=== PATIENT | male | born 1960 | race Caucasian/White ===

== ENCOUNTER → 2017-08-22 | Outpatient (CLI) | payer MEDICAID | LOC: M CARPUL 13:53 | DX: R06.00 Dyspnea, unspecified (principal) | CPT/HCPCS: 94060 ==

== ENCOUNTER → 2017-09-02 | Outpatient (CLI) | payer MEDICAID | LOC: M RAD 10:48 | DX: Z12.2 Encounter for screening for malignant neoplasm of respiratory organs (principal); F17.218 Nicotine dependence, cigarettes, with other nicotine-induced disorders; J84.10 Pulmonary fibrosis, unspecified | CPT/HCPCS: G0297 ==

== ENCOUNTER → 2017-09-15 | Outpatient (CLI) | payer MEDICAID | LOC: M SLEEP 20:00 | DX: R40.0 Somnolence (principal) | CPT/HCPCS: 95810 ==

== ENCOUNTER → 2017-09-24 | Outpatient (CLI) | payer MEDICAID ==
[~2017-09-24] MED LIST: METHACHOLINE KIT (J7674) INH
== END ==
LOC: M CARPUL 13:29
DX: R06.00 Dyspnea, unspecified (principal)
CPT/HCPCS: J7674

== ENCOUNTER → 2017-10-09 | Outpatient (REF) | payer OTHER ==
[2017-10-09 13:58] LABS: VITAMIN B12 LEVEL 361 PG/ML
[2017-10-09 13:59] LABS: FOLATE 15.7 NG/ML
[2017-10-09 14:32] LABS: ESTIMATED AVERAGE GLUCOSE 126 MG/DL (60-110)
[2017-10-09 14:38] LABS: TOTAL PROTEIN 7.7 GM/DL (6.4-8.2)
[2017-10-10 14:19] LABS: ALBUMIN 4.91 GM/DL (3.29-5.55); ALBUMIN % 63.8 % (55.8-66.1); ALPHA-1-GLOBULIN % 3.9 % (2.9-4.9); ALPHA-2-GLOBULINS 0.72 GM/DL (0.42-0.99); ALPHA-2-GLOBULINS % 9.3 % (7.1-11.8); BETA-1-GLOBULINS 0.48 GM/DL (0.28-0.60); BETA-1-GLOBULINS % 6.2 % (4.7-7.2); BETA-2-GLOBULINS % 5.2 % (3.2-6.5); GAMMA GLOBULIN % 11.6 % (11.1-18.8); GAMMA GLOBULINS 0.89 GM/DL (0.65-1.58)
[2017-10-14 14:10] LABS: CERULOPLASMIN 19.5 mg/dL (16.0-31.0); COPPER PLASMA 80 ug/dL (72-166); LEAD BLOOD ADULT 2 ug/dL (0-19); MERCURY LEVEL None Detected ug/L (0.0-14.9); VITAMIN B1 LEVEL WHOLE BLOOD 157.2 nmol/L (66.5-200.0); VITAMIN B6,PYRIDOXAL PHOSPHATE 17.1 ug/L (5.3-46.7); VITAMIN E LEVEL 12.5 mg/L (5.3-17.5)
== END ==
LOC: M LABNEURO 10:26
DX: G62.9 Polyneuropathy, unspecified (principal); E11.9 Type 2 diabetes mellitus without complications; E51.9 Thiamine deficiency, unspecified; E53.8 Deficiency of other specified B group vitamins; E56.0 Deficiency of vitamin E
CPT/HCPCS: 82525

== ENCOUNTER → 2017-11-24 | Outpatient (CLI) | payer OTHER | LOC: M SLEEP 20:00 | DX: G47.33 Obstructive sleep apnea (adult) (pediatric) (principal) | CPT/HCPCS: 95811 ==

== ENCOUNTER → 2018-02-20 | Outpatient (CLI) | payer OTHER ==
[2018-02-20 12:16] LABS: BASO % 0.1 % (0.0-1.0); EOS # 0.5 10^3/uL (0.0-0.50); EOS % 6.2 % (0.0-3.0); HEMATOCRIT 42.3 % (42.0-52.0); HEMOGLOBIN 14.8 g/dl (13.5-17.5); IMMATURE GRANULOCYTE % 0.4 % (0-3.0); INR 0.97; LYMPH # 1.8 10^3/uL (1.5-4.5); LYMPH % 25.2 % (24.0-44.0); MEAN CORPUSCULAR HEMOGLOBIN 30.3 pg (27.0-33.0); MEAN CORPUSCULAR VOLUME 86.5 fl (80.0-96.0); MONO # 0.6 10^3/uL (0.0-0.8); MONO % 8.5 % (0.0-5.0); NEUTROPHILS # 4.4 10^3/uL (1.8-7.7); NEUTROPHILS % 59.6 % (36.0-66.0); PLATELET COUNT, AUTOMATED 215 10^3/uL (150-450); RED BLOOD COUNT 4.89 10^6/uL (4.30-6.10); RED CELL DISTRIBUTION WIDTH 12.2 % (11.5-14.5); WHITE BLOOD COUNT 7.3 10^3/uL (4.0-10.0)
[2018-02-20 12:17] LABS: PARTIAL THROMBOPLASTIN TIME 29.2 SECONDS (25.4-37.6)
[2018-02-20 12:43] LABS: ALBUMIN 4.1 GM/DL (3.2-5.2); ALBUMIN/GLOBULIN RATIO 1.32 (1.00-1.93); ALKALINE PHOSPHATASE 78 U/L (45-117); ALT/SGPT 34 U/L (12-78); ANION GAP 9 MEQ/L (8-16); AST/SGOT 20 U/L (7-37); BILIRUBIN,TOTAL 0.6 MG/DL (0.2-1.0); BLOOD UREA NITROGEN 20 MG/DL (7-18); CALCIUM LEVEL 9.3 MG/DL (8.5-10.1); CARBON DIOXIDE LEVEL 28 MEQ/L (21-32); CHLORIDE LEVEL 105 MEQ/L (98-107); GLOMERULAR FILTRATION RATE > 60.0 (>56); GLUCOSE, FASTING 90 MG/DL (70-100); POTASSIUM SERUM 3.9 MEQ/L (3.5-5.1); SODIUM LEVEL 142 MEQ/L (136-145); TOTAL PROTEIN 7.2 GM/DL (6.4-8.2)
[2018-02-20 12:48] LABS: COLLAGEN EPINEPHRINE 115 SECONDS (74-162)
== END ==
LOC: M LAB 10:33
DX: Z01.818 Encounter for other preprocedural examination (principal)
CPT/HCPCS: 71046

== ENCOUNTER 2018-03-10 06:03 | Inpatient (IN) | payer OTHER ==
[2018-03-10] MEDS ORDERED: LR 1,000 ML IV (06:15)
[2018-03-10] MEDS ORDERED: LIDOCAINE 1% MDV 20ML VIAL SQ (06:15)
[2018-03-10] MEDS ORDERED: ONDANSETRON 4MG/2ML VIAL (J2405) As Ordered (07:13)
[2018-03-10] MEDS ORDERED: PROPOFOL 200 MG/20 ML VIAL As Ordered (07:13)
[2018-03-10] MEDS ORDERED: ROCURONIUM BROMIDE 50 MG/5 ML VIAL As Ordered ×2 (07:13→08:51)
[2018-03-10] MEDS ORDERED: LIDOCAINE 2% INJ 100 MG/5 ML SDV (FOR ANES.) As Ordered (07:13)
[2018-03-10] MEDS ORDERED: dexameTHASONE 4 MG/ML 1ML VIAL (J1100) As Ordered ×2 (07:13)
[2018-03-10] MEDS ORDERED: fentaNYL 250 MCG/5 ML INJECTION (J3010) As Ordered (07:14)
[2018-03-10] MEDS ORDERED: MIDAZOLAM INJ 2 MG/2 ML VIAL (J2250) As Ordered (07:14)
[2018-03-10] MEDS ORDERED: ETOMIDATE INJ 20MG/10ML VIAL As Ordered (07:34)
[2018-03-10] MEDS ORDERED: ePHEDrine SULFATE 25 MG/5 ML(5MG/ML) SYRINGE As Ordered (09:03)
[2018-03-10] MEDS: THROMBIN SOLN 20,000 UNITS KIT As Ordered ×2 (09:35→10:53)
[2018-03-10] MEDS: BACITRACIN PWD 50,000 UNITS VIAL As Ordered (09:35)
[2018-03-10] MEDS ORDERED: fentaNYL 100 MCG/2 ML INJECTION (J3010) As Ordered ×2 (11:10→12:16)
[2018-03-10] MEDS: methylPREDNISolone SUSP 40 MG/ML (DEPO-medrol) VIAL (J1030) As Ordered (11:16)
[2018-03-10] MEDS ORDERED: ESMOLOL INJ 100MG/10ML VIAL As Ordered (11:40)
[2018-03-10] MEDS: fentaNYL 100 MCG/2 ML INJECTION (J3010) IV ×4 (12:18→12:40)
[2018-03-10] MEDS ORDERED: ONDANSETRON 4MG/2ML VIAL (J2405) IV ×2 (12:45→13:00)
[2018-03-10] MEDS: LR 1,000 ML IV (12:45)
[2018-03-10] MEDS: MORPHINE 10 MG/ML 1ML VIAL (J2270) IV ×5 (12:48→13:18)
[2018-03-10] MEDS ORDERED: MORPHINE 4 MG/ML 1ML VIAL/SYRINGE (J2270) IV (13:00)
[2018-03-10] MEDS ORDERED: ALBUTEROL 90 MCG/ACT 8GM HFA INHALER INH (13:00)
[2018-03-10] MEDS ORDERED: NEOSTIGMINE 10 MG/10 ML VIAL (J2710) As Ordered (13:29)
[2018-03-10] MEDS ORDERED: GLYCOPYRROLATE INJ 0.2 MG/ML 2 ML VIAL As Ordered ×2 (13:29)
[2018-03-10] MEDS: KCL 20MEQ IN D5/0.45NS 1000ML 1,000 ML IV (14:29)
[2018-03-10] MEDS: GABAPENTIN 300 MG CAP PO ×2 (17:05→22:16)
[2018-03-10] MEDS ORDERED: AMITRIPTYLINE 10 MG TAB PO (18:00)
[2018-03-10] MEDS: diphenhydrAMINE 25 MG CAP PO (18:08)
[2018-03-10] MEDS: FLUTICASONE HFA 220 MCG 12 GM INHALER (FLOVENT) INH (21:49)
[2018-03-10] MEDS: METOPROLOL TART 50 MG TAB PO (22:15)
[2018-03-10] MEDS: MELOXICAM (MOBIC) 7.5 MG TAB PO (23:04)
[2018-03-11] MEDS: KCL 20MEQ IN D5/0.45NS 1000ML 1,000 ML IV ×2 (00:26→01:02)
[2018-03-11] MEDS: diphenhydrAMINE 25 MG CAP PO ×2 (02:13→10:30)
[2018-03-11] MEDS: ACETAMINOPHEN TAB 650MG DOSE (2X325MG) PO (03:05)
[2018-03-11] MEDS: NORCO, ANEXSIA 5/325MG TABLET (HYDROcodone/ACETAMINOPHEN) PO ×3 (03:06→13:50)
[2018-03-11] MEDS: FLUTICASONE HFA 220 MCG 12 GM INHALER (FLOVENT) INH (08:40)
[2018-03-11] MEDS: GABAPENTIN 300 MG CAP PO ×3 (09:39→17:40)
[2018-03-11] MEDS: PANTOPRAZOLE 40MG TAB (PROTONIX) PO (09:39)
[2018-03-11] MEDS: LOSARTAN 50 MG TAB PO (09:39)
[2018-03-11] MEDS: MELOXICAM (MOBIC) 7.5 MG TAB PO (09:39)
[2018-03-11] MEDS: amLODIPine 5 MG TAB PO (09:40)
[2018-03-11] MEDS: TAMSULOSIN 0.4 MG CAP PO (09:40)
[2018-03-11] MEDS: METOPROLOL TART 50 MG TAB PO (09:40)
[2018-03-11] MEDS: hydroCHLOROthiazide 25 MG TAB PO (09:40)
== END 2018-03-11 18:25 | disposition home or self-care (01) | DRG 304 ==
LOC: M OR 06:03 → M MSPAV 13:37
PROC: 0SG30AJ Fusion of Lumbosacral Joint with Interbody Fusion Device, Posterior Approach, Anterior Column, Open Approach (ICD-10-PCS; principal; 2018-03-10 07:30)
DX: M47.16 Other spondylosis with myelopathy, lumbar region (principal); I10 Essential (primary) hypertension; J44.9 Chronic obstructive pulmonary disease, unspecified; R33.9 Retention of urine, unspecified; N40.0 Benign prostatic hyperplasia without lower urinary tract symptoms; I25.10 Atherosclerotic heart disease of native coronary artery without angina pectoris; I25.2 Old myocardial infarction; E78.5 Hyperlipidemia, unspecified; G47.33 Obstructive sleep apnea (adult) (pediatric); K21.9 Gastro-esophageal reflux disease without esophagitis; F41.9 Anxiety disorder, unspecified; Z87.891 Personal history of nicotine dependence; Z79.899 Other long term (current) drug therapy; R00.0 Tachycardia, unspecified; G89.18 Other acute postprocedural pain

== ENCOUNTER 2018-04-07 13:04 | Outpatient (RCR) | payer OTHER, MEDICAID | END 2018-04-18 | LOC: M PT 13:04 | DX: Z51.89 Encounter for other specified aftercare (principal); M47.16 Other spondylosis with myelopathy, lumbar region; M21.371 Foot drop, right foot; M21.372 Foot drop, left foot; M47.892 Other spondylosis, cervical region | CPT/HCPCS: 97110 ==

== ENCOUNTER → 2018-04-07 | Outpatient (CLI) | payer OTHER, MEDICAID | LOC: M RAD 14:38 | DX: M47.16 Other spondylosis with myelopathy, lumbar region (principal) | CPT/HCPCS: 72100 ==

== ENCOUNTER → 2018-12-10 | Outpatient (REF) | payer BC ==
[~2018-12-10] MED LIST changes: +AMIT10TA PO; +AMLO5TAB6 PO; +FLOM0.4C39; +FLUT22IN INH; +GABA600T4 PO; +LOSA100T5 PO; +MELO7.5T7 PO; -METHACHOLINE KIT (J7674) INH; +METO50TA7; +PANT40TA3; +PROAAER10 INH; +ROSU20TA4; +TIZA4CAP6 PO
[2018-12-10 18:15] LABS: ALBUMIN 4.1 GM/DL (3.2-5.2); ALT/SGPT 24 U/L (12-78); BILIRUBIN,TOTAL 0.4 MG/DL (0.2-1.0); BLOOD UREA NITROGEN 13 MG/DL (7-18); C REACTIVE PROTEIN QUANTITATIV < 0.30 MG/DL (0.00-0.30); CALCIUM LEVEL 9.1 MG/DL (8.5-10.1); CARBON DIOXIDE LEVEL 32 MEQ/L (21-32); CHLORIDE LEVEL 103 MEQ/L (98-107); CREATININE FOR GFR 0.86 MG/DL (0.70-1.30); GLOMERULAR FILTRATION RATE > 60.0 (>56); GLUCOSE, FASTING 104 MG/DL (70-100); POTASSIUM SERUM 4.2 MEQ/L (3.5-5.1); SODIUM LEVEL 141 MEQ/L (136-145); TOTAL PROTEIN 7.4 GM/DL (6.4-8.2)
[2018-12-10 18:17] LABS: BASO % 0.2 % (0.0-1.0); EOS # 0.5 10^3/uL (0.0-0.50); EOS % 5.4 % (0.0-3.0); HEMATOCRIT 48.2 % (42.0-52.0); HEMOGLOBIN 15.9 g/dl (13.5-17.5); LYMPH % 21.8 % (24.0-44.0); MEAN CORPUSCULAR HEMOGLOBIN 29.1 pg (27.0-33.0); MEAN CORPUSCULAR VOLUME 88.3 fl (80.0-96.0); MONO # 0.8 10^3/uL (0.0-0.8); MONO % 8.6 % (0.0-5.0); NEUTROPHILS # 5.8 10^3/uL (1.8-7.7); NEUTROPHILS % 63.6 % (36.0-66.0); PLATELET COUNT, AUTOMATED 261 10^3/uL (150-450); RED BLOOD COUNT 5.46 10^6/uL (4.30-6.10); WHITE BLOOD COUNT 9.1 10^3/uL (4.0-10.0)
[2018-12-10 19:11] LABS: ERYTHROCYTE SEDIMENTATION RATE 2 mm/hr (0-20)
== END ==
LOC: M LABNEURO 13:10
PROVIDERS: ATTEND Psychiatry & Neurology Neurology
DX: M35.3 Polymyalgia rheumatica (principal)

== ENCOUNTER 2019-07-03 19:48 | Inpatient (IN) | payer BC ==
[~2019-07-03] VITALS: Ht 186.1 cm; Wt 89.3 kg
[~2019-07-03 19:48] MED LIST changes: -FLOM0.4C39; +FLOM0.4C39 PO; -METO50TA7; +METO50TA7 PO; -PANT40TA3; +PANT40TA3 PO; -ROSU20TA4; +ROSU20TA5 PO
[2019-07-03] MEDS ORDERED: MOM 30ML SUSPENSION UDC PO PRN (20:15)
[2019-07-03] MEDS: DOCUSATE SODIUM 100 MG CAP PO SCH (21:00)
[2019-07-03 22:00] VITALS: BP 148/94
--- NOTE | 2019-07-03 22:06 | HPEPDOC ---
[facility] Medical History & Physical Date of Admission Jul 03, 2019 Date of Service: Jul 03, 2019 Attending Physician: MARY LUNA MD History and Physical TIME OF SERVICE: 10:20 PM CHIEF COMPLAINT: Transfer for physical therapy eval HISTORY OF PRESENT ILLNESS: This is a 59-year-old male who was transferred from [facility] for evaluation by physical therapy. Prior to arrival [facility] he was sitting in his wheelchair smoking. He attempted to throw the cigarette into a can, but missed and as a result, the cigarette landed on his deck. He was concerned that embers may cause a sally on his deck, so he purposely slid out of his wheelchair to put the cigarette out. Thereafter, he had difficulty standing up. He decided to crawl to his house; during the process he slipped, hit his lower lip and sustained abrasions to the lower arms. He denies any other trauma to his head, and denies having any prodromal symptoms such as chest pain, or shortness of breath. 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 At his baseline he can ambulate with rolling walker. He reports attending physical therapy at 3 different facilities in the last few months. He was told he'll be transferred here so he could be evaluated by physical therapy as [facility] does not have a physical therapist during the weekend . Initial vitals at [facility]: Blood pressure: 116/76/, heart rate 89/, respiratory rate 18/O2 91% on room air. Blood work: WBC 13.7, hemoglobin 14.6, platelets 222, sodium 138, potassium 135, chloride 101, bicarbonate 26, BUN 15, creatinine 0.8, glucose 123, GFR greater than 60, calcium 9.6, INR 1.04, CPK 140 X-ray of the left elbow: Unremarkable. CT of the head: Unremarkable REVIEW OF SYSTEMS: 12 point review of systems negative except as listed in HPI PAST MEDICAL/ SURGICAL HISTORY: ALS diagnosed in May 2019 Chronic CAD status post PCI in 2017/ Dyslipidemia Chronic Asthma. BPH Chronic hypertension. Chronic back pain EUNICE. Status post left hernia repair. Status post laminectomy SOCIAL HISTORY: He smokes He does not drink alcohol. He does not use recreational drugs FAMILY HISTORY: Other had lymphoma. Mother had diabetes. Brother after massive heart attack. Another brother after exposure to [employer] [place]. Another brother has diabetes and epilepsy. One of his sisters has diabetes ALLERGIES: Please see below. HOME MEDICATIONS: Please see below. PHYSICAL EXAMINATION: VITAL SIGNS: Please see below. GENERAL APPEARANCE: well nourished well developed /NAD HEENT: NCAT / MMM&P CARDIOVASCULAR: RRR/NMRG LUNGS: CTAB on RA ABDOMEN: soft & NT on palpation MUSCULOSKELETAL: MEGAN x 4 INTEGUMENT: has abrasions on lower lip and posterior aspect of lower arms NEUROLOGICAL: CN 2-12 grossly intact / speech not dysarthric PSYCHIATRIC: A&O / able to understand and follow all commands LABORATORY DATA: See below. MICROBIOLOGY: Please see below. ASSESSMENT: is a 59 yr old M w a PMH Of ALS, Chronic CAD, Dyslipidemia, Chronic Asthma, Chronic HTN & EUNICE who will was admitted for PT eval and possible transfer in pt rehab. PLAN: 1. Debility/deconditioning/ALS. Plan: Admit to medical floor/fall precautions/physical therapy eval/PAF as con sult for possible placement/ 2. Chronic CAD / Dyslipidemia Plan: Resume home meds 3. Chronic Asthma. Stable. Plan: Resume home meds 4. BPH Plan: Resume home meds 5.Chronic hypertension. Plan: Resume home meds 6. Chronic back pain Plan: Resume home meds 7. EUNICE. Plan May use, on CPAP 8. Tobacco abuse. Plan: Nicotine patch/smoking cessation education DVT prophylaxis with Lovenox. Disposition: Possible transfer to residential vs inpatient rehabilitation after more than 2 minutes stay PFS consult has been placed Home Medications Scheduled Amitriptyline HCl (Amitriptyline HCl) 50 Mg Tablet, 50 MG PO QHS Aspirin (Aspirin) 81 Mg Tab.chew, 81 MG PO QHS Cholecalciferol (Vitamin D3) (Vitamin D3) 1,000 Unit Capsule, 1,000 UNIT PO DAILY Clopidogrel Bisulfate (Clopidogrel) 75 Mg Tablet, 75 MG PO DAILY Duloxetine HCl (Duloxetine HCl) 60 Mg Capsule.dr, 60 MG PO DAILY Fluticasone Propionate (Flovent Hfa) 220 Mcg/Act Aer, 1 PUFF INH BID Gabapentin (Gabapentin) 600 Mg Tab, 600 MG PO TID Losartan/Hydrochlorothiazide (Losartan-Hctz 100-25 mg Tab) 1 Tab Tab, 0.5 TAB PO DAILY Metoprolol Tartrate (Metoprolol Tartrate) 50 Mg Tab, 50 MG PO BID Multivitamin (Multivitamins) 1 Each Capsule, 1 CAP PO DAILY Nitroglycerin (Nitroglycerin) 0.4 Mg Tab.subl, 0.4 MG SL NITRO Pantoprazole Sodium (Pantoprazole Sodium) 40 Mg Tab, 40 MG PO DAILY Rosuvastatin Calcium (Rosuvastatin Calcium) 20 Mg Tab, 20 MG PO QHS Tamsulosin HCl (Flomax) 0.4 Mg Cap, 0.4 MG PO QHS Scheduled PRN Albuterol Sulfate (Proair Hfa) 108 Mcg/Act Aer, 2 PUFF INH Q4HP PRN for SHORTNESS OF BREATH Melatonin (Melatonin) 10 Mg Capsule, 10 MG PO QPM PRN for INSOMNIA Tizanidine HCl (Tizanidine HCl) 4 Mg Cap, 4 MG PO BID PRN for MUSCLE SPASMS PATIENT TAKES A SCHEDULED MED, BID Allergies Coded Allergies: TAPE (Verified Allergy, Unknown, 09/23/17) A-FIB/CHADSVASC A-FIB History Current/History of A-Fib/PAF?: No Current PO Anticoag Therapy: No MARY LUNA MD Jul 03, 2019 22:06
[2019-07-03] MEDS ORDERED: AMIT50TA PO (23:04)
[2019-07-03] MEDS ORDERED: NICOTINE 14 MG/24 HR TRANSDERMAL TD PRN (23:15)
[2019-07-03] MEDS ORDERED: NITR0.4S14 SL (23:17)
[2019-07-03] MEDS ORDERED: MULTCAP PO (23:17)
[2019-07-03] MEDS ORDERED: D 101000 PO (23:17)
[2019-07-03] MEDS ORDERED: DULO60CA35 PO (23:17)
[2019-07-03] MEDS ORDERED: ASPI81CH33 PO (23:17)
[2019-07-03] MEDS ORDERED: CLOP75TA2 PO (23:17)
[2019-07-03] MEDS ORDERED: MELA10CA2 PO (23:18)
[2019-07-03 23:23] LABS: HEMATOCRIT 44.9 % (42.0-52.0); HEMOGLOBIN 14.9 g/dl (13.5-17.5); MEAN CORPUSCULAR HEMOGLOBIN 29.7 pg (27.0-33.0); MEAN CORPUSCULAR HGB CONC 33.2 g/dl (32.0-36.5); MEAN CORPUSCULAR VOLUME 89.4 fl (80.0-96.0); PLATELET COUNT, AUTOMATED 259 10^3/uL (150-450); RED BLOOD COUNT 5.02 10^6/uL (4.30-6.10); WHITE BLOOD COUNT 12.1 10^3/uL (4.0-10.0)
[2019-07-03 23:26] LABS: VENOUS BASE EXCESS -6.6 (-2.0-2.0); VENOUS HCO3 15.6 MEQ/L (23.0-27.0); VENOUS O2 SATURATION 99.4 % (60.0-80.0); VENOUS PARTIAL PRESSURE O2 210.6 mmHg (30.0-50.0); VENOUS PH 7.431 UNITS (7.330-7.430); VENOUS STANDARD HCO3 19.2 MEQ/L; VENOUS TOTAL CO2 16.3 MEQ/L (24.0-28.0)
[2019-07-03 23:48] LABS: ALBUMIN 3.7 GM/DL (3.2-5.2); ALT/SGPT 46 U/L (12-78); BILIRUBIN,TOTAL 0.7 MG/DL (0.2-1.0); BLOOD UREA NITROGEN 16 MG/DL (7-18); CALCIUM LEVEL 9.1 MG/DL (8.8-10.2); CARBON DIOXIDE LEVEL 28 MEQ/L (21-32); CHLORIDE LEVEL 108 MEQ/L (98-107); CREATININE FOR GFR 1.03 MG/DL (0.70-1.30); GLOMERULAR FILTRATION RATE > 60.0 (>49); GLUCOSE, FASTING 115 MG/DL (70-100); POTASSIUM SERUM 3.7 MEQ/L (3.5-5.1); SODIUM LEVEL 141 MEQ/L (136-145); TOTAL PROTEIN 7.1 GM/DL (6.4-8.2)
[2019-07-04 00:35] VITALS: BP 144/91
[2019-07-04] MEDS ORDERED: ALBUTEROL 90 MCG/ACT 8GM HFA INHALER INH PRN ×2 (00:45→01:30)
[2019-07-04] MEDS: FLUTICASONE HFA 220 MCG 12 GM INHALER (FLOVENT) INH SCH ×3 (01:45→19:53)
[2019-07-04] MEDS: RAMELTEON 8 MG TAB (ROZEREM) PO SCH ×2 (01:56→20:51)
[2019-07-04] MEDS: ROSUVASTATIN 10 MG TAB (CRESTOR) PO SCH ×2 (01:57→20:51)
[2019-07-04] MEDS: METOPROLOL TART 50 MG TAB PO SCH ×3 (01:57→20:52)
[2019-07-04] MEDS: ASPIRIN 81 MG CHEW TABLET PO SCH ×2 (01:57→20:51)
[2019-07-04] MEDS: TAMSULOSIN 0.4 MG CAP PO SCH ×2 (01:57→20:51)
[2019-07-04] MEDS: AMITRIPTYLINE 50 MG TAB PO SCH ×2 (01:57→20:51)
[2019-07-04] MEDS: GABAPENTIN 300 MG CAP PO SCH ×4 (02:42→20:52)
[2019-07-04 06:00] VITALS: BP 128/83
[2019-07-04] MEDS ORDERED: FLUTICASONE HFA 220 MCG 12 GM INHALER (FLOVENT) INH SCH (08:00)
[2019-07-04] MEDS ORDERED: HEPARIN SOD (PORCINE) 5000 UNITS/ML VIAL SC SCH (09:00)
[2019-07-04] MEDS ORDERED: GABAPENTIN 300 MG CAP PO SCH (09:00)
[2019-07-04] MEDS: PANTOPRAZOLE 40MG TAB (PROTONIX) PO SCH (09:37)
[2019-07-04] MEDS: CLOPIDOGREL 75 MG TAB PO SCH (09:37)
[2019-07-04] MEDS: hydroCHLOROthiazide 12.5 MG CAPSULE PO SCH (09:38)
[2019-07-04] MEDS: DULoxetine 30 MG CAP (CYMBALTA) PO SCH (09:38)
[2019-07-04] MEDS: MULTIVITAMINS/MINERALS THERAP 1 TAB PO SCH (09:38)
[2019-07-04] MEDS: DOCUSATE SODIUM 100 MG CAP PO SCH ×2 (09:38→20:51)
[2019-07-04] MEDS: LOSARTAN 50 MG TAB PO SCH (09:39)
[2019-07-04] MEDS: ENOXAPARIN 40 MG/0.4 ML SYRINGE (J1650) SC SCH (09:39)
[2019-07-04] MEDS: ACETAMINOPHEN TAB 650MG DOSE (2X325MG) PO PRN ×2 (09:42→21:01)
[2019-07-04 14:00] VITALS: BP 120/79
--- NOTE | 2019-07-04 18:16 | IPNPDOC ---
Subjective Date Seen The patient was seen on 07/04/19. Subjective Chief Complaint/HPI generalized weakness Events since last encounter Pt c/o ambulatory dysfunction and generalized weakness Objective Physical Examination General Exam: Positive: Alert, Cooperative, No Acute Distress ENT Exam: Positive: Mucous membr. moist/pink Neck Exam: Positive: Supple Chest Exam: Positive: Clear to auscultation, Normal air movement Heart Exam: Positive: Rate Normal Abdomen Exam: Positive: Normal bowel sounds, Soft Extremity Exam: Negative: Edema Neuro Exam: Positive: Normal Speech, Strength at 5/5 X4 ext Psych Exam: Positive: Mental status NL Assessment /Plan Assessment 59 y/o M with h/o ALS, Chronic CAD, Dyslipidemia, Chronic Asthma, Chronic HTN & EUNICE was admitted for PT eval and possible transfer in pt rehab. Labs reviewed PLAN: #1. Debility/deconditioning/ALS. Plan: fall precautions/physical therapy eval 2. Chronic CAD / Dyslipidemia Plan: home meds 3. Chronic Asthma. Stable. Plan: home meds 4. BPH Plan: home meds 5.Chronic hypertension. Plan: home meds 6. Chronic back pain Plan: home meds 7. EUNICE. CPAP 8. Tobacco abuse. Plan: Nicotine patch/smoking cessation education DVT prophylaxis with Lovenox. will f/u with discharge planning service for possible rehab Plan/VTE VTE Prophylaxis Ordered?: Yes VS, I&O, 24H, [facility] Vital Signs/I&O Vital Signs Date Time Temp Pulse Resp B/P (MAP) Pulse Ox O2 Delivery O2 Flow Rate FiO2 07/04/19 14:00 97.9 64 18 120/79 (93) 95 Room Air I&O- Last 24 Hours up to 6 AM 07/04/19 06:00 Intake Total 0 ml Output Total 300 ml Balance -300 ml Laboratory Data 24H LABS Laboratory Tests 2 07/03/19 23:13: Nucleated Red Blood Cells % (auto) 0.0, Blood Gas Bicarbonate Standard 19.2, Venous Blood pH 7.431H, Venous Blood Partial Pressure CO2 24.0L, Venous Blood Partial Pressure O2 210.6H, Venous Blood Total Carbon Dioxide 16.3L, Venous Blood HCO3 15.6L, Venous Blood Oxygen Saturation 99.4H, Venous Blood Base Excess -6.6L, Anion Gap 5L, Glomerular Filtration Rate > 60.0, Calcium Level 9.1, Total Bilirubin 0.7, Aspartate Amino Transf (AST/SGOT) 24, Alanine Aminotransferase (ALT/SGPT) 46, Alkaline Phosphatase 121H, Total Protein 7.1, Albumin 3.7, Albumin/Globulin Ratio 1.09 07/04/19 04:36: Urine Color YELLOW, Urine Appearance CLEAR, Urine pH 6.0, Urine Specific [place] 1.016, Urine Protein NEGATIVE, Urine Glucose (UA) NEGATIVE, Urine Ketones NEGATIVE, Urine Blood 1+H, Urine Nitrite NEGATIVE, Urine Bilirubin NEGATIVE, Urine Urobilinogen 0.2, Urine Leukocyte Esterase NEGATIVE, Urine WBC (Auto) 1, Urine RBC (Auto) 19H, Urine Hyaline Casts (Auto) 0, Urine Bacteria (Auto) NEGATIVE, Urine Squamous Epithelial Cells 0, Urine Sperm (Auto) CBC/BMP Laboratory Tests 07/03/19 23:13 RICHARD AHUJA MD Jul 04, 2019 18:16
[2019-07-04 22:00] VITALS: BP 125/78
[2019-07-05 06:00] VITALS: BP 129/80
[2019-07-05] MEDS: FLUTICASONE HFA 220 MCG 12 GM INHALER (FLOVENT) INH SCH ×2 (07:32→20:25)
[2019-07-05] MEDS: hydroCHLOROthiazide 12.5 MG CAPSULE PO SCH (08:58)
[2019-07-05] MEDS: LOSARTAN 50 MG TAB PO SCH (08:58)
[2019-07-05] MEDS: CLOPIDOGREL 75 MG TAB PO SCH (08:58)
[2019-07-05] MEDS: PANTOPRAZOLE 40MG TAB (PROTONIX) PO SCH (08:58)
[2019-07-05] MEDS: DULoxetine 30 MG CAP (CYMBALTA) PO SCH (08:58)
[2019-07-05] MEDS: GABAPENTIN 300 MG CAP PO SCH ×3 (08:58→20:46)
[2019-07-05] MEDS: MULTIVITAMINS/MINERALS THERAP 1 TAB PO SCH (08:58)
[2019-07-05] MEDS: DOCUSATE SODIUM 100 MG CAP PO SCH ×2 (08:58→20:45)
[2019-07-05] MEDS: ENOXAPARIN 40 MG/0.4 ML SYRINGE (J1650) SC SCH (08:59)
[2019-07-05] MEDS: METOPROLOL TART 50 MG TAB PO SCH ×2 (08:59→20:45)
[2019-07-05 14:00] VITALS: BP 125/86
--- NOTE | 2019-07-05 16:17 | IPNPDOC ---
Subjective Date Seen The patient was seen on 07/05/19. Subjective Chief Complaint/HPI generalize weakness Events since last encounter Pt is c/o ambulatory dysfunction due to generalized weakness Objective Physical Examination General Exam: Positive: Alert, Cooperative, No Acute Distress Eye Exam: Positive: PERRLA ENT Exam: Positive: Mucous membr. moist/pink Neck Exam: Positive: Supple Chest Exam: Positive: Clear to auscultation, Normal air movement Heart Exam: Positive: Rate Normal Abdomen Exam: Positive: Normal bowel sounds, Soft Extremity Exam: Negative: Edema Skin Exam: Positive: Nl turgor and temperature Neuro Exam: Positive: Normal Speech, Strength at 5/5 X4 ext Psych Exam: Positive: Mental status NL Assessment /Plan Assessment 59 y/o M with h/o ALS, Chronic CAD, Dyslipidemia, Chronic Asthma, Chronic HTN & EUNICE was admitted for PT eval and possible transfer in pt rehab. Labs reviewed PLAN: 1. Debility/deconditioning/ALS. Plan: fall precautions/physical therapy eval supportive care 2. Chronic CAD / Dyslipidemia home meds 3. Chronic Asthma. Stable. home meds 4. BPH home meds 5.hypertension. home meds 6. Chronic back pain home meds 7. EUNICE. CPAP 8. Tobacco abuse. Nicotine patch/smoking cessation education DVT prophylaxis with Lovenox. will f/u with discharge planning service for possible rehab Plan/VTE VTE Prophylaxis Ordered?: Yes VS, I&O, 24H, Fishbone Vital Signs/I&O Vital Signs Date Time Temp Pulse Resp B/P (MAP) Pulse Ox O2 Delivery O2 Flow Rate FiO2 07/05/19 08:59 68 129/80 07/05/19 06:00 97.5 16 95 Room Air I&O- Last 24 Hours up to 6 AM 07/05/19 05:59 Intake Total 1290 ml Output Total 1120 ml Balance 170 ml RICHARD AHUJA MD Jul 05, 2019 16:17
[2019-07-05] MEDS: ROSUVASTATIN 10 MG TAB (CRESTOR) PO SCH (20:45)
[2019-07-05] MEDS: AMITRIPTYLINE 50 MG TAB PO SCH (20:45)
[2019-07-05] MEDS: ASPIRIN 81 MG CHEW TABLET PO SCH (20:45)
[2019-07-05] MEDS: TAMSULOSIN 0.4 MG CAP PO SCH (20:45)
[2019-07-05] MEDS: RAMELTEON 8 MG TAB (ROZEREM) PO SCH (20:46)
[2019-07-05] MEDS: ACETAMINOPHEN TAB 650MG DOSE (2X325MG) PO PRN (20:47)
[2019-07-05 22:00] VITALS: BP 125/85
[2019-07-06 06:00] VITALS: BP 127/78
[2019-07-06] MEDS: FLUTICASONE HFA 220 MCG 12 GM INHALER (FLOVENT) INH SCH ×2 (07:19→22:32)
[2019-07-06] MEDS: ACETAMINOPHEN TAB 650MG DOSE (2X325MG) PO PRN (09:57)
[2019-07-06] MEDS: MULTIVITAMINS/MINERALS THERAP 1 TAB PO SCH (09:57)
[2019-07-06] MEDS: PANTOPRAZOLE 40MG TAB (PROTONIX) PO SCH (09:57)
[2019-07-06] MEDS: CLOPIDOGREL 75 MG TAB PO SCH (09:57)
[2019-07-06] MEDS: LOSARTAN 50 MG TAB PO SCH (09:57)
[2019-07-06] MEDS: GABAPENTIN 300 MG CAP PO SCH ×3 (09:57→21:52)
[2019-07-06] MEDS: ENOXAPARIN 40 MG/0.4 ML SYRINGE (J1650) SC SCH (09:58)
[2019-07-06] MEDS: DOCUSATE SODIUM 100 MG CAP PO SCH ×2 (09:58→21:52)
[2019-07-06] MEDS: METOPROLOL TART 50 MG TAB PO SCH ×2 (09:58→21:52)
[2019-07-06] MEDS: hydroCHLOROthiazide 12.5 MG CAPSULE PO SCH (09:58)
[2019-07-06] MEDS: DULoxetine 30 MG CAP (CYMBALTA) PO SCH (09:58)
[2019-07-06 14:00] VITALS: BP 130/75
--- NOTE | 2019-07-06 17:37 | IPNPDOC ---
Subjective Date Seen The patient was seen on 07/06/19. Subjective Chief Complaint/HPI weakness Events since last encounter Pt still c/o generalized weakness and ambulatory dysfunction due to generalized weakness Objective Physical Examination General Exam: Positive: Alert, Cooperative, No Acute Distress ENT Exam: Positive: Mucous membr. moist/pink Neck Exam: Positive: Supple Chest Exam: Positive: Clear to auscultation, Normal air movement Heart Exam: Positive: Rate Normal Abdomen Exam: Positive: Normal bowel sounds, Soft Extremity Exam: Negative: Edema Skin Exam: Positive: Nl turgor and temperature Neuro Exam: Positive: Normal Speech, Strength at 5/5 X4 ext Psych Exam: Positive: Mental status NL Assessment /Plan Assessment 59 y/o M with h/o ALS, Chronic CAD, Dyslipidemia, Chronic Asthma, Chronic HTN & EUNICE was admitted for PT eval and possible transfer in pt rehab. Labs reviewed PLAN: 1. Debility/deconditioning/ALS. improving fall precautions/physical therapy eval supportive care 2. Chronic CAD / Dyslipidemia home meds 3. Chronic Asthma. Stable. home meds 4. BPH home meds 5.hypertension. home meds 6. Chronic back pain home meds 7. EUNICE. CPAP 8. Tobacco abuse. Nicotine patch/smoking cessation education DVT prophylaxis with Lovenox. will f/u with discharge planning service for possible rehab based on PT eval Plan/VTE VTE Prophylaxis Ordered?: Yes VS, I&O, 24H, Fishbone Vital Signs/I&O Vital Signs Date Time Temp Pulse Resp B/P (MAP) Pulse Ox O2 Delivery O2 Flow Rate FiO2 07/06/19 14:00 97.6 79 16 130/75 (93) 100 07/06/19 06:00 Room Air I&O- Last 24 Hours up to 6 AM 07/06/19 06:00 Intake Total 1040 ml Output Total 300 ml Balance 740 ml RICHARD AHUJA MD Jul 06, 2019 17:37
[2019-07-06 18:00] VITALS: BP 121/81
[2019-07-06] MEDS: RAMELTEON 8 MG TAB (ROZEREM) PO SCH (21:52)
[2019-07-06] MEDS: AMITRIPTYLINE 50 MG TAB PO SCH (21:52)
[2019-07-06] MEDS: ASPIRIN 81 MG CHEW TABLET PO SCH (21:52)
[2019-07-06] MEDS: ROSUVASTATIN 10 MG TAB (CRESTOR) PO SCH (21:52)
[2019-07-06] MEDS: TAMSULOSIN 0.4 MG CAP PO SCH (21:52)
[2019-07-06] MEDS: tiZANidine 4 MG TAB PO PRN (21:53)
[2019-07-06 22:00] VITALS: BP 125/82
[2019-07-07 06:00] VITALS: BP 132/87
[2019-07-07] MEDS: DOCUSATE SODIUM 100 MG CAP PO SCH ×2 (09:17→20:42)
[2019-07-07] MEDS: LOSARTAN 50 MG TAB PO SCH (09:17)
[2019-07-07] MEDS: hydroCHLOROthiazide 12.5 MG CAPSULE PO SCH (09:17)
[2019-07-07] MEDS: METOPROLOL TART 50 MG TAB PO SCH ×2 (09:18→20:43)
[2019-07-07] MEDS: MULTIVITAMINS/MINERALS THERAP 1 TAB PO SCH (09:18)
[2019-07-07] MEDS: ENOXAPARIN 40 MG/0.4 ML SYRINGE (J1650) SC SCH (09:18)
[2019-07-07] MEDS: DULoxetine 30 MG CAP (CYMBALTA) PO SCH (09:18)
[2019-07-07] MEDS: GABAPENTIN 300 MG CAP PO SCH ×3 (09:18→20:43)
[2019-07-07] MEDS: PANTOPRAZOLE 40MG TAB (PROTONIX) PO SCH (09:18)
[2019-07-07] MEDS: CLOPIDOGREL 75 MG TAB PO SCH (09:18)
[2019-07-07] MEDS: tiZANidine 4 MG TAB PO PRN (09:26)
[2019-07-07] MEDS: FLUTICASONE HFA 220 MCG 12 GM INHALER (FLOVENT) INH SCH ×2 (09:35→20:16)
[2019-07-07 14:00] VITALS: BP 130/75
[2019-07-07] MEDS: ASPIRIN 81 MG CHEW TABLET PO SCH (20:42)
[2019-07-07] MEDS: ROSUVASTATIN 10 MG TAB (CRESTOR) PO SCH (20:42)
[2019-07-07] MEDS: AMITRIPTYLINE 50 MG TAB PO SCH (20:42)
[2019-07-07] MEDS: TAMSULOSIN 0.4 MG CAP PO SCH (20:42)
[2019-07-07] MEDS: ACETAMINOPHEN TAB 650MG DOSE (2X325MG) PO PRN (20:43)
[2019-07-07] MEDS: RAMELTEON 8 MG TAB (ROZEREM) PO SCH (20:43)
--- NOTE | 2019-07-07 20:54 | IPNPDOC ---
Subjective Date Seen The patient was seen on 07/07/19. Subjective Chief Complaint/HPI Patient had no overnight events. Reports baseline lightheadedness upon ambulation. Pending placement. Objective Physical Examination General Exam: Positive: Alert, Cooperative, No Acute Distress ENT Exam: Positive: Mucous membr. moist/pink Neck Exam: Positive: Supple Chest Exam: Positive: Clear to auscultation, Normal air movement Heart Exam: Positive: Rate Normal Abdomen Exam: Positive: Normal bowel sounds, Soft Extremity Exam: Negative: Edema Skin Exam: Positive: Nl turgor and temperature Neuro Exam: Positive: Normal Speech, Strength at 5/5 X4 ext Psych Exam: Positive: Mental status NL Other physical findings PHYSICAL EXAMINATION: VITAL SIGNS: Please see below. GENERAL: male in No distress HEENT: Normocephalic, atraumatic, moist mucous membranes NECK: Supple CARDIOVASCULAR EXAMINATION: S1, S2 RESPIRATORY EXAMINATION: CTAB ABDOMINAL EXAMINATION: Soft, nontender, nondistended, positive bowel sounds EXTREMITIES: no edema SKIN: No rash NEUROLOGICAL EXAMINATION: Alert and oriented 3, no focal deficits, slight weakness on the left lower extremity, finger to nose bilaterally intact, h eel-to-ivan bilaterally intact, no dysdiadochokinesia PSYCHIATRIC EXAMINATION: Calm and cooperative, appropriate affect Assessment /Plan Assessment Pt is a 59 yo M with PMH of ALS, Chronic CAD, Dyslipidemia, Chronic Asthma, Chronic HTN & EUNICE was admitted for PT eval and possible transfer in pt rehab. #Deconditioning/ALS: Pending placement #Chronic CAD / Dyslipidemia: continue home meds #Chronic Asthma: continue home meds #BPH: continue home meds #HLD: Continue home meds #HTN: continue home meds #Chronic back pain: continue home meds #EUNICE: continue CPAP #Tobacco abuse: Nicotine patch/smoking cessation education DVT ppx: Enoxaparin. Full code Plan/VTE VTE Prophylaxis Ordered?: Yes VS, I&O, 24H, Fishbone Vital Signs/I&O Vital Signs Date Time Temp Pulse Resp B/P (MAP) Pulse Ox O2 Delivery O2 Flow Rate FiO2 07/07/19 20:43 96 142/88 07/07/19 14:00 97.3 18 98 Room Air I&O- Last 24 Hours up to 6 AM 07/07/19 06:00 Intake Total 1554 ml Output Total 0 ml Balance 1554 ml GEOVANNY RODRIGUEZ MD 19, 2019 20:54
[2019-07-07 22:00] VITALS: BP 142/88
[2019-07-08 06:00] VITALS: BP 130/88
[2019-07-08 08:45] VITALS: BP 133/90
[2019-07-08] MEDS: FLUTICASONE HFA 220 MCG 12 GM INHALER (FLOVENT) INH SCH ×2 (08:50→19:44)
[2019-07-08] MEDS: ENOXAPARIN 40 MG/0.4 ML SYRINGE (J1650) SC SCH (09:21)
[2019-07-08] MEDS: CLOPIDOGREL 75 MG TAB PO SCH (09:24)
[2019-07-08] MEDS: GABAPENTIN 300 MG CAP PO SCH ×3 (09:25→21:56)
[2019-07-08] MEDS: DULoxetine 30 MG CAP (CYMBALTA) PO SCH (09:25)
[2019-07-08] MEDS: MULTIVITAMINS/MINERALS THERAP 1 TAB PO SCH (09:27)
[2019-07-08] MEDS: METOPROLOL TART 50 MG TAB PO SCH ×2 (09:27→21:58)
[2019-07-08] MEDS: PANTOPRAZOLE 40MG TAB (PROTONIX) PO SCH (09:27)
[2019-07-08] MEDS: LOSARTAN 50 MG TAB PO SCH (09:27)
[2019-07-08] MEDS: DOCUSATE SODIUM 100 MG CAP PO SCH ×2 (09:27→21:56)
[2019-07-08] MEDS: hydroCHLOROthiazide 12.5 MG CAPSULE PO SCH (10:33)
--- NOTE | 2019-07-08 13:44 | REP ---
RIGHT SHOULDER SERIES: Three views. HISTORY: Right shoulder pain. Evaluate for fracture. Swelling. No comparison study. FINDINGS: Three views right shoulder demonstrate normal alignment of the glenohumeral and acromioclavicular joints. Periarticular soft tissues are unremarkable. There is mild narrowing of the acromioclavicular joint. No fracture or subluxation is seen. IMPRESSION: Mild AC joint narrowing consistent with osteoarthritis. No erosive change seen. No fracture noted. Electronically Signed by Regis Johnson MD 07/08/2019 03:25 P
[2019-07-08 13:49] VITALS: BP 125/80
[2019-07-08 14:00] VITALS: BP 126/82
--- NOTE | 2019-07-08 21:22 | IPNPDOC ---
Date Seen The patient was seen on 07/08/19. Progress Note SUBJECTIVE: Patient had no overnight events, he still complains of right shoulder pain which appears to be controlled with current pain management, pat ient appears to be anxious. OBJECTIVE PHYSICAL EXAMINATION: VITAL SIGNS: Please see below. GENERAL: male in No distress HEENT: Normocephalic, atraumatic, moist mucous membranes NECK: Supple CARDIOVASCULAR EXAMINATION: S1, S2 RESPIRATORY EXAMINATION: CTAB ABDOMINAL EXAMINATION: Soft, nontender, nondistended, positive bowel sounds EXTREMITIES: no edema, b/l UE FROM, no bruising SKIN: No rash NEUROLOGICAL EXAMINATION: Alert and oriented 3, no focal deficits, slight weakness on the left lower extremity, finger to nose bilaterally intact, [id number] bilaterally intact, no dysdiadochokinesia PSYCHIATRIC EXAMINATION: Calm and cooperative, appropriate affect LABORATORY DATA, IMAGING STUDIES, MICROBIOLOGY: Please see below. DVT prophylaxis ordered?: enox ASSESSMENT AND PLAN: Pt is a 59 yo M with PMH of ALS, Chronic CAD, Dyslipidemia, Chronic Asthma, Chronic HTN & EUNICE was admitted for PT eval and possible transfer in pt rehab. #Deconditioning/ALS: Pending placement #R shoulder pain: X-ray reveals osteoarthritis, placed an orthotic consult, discuss with ortho, fractures, conservative management, trial of naproxen twice a day for 1 week. #Chronic CAD / Dyslipidemia: continue home meds #Chronic Asthma: continue home meds #BPH: continue home meds #HLD: Continue home meds #HTN: continue home meds #Chronic back pain: continue home meds #EUNICE: continue CPAP #Tobacco abuse: Nicotine patch/smoking cessation education DVT ppx: Enoxaparin. Full code dispo: pending placement VS, I&O, 24H, Fishbone Vital Signs/I&O Vital Signs Date Time Temp Pulse Resp B/P (MAP) Pulse Ox O2 Delivery O2 Flow Rate FiO2 07/08/19 14:00 98.0 98 17 126/82 (97) 96 Room Air I&O- Last 24 Hours up to 6 AM 07/08/19 06:00 Intake Total 1744 ml Output Total 1 ml Balance 1743 ml GEOVANNY RODRIGUEZ MD Jul 08, 2019 21:22
[2019-07-08] MEDS: AMITRIPTYLINE 50 MG TAB PO SCH (21:56)
[2019-07-08] MEDS: ASPIRIN 81 MG CHEW TABLET PO SCH (21:56)
[2019-07-08] MEDS: ROSUVASTATIN 10 MG TAB (CRESTOR) PO SCH (21:56)
[2019-07-08] MEDS: TAMSULOSIN 0.4 MG CAP PO SCH (21:56)
[2019-07-08] MEDS: RAMELTEON 8 MG TAB (ROZEREM) PO SCH (21:57)
[2019-07-08] MEDS: tiZANidine 4 MG TAB PO PRN (21:57)
[2019-07-08 22:00] VITALS: BP 126/74
[2019-07-09 06:00] VITALS: BP 124/73
--- NOTE | 2019-07-09 07:40 | IPNPDOC ---
Date Seen The patient was seen on 07/09/19. Progress Note SUBJECTIVE: Patient had no overnight events, no change in right shoulder pain, started on naproxen yesterday 07/08/19. OBJECTIVE PHYSICAL EXAMINATION: VITAL SIGNS: Please see below. GENERAL: male in No distress HEENT: Normocephalic, atraumatic, moist mucous membranes NECK: Supple CARDIOVASCULAR EXAMINATION: S1, S2 RESPIRATORY EXAMINATION: CTAB ABDOMINAL EXAMINATION: Soft, nontender, nondistended, positive bowel sounds EXTREMITIES: no edema, b/l UE FROM, no bruising, tenderness elicited with R internal and external rotation SKIN: No rash NEUROLOGICAL EXAMINATION: Alert and oriented 3, no focal deficits, slight weakness on the left lower extremity, finger to nose bilaterally intact, [id number] bilaterally intact, no dysdiadochokinesia PSYCHIATRIC EXAMINATION: Calm and cooperative, appropriate affect LABORATORY DATA, IMAGING STUDIES, MICROBIOLOGY: Please see below. DVT prophylaxis ordered?: enox ASSESSMENT AND PLAN: Pt is a 59 yo M with PMH of ALS, Chronic CAD, Dyslipidemia, Chronic Asthma, Chronic HTN & EUNICE was admitted for PT eval and possible transfer in pt rehab. #Deconditioning/ALS: Pending placement #R shoulder pain: X-ray reveals osteoarthritis, placed an orthotic consult, discuss with ortho, fractures, conservative management, trial of naproxen twice a day for 1 week. #Chronic CAD / Dyslipidemia: continue home meds #Chronic Asthma: continue home meds #BPH: continue home meds #HLD: Continue home meds #HTN: continue home meds #Chronic back pain: continue home meds #EUNICE: continue CPAP #Tobacco abuse: Nicotine patch/smoking cessation education DVT ppx: Enoxaparin. Full code dispo: pending placement VS, I&O, 24H, Fishbone Vital Signs/I&O Vital Signs Date Time Temp Pulse Resp B/P (MAP) Pulse Ox O2 Delivery O2 Flow Rate FiO2 07/09/19 06:00 97.1 66 20 124/73 (90) 97 07/08/19 14:00 Room Air I&O- Last 24 Hours up to 6 AM 07/09/19 05:59 Intake Total 1080 ml Output Total 0 ml Balance 1080 ml GEOVANNY RODRIGUEZ MD Jul 09, 2019 07:40
[2019-07-09] MEDS: MULTIVITAMINS/MINERALS THERAP 1 TAB PO SCH (08:18)
[2019-07-09] MEDS: GABAPENTIN 300 MG CAP PO SCH ×3 (08:18→21:58)
[2019-07-09] MEDS: ENOXAPARIN 40 MG/0.4 ML SYRINGE (J1650) SC SCH (08:18)
[2019-07-09] MEDS: hydroCHLOROthiazide 12.5 MG CAPSULE PO SCH (08:19)
[2019-07-09] MEDS: CLOPIDOGREL 75 MG TAB PO SCH (08:19)
[2019-07-09] MEDS: METOPROLOL TART 50 MG TAB PO SCH ×2 (08:19→21:59)
[2019-07-09] MEDS: DOCUSATE SODIUM 100 MG CAP PO SCH ×2 (08:19→21:59)
[2019-07-09] MEDS: LOSARTAN 50 MG TAB PO SCH (08:19)
[2019-07-09] MEDS: DULoxetine 30 MG CAP (CYMBALTA) PO SCH (08:20)
[2019-07-09] MEDS: NAPROXEN 250 MG TAB PO SCH ×2 (08:20→21:58)
[2019-07-09] MEDS: PANTOPRAZOLE 40MG TAB (PROTONIX) PO SCH (08:20)
[2019-07-09] MEDS: FLUTICASONE HFA 220 MCG 12 GM INHALER (FLOVENT) INH SCH ×2 (08:22→19:52)
[2019-07-09 14:00] VITALS: BP 128/84
[2019-07-09 20:00] VITALS: BP 132/79
[2019-07-09] MEDS: TAMSULOSIN 0.4 MG CAP PO SCH (21:58)
[2019-07-09] MEDS: ASPIRIN 81 MG CHEW TABLET PO SCH (21:58)
[2019-07-09] MEDS: tiZANidine 4 MG TAB PO PRN (21:59)
[2019-07-09] MEDS: ROSUVASTATIN 10 MG TAB (CRESTOR) PO SCH (21:59)
[2019-07-09] MEDS: AMITRIPTYLINE 50 MG TAB PO SCH (21:59)
[2019-07-09] MEDS: RAMELTEON 8 MG TAB (ROZEREM) PO SCH (21:59)
[2019-07-09 22:00] VITALS: BP 132/79
[2019-07-10 06:00] VITALS: BP 121/80
[2019-07-10] MEDS: FLUTICASONE HFA 220 MCG 12 GM INHALER (FLOVENT) INH SCH ×2 (07:51→18:25)
[2019-07-10] MEDS: hydroCHLOROthiazide 12.5 MG CAPSULE PO SCH (08:25)
[2019-07-10] MEDS: PANTOPRAZOLE 40MG TAB (PROTONIX) PO SCH (08:25)
[2019-07-10] MEDS: MULTIVITAMINS/MINERALS THERAP 1 TAB PO SCH (08:25)
[2019-07-10] MEDS: CLOPIDOGREL 75 MG TAB PO SCH (08:25)
[2019-07-10] MEDS: NAPROXEN 250 MG TAB PO SCH ×2 (08:25→20:05)
[2019-07-10] MEDS: ENOXAPARIN 40 MG/0.4 ML SYRINGE (J1650) SC SCH (08:25)
[2019-07-10] MEDS: METOPROLOL TART 50 MG TAB PO SCH ×2 (08:26→20:07)
[2019-07-10] MEDS: LOSARTAN 50 MG TAB PO SCH (08:26)
[2019-07-10] MEDS: GABAPENTIN 300 MG CAP PO SCH ×3 (08:26→20:04)
[2019-07-10] MEDS: DULoxetine 30 MG CAP (CYMBALTA) PO SCH (08:27)
[2019-07-10] MEDS: DOCUSATE SODIUM 100 MG CAP PO SCH ×2 (08:27→20:04)
--- NOTE | 2019-07-10 08:34 | IPNPDOC ---
Date Seen The patient was seen on 07/10/19. Progress Note SUBJECTIVE: Patient had no overnight events, no change in right shoulder pain, started on naproxen 07/08/19, shoulder improved. Pending placement. OBJECTIVE PHYSICAL EXAMINATION: VITAL SIGNS: Please see below. GENERAL: male in No distress HEENT: Normocephalic, atraumatic, moist mucous membranes NECK: Supple CARDIOVASCULAR EXAMINATION: S1, S2 RESPIRATORY EXAMINATION: CTAB ABDOMINAL EXAMINATION: Soft, nontender, nondistended, positive bowel sounds EXTREMITIES: no edema, b/l UE FROM, no bruising, tenderness elicited with R internal and external rotation SKIN: No rash NEUROLOGICAL EXAMINATION: Alert and oriented 3, no focal deficits, slight weakness on the left lower extremity, finger to nose bilaterally intact, [id number] bilaterally intact, no dysdiadochokinesia PSYCHIATRIC EXAMINATION: Calm and cooperative, appropriate affect LABORATORY DATA, IMAGING STUDIES, MICROBIOLOGY: Please see below. DVT prophylaxis ordered?: enox ASSESSMENT AND PLAN: Pt is a 59 yo M with PMH of ALS, Chronic CAD, Dyslipidemia, Chronic Asthma, Chronic HTN & EUNICE was admitted for PT eval and possible transfer in pt rehab. #Deconditioning/ALS: Pending placement #R shoulder pain: X-ray reveals osteoarthritis, placed an orthotic consult, discuss with ortho, fractures, conservative management, trial of naproxen twice a day for 1 week. #Chronic CAD / Dyslipidemia: continue home meds #Chronic Asthma: continue home meds #BPH: continue home meds #HLD: Continue home meds #HTN: continue home meds #Chronic back pain: continue home meds #EUNICE: continue CPAP #Tobacco abuse: Nicotine patch/smoking cessation education DVT ppx: Enoxaparin. Full code dispo: pending placement VS, I&O, 24H, Fishbone Vital Signs/I&O Vital Signs Date Time Temp Pulse Resp B/P (MAP) Pulse Ox O2 Delivery O2 Flow Rate FiO2 07/10/19 06:00 97.3 60 18 121/80 (94) 94 07/09/19 14:00 Room Air I&O- Last 24 Hours up to 6 AM 07/10/19 05:59 Intake Total 1970 ml Output Total 0 ml Balance 1970 ml GEOVANNY RODRIGUEZ MD Jul 10, 2019 08:34
[2019-07-10 14:00] VITALS: BP 129/93
[2019-07-10] MEDS: RAMELTEON 8 MG TAB (ROZEREM) PO SCH (20:04)
[2019-07-10] MEDS: ASPIRIN 81 MG CHEW TABLET PO SCH (20:04)
[2019-07-10] MEDS: ROSUVASTATIN 10 MG TAB (CRESTOR) PO SCH (20:04)
[2019-07-10] MEDS: TAMSULOSIN 0.4 MG CAP PO SCH (20:04)
[2019-07-10] MEDS: AMITRIPTYLINE 50 MG TAB PO SCH (20:04)
[2019-07-10 22:00] VITALS: BP 122/80
[2019-07-11 06:00] VITALS: BP 124/79
--- NOTE | 2019-07-11 08:00 | IPNPDOC ---
Date Seen The patient was seen on 07/11/19. Progress Note SUBJECTIVE: Patient had no overnight events, no change in right shoulder pain, started on naproxen 07/08/19, shoulder improved. Pending placement. Request brake repair for walker, will consult case management for dc planning. OBJECTIVE PHYSICAL EXAMINATION: VITAL SIGNS: Please see below. GENERAL: male in No distress HEENT: Normocephalic, atraumatic, moist mucous membranes NECK: Supple CARDIOVASCULAR EXAMINATION: S1, S2 RESPIRATORY EXAMINATION: CTAB ABDOMINAL EXAMINATION: Soft, nontender, nondistended, positive bowel sounds EXTREMITIES: no edema, b/l UE FROM, no bruising, tenderness elicited with R internal and external rotation SKIN: No rash NEUROLOGICAL EXAMINATION: Alert and oriented 3, no focal deficits, slight weakness on the left lower extremity, finger to nose bilaterally intact, [id number] bilaterally intact, no dysdiadochokinesia PSYCHIATRIC EXAMINATION: Calm and cooperative, appropriate affect LABORATORY DATA, IMAGING STUDIES, MICROBIOLOGY: Please see below. DVT prophylaxis ordered?: enox ASSESSMENT AND PLAN: Pt is a 59 yo M with PMH of ALS, Chronic CAD, Dyslipidemia, Chronic Asthma, Chronic HTN & EUNICE was admitted for PT eval and possible transfer in pt rehab. #Deconditioning/ALS: Pending placement, f/u with case management for brakes on walker. #R shoulder pain: X-ray reveals osteoarthritis, placed an orthotic consult, discuss with ortho, fractures, conservative management, trial of naproxen twice a day for 1 week. #Chronic CAD / Dyslipidemia: continue home meds #Chronic Asthma: continue home meds #BPH: continue home meds #HLD: Continue home meds #HTN: continue home meds #Chronic back pain: continue home meds #EUNICE: continue CPAP #Tobacco abuse: Nicotine patch/smoking cessation education DVT ppx: Enoxaparin. Full code dispo: pending placement VS, I&O, 24H, Fishbone Vital Signs/I&O Vital Signs Date Time Temp Pulse Resp B/P (MAP) Pulse Ox O2 Delivery O2 Flow Rate FiO2 07/11/19 06:00 97.8 76 18 124/79 (94) 95 Room Air I&O- Last 24 Hours up to 6 AM 07/11/19 06:00 Intake Total 1560 ml Output Total 0 ml Balance 1560 ml GEOVANNY RODRIGUEZ MD Jul 11, 2019 08:00
[2019-07-11] MEDS: NAPROXEN 250 MG TAB PO SCH ×2 (08:17→20:13)
[2019-07-11] MEDS: MULTIVITAMINS/MINERALS THERAP 1 TAB PO SCH (08:17)
[2019-07-11] MEDS: PANTOPRAZOLE 40MG TAB (PROTONIX) PO SCH (08:17)
[2019-07-11] MEDS: METOPROLOL TART 50 MG TAB PO SCH ×2 (08:19→20:12)
[2019-07-11] MEDS: DULoxetine 30 MG CAP (CYMBALTA) PO SCH (08:20)
[2019-07-11] MEDS: ENOXAPARIN 40 MG/0.4 ML SYRINGE (J1650) SC SCH (08:20)
[2019-07-11] MEDS: LOSARTAN 50 MG TAB PO SCH (08:20)
[2019-07-11] MEDS: CLOPIDOGREL 75 MG TAB PO SCH (08:20)
[2019-07-11] MEDS: hydroCHLOROthiazide 12.5 MG CAPSULE PO SCH (08:20)
[2019-07-11] MEDS: DOCUSATE SODIUM 100 MG CAP PO SCH ×2 (08:20→20:12)
[2019-07-11] MEDS: GABAPENTIN 300 MG CAP PO SCH ×3 (08:20→20:13)
[2019-07-11] MEDS: FLUTICASONE HFA 220 MCG 12 GM INHALER (FLOVENT) INH SCH ×2 (08:54→19:41)
[2019-07-11 14:00] VITALS: BP 131/87
[2019-07-11] MEDS: RILUZOLE 50 MG PO SCH (17:35)
[2019-07-11] MEDS: ASPIRIN 81 MG CHEW TABLET PO SCH (20:12)
[2019-07-11] MEDS: RAMELTEON 8 MG TAB (ROZEREM) PO SCH (20:13)
[2019-07-11] MEDS: TAMSULOSIN 0.4 MG CAP PO SCH (20:14)
[2019-07-11] MEDS: AMITRIPTYLINE 50 MG TAB PO SCH (20:14)
[2019-07-11] MEDS: ROSUVASTATIN 10 MG TAB (CRESTOR) PO SCH (20:14)
[2019-07-11 22:00] VITALS: BP 122/78
[2019-07-12] MEDS: tiZANidine 4 MG TAB PO PRN (01:41)
[2019-07-12 06:00] VITALS: BP 118/78
[2019-07-12] MEDS: METOPROLOL TART 50 MG TAB PO SCH ×2 (08:00→20:19)
[2019-07-12] MEDS: PANTOPRAZOLE 40MG TAB (PROTONIX) PO SCH (08:00)
[2019-07-12] MEDS: GABAPENTIN 300 MG CAP PO SCH ×3 (08:00→20:17)
[2019-07-12] MEDS: LOSARTAN 50 MG TAB PO SCH (08:01)
[2019-07-12] MEDS: MULTIVITAMINS/MINERALS THERAP 1 TAB PO SCH (08:01)
[2019-07-12] MEDS: DOCUSATE SODIUM 100 MG CAP PO SCH ×2 (08:01→20:17)
[2019-07-12] MEDS: CLOPIDOGREL 75 MG TAB PO SCH (08:01)
[2019-07-12] MEDS: hydroCHLOROthiazide 12.5 MG CAPSULE PO SCH (08:01)
[2019-07-12] MEDS: DULoxetine 30 MG CAP (CYMBALTA) PO SCH (08:01)
[2019-07-12] MEDS: RILUZOLE 50 MG PO SCH ×2 (08:02→17:17)
[2019-07-12] MEDS: NAPROXEN 250 MG TAB PO SCH ×2 (08:02→20:16)
[2019-07-12] MEDS: ENOXAPARIN 40 MG/0.4 ML SYRINGE (J1650) SC SCH (08:03)
--- NOTE | 2019-07-12 08:14 | IPNPDOC ---
Date Seen The patient was seen on 07/12/19. Progress Note SUBJECTIVE: Patient had no overnight events, no change in right shoulder pain, started on naproxen 07/08/19, shoulder improved. Pt's partner brought in ALS meds 07/11/19, resume. Pending placement. Request brake repair for walker, will consult case management for dc planning. Had unwitness fall this afternoon d/t weakness after using the bathroom, no LOC, no head trauma. OBJECTIVE PHYSICAL EXAMINATION: VITAL SIGNS: Please see below. GENERAL: male in No distress HEENT: Normocephalic, atraumatic, moist mucous membranes NECK: Supple CARDIOVASCULAR EXAMINATION: S1, S2 RESPIRATORY EXAMINATION: CTAB ABDOMINAL EXAMINATION: Soft, nontender, nondistended, positive bowel sounds EXTREMITIES: no edema, b/l UE FROM, no bruising, tenderness elicited with R internal and external rotation SKIN: L elbow scab/abrasion. NEUROLOGICAL EXAMINATION: Alert and oriented 3, no focal deficits, slight weak ness on the left lower extremity, finger to nose bilaterally intact, [id number] bilaterally intact, no dysdiadochokinesia PSYCHIATRIC EXAMINATION: Calm and cooperative, appropriate affect LABORATORY DATA, IMAGING STUDIES, MICROBIOLOGY: Please see below. DVT prophylaxis ordered?: enox ASSESSMENT AND PLAN: Pt is a 59 yo M with PMH of ALS, Chronic CAD, Dyslipidemia, Chronic Asthma, Chronic HTN & EUNICE was admitted for PT eval and possible transfer in pt rehab. #Deconditioning/ALS: Pending placement, f/u with case management for brakes on walker. Fall: if increase falls, will place strict fall precautions including bed alert. #R shoulder pain: X-ray reveals osteoarthritis, placed an orthotic consult, discuss with ortho, fractures, conservative management, trial of naproxen twice a day for 1 week. #Chronic CAD / Dyslipidemia: continue home meds #Chronic Asthma: continue home meds #BPH: continue home meds #HLD: Continue home meds #HTN: continue home meds #Chronic back pain: continue home meds #EUNICE: continue CPAP #Tobacco abuse: Nicotine patch/smoking cessation education DVT ppx: Enoxaparin. Full code VS, I&O, 24H, Fishbone Vital Signs/I&O Vital Signs Date Time Temp Pulse Resp B/P (MAP) Pulse Ox O2 Delivery O2 Flow Rate FiO2 07/12/19 08:00 85 120/68 07/12/19 06:00 97.9 20 98 Room Air I&O- Last 24 Hours up to 6 AM 07/12/19 06:00 Intake Total 2080 ml Output Total 900 ml Balance 1180 ml GEOVANNY RODRIGUEZ MD Jul 12, 2019 08:14
[2019-07-12] MEDS: FLUTICASONE HFA 220 MCG 12 GM INHALER (FLOVENT) INH SCH ×2 (09:28→20:05)
[2019-07-12 12:00] VITALS: BP 148/97
[2019-07-12 14:00] VITALS: BP 119/77
[2019-07-12] MEDS: RAMELTEON 8 MG TAB (ROZEREM) PO SCH (20:16)
[2019-07-12] MEDS: ROSUVASTATIN 10 MG TAB (CRESTOR) PO SCH (20:17)
[2019-07-12] MEDS: ASPIRIN 81 MG CHEW TABLET PO SCH (20:17)
[2019-07-12] MEDS: AMITRIPTYLINE 50 MG TAB PO SCH (20:17)
[2019-07-12] MEDS: TAMSULOSIN 0.4 MG CAP PO SCH (20:17)
[2019-07-12 22:00] VITALS: BP 135/86
[2019-07-13 06:00] VITALS: BP 127/81
[2019-07-13] MEDS: FLUTICASONE HFA 220 MCG 12 GM INHALER (FLOVENT) INH SCH ×2 (08:02→20:09)
[2019-07-13] MEDS: ENOXAPARIN 40 MG/0.4 ML SYRINGE (J1650) SC SCH (10:08)
[2019-07-13] MEDS: NAPROXEN 250 MG TAB PO SCH ×2 (10:09→20:34)
[2019-07-13] MEDS: DOCUSATE SODIUM 100 MG CAP PO SCH ×2 (10:09→20:34)
[2019-07-13] MEDS: DULoxetine 30 MG CAP (CYMBALTA) PO SCH (10:09)
[2019-07-13] MEDS: CLOPIDOGREL 75 MG TAB PO SCH (10:10)
[2019-07-13] MEDS: LOSARTAN 50 MG TAB PO SCH (10:12)
[2019-07-13] MEDS: hydroCHLOROthiazide 12.5 MG CAPSULE PO SCH (10:13)
[2019-07-13] MEDS: PANTOPRAZOLE 40MG TAB (PROTONIX) PO SCH (10:13)
[2019-07-13] MEDS: GABAPENTIN 300 MG CAP PO SCH ×3 (10:13→20:34)
[2019-07-13] MEDS: METOPROLOL TART 50 MG TAB PO SCH ×2 (10:13→20:33)
[2019-07-13] MEDS: MULTIVITAMINS/MINERALS THERAP 1 TAB PO SCH (10:14)
[2019-07-13] MEDS: RILUZOLE 50 MG PO SCH ×2 (11:19→17:30)
--- NOTE | 2019-07-13 11:51 | IPNPDOC ---
Date Seen The patient was seen on 07/13/19. Progress Note SUBJECTIVE: Patient had no overnight events, no change in right shoulder pain, started on naproxen 07/08/19, shoulder improved. Pt's partner brought in ALS meds 07/11/19, resume. Pending placement. Request brake repair for walker, will consult case management for dc planning. Had mechanical fall on 07/12/2019, no LOC, no head trauma. Spoke with case management, due to insurance, still pending placement, will consult neurology for outpatient workup since patient will be hospitalized, change hospitalization status to a on 07/13/2019. OBJECTIVE PHYSICAL EXAMINATION: VITAL SIGNS: Please see below. GENERAL: male in No distress HEENT: Normocephalic, atraumatic, moist mucous membranes NECK: Supple CARDIOVASCULAR EXAMINATION: S1, S2 RESPIRATORY EXAMINATION: CTAB ABDOMINAL EXAMINATION: Soft, nontender, nondistended, positive bowel sounds EXTREMITIES: no edema, b/l UE FROM, no bruising, tenderness elicited with R internal and external rotation SKIN: L elbow scab/abrasion. NEUROLOGICAL EXAMINATION: Alert and oriented 3, no focal deficits, slight weakness on the left lower extremity, finger to nose bilaterally intact, [id number] bilaterally intact, no dysdiadochokinesia PSYCHIATRIC EXAMINATION: Calm and cooperative, appropriate affect LABORATORY DATA, IMAGING STUDIES, MICROBIOLOGY: Please see below. DVT prophylaxis ordered?: enox ASSESSMENT AND PLAN: Pt is a 59 yo M with PMH of ALS, Chronic CAD, Dyslipidemia, Chronic Asthma, Chronic HTN & EUNICE was admitted for PT eval and possible transfer in pt rehab. Pending placement, Change to ALC status on 07/14/2019. #Deconditioning/ALS: Pending placement, f/u with case management for brakes on walker. Fall: if increase falls, will place strict fall precautions including bed alert. Spoke with neurology, plan for swallow study 07/14/2019, nothing by mouth at midnight. #R shoulder pain: X-ray reveals osteoarthritis, placed an orthotic consult, discuss with ortho, fractures, conservative management, trial of naproxen twice a day for 1 week. If symptoms still don't improve, will consider steroid injection, spoke with Dr. Morgan. #Chronic CAD / Dyslipidemia: continue home meds #Chronic Asthma: continue home meds #BPH: continue home meds #HLD: Continue home meds #HTN: continue home meds #Chronic back pain: continue home meds #EUNICE: continue CPAP #Tobacco abuse: Nicotine patch/smoking cessation education DVT ppx: Enoxaparin. Full code VS, I&O, 24H, Fishbone Vital Signs/I&O Vital Signs Date Time Temp Pulse Resp B/P (MAP) Pulse Ox O2 Delivery O2 Flow Rate FiO2 07/13/19 10:13 83 132/85 07/13/19 06:00 97.4 16 95 Room Air I&O- Last 24 Hours up to 6 AM 07/13/19 06:00 Intake Total 1320 ml Balance 1320 ml GEOVANNY RODRIGUEZ MD Jul 13, 2019 11:51
[2019-07-13 14:00] VITALS: BP 140/83
[2019-07-13 19:44] LABS: HEMATOCRIT 42.1 % (42.0-52.0); HEMOGLOBIN 13.8 g/dl (13.5-17.5); MEAN CORPUSCULAR HEMOGLOBIN 30.4 pg (27.0-33.0); MEAN CORPUSCULAR HGB CONC 32.8 g/dl (32.0-36.5); MEAN CORPUSCULAR VOLUME 92.7 fl (80.0-96.0); PLATELET COUNT, AUTOMATED 217 10^3/uL (150-450); RED BLOOD COUNT 4.54 10^6/uL (4.30-6.10); WHITE BLOOD COUNT 9.6 10^3/uL (4.0-10.0)
[2019-07-13 20:07] LABS: BLOOD UREA NITROGEN 21 MG/DL (7-18); CALCIUM LEVEL 8.6 MG/DL (8.8-10.2); CARBON DIOXIDE LEVEL 27 MEQ/L (21-32); CHLORIDE LEVEL 107 MEQ/L (98-107); CREATININE FOR GFR 0.91 MG/DL (0.70-1.30); GLOMERULAR FILTRATION RATE > 60.0 (>49); GLUCOSE, FASTING 134 MG/DL (70-100); POTASSIUM SERUM 3.9 MEQ/L (3.5-5.1); SODIUM LEVEL 140 MEQ/L (136-145)
[2019-07-13] MEDS: ASPIRIN 81 MG CHEW TABLET PO SCH (20:34)
[2019-07-13] MEDS: ROSUVASTATIN 10 MG TAB (CRESTOR) PO SCH (20:34)
[2019-07-13] MEDS: RAMELTEON 8 MG TAB (ROZEREM) PO SCH (20:34)
[2019-07-13] MEDS: TAMSULOSIN 0.4 MG CAP PO SCH (20:34)
[2019-07-13] MEDS: AMITRIPTYLINE 50 MG TAB PO SCH (20:34)
[2019-07-14 06:00] VITALS: BP 121/18
--- NOTE | 2019-07-14 06:51 | CR ---
DATE OF CONSULTATION: 07/13/2019 REFERRING PHYSICIAN: Dr. Cassi Oconnor REASON FOR CONSULTATION: Falls, difficulty walking and swallowing HISTORY OF PRESENT ILLNESS: Yobani Caldwell is a 59-year-old man who is known to our practice with progressive difficulty walking which started in 2014. He also had chronic back pain due to lumbosacral stenosis and had lumbosacral laminectomy which did not improve his walking. His walking has slowly worsened and he has developed upper motor neuron signs in his legs more than arms. 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 He was given a trial of Sinemet for several months which did not improve his walking. I referred him to the neuromuscular division at [facility] for an opinion and they had recommended doing MRI scan of cervical spine and thoracic spine which he had in 2017 and 2018. They were again unremarkable. His most recent visit diagnosis of ALS was established. We have tapered off his Sinemet. I had ordered outpatient swallowing evaluation. He feels difficulty swallowing and sometimes chokes while eating. He has chronic neck and back pain. He has fallen a few times in the last 3 months. He has been using a walker. He fell this time and could not get up. He was sent to [facility] from where he was transferred to [facility] for further rehabilitation and is awaiting for placement to acute versus subacute rehabilitation. He denies any headache. He feels left thigh numbness and tingling. He feels weakness of his legs, worse on left side. He feels weakness of his arms as if they are not as strong as be used to be. 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 SOCIAL HISTORY: He smokes tobacco. He denies alcohol or illicit drugs. FAMILY HISTORY: Mother with diabetes. There is also family history of heart disease and lymphoma. REVIEW OF SYSTEMS: All systems were reviewed and found to be noncontributory except as mentioned in history of present illness. ALLERGIES: - ADHESIVE TAPE HOME MEDICATIONS: Riluzole 50 mg b.i.d., amitriptyline 30 mg p.o. q.h.s., aspirin 81 mg p.o. daily, Plavix 75 mg p.o. daily, Cymbalta 60 mg p.o. daily, gabapentin 600 mg p.o. t.i.d., losartan/hydrochlorothiazide 100/25 mg a half a tablet p.o. daily, metoprolol 50 mg p.o. b.i.d., nitroglycerin 0.4 mg p.r.n. for chest pain, Protonix 40 mg p.o. daily, Crestor 20 mg p.o. daily, Flomax 0.4 mg p.o. daily, albuterol inhaler as needed, melatonin 10 mg p.o. q.h.s., tizanidine 4 mg p.o. b.i.d. p.r.n. PHYSICAL EXAMINATION: Temperature 99.2, pulse 74, respiratory rate 16, blood pressure 140/83, 98% saturation on room air. Heart: Regular rate and rhythm. Lungs: Clear to auscultation. Abdomen: Soft, nontender, nondistended. No pedal edema. No musculoskeletal abnormalities. No rash. No signs of meningeal irritation. The patient is awake, alert, oriented to place, person and time. Normal speech, comprehension and repetition. Extraocular muscles are intact. No facial weakness. Tongue and uvula are midline. 5/5 strength in his arms, except finger and hand extensors are 5-/5. Strength in his left leg proximally is 4+/5 and distally is 5/5. Strength in his right leg is 5/5. Deep tendon flexes 3+ throughout. His gait is unsteady. No dysmetria. ASSESSMENT: 1. 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 2. Chronic neck and back pain due to cervical and lumbosacral degenerative disk disease and lumbosacral spinal stenosis for which the patient had lumbosacral laminectomy. 3. Swallowing and gait difficulty related to above. PLAN: 1. The patient will likely benefit from a motorized wheelchair and rehabilitation. 2. Swallowing evaluation which was planned on outpatient basis, but we will do it when he is in the hospital. 3. Riluzole 50 mg p.o. b.i.d. 4. Follow with our office as planned.
[2019-07-14] MEDS: FLUTICASONE HFA 220 MCG 12 GM INHALER (FLOVENT) INH SCH ×2 (07:48→19:49)
[2019-07-14] MEDS: ENOXAPARIN 40 MG/0.4 ML SYRINGE (J1650) SC SCH (09:07)
[2019-07-14] MEDS: DOCUSATE SODIUM 100 MG CAP PO SCH ×2 (09:07→20:09)
[2019-07-14] MEDS: GABAPENTIN 300 MG CAP PO SCH ×3 (09:08→20:09)
[2019-07-14] MEDS: CLOPIDOGREL 75 MG TAB PO SCH (09:08)
[2019-07-14] MEDS: hydroCHLOROthiazide 12.5 MG CAPSULE PO SCH (09:08)
[2019-07-14] MEDS: MULTIVITAMINS/MINERALS THERAP 1 TAB PO SCH (09:08)
[2019-07-14] MEDS: LOSARTAN 50 MG TAB PO SCH (09:10)
[2019-07-14] MEDS: NAPROXEN 250 MG TAB PO SCH ×2 (09:10→20:09)
[2019-07-14] MEDS: RILUZOLE 50 MG PO SCH ×3 (09:11→17:31)
[2019-07-14] MEDS: PANTOPRAZOLE 40MG TAB (PROTONIX) PO SCH (09:11)
[2019-07-14] MEDS: METOPROLOL TART 50 MG TAB PO SCH ×2 (09:11→20:10)
[2019-07-14] MEDS: DULoxetine 30 MG CAP (CYMBALTA) PO SCH (09:11)
[2019-07-14] MEDS ORDERED: E-Z-PAQUE 96% w/w SUSP 176GM BTL As Ordered ONE (10:16)
[2019-07-14] MEDS ORDERED: E-Z-HD 98% w/w 340GM SUSP BTL As Ordered ONE (10:16)
[2019-07-14] MEDS ORDERED: E-Z-GAS II EFFERVESCENT PACKET (SODIUM BICARB./CITRIC ACID/SIMETHICONE) As Ordered ONE (10:16)
--- NOTE | 2019-07-14 15:11 | REP ---
Examination Requested: Esophagram Barium Swallow Reason For Exam/Comment: ALS Esophagram: The procedure was performed LEW Vidal, under the direct supervision of Dr. Mak. The images were reviewed with Dr. Mak. A single PA chest x-ray is submitted as a electrical controls engineer film. The superior mediastinal structures are midline. The heart size is within normal limits. The lungs are clear. Liquid barium and gas producing granules were given in the erect position as well as liquid barium in the prone oblique position, in order to perform a double contrast esophagram examination. Oral and pharyngeal stages of the examination were unremarkable. Esophageal transport is efficient and there is no esophagitis, stricture, or mucosal ring noted. There is a small hiatal hernia noted. Gastroesophageal reflux was not visualized throughout the course of the exam. Impression: 1. Small hiatal hernia. 0.2 minutes of fluoroscopy time was utilized for this procedure. Some fluoroscopic images are performed with last image hold technology. These images require no additional radiation. Reviewed by LEW Jonas 07/14/2019 01:39 P Electronically Signed by Tyree Mak MD 07/14/2019 03:02 P
[2019-07-14] MEDS: ASPIRIN 81 MG CHEW TABLET PO SCH (20:09)
[2019-07-14] MEDS: ROSUVASTATIN 10 MG TAB (CRESTOR) PO SCH (20:09)
[2019-07-14] MEDS: TAMSULOSIN 0.4 MG CAP PO SCH (20:09)
[2019-07-14] MEDS: RAMELTEON 8 MG TAB (ROZEREM) PO SCH (20:09)
[2019-07-14] MEDS: AMITRIPTYLINE 50 MG TAB PO SCH (20:10)
[2019-07-15 06:00] VITALS: BP 127/81
[2019-07-15] MEDS: RILUZOLE 50 MG PO SCH ×2 (07:30→17:21)
[2019-07-15] MEDS: FLUTICASONE HFA 220 MCG 12 GM INHALER (FLOVENT) INH SCH ×2 (07:35→20:38)
[2019-07-15] MEDS: DOCUSATE SODIUM 100 MG CAP PO SCH ×2 (08:58→20:25)
[2019-07-15] MEDS: LOSARTAN 50 MG TAB PO SCH (08:59)
[2019-07-15] MEDS: MULTIVITAMINS/MINERALS THERAP 1 TAB PO SCH (08:59)
[2019-07-15] MEDS: GABAPENTIN 300 MG CAP PO SCH ×3 (08:59→20:25)
[2019-07-15] MEDS: PANTOPRAZOLE 40MG TAB (PROTONIX) PO SCH (08:59)
[2019-07-15] MEDS: METOPROLOL TART 50 MG TAB PO SCH ×2 (08:59→20:25)
[2019-07-15] MEDS: DULoxetine 30 MG CAP (CYMBALTA) PO SCH (08:59)
[2019-07-15] MEDS: hydroCHLOROthiazide 12.5 MG CAPSULE PO SCH (08:59)
[2019-07-15] MEDS: ENOXAPARIN 40 MG/0.4 ML SYRINGE (J1650) SC SCH (09:00)
[2019-07-15] MEDS: CLOPIDOGREL 75 MG TAB PO SCH (09:00)
[2019-07-15] MEDS: NAPROXEN 250 MG TAB PO SCH ×2 (09:01→20:25)
[2019-07-15] MEDS: ASPIRIN 81 MG CHEW TABLET PO SCH (20:25)
[2019-07-15] MEDS: TAMSULOSIN 0.4 MG CAP PO SCH (20:25)
[2019-07-15] MEDS: AMITRIPTYLINE 50 MG TAB PO SCH (20:25)
[2019-07-15] MEDS: ROSUVASTATIN 10 MG TAB (CRESTOR) PO SCH (20:25)
[2019-07-15] MEDS: RAMELTEON 8 MG TAB (ROZEREM) PO SCH (20:26)
[2019-07-16] MEDS: ACETAMINOPHEN TAB 650MG DOSE (2X325MG) PO PRN ×2 (00:26→16:09)
[2019-07-16 06:00] VITALS: BP 131/87
[2019-07-16] MEDS: MULTIVITAMINS/MINERALS THERAP 1 TAB PO SCH (07:38)
[2019-07-16] MEDS: METOPROLOL TART 50 MG TAB PO SCH ×2 (07:38→20:58)
[2019-07-16] MEDS: DULoxetine 30 MG CAP (CYMBALTA) PO SCH (07:38)
[2019-07-16] MEDS: GABAPENTIN 300 MG CAP PO SCH ×3 (07:39→20:59)
[2019-07-16] MEDS: hydroCHLOROthiazide 12.5 MG CAPSULE PO SCH (07:39)
[2019-07-16] MEDS: DOCUSATE SODIUM 100 MG CAP PO SCH ×2 (07:39→20:59)
[2019-07-16] MEDS: PANTOPRAZOLE 40MG TAB (PROTONIX) PO SCH (07:39)
[2019-07-16] MEDS: LOSARTAN 50 MG TAB PO SCH (07:39)
[2019-07-16] MEDS: CLOPIDOGREL 75 MG TAB PO SCH (07:39)
[2019-07-16] MEDS: ENOXAPARIN 40 MG/0.4 ML SYRINGE (J1650) SC SCH (07:39)
[2019-07-16] MEDS: RILUZOLE 50 MG PO SCH ×2 (07:40→17:37)
[2019-07-16] MEDS: FLUTICASONE HFA 220 MCG 12 GM INHALER (FLOVENT) INH SCH ×2 (07:51→19:51)
[2019-07-16 09:05] LABS: HEMATOCRIT 44.9 % (42.0-52.0); HEMOGLOBIN 15.1 g/dl (13.5-17.5); MEAN CORPUSCULAR HEMOGLOBIN 30.8 pg (27.0-33.0); MEAN CORPUSCULAR HGB CONC 33.6 g/dl (32.0-36.5); MEAN CORPUSCULAR VOLUME 91.4 fl (80.0-96.0); PLATELET COUNT, AUTOMATED 231 10^3/uL (150-450); RED BLOOD COUNT 4.91 10^6/uL (4.30-6.10); WHITE BLOOD COUNT 11.5 10^3/uL (4.0-10.0)
[2019-07-16 09:30] LABS: BLOOD UREA NITROGEN 21 MG/DL (7-18); CALCIUM LEVEL 8.6 MG/DL (8.8-10.2); CARBON DIOXIDE LEVEL 26 MEQ/L (21-32); CHLORIDE LEVEL 107 MEQ/L (98-107); GLOMERULAR FILTRATION RATE > 60.0 (>49); GLUCOSE, FASTING 142 MG/DL (70-100); POTASSIUM SERUM 3.7 MEQ/L (3.5-5.1); SODIUM LEVEL 139 MEQ/L (136-145)
[2019-07-16] MEDS ORDERED: guaiFENesin DM LIQ 10ML UD PO ONE (11:15)
[2019-07-16] MEDS ORDERED: guaiFENesin DM LIQ 10ML UD PO PRN (11:15)
[2019-07-16 11:29] LABS: NT-PRO BNP 29 PG/ML (<125)
--- NOTE | 2019-07-16 12:14 | REP ---
Clinical: Cough . Comparison: 02/20/2018 . Findings: The mediastinum and cardiac silhouette are stable and within normal limits for portable technique. The lung lake are clear without acute consolidation, effusion, or pneumothorax. Skeletal structures are intact. Impression: No acute cardiopulmonary process appreciated. Electronically Signed by Tyree Mak MD 07/16/2019 12:05 P
[2019-07-16 18:47] LABS: HEMATOCRIT 45.7 % (42.0-52.0); HEMOGLOBIN 14.8 g/dl (13.5-17.5); MEAN CORPUSCULAR HEMOGLOBIN 30.2 pg (27.0-33.0); MEAN CORPUSCULAR HGB CONC 32.4 g/dl (32.0-36.5); MEAN CORPUSCULAR VOLUME 93.3 fl (80.0-96.0); PLATELET COUNT, AUTOMATED 227 10^3/uL (150-450); WHITE BLOOD COUNT 10.3 10^3/uL (4.0-10.0)
[2019-07-16 19:16] LABS: BLOOD UREA NITROGEN 19 MG/DL (7-18); CALCIUM LEVEL 8.3 MG/DL (8.8-10.2); CARBON DIOXIDE LEVEL 27 MEQ/L (21-32); CHLORIDE LEVEL 108 MEQ/L (98-107); CREATININE FOR GFR 0.96 MG/DL (0.70-1.30); GLOMERULAR FILTRATION RATE > 60.0 (>49); GLUCOSE, FASTING 118 MG/DL (70-100); POTASSIUM SERUM 3.8 MEQ/L (3.5-5.1); SODIUM LEVEL 140 MEQ/L (136-145)
[2019-07-16] MEDS: ASPIRIN 81 MG CHEW TABLET PO SCH (20:58)
[2019-07-16] MEDS: RAMELTEON 8 MG TAB (ROZEREM) PO SCH (20:58)
[2019-07-16] MEDS: ROSUVASTATIN 10 MG TAB (CRESTOR) PO SCH (20:58)
[2019-07-16] MEDS: AMITRIPTYLINE 50 MG TAB PO SCH (20:59)
[2019-07-16] MEDS: TAMSULOSIN 0.4 MG CAP PO SCH (20:59)
[2019-07-17 06:00] VITALS: BP 129/82
[2019-07-17] MEDS: FLUTICASONE HFA 220 MCG 12 GM INHALER (FLOVENT) INH SCH ×2 (07:35→19:34)
[2019-07-17] MEDS: METOPROLOL TART 50 MG TAB PO SCH ×2 (07:51→20:22)
[2019-07-17] MEDS: PANTOPRAZOLE 40MG TAB (PROTONIX) PO SCH (07:51)
[2019-07-17] MEDS: DULoxetine 30 MG CAP (CYMBALTA) PO SCH (07:51)
[2019-07-17] MEDS: CLOPIDOGREL 75 MG TAB PO SCH (07:52)
[2019-07-17] MEDS: MULTIVITAMINS/MINERALS THERAP 1 TAB PO SCH (07:52)
[2019-07-17] MEDS: hydroCHLOROthiazide 12.5 MG CAPSULE PO SCH (07:52)
[2019-07-17] MEDS: LOSARTAN 50 MG TAB PO SCH (07:52)
[2019-07-17] MEDS: DOCUSATE SODIUM 100 MG CAP PO SCH ×2 (07:52→20:22)
[2019-07-17] MEDS: ENOXAPARIN 40 MG/0.4 ML SYRINGE (J1650) SC SCH (07:52)
[2019-07-17] MEDS: GABAPENTIN 300 MG CAP PO SCH ×3 (07:52→20:22)
[2019-07-17] MEDS: RILUZOLE 50 MG PO SCH ×2 (07:53→17:17)
[2019-07-17 18:10] VITALS: BP 135/92
[2019-07-17] MEDS: ACETAMINOPHEN TAB 650MG DOSE (2X325MG) PO PRN (18:10)
[2019-07-17] MEDS: TAMSULOSIN 0.4 MG CAP PO SCH (20:22)
[2019-07-17] MEDS: RAMELTEON 8 MG TAB (ROZEREM) PO SCH (20:22)
[2019-07-17] MEDS: ROSUVASTATIN 10 MG TAB (CRESTOR) PO SCH (20:22)
[2019-07-17] MEDS: ASPIRIN 81 MG CHEW TABLET PO SCH (20:22)
[2019-07-17] MEDS: AMITRIPTYLINE 50 MG TAB PO SCH (20:22)
[2019-07-18 06:00] VITALS: BP 138/68
[2019-07-18] MEDS: FLUTICASONE HFA 220 MCG 12 GM INHALER (FLOVENT) INH SCH ×2 (07:23→20:35)
[2019-07-18] MEDS: DOCUSATE SODIUM 100 MG CAP PO SCH ×2 (07:50→21:33)
[2019-07-18] MEDS: MULTIVITAMINS/MINERALS THERAP 1 TAB PO SCH (07:51)
[2019-07-18] MEDS: PANTOPRAZOLE 40MG TAB (PROTONIX) PO SCH (07:51)
[2019-07-18] MEDS: CLOPIDOGREL 75 MG TAB PO SCH (07:51)
[2019-07-18] MEDS: GABAPENTIN 300 MG CAP PO SCH ×3 (07:51→21:32)
[2019-07-18] MEDS: DULoxetine 30 MG CAP (CYMBALTA) PO SCH (07:51)
[2019-07-18] MEDS: METOPROLOL TART 50 MG TAB PO SCH ×2 (07:51→21:34)
[2019-07-18] MEDS: LOSARTAN 50 MG TAB PO SCH (07:51)
[2019-07-18] MEDS: hydroCHLOROthiazide 12.5 MG CAPSULE PO SCH (07:52)
[2019-07-18] MEDS: ENOXAPARIN 40 MG/0.4 ML SYRINGE (J1650) SC SCH (07:52)
[2019-07-18] MEDS: RILUZOLE 50 MG PO SCH ×2 (07:52→17:33)
[2019-07-18] MEDS: RAMELTEON 8 MG TAB (ROZEREM) PO SCH (21:32)
[2019-07-18] MEDS: ASPIRIN 81 MG CHEW TABLET PO SCH (21:32)
[2019-07-18] MEDS: TAMSULOSIN 0.4 MG CAP PO SCH (21:33)
[2019-07-18] MEDS: AMITRIPTYLINE 50 MG TAB PO SCH (21:33)
[2019-07-18] MEDS: ROSUVASTATIN 10 MG TAB (CRESTOR) PO SCH (21:33)
[2019-07-19 06:00] VITALS: BP 128/82
[2019-07-19] MEDS: FLUTICASONE HFA 220 MCG 12 GM INHALER (FLOVENT) INH SCH ×2 (07:23→19:46)
[2019-07-19] MEDS: DULoxetine 30 MG CAP (CYMBALTA) PO SCH (08:13)
[2019-07-19] MEDS: PANTOPRAZOLE 40MG TAB (PROTONIX) PO SCH (08:13)
[2019-07-19] MEDS: CLOPIDOGREL 75 MG TAB PO SCH (08:13)
[2019-07-19] MEDS: LOSARTAN 50 MG TAB PO SCH (08:13)
[2019-07-19] MEDS: DOCUSATE SODIUM 100 MG CAP PO SCH ×2 (08:13→20:21)
[2019-07-19] MEDS: GABAPENTIN 300 MG CAP PO SCH ×3 (08:13→20:21)
[2019-07-19] MEDS: MULTIVITAMINS/MINERALS THERAP 1 TAB PO SCH (08:13)
[2019-07-19] MEDS: ENOXAPARIN 40 MG/0.4 ML SYRINGE (J1650) SC SCH (08:14)
[2019-07-19] MEDS: RILUZOLE 50 MG PO SCH ×2 (08:14→17:23)
[2019-07-19] MEDS: hydroCHLOROthiazide 12.5 MG CAPSULE PO SCH (08:14)
[2019-07-19] MEDS: METOPROLOL TART 50 MG TAB PO SCH ×2 (08:14→20:22)
[2019-07-19] MEDS: ASPIRIN 81 MG CHEW TABLET PO SCH (20:21)
[2019-07-19] MEDS: RAMELTEON 8 MG TAB (ROZEREM) PO SCH (20:21)
[2019-07-19] MEDS: TAMSULOSIN 0.4 MG CAP PO SCH (20:21)
[2019-07-19] MEDS: AMITRIPTYLINE 50 MG TAB PO SCH (20:22)
[2019-07-19] MEDS: ROSUVASTATIN 10 MG TAB (CRESTOR) PO SCH (20:22)
--- NOTE | 2019-07-19 20:56 | IPN ---
DATE: 07/19/2019 The patient still complains of 3 out of 10 pain on the right shoulder. Able to ambulate but not quite as much as he would like. He had a fall 2 days ago when he felt very weak in his legs. He was caught by his girlfriend at the bedside. He hit the back of his head and complains of left sided neck pain today without any confusion, altered mental status or any headache. VITAL SIGNS: Temperature 96.5, pulse 62, respiratory rate 18, blood pressure 128/82, 97% on room air. GENERAL: Awake, alert, oriented times three. Answering questions appropriately. LUNGS: Clear to auscultation. No wheezing, rales or rhonchi. HEART: S1, S2. Sinus rhythm. ABDOMEN: Soft, nontender, nondistended. Normoactive bowel sounds. No rebound or guarding. EXTREMITIES: No cyanosis, clubbing. No edema. NEUROLOGIC: The patient has normal speech. Face is symmetric. Tongue is midline. 5/5 motor strength bilateral upper extremities, 4/5 strength left lower extremity. Deep tendon reflexes are intact. Gait ataxia. No pronator drift. ASSESSMENT AND PLAN: 59-year-old male who has a history of amyotrophic lateral sclerosis diagnosed in May 2019, coronary artery disease, PCI in 2017, dyslipidemia, asthma, hypertension, benign prostatic hypertrophy (BPH), back pain, obstructive sleep apnea, left hernia repair and laminectomy with gait abnormality, found to have worsening ALS. Per Dr. Murillo, the patient may benefit from a wheelchair and rehabilitation. Currently on Riluzole 50 mg twice a day and followup in the office as previously scheduled. Per the patient, swallow evaluation was performed to rule out aspiration and none was noted. MTDD
[2019-07-19] MEDS: ANALGESIC BALM CRM 120 GM TOP SCH (21:58)
[2019-07-20 06:00] VITALS: BP 117/70
[2019-07-20] MEDS: FLUTICASONE HFA 220 MCG 12 GM INHALER (FLOVENT) INH SCH ×2 (07:12→19:44)
[2019-07-20] MEDS: DOCUSATE SODIUM 100 MG CAP PO SCH ×2 (07:53→21:48)
[2019-07-20] MEDS: METOPROLOL TART 50 MG TAB PO SCH ×2 (07:53→21:49)
[2019-07-20] MEDS: RILUZOLE 50 MG PO SCH ×2 (07:53→16:50)
[2019-07-20] MEDS: MULTIVITAMINS/MINERALS THERAP 1 TAB PO SCH (07:53)
[2019-07-20] MEDS: LOSARTAN 50 MG TAB PO SCH (07:54)
[2019-07-20] MEDS: PANTOPRAZOLE 40MG TAB (PROTONIX) PO SCH (07:54)
[2019-07-20] MEDS: GABAPENTIN 300 MG CAP PO SCH ×3 (07:54→21:47)
[2019-07-20] MEDS: DULoxetine 30 MG CAP (CYMBALTA) PO SCH (07:54)
[2019-07-20] MEDS: CLOPIDOGREL 75 MG TAB PO SCH (07:54)
[2019-07-20] MEDS: hydroCHLOROthiazide 12.5 MG CAPSULE PO SCH (07:55)
[2019-07-20] MEDS: ENOXAPARIN 40 MG/0.4 ML SYRINGE (J1650) SC SCH (07:55)
[2019-07-20] MEDS: ANALGESIC BALM CRM 120 GM TOP SCH ×2 (07:55→21:50)
[2019-07-20] MEDS: **NOTE PATIENT COMMENT** MISC XX SCH (07:56)
[2019-07-20 18:30] LABS: HEMATOCRIT 43.7 % (42.0-52.0); HEMOGLOBIN 14.4 g/dl (13.5-17.5); MEAN CORPUSCULAR HEMOGLOBIN 30.4 pg (27.0-33.0); MEAN CORPUSCULAR VOLUME 92.4 fl (80.0-96.0); PLATELET COUNT, AUTOMATED 232 10^3/uL (150-450); RED BLOOD COUNT 4.73 10^6/uL (4.30-6.10); WHITE BLOOD COUNT 9.4 10^3/uL (4.0-10.0)
[2019-07-20 18:55] LABS: BLOOD UREA NITROGEN 17 MG/DL (7-18); CALCIUM LEVEL 8.9 MG/DL (8.8-10.2); CARBON DIOXIDE LEVEL 27 MEQ/L (21-32); CHLORIDE LEVEL 105 MEQ/L (98-107); CREATININE FOR GFR 0.93 MG/DL (0.70-1.30); GLOMERULAR FILTRATION RATE > 60.0 (>49); GLUCOSE, FASTING 144 MG/DL (70-100); POTASSIUM SERUM 3.4 MEQ/L (3.5-5.1); SODIUM LEVEL 140 MEQ/L (136-145)
[2019-07-20] MEDS: AMITRIPTYLINE 50 MG TAB PO SCH (21:47)
[2019-07-20] MEDS: TAMSULOSIN 0.4 MG CAP PO SCH (21:47)
[2019-07-20] MEDS: ROSUVASTATIN 10 MG TAB (CRESTOR) PO SCH (21:48)
[2019-07-20] MEDS: RAMELTEON 8 MG TAB (ROZEREM) PO SCH (21:48)
[2019-07-20] MEDS: ASPIRIN 81 MG CHEW TABLET PO SCH (21:48)
[2019-07-21 06:00] VITALS: BP 131/82
[2019-07-21] MEDS: FLUTICASONE HFA 220 MCG 12 GM INHALER (FLOVENT) INH SCH ×2 (07:54→19:33)
[2019-07-21] MEDS: **NOTE PATIENT COMMENT** MISC XX SCH (09:00)
[2019-07-21] MEDS: DOCUSATE SODIUM 100 MG CAP PO SCH ×2 (09:37→20:34)
[2019-07-21] MEDS: DULoxetine 30 MG CAP (CYMBALTA) PO SCH (09:37)
[2019-07-21] MEDS: CLOPIDOGREL 75 MG TAB PO SCH (09:38)
[2019-07-21] MEDS: hydroCHLOROthiazide 12.5 MG CAPSULE PO SCH (09:38)
[2019-07-21] MEDS: LOSARTAN 50 MG TAB PO SCH (09:38)
[2019-07-21] MEDS: GABAPENTIN 300 MG CAP PO SCH ×3 (09:38→20:32)
[2019-07-21] MEDS: ENOXAPARIN 40 MG/0.4 ML SYRINGE (J1650) SC SCH (09:38)
[2019-07-21] MEDS: MULTIVITAMINS/MINERALS THERAP 1 TAB PO SCH (09:38)
[2019-07-21] MEDS: PANTOPRAZOLE 40MG TAB (PROTONIX) PO SCH (09:38)
[2019-07-21] MEDS: METOPROLOL TART 50 MG TAB PO SCH ×2 (09:38→20:34)
[2019-07-21] MEDS: ANALGESIC BALM CRM 120 GM TOP SCH ×2 (09:39→20:34)
[2019-07-21] MEDS: RILUZOLE 50 MG PO SCH ×2 (09:46→17:04)
[2019-07-21 14:00] VITALS: BP 130/30
[2019-07-21] MEDS: TAMSULOSIN 0.4 MG CAP PO SCH (20:31)
[2019-07-21] MEDS: RAMELTEON 8 MG TAB (ROZEREM) PO SCH (20:32)
[2019-07-21] MEDS: ROSUVASTATIN 10 MG TAB (CRESTOR) PO SCH (20:32)
[2019-07-21] MEDS: AMITRIPTYLINE 50 MG TAB PO SCH (20:32)
[2019-07-21] MEDS: ASPIRIN 81 MG CHEW TABLET PO SCH (20:32)
[2019-07-21] MEDS: LIDOCAINE 5% (LIDODERM) PATCH TD PRN (20:36)
[2019-07-22 06:00] VITALS: BP 123/80
[2019-07-22] MEDS: FLUTICASONE HFA 220 MCG 12 GM INHALER (FLOVENT) INH SCH ×2 (07:21→19:46)
[2019-07-22] MEDS: **NOTE PATIENT COMMENT** MISC XX SCH (09:00)
[2019-07-22] MEDS: RILUZOLE 50 MG PO SCH ×2 (09:18→16:31)
[2019-07-22] MEDS: GABAPENTIN 300 MG CAP PO SCH ×3 (09:18→20:17)
[2019-07-22] MEDS: CLOPIDOGREL 75 MG TAB PO SCH (09:18)
[2019-07-22] MEDS: LOSARTAN 50 MG TAB PO SCH (09:19)
[2019-07-22] MEDS: hydroCHLOROthiazide 12.5 MG CAPSULE PO SCH (09:20)
[2019-07-22] MEDS: ENOXAPARIN 40 MG/0.4 ML SYRINGE (J1650) SC SCH (09:20)
[2019-07-22] MEDS: PANTOPRAZOLE 40MG TAB (PROTONIX) PO SCH (09:20)
[2019-07-22] MEDS: DULoxetine 30 MG CAP (CYMBALTA) PO SCH (09:20)
[2019-07-22] MEDS: METOPROLOL TART 50 MG TAB PO SCH ×2 (09:20→20:17)
[2019-07-22] MEDS: MULTIVITAMINS/MINERALS THERAP 1 TAB PO SCH (09:20)
[2019-07-22] MEDS: DOCUSATE SODIUM 100 MG CAP PO SCH ×2 (09:20→20:17)
[2019-07-22] MEDS: ANALGESIC BALM CRM 120 GM TOP SCH ×2 (09:21→20:18)
[2019-07-22] MEDS: AMITRIPTYLINE 50 MG TAB PO SCH (20:16)
[2019-07-22] MEDS: ROSUVASTATIN 10 MG TAB (CRESTOR) PO SCH (20:17)
[2019-07-22] MEDS: RAMELTEON 8 MG TAB (ROZEREM) PO SCH (20:17)
[2019-07-22] MEDS: TAMSULOSIN 0.4 MG CAP PO SCH (20:17)
[2019-07-22] MEDS: ASPIRIN 81 MG CHEW TABLET PO SCH (20:18)
[2019-07-22] MEDS: LIDOCAINE 5% (LIDODERM) PATCH TD PRN (20:21)
[2019-07-23 06:00] VITALS: BP 121/76
[2019-07-23] MEDS: FLUTICASONE HFA 220 MCG 12 GM INHALER (FLOVENT) INH SCH ×2 (07:20→20:32)
[2019-07-23] MEDS: MULTIVITAMINS/MINERALS THERAP 1 TAB PO SCH (08:23)
[2019-07-23] MEDS: PANTOPRAZOLE 40MG TAB (PROTONIX) PO SCH (08:23)
[2019-07-23] MEDS: DOCUSATE SODIUM 100 MG CAP PO SCH ×2 (08:23→20:08)
[2019-07-23] MEDS: hydroCHLOROthiazide 12.5 MG CAPSULE PO SCH (08:23)
[2019-07-23] MEDS: CLOPIDOGREL 75 MG TAB PO SCH (08:23)
[2019-07-23] MEDS: DULoxetine 30 MG CAP (CYMBALTA) PO SCH (08:23)
[2019-07-23] MEDS: ANALGESIC BALM CRM 120 GM TOP SCH ×2 (08:24→20:09)
[2019-07-23] MEDS: LOSARTAN 50 MG TAB PO SCH (08:24)
[2019-07-23] MEDS: RILUZOLE 50 MG PO SCH ×2 (08:24→16:53)
[2019-07-23] MEDS: GABAPENTIN 300 MG CAP PO SCH ×3 (08:24→20:07)
[2019-07-23] MEDS: METOPROLOL TART 50 MG TAB PO SCH ×2 (08:24→20:07)
[2019-07-23] MEDS: **NOTE PATIENT COMMENT** MISC XX SCH (08:25)
[2019-07-23] MEDS: ENOXAPARIN 40 MG/0.4 ML SYRINGE (J1650) SC SCH (08:25)
--- NOTE | 2019-07-23 16:11 | REP ---
Clinical: Trauma. Fall. Findings: Age-related atrophy and microvascular ischemic changes are appreciated. The ventricles and sulci are symmetric. Mcknight-white differentiation is maintained. There is no evidence for acute intracranial hemorrhage, mass/mass effect, pathology or infarction. Subtle calcifications of the basal ganglia noted. No extra-axial fluid collection. Calvarium is intact. Paranasal sinuses and mastoid air cells are clear. Impression: Age related atrophy and microvascular ischemic changes. No acute intracranial hemorrhage, infarction, or mass/mass effect. Electronically Signed by Tyree Mak MD 07/23/2019 04:02 P
[2019-07-23 18:20] LABS: HEMATOCRIT 42.5 % (42.0-52.0); HEMOGLOBIN 14.2 g/dl (13.5-17.5); MEAN CORPUSCULAR HEMOGLOBIN 30.1 pg (27.0-33.0); MEAN CORPUSCULAR HGB CONC 33.4 g/dl (32.0-36.5); MEAN CORPUSCULAR VOLUME 90.2 fl (80.0-96.0); PLATELET COUNT, AUTOMATED 243 10^3/uL (150-450); RED BLOOD COUNT 4.71 10^6/uL (4.30-6.10); WHITE BLOOD COUNT 10.8 10^3/uL (4.0-10.0)
[2019-07-23 18:49] LABS: BLOOD UREA NITROGEN 15 MG/DL (7-18); CALCIUM LEVEL 8.6 MG/DL (8.8-10.2); CARBON DIOXIDE LEVEL 26 MEQ/L (21-32); CHLORIDE LEVEL 106 MEQ/L (98-107); CREATININE FOR GFR 1.03 MG/DL (0.70-1.30); GLOMERULAR FILTRATION RATE > 60.0 (>49); GLUCOSE, FASTING 192 MG/DL (70-100); POTASSIUM SERUM 3.1 MEQ/L (3.5-5.1); SODIUM LEVEL 138 MEQ/L (136-145)
[2019-07-23] MEDS: ASPIRIN 81 MG CHEW TABLET PO SCH (20:07)
[2019-07-23] MEDS: ROSUVASTATIN 10 MG TAB (CRESTOR) PO SCH (20:08)
[2019-07-23] MEDS: RAMELTEON 8 MG TAB (ROZEREM) PO SCH (20:08)
[2019-07-23] MEDS: ACETAMINOPHEN TAB 650MG DOSE (2X325MG) PO PRN (20:08)
[2019-07-23] MEDS: TAMSULOSIN 0.4 MG CAP PO SCH (20:08)
[2019-07-23] MEDS: AMITRIPTYLINE 50 MG TAB PO SCH (20:08)
[2019-07-23] MEDS ORDERED: POTASSIUM CHLORIDE 10 MEQ SR TABLET PO ONE (21:00)
[2019-07-24 06:00] VITALS: BP 131/83
[2019-07-24] MEDS: FLUTICASONE HFA 220 MCG 12 GM INHALER (FLOVENT) INH SCH ×2 (07:21→20:00)
[2019-07-24 08:15] VITALS: BP 131/84
[2019-07-24] MEDS: MULTIVITAMINS/MINERALS THERAP 1 TAB PO SCH (08:18)
[2019-07-24] MEDS: RILUZOLE 50 MG PO SCH ×2 (08:18→16:57)
[2019-07-24] MEDS: ENOXAPARIN 40 MG/0.4 ML SYRINGE (J1650) SC SCH (08:18)
[2019-07-24] MEDS: LOSARTAN 50 MG TAB PO SCH (08:19)
[2019-07-24] MEDS: GABAPENTIN 300 MG CAP PO SCH ×3 (08:19→21:14)
[2019-07-24] MEDS: DOCUSATE SODIUM 100 MG CAP PO SCH ×2 (08:19→21:15)
[2019-07-24] MEDS: METOPROLOL TART 50 MG TAB PO SCH ×2 (08:19→21:14)
[2019-07-24] MEDS: hydroCHLOROthiazide 12.5 MG CAPSULE PO SCH (08:19)
[2019-07-24] MEDS: CLOPIDOGREL 75 MG TAB PO SCH (08:20)
[2019-07-24] MEDS: PANTOPRAZOLE 40MG TAB (PROTONIX) PO SCH (08:20)
[2019-07-24] MEDS: DULoxetine 30 MG CAP (CYMBALTA) PO SCH (08:20)
[2019-07-24] MEDS: ANALGESIC BALM CRM 120 GM TOP SCH ×2 (08:21→21:15)
[2019-07-24] MEDS: **NOTE PATIENT COMMENT** MISC XX SCH (08:21)
[2019-07-24] MEDS: ACETAMINOPHEN TAB 650MG DOSE (2X325MG) PO PRN (08:28)
[2019-07-24] MEDS: ASPIRIN 81 MG CHEW TABLET PO SCH (21:14)
[2019-07-24] MEDS: AMITRIPTYLINE 50 MG TAB PO SCH (21:14)
[2019-07-24] MEDS: RAMELTEON 8 MG TAB (ROZEREM) PO SCH (21:15)
[2019-07-24] MEDS: TAMSULOSIN 0.4 MG CAP PO SCH (21:15)
[2019-07-24] MEDS: ROSUVASTATIN 10 MG TAB (CRESTOR) PO SCH (21:15)
[2019-07-25 06:00] VITALS: BP 131/77
[2019-07-25] MEDS: FLUTICASONE HFA 220 MCG 12 GM INHALER (FLOVENT) INH SCH ×2 (06:20→18:42)
--- NOTE | 2019-07-25 07:02 | IPNPDOC ---
Subjective Date Seen The patient was seen on 07/21/19. Subjective Chief Complaint/HPI Does not offer any complaints . As per nurses his was in the bathroom yesterday and he finished and stood up to clean himself when he lost his muscle strength and he slid down sideways to the floor . DId not sustain any injury. No breathing difficulty no bowel or bladder issues. He does complain of some chronic cough . Objective Physical Examination General Exam: Positive: Alert, Cooperative, No Acute Distress ENT Exam: Positive: Mucous membr. moist/pink Neck Exam: Positive: Supple Chest Exam: Positive: Clear to auscultation, Normal air movement Heart Exam: Positive: Rate Normal, Regular Rhythm, Normal S1, Normal S2; Negative: Murmurs, Rubs Abdomen Exam: Positive: Normal bowel sounds, Soft; Negative: Tenderness, Hepatospenomegaly Extremity Exam: Negative: Edema Skin Exam: Positive: Nl turgor and temperature Neuro Exam: Positive: Normal Speech, Normal Tone, Other (reflexes 3+ in both th e right upper and lower limb, On the left DTRs 3+ however on the left upper extremity) Psych Exam: Positive: Mental status NL, Memory Intact, Oriented x 3 Assessment /Plan Assessment 59-year-old male who has a history of difficulty in walking since 2015, had lumbosacral stenosis underwent lumbosacral laminectomy without any improvemnet of walking. his gait continued to worsen and subequently was diagnosed with PLS type of amyotrophic lateral sclerosis early 2018, recurrent falls, coronary artery disease, PCI in 2017, dyslipidemia, asthma, hypertension, benign prostatic hypertrophy (BPH), back pain, obstructive sleep apnea, left hernia repair had another fall after which he could not get up for which he was taken to [facility] and subsequently transferred here. Progressive ALS with reccurent falls Per Dr. Murillo, the patient may benefit from a wheelchair and rehabilitation. Currently on Riluzole 50 mg twice a day also continue tizanadine, gabapentin, amytriptiline, cymbalta continue PT and OT Dysphagia speech and swallow evaluation done CAD continue home meds metoprolol, statin, asa and plavix hypertension bp controlled . continue current meds metoprolol, losartan, hCTZ. BPH flomax Hyperlipidemia statin GI prophylaxis in place EUNICE may use own machine Plan/VTE VTE Prophylaxis Ordered?: Yes VS, I&O, 24H, Fishbone Vital Signs/I&O Vital Signs Date Time Temp Pulse Resp B/P (MAP) Pulse Ox O2 Delivery O2 Flow Rate FiO2 07/21/19 20:34 81 137/91 07/21/19 14:00 97.9 16 95 Room Air I&O- Last 24 Hours up to 6 AM 07/21/19 06:00 Intake Total 1808 ml Balance 1808 ml Laboratory Data Microbiology Microbiology 07/16/19 Respiratory Virus Panel (PCR) (JAYSON) - Final, Complete LEROY DOMINGUEZ MD Jul 21, 2019 23:17
[2019-07-25] MEDS: ANALGESIC BALM CRM 120 GM TOP SCH ×2 (09:00→20:30)
[2019-07-25] MEDS: **NOTE PATIENT COMMENT** MISC XX SCH (09:00)
[2019-07-25] MEDS: RILUZOLE 50 MG PO SCH ×2 (09:51→16:32)
[2019-07-25] MEDS: hydroCHLOROthiazide 12.5 MG CAPSULE PO SCH (09:51)
[2019-07-25] MEDS: DOCUSATE SODIUM 100 MG CAP PO SCH ×2 (09:52→20:29)
[2019-07-25] MEDS: MULTIVITAMINS/MINERALS THERAP 1 TAB PO SCH (09:52)
[2019-07-25] MEDS: GABAPENTIN 300 MG CAP PO SCH ×3 (09:52→20:29)
[2019-07-25] MEDS: CLOPIDOGREL 75 MG TAB PO SCH (09:52)
[2019-07-25] MEDS: METOPROLOL TART 50 MG TAB PO SCH ×2 (09:52→20:29)
[2019-07-25] MEDS: DULoxetine 30 MG CAP (CYMBALTA) PO SCH (09:52)
[2019-07-25] MEDS: ENOXAPARIN 40 MG/0.4 ML SYRINGE (J1650) SC SCH (09:53)
[2019-07-25] MEDS: LOSARTAN 50 MG TAB PO SCH (09:53)
[2019-07-25] MEDS: PANTOPRAZOLE 40MG TAB (PROTONIX) PO SCH (09:53)
[2019-07-25] MEDS: ASPIRIN 81 MG CHEW TABLET PO SCH (20:28)
[2019-07-25] MEDS: ROSUVASTATIN 10 MG TAB (CRESTOR) PO SCH (20:29)
[2019-07-25] MEDS: AMITRIPTYLINE 50 MG TAB PO SCH (20:29)
[2019-07-25] MEDS: TAMSULOSIN 0.4 MG CAP PO SCH (20:30)
[2019-07-25] MEDS: RAMELTEON 8 MG TAB (ROZEREM) PO SCH (20:30)
[2019-07-26 06:00] VITALS: BP 129/85
[2019-07-26] MEDS: MULTIVITAMINS/MINERALS THERAP 1 TAB PO SCH (08:17)
[2019-07-26] MEDS: hydroCHLOROthiazide 12.5 MG CAPSULE PO SCH (08:17)
[2019-07-26] MEDS: PANTOPRAZOLE 40MG TAB (PROTONIX) PO SCH (08:17)
[2019-07-26] MEDS: GABAPENTIN 300 MG CAP PO SCH ×3 (08:17→20:20)
[2019-07-26] MEDS: DOCUSATE SODIUM 100 MG CAP PO SCH ×2 (08:17→20:20)
[2019-07-26] MEDS: DULoxetine 30 MG CAP (CYMBALTA) PO SCH (08:17)
[2019-07-26] MEDS: LOSARTAN 50 MG TAB PO SCH (08:18)
[2019-07-26] MEDS: RILUZOLE 50 MG PO SCH ×2 (08:18→17:07)
[2019-07-26] MEDS: CLOPIDOGREL 75 MG TAB PO SCH (08:18)
[2019-07-26] MEDS: METOPROLOL TART 50 MG TAB PO SCH ×2 (08:18→20:21)
[2019-07-26] MEDS: ANALGESIC BALM CRM 120 GM TOP SCH ×2 (08:18→20:23)
[2019-07-26] MEDS: **NOTE PATIENT COMMENT** MISC XX SCH (08:19)
[2019-07-26] MEDS: ENOXAPARIN 40 MG/0.4 ML SYRINGE (J1650) SC SCH (08:19)
[2019-07-26] MEDS: FLUTICASONE HFA 220 MCG 12 GM INHALER (FLOVENT) INH SCH ×2 (09:00→19:32)
[2019-07-26] MEDS: TAMSULOSIN 0.4 MG CAP PO SCH (20:20)
[2019-07-26] MEDS: ROSUVASTATIN 10 MG TAB (CRESTOR) PO SCH (20:20)
[2019-07-26] MEDS: ASPIRIN 81 MG CHEW TABLET PO SCH (20:20)
[2019-07-26] MEDS: RAMELTEON 8 MG TAB (ROZEREM) PO SCH (20:20)
[2019-07-26] MEDS: AMITRIPTYLINE 50 MG TAB PO SCH (20:21)
[2019-07-27 06:00] VITALS: BP 129/91
[2019-07-27] MEDS: FLUTICASONE HFA 220 MCG 12 GM INHALER (FLOVENT) INH SCH ×2 (07:47→20:05)
[2019-07-27] MEDS: ANALGESIC BALM CRM 120 GM TOP SCH ×2 (09:00→20:55)
[2019-07-27] MEDS: **NOTE PATIENT COMMENT** MISC XX SCH (09:00)
[2019-07-27 09:03] VITALS: BP 134/92
[2019-07-27] MEDS: LOSARTAN 50 MG TAB PO SCH (09:04)
[2019-07-27] MEDS: DOCUSATE SODIUM 100 MG CAP PO SCH ×2 (09:04→20:55)
[2019-07-27] MEDS: PANTOPRAZOLE 40MG TAB (PROTONIX) PO SCH (09:04)
[2019-07-27] MEDS: RILUZOLE 50 MG PO SCH ×2 (09:04→17:23)
[2019-07-27] MEDS: MULTIVITAMINS/MINERALS THERAP 1 TAB PO SCH (09:04)
[2019-07-27] MEDS: CLOPIDOGREL 75 MG TAB PO SCH (09:05)
[2019-07-27] MEDS: METOPROLOL TART 50 MG TAB PO SCH ×2 (09:05→20:54)
[2019-07-27] MEDS: hydroCHLOROthiazide 12.5 MG CAPSULE PO SCH (09:05)
[2019-07-27] MEDS: DULoxetine 30 MG CAP (CYMBALTA) PO SCH (09:05)
[2019-07-27] MEDS: GABAPENTIN 300 MG CAP PO SCH ×3 (09:05→20:55)
[2019-07-27] MEDS: ENOXAPARIN 40 MG/0.4 ML SYRINGE (J1650) SC SCH (09:06)
[2019-07-27] MEDS: ROSUVASTATIN 10 MG TAB (CRESTOR) PO SCH (20:54)
[2019-07-27] MEDS: ASPIRIN 81 MG CHEW TABLET PO SCH (20:54)
[2019-07-27] MEDS: RAMELTEON 8 MG TAB (ROZEREM) PO SCH (20:55)
[2019-07-27] MEDS: AMITRIPTYLINE 50 MG TAB PO SCH (20:55)
[2019-07-27] MEDS: TAMSULOSIN 0.4 MG CAP PO SCH (20:55)
[2019-07-28 06:00] VITALS: BP 117/77
[2019-07-28] MEDS: FLUTICASONE HFA 220 MCG 12 GM INHALER (FLOVENT) INH SCH ×2 (07:20→20:34)
[2019-07-28] MEDS: **NOTE PATIENT COMMENT** MISC XX SCH (09:00)
[2019-07-28] MEDS: ANALGESIC BALM CRM 120 GM TOP SCH ×2 (09:00→20:38)
[2019-07-28 09:47] VITALS: BP 129/86
[2019-07-28] MEDS: DOCUSATE SODIUM 100 MG CAP PO SCH ×2 (09:48→20:37)
[2019-07-28] MEDS: RILUZOLE 50 MG PO SCH ×2 (09:48→16:48)
[2019-07-28] MEDS: LOSARTAN 50 MG TAB PO SCH (09:49)
[2019-07-28] MEDS: PANTOPRAZOLE 40MG TAB (PROTONIX) PO SCH (09:49)
[2019-07-28] MEDS: METOPROLOL TART 50 MG TAB PO SCH ×2 (09:49→20:37)
[2019-07-28] MEDS: DULoxetine 30 MG CAP (CYMBALTA) PO SCH (09:49)
[2019-07-28] MEDS: CLOPIDOGREL 75 MG TAB PO SCH (09:49)
[2019-07-28] MEDS: hydroCHLOROthiazide 12.5 MG CAPSULE PO SCH (09:50)
[2019-07-28] MEDS: GABAPENTIN 300 MG CAP PO SCH ×3 (09:50→20:38)
[2019-07-28] MEDS: MULTIVITAMINS/MINERALS THERAP 1 TAB PO SCH (09:50)
[2019-07-28] MEDS: ENOXAPARIN 40 MG/0.4 ML SYRINGE (J1650) SC SCH (09:50)
[2019-07-28] MEDS: ROSUVASTATIN 10 MG TAB (CRESTOR) PO SCH (20:37)
[2019-07-28] MEDS: TAMSULOSIN 0.4 MG CAP PO SCH (20:37)
[2019-07-28] MEDS: AMITRIPTYLINE 50 MG TAB PO SCH (20:37)
[2019-07-28] MEDS: RAMELTEON 8 MG TAB (ROZEREM) PO SCH (20:37)
[2019-07-28] MEDS: ASPIRIN 81 MG CHEW TABLET PO SCH (20:37)
[2019-07-29 06:00] VITALS: BP 116/74
[2019-07-29] MEDS: FLUTICASONE HFA 220 MCG 12 GM INHALER (FLOVENT) INH SCH ×2 (07:25→20:24)
[2019-07-29] MEDS: RILUZOLE 50 MG PO SCH ×2 (08:04→17:06)
[2019-07-29 09:00] VITALS: BP 122/78
[2019-07-29] MEDS: **NOTE PATIENT COMMENT** MISC XX SCH (09:00)
[2019-07-29] MEDS: ANALGESIC BALM CRM 120 GM TOP SCH ×2 (09:00→19:55)
[2019-07-29] MEDS: ENOXAPARIN 40 MG/0.4 ML SYRINGE (J1650) SC SCH (10:01)
[2019-07-29] MEDS: DULoxetine 30 MG CAP (CYMBALTA) PO SCH (10:02)
[2019-07-29] MEDS: GABAPENTIN 300 MG CAP PO SCH ×3 (10:02→19:54)
[2019-07-29] MEDS: hydroCHLOROthiazide 12.5 MG CAPSULE PO SCH (10:03)
[2019-07-29] MEDS: CLOPIDOGREL 75 MG TAB PO SCH (10:18)
[2019-07-29] MEDS: LOSARTAN 50 MG TAB PO SCH (10:21)
[2019-07-29] MEDS: METOPROLOL TART 50 MG TAB PO SCH ×2 (10:22→19:54)
[2019-07-29] MEDS: MULTIVITAMINS/MINERALS THERAP 1 TAB PO SCH (10:22)
[2019-07-29] MEDS: PANTOPRAZOLE 40MG TAB (PROTONIX) PO SCH (10:23)
[2019-07-29] MEDS: DOCUSATE SODIUM 100 MG CAP PO SCH ×2 (10:36→19:51)
--- NOTE | 2019-07-29 12:59 | IPN ---
DATE: 07/29/2019 The patient is seen and examined. He complains of recurrent falls, as per nurse, He refused blood draws and would like the neurologist to speak with his insurance company to reconsider rehabilitation approval. The patient also wants his [facility], Stanton Reid, contacted in order to convince his insurance company to reconsider acute rehabilitation for him. He has been increasingly weak, unable to ambulate and with significant difficulty using his walker. The patient, per physical therapy (PT), has been progressively worsening. PHYSICAL EXAMINATION: Temperature 97.3, pulse 84, respiratory rate 18, blood pressure 122/70, 98% on room air. GENERAL: Awake, alert, oriented times three. Answering questions appropriately. LUNGS: Clear to auscultation. No wheezing, rales or rhonchi. HEART: S1, S2. Sinus rhythm. ABDOMEN: Soft, nontender, nondistended. EXTREMITIES: No cyanosis, clubbing or pitting edema. NEUROLOGIC: 4/5 bilateral lower extremities. Upper extremities 5/5. Deep tendon reflexes 3+ throughout. LABORATORY DATA: White count 12.5. CBC and metabolic panel have been reviewed. 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 IMPRESSION: 1. Progressive ALS with recurrent falls, currently on Riluzole 50 mg twice a day, tizanidine, gabapentin, amitriptyline and Cymbalta. Continue physical therapy (PT) and occupational therapy (OT) at alternate level of care (ALC) status. 2. Dysphagia. No signs of aspiration. Speech evaluation has been done. 3. Coronary artery disease, controlled on metoprolol, statin, aspirin and Plavix. 4. Hypertension. On losartan, hydrochlorothiazide, metoprolol. 5. Benign prostatic hypertrophy (BPH). On Flomax. 6. Dyslipidemia. On statin. DISPOSITION: For prognostic purposes, the patient has requested Dr. Murillo and come and speak with his insurance company to reconsider acute rehabilitation. [facility]
[2019-07-29] MEDS: ASPIRIN 81 MG CHEW TABLET PO SCH (19:51)
[2019-07-29] MEDS: AMITRIPTYLINE 50 MG TAB PO SCH (19:54)
[2019-07-29] MEDS: ROSUVASTATIN 10 MG TAB (CRESTOR) PO SCH (19:54)
[2019-07-29] MEDS: TAMSULOSIN 0.4 MG CAP PO SCH (19:54)
[2019-07-29] MEDS: RAMELTEON 8 MG TAB (ROZEREM) PO SCH (19:54)
[2019-07-29 22:00] VITALS: BP 128/85
[2019-07-30 06:00] VITALS: BP 122/76
[2019-07-30] MEDS: FLUTICASONE HFA 220 MCG 12 GM INHALER (FLOVENT) INH SCH ×2 (07:21→18:37)
[2019-07-30] MEDS: RILUZOLE 50 MG PO SCH ×2 (07:56→17:37)
[2019-07-30] MEDS: MULTIVITAMINS/MINERALS THERAP 1 TAB PO SCH (07:56)
[2019-07-30] MEDS: DULoxetine 30 MG CAP (CYMBALTA) PO SCH (07:56)
[2019-07-30] MEDS: hydroCHLOROthiazide 12.5 MG CAPSULE PO SCH (07:56)
[2019-07-30] MEDS: METOPROLOL TART 50 MG TAB PO SCH ×2 (07:56→20:40)
[2019-07-30] MEDS: LOSARTAN 50 MG TAB PO SCH (07:57)
[2019-07-30] MEDS: GABAPENTIN 300 MG CAP PO SCH ×3 (07:57→20:37)
[2019-07-30] MEDS: PANTOPRAZOLE 40MG TAB (PROTONIX) PO SCH (07:57)
[2019-07-30] MEDS: CLOPIDOGREL 75 MG TAB PO SCH (07:57)
[2019-07-30] MEDS: DOCUSATE SODIUM 100 MG CAP PO SCH ×2 (07:57→20:39)
[2019-07-30] MEDS: ANALGESIC BALM CRM 120 GM TOP SCH ×2 (07:57→20:41)
[2019-07-30] MEDS: **NOTE PATIENT COMMENT** MISC XX SCH (07:58)
[2019-07-30] MEDS: ENOXAPARIN 40 MG/0.4 ML SYRINGE (J1650) SC SCH (07:58)
[2019-07-30] MEDS: ASPIRIN 81 MG CHEW TABLET PO SCH (20:37)
[2019-07-30] MEDS: RAMELTEON 8 MG TAB (ROZEREM) PO SCH (20:37)
[2019-07-30] MEDS: TAMSULOSIN 0.4 MG CAP PO SCH (20:38)
[2019-07-30] MEDS: ROSUVASTATIN 10 MG TAB (CRESTOR) PO SCH (20:38)
[2019-07-30] MEDS: AMITRIPTYLINE 50 MG TAB PO SCH (20:39)
[2019-07-31 06:00] VITALS: BP 116/76
[2019-07-31] MEDS: FLUTICASONE HFA 220 MCG 12 GM INHALER (FLOVENT) INH SCH ×2 (07:29→18:04)
[2019-07-31] MEDS: DULoxetine 30 MG CAP (CYMBALTA) PO SCH (08:22)
[2019-07-31] MEDS: RILUZOLE 50 MG PO SCH ×2 (08:22→16:14)
[2019-07-31] MEDS: METOPROLOL TART 50 MG TAB PO SCH ×2 (08:22→21:09)
[2019-07-31] MEDS: GABAPENTIN 300 MG CAP PO SCH ×3 (08:22→21:07)
[2019-07-31] MEDS: CLOPIDOGREL 75 MG TAB PO SCH (08:22)
[2019-07-31] MEDS: PANTOPRAZOLE 40MG TAB (PROTONIX) PO SCH (08:22)
[2019-07-31] MEDS: DOCUSATE SODIUM 100 MG CAP PO SCH ×2 (08:22→21:08)
[2019-07-31] MEDS: ENOXAPARIN 40 MG/0.4 ML SYRINGE (J1650) SC SCH (08:23)
[2019-07-31] MEDS: hydroCHLOROthiazide 12.5 MG CAPSULE PO SCH (08:23)
[2019-07-31] MEDS: LOSARTAN 50 MG TAB PO SCH (08:23)
[2019-07-31] MEDS: MULTIVITAMINS/MINERALS THERAP 1 TAB PO SCH (08:23)
[2019-07-31] MEDS: **NOTE PATIENT COMMENT** MISC XX SCH (08:24)
[2019-07-31] MEDS: ANALGESIC BALM CRM 120 GM TOP SCH ×2 (08:24→21:09)
[2019-07-31] MEDS: RAMELTEON 8 MG TAB (ROZEREM) PO SCH (21:08)
[2019-07-31] MEDS: AMITRIPTYLINE 50 MG TAB PO SCH (21:08)
[2019-07-31] MEDS: ASPIRIN 81 MG CHEW TABLET PO SCH (21:08)
[2019-07-31] MEDS: ROSUVASTATIN 10 MG TAB (CRESTOR) PO SCH (21:08)
[2019-07-31] MEDS: TAMSULOSIN 0.4 MG CAP PO SCH (21:08)
[2019-08-01 06:00] VITALS: BP 125/82
[2019-08-01] MEDS: FLUTICASONE HFA 220 MCG 12 GM INHALER (FLOVENT) INH SCH ×2 (07:57→19:44)
[2019-08-01] MEDS: DOCUSATE SODIUM 100 MG CAP PO SCH ×2 (08:19→20:37)
[2019-08-01] MEDS: RILUZOLE 50 MG PO SCH ×2 (08:19→16:27)
[2019-08-01] MEDS: GABAPENTIN 300 MG CAP PO SCH ×3 (08:20→20:37)
[2019-08-01] MEDS: PANTOPRAZOLE 40MG TAB (PROTONIX) PO SCH (08:20)
[2019-08-01] MEDS: DULoxetine 30 MG CAP (CYMBALTA) PO SCH (08:20)
[2019-08-01] MEDS: MULTIVITAMINS/MINERALS THERAP 1 TAB PO SCH (08:20)
[2019-08-01] MEDS: CLOPIDOGREL 75 MG TAB PO SCH (08:20)
[2019-08-01] MEDS: METOPROLOL TART 50 MG TAB PO SCH ×2 (08:20→20:37)
[2019-08-01] MEDS: ENOXAPARIN 40 MG/0.4 ML SYRINGE (J1650) SC SCH (08:20)
[2019-08-01] MEDS: LOSARTAN 50 MG TAB PO SCH (08:21)
[2019-08-01] MEDS: ANALGESIC BALM CRM 120 GM TOP SCH ×2 (08:21→20:38)
[2019-08-01] MEDS: **NOTE PATIENT COMMENT** MISC XX SCH (08:21)
[2019-08-01] MEDS: hydroCHLOROthiazide 12.5 MG CAPSULE PO SCH (08:21)
[2019-08-01] MEDS: ROSUVASTATIN 10 MG TAB (CRESTOR) PO SCH (20:37)
[2019-08-01] MEDS: RAMELTEON 8 MG TAB (ROZEREM) PO SCH (20:37)
[2019-08-01] MEDS: ASPIRIN 81 MG CHEW TABLET PO SCH (20:37)
[2019-08-01] MEDS: AMITRIPTYLINE 50 MG TAB PO SCH (20:37)
[2019-08-01] MEDS: TAMSULOSIN 0.4 MG CAP PO SCH (20:37)
[2019-08-02 06:00] VITALS: BP 128/75
[2019-08-02] MEDS: FLUTICASONE HFA 220 MCG 12 GM INHALER (FLOVENT) INH SCH ×2 (07:48→19:33)
[2019-08-02] MEDS: RILUZOLE 50 MG PO SCH ×2 (07:57→16:48)
[2019-08-02] MEDS: ANALGESIC BALM CRM 120 GM TOP SCH ×2 (07:57→19:45)
[2019-08-02] MEDS: CLOPIDOGREL 75 MG TAB PO SCH (07:58)
[2019-08-02] MEDS: PANTOPRAZOLE 40MG TAB (PROTONIX) PO SCH (07:58)
[2019-08-02] MEDS: GABAPENTIN 300 MG CAP PO SCH ×3 (07:58→19:41)
[2019-08-02] MEDS: ENOXAPARIN 40 MG/0.4 ML SYRINGE (J1650) SC SCH (07:58)
[2019-08-02] MEDS: DOCUSATE SODIUM 100 MG CAP PO SCH ×2 (07:58→19:41)
[2019-08-02] MEDS: METOPROLOL TART 50 MG TAB PO SCH ×2 (07:59→19:45)
[2019-08-02] MEDS: MULTIVITAMINS/MINERALS THERAP 1 TAB PO SCH (07:59)
[2019-08-02] MEDS: hydroCHLOROthiazide 12.5 MG CAPSULE PO SCH (07:59)
[2019-08-02] MEDS: DULoxetine 30 MG CAP (CYMBALTA) PO SCH (07:59)
[2019-08-02] MEDS: LOSARTAN 50 MG TAB PO SCH (07:59)
[2019-08-02] MEDS: **NOTE PATIENT COMMENT** MISC XX SCH (08:00)
[2019-08-02] MEDS: ASPIRIN 81 MG CHEW TABLET PO SCH (19:41)
[2019-08-02] MEDS: RAMELTEON 8 MG TAB (ROZEREM) PO SCH (19:42)
[2019-08-02] MEDS: ROSUVASTATIN 10 MG TAB (CRESTOR) PO SCH (19:42)
[2019-08-02] MEDS: AMITRIPTYLINE 50 MG TAB PO SCH (19:42)
[2019-08-02] MEDS: TAMSULOSIN 0.4 MG CAP PO SCH (19:45)
[2019-08-03] MEDS: FLUTICASONE HFA 220 MCG 12 GM INHALER (FLOVENT) INH SCH ×2 (08:02→19:49)
[2019-08-03 08:52] VITALS: BP 150/99
[2019-08-03] MEDS: DULoxetine 30 MG CAP (CYMBALTA) PO SCH (08:53)
[2019-08-03] MEDS: CLOPIDOGREL 75 MG TAB PO SCH (08:53)
[2019-08-03] MEDS: GABAPENTIN 300 MG CAP PO SCH ×3 (08:53→20:40)
[2019-08-03] MEDS: hydroCHLOROthiazide 12.5 MG CAPSULE PO SCH (08:53)
[2019-08-03] MEDS: MULTIVITAMINS/MINERALS THERAP 1 TAB PO SCH (08:54)
[2019-08-03] MEDS: DOCUSATE SODIUM 100 MG CAP PO SCH ×2 (08:54→20:40)
[2019-08-03] MEDS: METOPROLOL TART 50 MG TAB PO SCH ×2 (08:54→20:39)
[2019-08-03] MEDS: LOSARTAN 50 MG TAB PO SCH (08:54)
[2019-08-03] MEDS: PANTOPRAZOLE 40MG TAB (PROTONIX) PO SCH (08:54)
[2019-08-03] MEDS: **NOTE PATIENT COMMENT** MISC XX SCH (08:55)
[2019-08-03] MEDS: ANALGESIC BALM CRM 120 GM TOP SCH ×2 (08:55→20:40)
[2019-08-03] MEDS: ENOXAPARIN 40 MG/0.4 ML SYRINGE (J1650) SC SCH (08:55)
[2019-08-03] MEDS: RILUZOLE 50 MG PO SCH ×2 (08:56→16:57)
[2019-08-03] MEDS: ROSUVASTATIN 10 MG TAB (CRESTOR) PO SCH (20:39)
[2019-08-03] MEDS: TAMSULOSIN 0.4 MG CAP PO SCH (20:39)
[2019-08-03] MEDS: RAMELTEON 8 MG TAB (ROZEREM) PO SCH (20:39)
[2019-08-03] MEDS: AMITRIPTYLINE 50 MG TAB PO SCH (20:40)
[2019-08-03] MEDS: ASPIRIN 81 MG CHEW TABLET PO SCH (20:40)
[2019-08-04 06:00] VITALS: BP 111/81
[2019-08-04] MEDS: FLUTICASONE HFA 220 MCG 12 GM INHALER (FLOVENT) INH SCH ×2 (07:49→20:11)
[2019-08-04 08:29] VITALS: BP 134/90
[2019-08-04] MEDS: RILUZOLE 50 MG PO SCH ×2 (08:35→17:00)
[2019-08-04] MEDS: DULoxetine 30 MG CAP (CYMBALTA) PO SCH (08:36)
[2019-08-04] MEDS: MULTIVITAMINS/MINERALS THERAP 1 TAB PO SCH (08:36)
[2019-08-04] MEDS: hydroCHLOROthiazide 12.5 MG CAPSULE PO SCH (08:36)
[2019-08-04] MEDS: CLOPIDOGREL 75 MG TAB PO SCH (08:36)
[2019-08-04] MEDS: METOPROLOL TART 50 MG TAB PO SCH ×2 (08:36→20:17)
[2019-08-04] MEDS: PANTOPRAZOLE 40MG TAB (PROTONIX) PO SCH (08:36)
[2019-08-04] MEDS: LOSARTAN 50 MG TAB PO SCH (08:36)
[2019-08-04] MEDS: GABAPENTIN 300 MG CAP PO SCH ×3 (08:36→20:16)
[2019-08-04] MEDS: **NOTE PATIENT COMMENT** MISC XX SCH (08:37)
[2019-08-04] MEDS: DOCUSATE SODIUM 100 MG CAP PO SCH ×2 (08:37→20:17)
[2019-08-04] MEDS: ENOXAPARIN 40 MG/0.4 ML SYRINGE (J1650) SC SCH (08:37)
[2019-08-04] MEDS: ANALGESIC BALM CRM 120 GM TOP SCH ×2 (08:37→20:18)
[2019-08-04] MEDS: ROSUVASTATIN 10 MG TAB (CRESTOR) PO SCH (20:16)
[2019-08-04] MEDS: TAMSULOSIN 0.4 MG CAP PO SCH (20:16)
[2019-08-04] MEDS: AMITRIPTYLINE 50 MG TAB PO SCH (20:16)
[2019-08-04] MEDS: RAMELTEON 8 MG TAB (ROZEREM) PO SCH (20:16)
[2019-08-04] MEDS: ASPIRIN 81 MG CHEW TABLET PO SCH (20:17)
[2019-08-05 06:00] VITALS: BP 132/88
[2019-08-05] MEDS: FLUTICASONE HFA 220 MCG 12 GM INHALER (FLOVENT) INH SCH ×2 (07:45→20:33)
[2019-08-05] MEDS: ENOXAPARIN 40 MG/0.4 ML SYRINGE (J1650) SC SCH (08:34)
[2019-08-05] MEDS: RILUZOLE 50 MG PO SCH ×2 (08:34→16:46)
[2019-08-05] MEDS: ANALGESIC BALM CRM 120 GM TOP SCH ×2 (08:35→20:14)
[2019-08-05] MEDS: DULoxetine 30 MG CAP (CYMBALTA) PO SCH (08:35)
[2019-08-05] MEDS: GABAPENTIN 300 MG CAP PO SCH ×3 (08:35→20:13)
[2019-08-05] MEDS: **NOTE PATIENT COMMENT** MISC XX SCH (08:35)
[2019-08-05] MEDS: PANTOPRAZOLE 40MG TAB (PROTONIX) PO SCH (08:35)
[2019-08-05] MEDS: DOCUSATE SODIUM 100 MG CAP PO SCH ×2 (08:35→20:13)
[2019-08-05] MEDS: MULTIVITAMINS/MINERALS THERAP 1 TAB PO SCH (08:35)
[2019-08-05] MEDS: CLOPIDOGREL 75 MG TAB PO SCH (08:35)
[2019-08-05] MEDS: METOPROLOL TART 50 MG TAB PO SCH ×2 (08:36→20:14)
[2019-08-05] MEDS: LOSARTAN 50 MG TAB PO SCH (08:36)
[2019-08-05] MEDS: hydroCHLOROthiazide 12.5 MG CAPSULE PO SCH (08:36)
[2019-08-05] MEDS: AMITRIPTYLINE 50 MG TAB PO SCH (20:11)
[2019-08-05] MEDS: ACETAMINOPHEN TAB 650MG DOSE (2X325MG) PO PRN (20:12)
[2019-08-05] MEDS: ASPIRIN 81 MG CHEW TABLET PO SCH (20:13)
[2019-08-05] MEDS: ROSUVASTATIN 10 MG TAB (CRESTOR) PO SCH (20:13)
[2019-08-05] MEDS: RAMELTEON 8 MG TAB (ROZEREM) PO SCH (20:13)
[2019-08-05] MEDS: TAMSULOSIN 0.4 MG CAP PO SCH (20:13)
[2019-08-06 06:00] VITALS: BP 129/89
[2019-08-06] MEDS: FLUTICASONE HFA 220 MCG 12 GM INHALER (FLOVENT) INH SCH ×2 (08:20→19:45)
[2019-08-06] MEDS: RILUZOLE 50 MG PO SCH ×2 (08:42→16:56)
[2019-08-06] MEDS: METOPROLOL TART 50 MG TAB PO SCH ×2 (08:42→20:08)
[2019-08-06] MEDS: DOCUSATE SODIUM 100 MG CAP PO SCH ×2 (08:42→20:07)
[2019-08-06] MEDS: DULoxetine 30 MG CAP (CYMBALTA) PO SCH (08:42)
[2019-08-06] MEDS: hydroCHLOROthiazide 12.5 MG CAPSULE PO SCH (08:42)
[2019-08-06] MEDS: GABAPENTIN 300 MG CAP PO SCH ×3 (08:42→20:09)
[2019-08-06] MEDS: CLOPIDOGREL 75 MG TAB PO SCH (08:42)
[2019-08-06] MEDS: ENOXAPARIN 40 MG/0.4 ML SYRINGE (J1650) SC SCH (08:43)
[2019-08-06] MEDS: LOSARTAN 50 MG TAB PO SCH (08:43)
[2019-08-06] MEDS: MULTIVITAMINS/MINERALS THERAP 1 TAB PO SCH (08:43)
[2019-08-06] MEDS: PANTOPRAZOLE 40MG TAB (PROTONIX) PO SCH (08:43)
[2019-08-06] MEDS: ANALGESIC BALM CRM 120 GM TOP SCH ×2 (08:43→20:09)
[2019-08-06] MEDS: **NOTE PATIENT COMMENT** MISC XX SCH (09:00)
[2019-08-06] MEDS: AMITRIPTYLINE 50 MG TAB PO SCH (20:07)
[2019-08-06] MEDS: ROSUVASTATIN 10 MG TAB (CRESTOR) PO SCH (20:08)
[2019-08-06] MEDS: RAMELTEON 8 MG TAB (ROZEREM) PO SCH (20:08)
[2019-08-06] MEDS: ASPIRIN 81 MG CHEW TABLET PO SCH (20:09)
[2019-08-06] MEDS: TAMSULOSIN 0.4 MG CAP PO SCH (20:09)
[2019-08-07 06:00] VITALS: BP 139/89
[2019-08-07 07:21] VITALS: BP 139/89
[2019-08-07] MEDS: PANTOPRAZOLE 40MG TAB (PROTONIX) PO SCH (07:21)
[2019-08-07] MEDS: hydroCHLOROthiazide 12.5 MG CAPSULE PO SCH (07:21)
[2019-08-07] MEDS: CLOPIDOGREL 75 MG TAB PO SCH (07:21)
[2019-08-07] MEDS: MULTIVITAMINS/MINERALS THERAP 1 TAB PO SCH (07:21)
[2019-08-07] MEDS: LOSARTAN 50 MG TAB PO SCH (07:21)
[2019-08-07] MEDS: DULoxetine 30 MG CAP (CYMBALTA) PO SCH (07:21)
[2019-08-07] MEDS: GABAPENTIN 300 MG CAP PO SCH (07:21)
[2019-08-07] MEDS: METOPROLOL TART 50 MG TAB PO SCH (07:21)
[2019-08-07] MEDS: DOCUSATE SODIUM 100 MG CAP PO SCH (07:21)
[2019-08-07] MEDS: **NOTE PATIENT COMMENT** MISC XX SCH (07:22)
[2019-08-07] MEDS: ENOXAPARIN 40 MG/0.4 ML SYRINGE (J1650) SC SCH (07:22)
[2019-08-07] MEDS: ANALGESIC BALM CRM 120 GM TOP SCH (07:23)
[2019-08-07] MEDS: RILUZOLE 50 MG PO SCH (07:23)
[2019-08-07] MEDS: FLUTICASONE HFA 220 MCG 12 GM INHALER (FLOVENT) INH SCH (07:24)
[2019-08-07] MEDS ORDERED: K-TA10TA PO (10:52)
--- NOTE | 2019-08-07 11:47 | DSES ---
DATE OF ADMISSION: 07/03/2019 DATE OF DISCHARGE: 08/07/2019 PRINCIPAL DIAGNOSIS: Progressive amyotrophic lateral sclerosis (ALS) with recurrent falls. SECONDARY DIAGNOSES: Dysphagia without aspiration. Coronary artery disease. Hypertension. BPH. Hyperlipidemia. PRIMARY CARE PROVIDER: Dr. Yevgeniy Carrillo NEUROLOGIST: [facility] [place]. HISTORY: Yobani Caldwell is being discharged home today against medical advice. I did not participate in his care during his hospitalization, but I was rounding for the hospitalist the day he left against medical advice (AMA). He was admitted with falls, inability to care for himself at home, was transferred from [facility] for evaluation of physical therapy. Details in history and physical from admission. HOSPITAL COURSE: He was admitted to medical bed, was seen by physical therapy, occupational therapy, speech therapy. He had a swallowing study. He did not aspirate. He was recommended for placement. He cannot care for himself. He had a mechanical fall while in the hospital without injury. Seen by neurology. Recommended motorized scooter as an outpatient. MOST RECENT LABS: White count 10.8, hemoglobin 14, platelets 241, on 07/23/2019. His electrolytes on 07/23/2019; sodium 138, potassium 3.1, BUN 15, creatinine 1.0, glucose 192. DISPOSITION: He is being discharged against medical advice. He is insisting on discharge. He knows that the recommendations were for placement. He has a caregiver that is there part of the day. He understands the risk of this and accepts it after discussion today. He will be discharged home. Followup with Dr. Carrillo in a week. Activity as tolerated. His diet is as tolerated. He has problems handling secretions, needs a medial bed that requires elevation of the head/upper body more than 30 degrees, and also needs a bed that will allow positioning in ways not possible with an ordinary bed. He requires frequent positions of body position due to his ALS, otherwise, he will develop pressure sores. I did give him a prescription for a hospital bed. Medications on discharge will be: - albuterol two puffs every 4 hours as needed - amitriptyline 50 mg at bedtime - aspirin 81 mg daily - vitamin D 1000 units daily - Plavix 75 mg - duloxetine 60 mg daily - Flovent one inhalation twice a day - gabapentin 600 mg three times a day - losartan/hydrochlorothiazide 100-25 one daily - metoprolol tartrate 50 mg twice a day - Protonix 40 mg daily - multivitamin - rosuvastatin 20 mg daily - tamsulosin 0.4 mg daily - tizanidine 4 mg twice a day as needed I am starting him on potassium chloride 10 mEq twice a day because of the hypokalemia discovered as part of the discharge process. He will need an outpatient metabolic profile when he sees his primary care provider. Prognosis ultimately is poor. Per neurology, he has a slowly progressing ALS. edited: 08/07/2019 1522 [id number] [email or web address]
== END 2019-08-07 14:38 | disposition left against medical advice (07) | DRG 42 ==
LOC: M MSPAV 21:51 → EDSTATUS 22:03
PROVIDERS: ADMIT Internal Medicine; ATTEND Family Medicine
DX: G12.21 Amyotrophic lateral sclerosis (principal); Z73.6 Limitation of activities due to disability; R13.10 Dysphagia, unspecified; I25.10 Atherosclerotic heart disease of native coronary artery without angina pectoris; I10 Essential (primary) hypertension; N40.0 Benign prostatic hyperplasia without lower urinary tract symptoms; E78.5 Hyperlipidemia, unspecified; R29.6 Repeated falls; Z79.899 Other long term (current) drug therapy; Z79.82 Long term (current) use of aspirin; J45.909 Unspecified asthma, uncomplicated; G47.33 Obstructive sleep apnea (adult) (pediatric); F17.200 Nicotine dependence, unspecified, uncomplicated; M50.30 Other cervical disc degeneration, unspecified cervical region; M51.87 Other intervertebral disc disorders, lumbosacral region

== ENCOUNTER 2020-08-31 12:55 | Emergency (ER) | payer BC, MEDICAID, OTHER ==
[~2020-08-31] VITALS: Ht 188 cm; Wt 109.1 kg
[~2020-08-31 12:55] MED LIST changes: +AMIT50TA PO; +AMLO1TAB24 PO; -AMLO5TAB6 PO; +ASPI81CH33 PO; +CLOP75TA2 PO; +D 101000 PO; +DULO60CA35 PO; +K-TA10TA PO; +MELA10CA2 PO; +MULTCAP PO; +NITR0.4S14 SL; +PANT40TA29 PO; -PANT40TA3 PO
[2020-08-31] MEDS ORDERED: LIDOCAINE 2% JELLY 6 ML SYRINGE TOP ONE (13:45)
[2020-08-31] MEDS ORDERED: LIDOCAINE 2% 5ML JELLY UROJET TOP PRN (14:45)
[2020-08-31] MEDS ORDERED: [UNRECOGNIZED DRUG - REMARK] PERC (15:36)
--- OUTSIDE RECORDS SUMMARY | 2020-08-31 15:40 | CCD | Continuity of Care Document ---
Author Author Yobani Brown Automated Organization Unknown Address Unknown Phone Unavailable Care Team Providers Care Hebrew Teacher Name Role Phone Stanton Wing Unavailable Nestor Carrillo Unavailable [facility] Unavailable Unavailable Unavailable Unavailable Cami Larose Unavailable Fannie Ocasio Unavailable Delphine Laurent Unavailable Problems Name Dates Details Amyotrophic lateral sclerosis (G12.21) 21-Jul-2020 Status: Active Medications Name Dates Details DULoxetine HCl 60 MG Stanton Wing Active Fluticasone Propionate HFA 220 MCG/ACT Johana Wing Start : 29-Jul-2020 Active Gabapentin 600 MG 1 tablet every 6 hours as needed for pain higher than 4/10Maximum of 2400mg cinthya y Johana Wing Start : 29-Jul-2020 Active Losartan Potassium-Hydrochlorothiazide 100-25 MG Johana Wing Start : 29-Jul-2020 Active Metoprolol Tartrate 100 MG Johana Wing Start : 28-Jul-2020 Active Multivitamin Johana Wing Start : 28-Jul-2020 Active Nitroglycerin 0.3 MG 1 tablet every 5 minutes as needed for chest pain. Maximum of 3 tablets per epis ode-if no relief call 911 Johana Wing Start : 28-Jul-2020 Active Pantoprazole Sodium 40 MG Johana Wing Start : 28-Jul-2020 Active Polyethylene Glycol 1000 1 dose daily as needed for constipationmaximum of 1 dose daily Johana Wing Start : 28-Jul-2020 Active Riluzole 50 MG Before meals Johana Wing Start : 28-Jul-2020 Active Rosuvastatin Calcium 40 MG Johana Wing Start : 28-Jul-2020 Active Tamsulosin HCl 0.4 MG Johana Wing Start : 28-Jul-2020 Active TiZANidine HCl 4 MG 4mg in am8mg in pm Johana Wing Start : 28-Jul-2020 Active Eliquis 5 MG Johana Wing Start : 28-Jul-2020 Active Albuterol Sulfate 108 (90 Base) MCG/ACT 2 puffs every hour as needed for shortness of breathMaximum of 24 doses daily Johana Wing Start : 28-Jul-2020 Active Ipratropium [place] HFA 17 MCG/ACT 1 vial via nebulizer every 4 hours as needed for shortness of breathMaximum of 6 doses daily Johana Wing Start : 28-Jul-2020 Active Amitriptyline HCl 50 MG Johana Wing Start : 28-Jul-2020 Active Clopidogrel Bisulfate 75 MG Johana Wing Start : 28-Jul-2020 Active tiZANidine HCl 4 MG one tablet in the morning and two tablets in the evening Johana Wing Start : 08-Feb-2020 End : 05-Apr-2020 Inactive Tamsulosin HCl 0.4 MG Johana Wing Start : 08-Feb-2020 End : 05-Apr-2020 Inactive Rosuvastatin Calcium 40 MG Johana Wing Start : 08-Feb-2020 End : 05-Apr-2020 Inactive Riluzole 50 MG Johana Wing Start : 08-Feb-2020 End : 05-Apr-2020 Inactive Polyethylene Glycol 3350 17 GM/SCOOP Take one scoop daily Johana Wing Start : 08-Feb-2020 End : 05-Apr-2020 Inactive Pantoprazole Sodium 40 MG Johana Wing Start : 08-Feb-2020 End : 05-Apr-2020 Inactive Nitroglycerin 0.[address] one tablet under tongue every 5 minutes as needed for chest pain, may repe at twice then call 911 Johana Wing Start : 08-Feb-2020 End : 05-Apr-2020 Inactive Multivitamins Johana Wing Start : 08-Feb-2020 End : 05-Apr-2020 Inactive Lopressor 50 MG take 100mg twice a day (2 tablets) Johana Wing Start : 08-Feb-2020 End : 05-Apr-2020 Inactive Losartan Potassium-Hydrochlorothiazide 100-25 MG Johana Wing Start : 08-Feb-2020 End : 05-Apr-2020 Inactive Gabapentin 600 MG Take 600mg every 6 hours as needed for pain Johana Wing Start : 08-Feb-2020 End : 05-Apr-2020 Inactive Flovent HFA 220 MCG/ACT 1 puff twice a day Johana Wing Start : 08-Feb-2020 End : 05-Apr-2020 Inactive DULoxetine HCl 60 MG on hold until pain management appt Johana Wing Start : 08-Feb-2020 End : 05-Apr-2020 Inactive Compleat 8 cartridges by PEG tube daily Johana Wing Start : 08-Feb-2020 End : 05-Apr-2020 Inactive Clopidogrel Bisulfate 75 MG Johana Wing Start : 08-Feb-2020 End : 05-Apr-2020 Inactive Apixaban 5 MG Johana Wing Start : 08-Feb-2020 End : 05-Apr-2020 Inactive Amitriptyline HCl 50 MG Johana Wing Start : 08-Feb-2020 End : 05-Apr-2020 Inactive Albuterol Sulfate HFA 108 (90 Base) MCG/ACT 2 puffs every 4 hours as needed for shortness of breath Johana Wing Start : 08-Feb-2020 End : 05-Apr-2020 Inactive Benzonatate 200 MG Jarret Case MD* Start : 03-Nov-2019 End : 18-Dec-2019 Inactive Albuterol Sulfate HFA 108 (90 Base) MCG/ACT 2 puffs every 4 hours as needed for shortness of breathNot to exceed 6x/day Johana Wing Start : 20-Oct-2019 End : 18-Dec-2019 Inactive Nitroglycerin 0.4 MG 1 tablet every 5 minutes as needed for chest painNot to exceed 3 tablets daily- if no relief call 911 Johana Wing Start : 20-Oct-2019 End : 18-Dec-2019 Inactive Juice Plus Fibre Johana Wing Start : 20-Oct-2019 End : 18-Dec-2019 Inactive TiZANidine HCl 4 MG 1 tablet in am2 talbets in pm Johana Wing Start : 20-Oct-2019 End : 18-Dec-2019 Inactive Tamsulosin HCl 0.4 MG Johana Wing Start : 20-Oct-2019 End : 18-Dec-2019 Inactive Gabapentin 600 MG 1 tablet every 6 hours as needed for pain higher than 4/10Not to exceed 4 tablet s daily Johana Wing Start : 20-Oct-2019 End : 18-Dec-2019 Inactive Rosuvastatin Calcium 20 MG Johana Wing Start : 20-Oct-2019 End : 18-Dec-2019 Inactive Riluzole 50 MG Johana Wing Start : 20-Oct-2019 End : 18-Dec-2019 Inactive Clopidogrel Bisulfate 75 MG Johana Wing Start : 20-Oct-2019 End : 18-Dec-2019 Inactive Amitriptyline HCl 50 MG Johana Wing Start : 20-Oct-2019 End : 18-Dec-2019 Inactive Aspirin 81 MG Johana Wing Start : 20-Oct-2019 End : 18-Dec-2019 Inactive DULoxetine HCl 60 MG Johana Wing Start : 20-Oct-2019 End : 18-Dec-2019 Inactive Fluticasone Propionate HFA 220 MCG/ACT Johana Wing Start : 20-Oct-2019 End : 18-Dec-2019 Inactive Losartan Potassium-HCTZ 50-12.5 MG Johana Wing Start : 20-Oct-2019 End : 18-Dec-2019 Inactive Metoprolol Tartrate 50 MG Johana Wing Start : 20-Oct-2019 End : 18-Dec-2019 Inactive Pantoprazole Sodium 40 MG Johana Wing Start : 20-Oct-2019 End : 18-Dec-2019 Inactive Allergies and Adverse Reactions Name Dates Details Adhesive tape (Allergy) Onset: 2019 Status: Active Ciprofloxacin (Hives) (Allergy) Onset: 28-Jul-2020 Status: Active Results Date Description Value Details No Known Results Plan of Care Name Dates Details Instructions Diet:Tube feeds Food in small bites/soft diet Ins truction Type: Nutrition education Payers * Medicare - [facility] * [facility]
--- OUTSIDE RECORDS SUMMARY | 2020-08-31 15:40 | CCD | Continuity of Care Document ---
Author Author [facility] Address [address] [place] [address] Phone Support Name Relationship Address Phone Yevgeniy Carrillo [facility] [place] [address] Allergies, Adverse Reactions, Alerts Allergen Type Severity Reaction Last Updated Verified Status ciprofloxacin Allergy Se alex rash January 06, 2019 2:14pm No Active adhesive Allergy Mild rash January 06, 2019 2:15pm No Active Medications Medication Status Dose Units Route Directions Qty Days Start Date End Date Instructions Metoprolol Tartrate Discontinued 50 MG PO 2 Times Per Day January 06, 2019 2:26p m December 04, 2019 9:48am Losartan-Hydrochlorothiazide Discontinued 0.5 TAB PO daily January 06, 2019 2:26p m November 20, 2019 9:56am Rosuvastatin Discontinued 20 MG PO daily January 06, 2019 2:27pm December 07, 2019 7:38am Amitriptyline Active 50 MG PO At Bedtime January 06, 2019 2:29pm Tizanidine Discontinued 4 MG PO Three times a day January 06, 2019 2:30pm June 20, 2020 10:06am Albuterol Sulfate (Proair Hfa) 90 mcg/ac tuation HFA aerosol inhaler Active 1 PUFFS IH Q6H Wi 2018 2:32pm Tadalafil Discontinued 5 MG PO daily January 06, 2019 2:32pm February 12, 2020 8:09am Aspirin (Aspir-Low) 81 mg tablet,delayed release (DR/E C) Discontinued 81 MG PO daily January 06, 2019 2:33pm February 12, 2020 8:08am Multivitamin Active 1 CAP PO Every Morning January 06, 2019 2:34pm Yhjwcbpxq-Qpqdgxcs-Fxlsdcxkac Discontinued 1 TAB PO Four Times a Day January 06, 2019 2:35p m August 13, 2019 10:29am Losartan-Hydrochlorothiazide Active 1 TAB PO daily November 20, 2019 9:56am Tamsulosin Active 0.4 MG PO daily March 20, 2019 11:57am Duloxetine Discontinued 60 MG PO daily March 20, 2019 11:58am February 12, 2020 8:01am Polyethylene Glycol 3350 Active 17 GM PO 2 Times Per Day 510 November 20, 2019 10 :26am Metoprolol Tartrate Active 100 MG PO 2 Times Per Day 60 November 20, 2019 10:28am Sildenafil (Pulm.Hypertension) Discontinue d 20 MG PO Three times a day 30 November 20, 2019 10:28am February 12, 2020 8:06am administer doses at least 4-6 hours apart Duloxetine Active 60 MG PO daily February 12, 2020 8:00am Riluzole Active 50 MG PO Q12H February 12, 2020 8:01am must be taken on empty stomach; no food 1 hr after or 2-3 hrs before dose Clopidogrel Discontinued 75 MG PO daily February 12, 2020 8:02am July 25, 2020 12:09pm Fluticasone Propionate Discontinued 1 PUFFS IH 2 Times Per Day February 12, 2020 8:0 2am July 08, 2020 11:50am Gabapentin Discontinued 600 MG PO Three times a day February 12, 2020 8:03am May 09, 2020 7:08am Pantoprazole Active 40 MG PO daily February 12, 2020 8:05am Apixaban (Eliquis) 5 mg tablet Discontinue d 5 MG PO 2 Times Per Day February 12, 2020 8:06 am March 01, 2020 8:01am pneumococcal 23-raffy ps vaccine 25 mcg/0. 5 mL injection syringe Discontinued 0.5 ML IM ONE TIME 0.5 June 10, 2020 9:32am June 102019 9:48am Afluria Qd (3yr up)(PF) (flu vac [id number] 36mos up(PF)) Discontinued 60 MCG IM 1 Time/Once 0.5 June 10, 2020 9:32am June 102019 9:48am Gabapentin Active 600 MG PO Three times a day May 09, 2020 7:07am Rosuvastatin Active 40 MG PO daily December 07, 2019 7:38am Apixaban (Eliquis) 5 mg tablet Active 5 MG PO 2 Times Per Day March 01, 2020 8: 01am Ipratropium-Albuterol Discontinued 3 ML IH Four Times a Day May 09, 2020 8:50am June 07, 2020 9:20am Ipratropium-Albuterol Discontinued 3 ML IH Four Times a Day June 07, 2020 9:19am June 20, 2020 10:06am Tizanidine Discontinued 4 MG PO Three times a day June 20, 2020 10:05am August 22, 2020 8:52am Ipratropium-Albuterol Active 3 ML IH Four Times a Day June 20, 2020 10:05am Fluticasone Propionate Active 1 INH IH 2 Times Per Day July 08, 2020 11:50am Clopidogrel Active 75 MG PO daily July 25, 2020 12:08pm Tizanidine Active 4 MG PO Three times a day August 22, 2020 8:52am Problems Active Problems Medical Problem Onset Date Status BPH (benign prostatic hyperplasia) Active Nicotine dependence Ac tive Amyotrophic lateral sclerosis Active Sleep apnea Active Chronic constipation A ctive Essential hypertension Active Erectile dysfunction A ctive Coronary artery disease Active Dysphagia Active Mixed hyperlipidemia A ctive Mild persistent asthma Active Degenerative lumbar spinal stenosis Active Inactive/Resolved Problems Medical Problem Onset Date Status DVT (deep venous thrombosis) Resolved History of tobacco use disorder Resolved Procedures No procedure information available. Relevant Diagnostic Tests and/or Laboratory Data Laboratory Results Test Date/Time Result Interpretation Reference Range Result Comment Performing Site Blood Urea Nitrogen December 04, 2019 10:20am 15 mg/dL 9 [facility], [address] [place] [address]22 Sodium Level December 04, 2019 10:20am 139 mmol/L 132-146 [facility], [address] [place] [address]840 Potassium Level December 04, 2019 10:20am 4.5 mmol/L 3.5-5.5 [facility], [address] [place] [address] 48811 Chloride Level December 04, 2019 10:20am 103 mmol/l 99-109 [facility], [address] [place] [address] 51811 Carbon Dioxide Level December 03 0 10:20am 31 mmol/l 20-31 [facility], [address] [place] [address] 55164 Anion Gap December 04, 2019 10:20am 10 mmol/l 8-16 [facility], [address] [place] [address] 00851 Glucose Level December 04, 2019 10:20am 116 mg/dL 74-106 [facility], [address] [place] [address] 39951 Creatinine December 04, 2019 10:20am 0.9 mg/dL 0.5-1.1 [facility], [address] [place] [address] 08657 Glomerular Filtration Rate Calc Apri l 2019 10:20am Greater than 60 ml/min ABOVE 60 [facility], [address] [place] [address] 69343 Calcium Level December 04, 2019 10:20am 9.2 mg/dL 8.5-10.1 [facility], [address] [place] [address] 88167 Triglycerides Level December 04, 2019 10:20am 381 mg/dL 0-150 [facility], [address] [place] [address] 06917 Cholesterol Level December 04, 2019 10:20am 212 mg/dL 120-200 [facility], [address] [place] [address] 58255 HDL Cholesterol December 04, 2019 10:20am 47 mg/dL HDL Less than 40 mg/dL: Major risk for CHDHDL Greater than 59 mg/dL: Low risk for CHD [facility], [address] [place] [address] LDL Cholesterol, Calculated December 032019 10:20am 89 mg/dL 0-100 [facility], [address] [place] [address] Health Concerns Health Concerns may be documented in an alternate section. Advance Directives Advance Directive Response Recorded Date/Time Advanced Directive Yes S eptember 2019 8:27am Does Patient have a DNR? No December 04, 2019 5:30pm Healthcare Proxy No Apri l 2019 5:30pm Living Will No November 5:30pm Chief Complaint and Reason for Visit Chief Complaint Annual Physical hypertension I10,I25.10 Hospital Discharge Follow-up Back pain Home Visit Urinary retention Reason for Visit Chronic constipatio n Erectile dysfunction Essential hypertension Essential hypertension Dysphagia Amyotrophic lateral sclerosis Encounters Encounter Location(s) Ar rival/Admit Date Discharge/Depart Date Provider(s) Departed Physician/Provider Office Visit [facility] November 20, 2019 9:48am November 20, 2019 10:29am Nestor montana Departed Physician/Provider Office Visit [facility] December 04, 2019 9:25am December 04, 2019 10:07am Nestor bowser Registered Referred [facility] Drop [facility] December 04, 2019 10:20am Nestor Carrillo Departed Physician/Provider Office Visit [facility] February 12, 2020 7:01am February 12, 2020 8:00am Nestor Ferrob o Departed Physician/Provider Office Visit [facility] May 06, 2020 3:36pm May 06, 2020 4:02pm Nestor Carrillo Departed Physician/Provider Office Visit [facility] June 10, 2020 9:32am June 10, 2020 9:39am Nestor major Departed Physician/Provider Office Visit [facility] August 23, 2020 11:53am August 23, 2020 12:05pm Nestor duboseo Recent Diagnosis Onset Date Chronic constipation Erectile dysfunction Essential hypertension Essential hypertension Dysphagia Amyotrophic lateral sclerosis Assessments Diagnosis Onset Date Res olution Status Chronic constipation acute Erectile dysfunction acute Essential hypertension acute Essential hypertension acute Dysphagia acute Amyotrophic lateral sclerosis acute Family History Relationship Condition A ge at Onset Recorded Date/Time Not Specified Diabetes mellitus Unknown Alcohol abuse Unknown Hypertension Unknown Cerebrovascular accident (CVA) Unknown Asthma Unknown Functional Status No Functional Status information available Goals Goals may be documented in an alternate section. Immunizations Immunization Event Date Not Given Reason Dose Number Agency Trainer Lot Number Vaccine Information Statement (VIS) Deta [place] influenza vaccine, inactivated Octob er 2019 [id number] pneumococcal polysaccharide PPV23 vaccine June 10, 2020 [id number] Mental Status No Mental Status Information Available Medical Equipment No Medical Equipment Information available Insurance Providers Guarantor BRAULIO LANGLEY Address [address] [place] [address] Contact Info. Home Phone: Delores Payer Policy Id Coverage Id Subscriber's Name Subscriber Id Effective Date Expiration Date AAR [id number] BRAULIO LANGLEY [id number] AAR [id number] BRAULIO LANGLEY [id number] BC/BS OF [place] [id number] BRAULIO LANGLEY [id number] MEDICARE UPSTATE [id number] BRAULIO LANGLEY [id number] MEDICARE [id number] BRAULIO LANGLEY [id number] Self Pay Self N/A Plan of Treatment there is very little doubt that he has a neurogenic bladder from the als. they do not want to pursue a urology consult, so will have [facility] come in and do education on the villan[place]va and set him up with a bed bag. recheck prn. his doctors in [place] recently discussed hospice and with his present we discussed this at length. he has her as the agent of his healthcare proxy, but does not have a dn r or molst form. he seems to be frightened and i don't think ready to make any of these decisions ye t. his seems more certain of what she wants. recheck will be prn. we discussed getting him the covid vaccine through [facility]. i think this is the primary problem. to get him through the weekend he was give n a nebulizer with duoneb, will take only soft foods and if necessary, only use the peg tube. when his calls saturday, will have to decide on a swallowing consult or some other approach. his ALS is progressing so that now the left upper extremity is involved. will t ry home PT which may help relieve some of the contracture that seems to be developing. he was given ppv 23 and flu vaccines. he will contact his previous counselor, because it seems that the ove rall situation with his health is causing some depression and it has helped in the past and they hav e been able to do it via face time. no medications were changed. recheck in 3 months. will contact [facility] about starting grief counseling due to the of darline is brother in 05/2019. i will refill the duloxetine and told them i would do the other meds e xcept for the ALS or those prescribed by dr bradford, pulmonary. it is very difficult to bring him to e office, so will consider home visits in the future. he talked about hospice inpatient care, but was reassured by his that it will never happen if he does not want it to. bp is much improved. no changes in meds. bmp and lipid panel today. recheck i n 6 months. continue home monitoring. diastolic bp is the problem. will increase the metoprolol to 100 mg bid and rec heck in 2 weeks. he will try sildenafil up to 100 mg and recheck in 2 weeks. he has no sensory l oss in the perineum, so this may work. discussed the role of water intake. recommended he stop the colace and start mi ralax bid. recheck in 2 weeks. Future Tests Future scheduled test information is unavailable Pending Tests Pending diagnostic test information is unavailable Future Visits Future appointment information is unavailable Referrals to Other Providers Referral information is unavailable Future Procedures Future procedure information is unavailable Future Medications Future medication information is unavailable Patient Instructions Patient instructions are unavailable Social History Assigned Sex Male Vital Signs Vital Reading Result Ref erence Range Collection Date/Time Body Temperature 98.8 [degF] 97.6-99.5 November 20, 2019 10:56am Heart Rate 77 /min 60-100 November 20, 2019 10:56am Respiratory rate 18 /min 12-24 November 20, 2019 10:56am Oxygen saturation by Pulse oximetry 97 % 95- 100 November 20, 2019 10:56am BP Systolic 138 mm[Hg] November 20, 2019 10:56am BP Diastolic 92 mm[Hg] November 20, 2019 10:56am Body Temperature 97.9 [degF] 97.6-99.5 December 04, 2019 10:41am Heart Rate 66 /min 60-100 December 04, 2019 10:41am Respiratory rate 16 /min 12-24 December 04, 2019 10:41am Oxygen saturation by Pulse oximetry 97 % 95- 100 December 04, 2019 10:41am BP Systolic 130 mm[Hg] December 04, 2019 10:41am BP Diastolic 90 mm[Hg] December 04, 2019 10:41am
--- OUTSIDE RECORDS SUMMARY | 2020-08-31 15:40 | CCD | Continuity of Care Document ---
Author Author Yobani Brown Automated Organization Unknown Address Unknown Phone Unavailable Care Team Providers Care Senior Environmental Practice Leader Name Role Phone Stanton Wing Unavailable Nestor Carrillo Unavailable 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) 28-Jul-2020 Status: Active Encounter for atten tion to gastrostomy (Z43.1) 28-Jul-2020 Status: Active Unspecified urinary incontinence (R32) 28-Jul-2020 Status: Active Benign prostatic hy perplasia without lower urinary tract symptoms (N40.0) 28-Jul-2020 Status: Active Full incontinence o f feces (R15.9) 28-Jul-2020 Status: Active Other chronic pain (G89.29) 28-Jul-2020 Status: Active Obstructive sleep a pnea (adult) (pediatric) (G47.33) 28-Jul-2020 Status: Active Unspecified asthma, uncomplicated (J45.909) 28-Jul-2020 Status: Active Essential (primary) hypertension (I10) 28-Jul-2020 Status: Active Atherosclerotic hea rt disease of [place] coronary artery without angina pectoris (I25.10) 28-Jul-2020 Status: Active Dysphagia, unspecif ied (R13.10) 28-Jul-2020 Status: Active Pain in left should er (M25.512) 28-Jul-2020 Status: Active Amyotrophic lateral sclerosis (G12.21) 28-Jul-2020 Status: Active Medications Name Dates Details DULoxetine [...] Johana Wing Start : 28-Jul-2020 Active Ipratropium [place] HFA 17 MCG/ACT 1 vial via nebulizer [...] Type: Nutrition education Payers * Medicare - [facility] * [facility]
--- OUTSIDE RECORDS SUMMARY | 2020-08-31 15:40 | CCD | Continuity of Care Document ---
Author Author Yobani Brown Automated Organization Unknown Address Unknown Phone Unavailable Care Team Providers Care Shingle Bolt Cutter Name Role Phone Stanton Wing Unavailable Nestor Carrillo Unavailable [facility] Unavailable Unavailable Unavailable Unavailable Cami Larose [...] Johana Wing Start : 28-Jul-2020 Active Ipratropium [place] HFA 17 MCG/ACT 1 vial via nebulizer [...] Type: Nutrition education Payers * Medicare - [facility] * [facility]
--- OUTSIDE RECORDS SUMMARY | 2020-08-31 15:40 | CCD | Continuity of Care Document ---
Author Author Yobani Brown Automated Organization Unknown Address Unknown Phone Unavailable Care Team Providers Care Paid Search Marketing Analyst Name Role Phone Stanton Wing Unavailable Nestor Carrillo Unavailable [facility] Unavailable Unavailable Unavailable Unavailable Cami Larose Unavailable [...] Johana Wing Start : 28-Jul-2020 Active Ipratropium [place] HFA 17 MCG/ACT 1 vial via nebulizer [...] Nutrition education Payers * Medicare - [facility] * [facility]
--- OUTSIDE RECORDS SUMMARY | 2020-08-31 15:41 | CCD | Continuity of Care Document ---
Author Author Yobani Brown Automated Organization Unknown Address Unknown Phone Unavailable Care Team Providers Care Cellar Packer Name Role Phone Stanton Wing Unavailable Nestor Carrillo Unavailable [facility] Unavailable Unavailable Unavailable Unavailable Cami Larose [...] pain. Maximum of 3 tablets per epis ode Johana Wing Start : 28-Jul-2020 Active Pantoprazole [...] Johana Wing Start : 28-Jul-2020 Active Ipratropium [place] HFA 17 MCG/ACT 1 vial via nebulizer [...] 18-Dec-2019 Inactive Fluticasone Propionate HFA 220 MCG/ACT CreJohana lindo Start : 20-Oct-2019 End : 18-Dec-2019 Inactive [...] Type: Nutrition education Payers * Medicare - [facility] * [facility]
--- OUTSIDE RECORDS SUMMARY | 2020-08-31 15:41 | CCD | Continuity of Care Document ---
Author Author [facility] Address [address] [place] [address] Phone Support Name Relationship Address Phone Yevgeniy Carrillo [facility] [place] [address] Allergies, Adverse Reactions, Alerts Allergen Type Severity Reaction Last Updated Verified Status ciprofloxacin Allergy Se alex rash January 06, 2019 3:14pm No Active adhesive Allergy Mild rash January 06, 2019 3:15pm No Active Medications Medication Status Dose Units Route Directions Qty Days Start Date End Date Instructions Metoprolol Tartrate Discontinued 50 MG PO 2 Times Per Day January 06, 2019 3:26p m December 04, 2019 10:48am Losartan-Hydrochlorothiazide Discontinued 0.5 TAB PO daily January 06, 2019 3:26p m November 20, 2019 10:56am Rosuvastatin Discontinued 20 MG PO daily January 06, 2019 3:27pm December 07, 2019 8:38am Amitriptyline Active 50 MG PO At Bedtime January 06, 2019 3:29pm Tizanidine Active 4 MG PO Three times a day January 06, 2019 3:30pm Albuterol Sulfate (Proair Hfa) 90 mcg/ac tuation HFA aerosol inhaler Active 1 PUFFS IH Q6H 2018 3:32pm Tadalafil Discontinued 5 MG PO daily January 06, 2019 3:32pm February 12, 2020 9:09am Aspirin (Aspir-Low) 81 mg tablet,delayed release (DR/E C) Discontinued 81 MG PO daily January 06, 2019 3:33pm February 12, 2020 9:08am Multivitamin Active 1 CAP PO Every Morning January 06, 2019 3:34pm Ljhwjgonl-Exjyzrgk-Cilobcsavy Discontinued 1 TAB PO Four Times a Day January 06, 2019 3:35p m August 13, 2019 11:29am Losartan-Hydrochlorothiazide Active 1 TAB PO daily November 20, 2019 10:56am Tamsulosin Active 0.4 MG PO daily March 20, 2019 12:57pm Duloxetine Discontinued 60 MG PO daily March 20, 2019 12:58pm February 12, 2020 9:01am Polyethylene Glycol 3350 Active 17 GM PO 2 Times Per Day 510 November 20, 2019 11 :26am Metoprolol Tartrate Active 100 MG PO 2 Times Per Day 60 November 20, 2019 11:28am Sildenafil (Pulm.Hypertension) Discontinue d 20 MG PO Three times a day 30 November 20, 2019 11:28am February 12, 2020 9:06am administer doses at least 4-6 hours apart Duloxetine Active 60 MG PO daily 90 February 12, 2020 9:00am Riluzole Active 50 MG PO Q12H 1 February 12, 2020 9:01am must be taken on empty stomach; no food 1 hr after or 2-3 hrs before dose Clopidogrel Active 75 MG PO daily 1 February 12, 2020 9:02am Fluticasone Propionate Active 1 PUFFS IH 2 Times Per Day 12 February 12, 2020 9:0 2am Gabapentin Discontinued 600 MG PO Three times a day 1 February 12, 2020 9:03am May 09, 2020 8:08am Pantoprazole Active 40 MG PO daily 1 February 12, 2020 9:05am Apixaban (Eliquis) 5 mg tablet Discontinue d 5 MG PO 2 Times Per Day 1 February 12, 2020 9:06 am March 01, 2020 9:01am Gabapentin Active 600 MG PO Three times a day 1 May 09, 2020 8:07am Rosuvastatin Active 40 MG PO daily 90 December 07, 2019 8:38am Apixaban (Eliquis) 5 mg tablet Active 5 MG PO 2 Times Per Day 180 March 01, 2020 9: 01am Ipratropium-Albuterol Discontinued 3 ML IH Four Times a Day 3 May 09, 2020 9:50am June 07, 2020 10:20am Ipratropium-Albuterol Active 3 ML IH Four Times a Day 15 June 07, 2020 10:19am Problems Active Problems Medical Problem Onset Date Status BPH (benign prostatic hyperplasia) Active Nicotine dependence Ac tive Amyotrophic lateral sclerosis Active Sleep apnea Active Chronic constipation A ctive Essential hypertension Active DVT (deep venous thrombosis) Active Erectile dysfunction A ctive Coronary artery disease Active Dysphagia Active Mixed hyperlipidemia A ctive Mild persistent asthma Active Degenerative lumbar spinal stenosis Active Inactive/Resolved Problems Medical Problem Onset Date Status History of tobacco use disorder Resolved Procedures No procedure information available. Relevant Diagnostic Tests and/or Laboratory Data Laboratory Results Test Date/Time Result Interpretation Reference Range Result Comment Performing Site Blood Urea Nitrogen December 04, 2019 11:20am 15 mg/dL 9-23 [facility], [address] [place] [address] Sodium Level December 04, 2019 11:20am 139 mmol/L 132-146 [facility], [address] [place] [address] Potassium Level December 04, 2019 11:20am 4.5 mmol/L 3.5-5.5 [facility], [address] [place] [address] Chloride Level December 04, 2019 11:20am 103 mmol/l 99-109 [facility], [address] [place] [address] 28939 Carbon Dioxide Level December 03 0 11:20am 31 mmol/l 20-31 [facility], [address] [place] [address] 66328 Anion Gap December 04, 2019 11:20am 10 mmol/l 8-16 [facility], [address] [place] [address]23 Glucose Level December 04, 2019 11:20am 116 mg/dL 74-106 [facility], [address] [place] [address] 00206 Creatinine December 04, 2019 11:20am 0.9 mg/dL 0.5-1.1 [facility], [address] [place] [address]3299 Glomerular Filtration Rate Calc Apri l 2019 11:20am Greater than 60 ml/min ABOVE 60 [facility], [address] [place] [address] Calcium Level December 04, 2019 11:20am 9.2 mg/dL 8.5-10.1 [facility], [address] [place] [address] 95898 Triglycerides Level December 04, 2019 11:20am 381 mg/dL 0-150 [facility], [address] [place] [address] 21870 Cholesterol Level December 04, 2019 11:20am 212 mg/dL 120-200 [facility], [address] [place] [address] 07671 HDL Cholesterol December 04, 2019 11:20am 47 mg/dL HDL Less than 40 mg/dL: Major risk for CHDHDL Greater than 59 mg/dL: Low risk for CHD [facility], [address] [facility] [address] LDL Cholesterol, Calculated December [id number] 11:20am 89 mg/dL 0-100 [facility], [address] [facility] [address] Health Concerns Health Concerns may be documented in an alternate section. Advance Directives Advance Directive Response Recorded Date/Time Advanced Directive Yes S eptember 2019 9:27am Does Patient have a DNR? No December 04, 2019 6:30pm Healthcare Proxy No Apri l 2019 6:30pm Living Will No November 6:30pm Chief Complaint and Reason for Visit Chief Complaint Hospital Discharge F ollow-up Annual Physical hypertension I10,I25.10 Hospital Discharge Follow-up Back pain Home Visit Reason for Visit Chronic constipatio n Erectile dysfunction Essential hypertension Essential hypertension Dysphagia Encounters Encounter Location(s) Ar rival/Admit Date Discharge/Depart Date Provider(s) Departed Physician/Provider Office Visit [facility] August 13, 2019 11:01am August 13, 2019 11:49am Nestor Carrillo Departed Physician/Provider Office Visit [facility] November 20, 2019 10:48am November 20, 2019 11:29am Nestor montana Departed Physician/Provider Office Visit [facility] December 04, 2019 10:25am December 04, 2019 11:07am Nestor bowser Registered Referred [facility] Drop Off December 04, 2019 11:20am Nestor Carrillo Departed Physician/Provider Office Visit [facility] February 12, 2020 8:01am February 12, 2020 9:00am Nestor Jiménez o Departed Physician/Provider Office Visit [facility] May 06, 2020 4:36pm May 06, 2020 5:02pm Nestor Carrillo Departed Physician/Provider Office Visit [facility] June 10, 2020 10:32am June 10, 2020 10:39am Nestor miller Recent Diagnosis Onset Date Chronic constipation Erectile dysfunction Essential hypertension Essential hypertension Dysphagia Assessments Diagnosis Onset Date Res olution Status Chronic constipation acute Erectile dysfunction acute Essential hypertension acute Essential hypertension acute Dysphagia acute Family History Relationship Condition A ge at Onset Recorded Date/Time Not Specified Diabetes mellitus Unknown Alcohol abuse Unknown Hypertension Unknown Cerebrovascular accident (CVA) Unknown Asthma Unknown Functional Status No Functional Status information available Goals Goals may be documented in an alternate section. Immunizations No Immunization Information Available Mental Status No Mental Status Information Available Medical Equipment No Medical Equipment Information available Insurance Providers Guarantor BRAULIO LANGLEY Address [address] [place] [id number] Contact Info. Home Phone: Delores Payer Policy Id Coverage Id Subscriber's Name Subscriber Id Effective Date Expiration Date AAR [id number] BRAULIO LANGLEY [id number] AAR [id number] BRAULIO LANGLEY [id number] BC/BS OF [place] [id number] BRAULIO LANGLEY [id number] MEDICARE UPSTATE [id number] BRAULIO KORIN [id number] MEDICARE [id number] BRAULIO KORIN [id number] Self Pay Self N/A Plan of Treatment i think this is the primary problem. to get him through the weekend he was given a nebulizer with duoneb, will take only soft foods and if necessary, only use the peg tube. when his calls saturday, will have to decide on a swallowing consult or some other approach. will contact public health about starting grief counseling due to the of h is brother in 05/2019. i will refill [...] i n 6 months. continue home monitoring. we had a long discussion during which his and i tried to convince him to as k for help when ambulation or transfer is needed. they will call here if they continue to have problems getting the help and equipment they need. followup in september. diastolic bp is the problem. will increase [...] Ref erence Range Collection Date/Time Body Temperature 97.8 [degF] 97.6-99.5 August 13, 2019 10:30am Heart Rate 74 /min 60-100 August 13, 2019 10:30am Respiratory rate 18 /min 12-24 August 13, 2019 10:30am Oxygen saturation by Pulse oximetry 98 % 95- 100 August 13, 2019 10:30am BP Systolic 114 mm[Hg] August 13, 2019 10:30am BP Diastolic 70 mm[Hg] August 13, 2019 10:30am Body Temperature 98.8 [degF] 97.6-99.5 November 20, 2019 10:56am Heart Rate 77 /min 60-100 November 20, 2019 10:56am Respiratory rate 18 /min 12-November 20, 2019 10:56am Oxygen saturation by Pulse [...]
--- OUTSIDE RECORDS SUMMARY | 2020-08-31 15:41 | CCD | Continuity of Care Document ---
Author Author [facility] [employer] Organization Unknown Address Unknown Phone Unavailable Care Team Providers Care Restaurant District Manager Name Role Phone Stanton Wing Unavailable Nestor Carrillo Unavailable [facility] Unavailable Unavailable Unavailable Unavailable Cami Larose [...] Johana Wing Start : 28-Jul-2020 Active Ipratropium [place] HFA 17 MCG/ACT 1 vial via nebulizer [...] Type: Nutrition education Payers * Medicare - [facility] * [facility]
--- OUTSIDE RECORDS SUMMARY | 2020-08-31 15:42 | CCD ---
Author Author [facility] Organization [facility] Address Unknown Phone Unavailable Care Team Providers Care [employer] Developer Name Role Phone TOM PELAEZ MD Unavailable [phone] TOM PELAEZ MD Unavailable [phone] TOM PELAEZ MD Unavailable [phone] TOM PELAEZ MD Unavailable [phone] TOM PELAEZ MD Unavailable [phone] TOM PELAEZ MD Unavailable [phone] TOM PELAEZ MD Unavailable [phone] TOM PELAEZ MD Unavailable [phone] TOM PELAEZ MD Unavailable [phone] TOM PELAEZ MD Unavailable [phone] TOM PELAEZ MD Unavailable [phone] TOM PELAEZ MD Unavailable [phone] TOM PELAEZ MD Unavailable [phone] TOM PELAEZ MD Unavailable [phone] TOM PELAEZ MD Unavailable [phone] TOM PELAEZ MD Unavailable [phone] BLACK, TOM BILLY MD Unavailable [phone] BLACK, TOM BILLY MD Unavailable [phone] BLACK, TOM BILLY MD Unavailable [phone] BLACK, TOM BILLY MD Unavailable [phone] BLACK, TOM BILLY MD Unavailable [phone] BLACK, TOM BILLY MD Unavailable [phone] BLACK, TOM BILLY MD Unavailable [phone] BLACK, TOM BILLY MD Unavailable [phone] BLACK, TOM BILLY MD Unavailable [phone] BLACK, TOM BILLY MD Unavailable [phone] BLACK, TOM BILLY MD Unavailable [phone] BLACK, TOM BILLY MD Unavailable [phone] BLACK, TOM BILLY MD Unavailable [phone] BLACK, TOM BILLY MD Unavailable [phone] BLACK, TOM BILLY MD Unavailable [phone] BLACK, TOM BILLY MD Unavailable [phone] BLACK, TOM BILLY MD Unavailable [phone] BLACK, TOM BILLY MD Unavailable [phone] BLACK, TOM BILLY MD Unavailable [phone] BLACK, TOM BILLY MD Unavailable [phone] BLACK, TOM BILLY MD Unavailable [phone] BLACK, TOM BILLY MD Unavailable [phone] BLACK, TOM BILLY MD Unavailable [phone] BLACK, TOM BILLY MD Unavailable [phone] BLACK, TOM BILLY MD Unavailable [phone] BLACK, TOM BILLY MD Unavailable [phone] BLACK, TOM BILLY MD Unavailable [phone] BLACK, TOM BILLY MD Unavailable [phone] BLACK, TOM BILLY MD Unavailable [phone] BLACK, TOM BILLY MD Unavailable TOM PELAEZ MD Unavailable TOM PELAEZ MD Unavailable TOM PELAEZ MD Unavailable Jumalon, M Yamileth REVENUE SETTLEMENTS ADMINISTRATOR Unavailable Unavailable Jumalon, M Yamileth REVENUE SETTLEMENTS ADMINISTRATOR Unavailable Unavailable Jumalon, M Yamileth REVENUE SETTLEMENTS ADMINISTRATOR Unavailable Unavailable Jumalon, M Yamileth REVENUE SETTLEMENTS ADMINISTRATOR Unavailable Unavailable Jumalon, M Yamileth REVENUE SETTLEMENTS ADMINISTRATOR Unavailable Unavailable Jumalon, M Yamileth REVENUE SETTLEMENTS ADMINISTRATOR Unavailable Unavailable Jumalon, M Yamileth REVENUE SETTLEMENTS ADMINISTRATOR Unavailable Unavailable Jumalon, M Yamileth REVENUE SETTLEMENTS ADMINISTRATOR Unavailable Unavailable Jumalon, M Yamileth REVENUE SETTLEMENTS ADMINISTRATOR Unavailable Unavailable Jumalon, M Yamileth REVENUE SETTLEMENTS ADMINISTRATOR Unavailable Unavailable Jumalon, M Yamileth REVENUE SETTLEMENTS ADMINISTRATOR Unavailable Unavailable Jumalon, M Yamileth REVENUE SETTLEMENTS ADMINISTRATOR Unavailable Unavailable Jumalon, M Yamileth REVENUE SETTLEMENTS ADMINISTRATOR Unavailable Unavailable Jumalon, M Yamileth REVENUE SETTLEMENTS ADMINISTRATOR Unavailable Unavailable Jumalon, M Yamileth REVENUE SETTLEMENTS ADMINISTRATOR Unavailable Unavailable Jumalon, M Yamileth REVENUE SETTLEMENTS ADMINISTRATOR Unavailable Unavailable Jumalon, M Yamileth REVENUE SETTLEMENTS ADMINISTRATOR Unavailable Unavailable Jumalon, M Yamileth REVENUE SETTLEMENTS ADMINISTRATOR Unavailable Unavailable Jumalon, M Yamileth REVENUE SETTLEMENTS ADMINISTRATOR Unavailable Unavailable Jumalon, M Yamileth REVENUE SETTLEMENTS ADMINISTRATOR Unavailable Unavailable Jumalon, M Yamileth REVENUE SETTLEMENTS ADMINISTRATOR Unavailable Unavailable Jumalon, M Yamileth REVENUE SETTLEMENTS ADMINISTRATOR Unavailable Unavailable Jumalon, M Yamileth REVENUE SETTLEMENTS ADMINISTRATOR Unavailable Unavailable Jumalon, M Yamileth REVENUE SETTLEMENTS ADMINISTRATOR Unavailable Unavailable Jumalon, M Yamileth REVENUE SETTLEMENTS ADMINISTRATOR Unavailable Unavailable Jumalon, M Yamileth REVENUE SETTLEMENTS ADMINISTRATOR Unavailable Unavailable Jumalon, M Yamileth REVENUE SETTLEMENTS ADMINISTRATOR Unavailable Unavailable Jumalon, M Yamileth REVENUE SETTLEMENTS ADMINISTRATOR Unavailable Unavailable LUZ FABIAN MD Unavailable Unavailable LUZ FABIAN MD Unavailable Unavailable LUZ FABIAN MD Unavailable Unavailable LUZ FABIAN MD Unavailable Unavailable LUZ FABIAN MD Unavailable Unavailable ULZ FABIAN MD Unavailable Unavailable LUZ FABIAN MD Unavailable Unavailable LUZ FABIAN MD Unavailable Unavailable TERESAWALUZ EmersonOOK Unavailable Unavailable KIDWAIBLAIRLUZ FAROOK Unavailable Unavailable KIDWAILUZOOK Unavailable Unavailable KIDWAILUZOOK Unavailable Unavailable KIDWAILUZOOK Unavailable Unavailable KIDWAILUZOOK Unavailable Unavailable KIDWAILUZ FAROOK Unavailable Unavailable KIDWAILUZOOK Unavailable Unavailable KIDWAILUZOOK Unavailable Unavailable KIDWAILUZOOK Unavailable Unavailable KIDWAILUZOOK Unavailable Unavailable KIDWAILUZOOK Unavailable Unavailable KIDWAILUZOOK Unavailable Unavailable KIDWAILUZOOK Unavailable Unavailable KIDWAILUZOOK Unavailable Unavailable KIDWAILUZ FAROOK Unavailable Unavailable KIDWAILUZOOK Unavailable Unavailable TERESAWAILUZOOK Unavailable Unavailable KIDWAILUZOOK Unavailable Unavailable TERESAWAILUZOOK Unavailable Unavailable KIDWAILUZOOK Unavailable Unavailable TERESAWAILUZOOK Unavailable Unavailable TERESAWAILUZOOK Unavailable Unavailable KIDWAILUZOOK Unavailable Unavailable TERESAWALUZ EmersonOOK Unavailable Unavailable TERESAWAILUZOOK Unavailable Unavailable TERESAWAILUZOOK Unavailable Unavailable TERESAWALUZ EmersonOOK Unavailable Unavailable KIDWAILUZOOK Unavailable Unavailable TERESAWALUZ EmersonOOK Unavailable Unavailable TERESAWAILUZOOK Unavailable Unavailable TERESAWALUZ EmersonOOK Unavailable Unavailable LUZ FABIANOOK Unavailable Unavailable TERESAWAILUZOOK Unavailable Unavailable LUZ FABIANOOK Unavailable Unavailable ShamboYevgeniy MD Unavailable Unavailable ShamboYevgeniy MD Unavailable Unavailable ShamboYevgeniy MD Unavailable Unavailable ShamboYevgeniy MD Unavailable Unavailable Shambo, Yevgeniy Baez MD Unavailable Unavailable Shambo, Yevgeniy Baez MD Unavailable Unavailable Shambo, Yevgeniy Baez MD Unavailable Unavailable Shambo, Yevgeniy Baez MD Unavailable Unavailable Shambo, Yevgeniy Baez MD Unavailable Unavailable Shambo, Yevgeniy Baez MD Unavailable Unavailable Shambo, Yevgeniy Baez MD Unavailable Unavailable Shambo, Yevgeniy Baez MD Unavailable Unavailable Shambo, Yevgeniy Baez MD Unavailable Unavailable Shambo, Yevgeniy Baez MD Unavailable Unavailable Shambo, Yevgeniy Baez MD Unavailable Unavailable Shambo, Yevgeniy Baez MD Unavailable Unavailable Shambo, Yevgeniy Baez MD Unavailable Unavailable Shambo, Yevgeniy Baez MD Unavailable Unavailable Shambo, Yevgeniy Baez MD Unavailable Unavailable Shambo, Yevgeniy Baez MD Unavailable Unavailable Shambo, Yevgeniy Baez MD Unavailable Unavailable Shambo, Yevgeniy Baez MD Unavailable Unavailable Shambo, Yevgeniy Baez MD Unavailable Unavailable Shambo, Yevgeniy Baez MD Unavailable Unavailable Shambo, Yevgeniy Baez MD Unavailable Unavailable Shambo, Yevgeniy Baez MD Unavailable Unavailable Shambo, Yevgeniy Baez MD Unavailable Unavailable Shambo, Yevgeniy Baez MD Unavailable Unavailable Shambo, Yevgeniy Baez MD Unavailable Unavailable Shambo, Yevgeniy Baez MD Unavailable Unavailable Shambo, Yevgeniy Baez MD Unavailable Unavailable Shambo, Yevgeniy Baez MD Unavailable Unavailable Shambo, Yevgeniy Baez MD Unavailable Unavailable Shambo, Yevgeniy Baez MD Unavailable Unavailable Shambo, Yevgeniy Baez MD Unavailable Unavailable Shambo, Yevgeniy Baez MD Unavailable Unavailable Shambo, Yevgeniy Baez MD Unavailable Unavailable Shambo, Yevgeniy Baez MD Unavailable Unavailable Shambo, Yevgeniy Baez MD Unavailable Unavailable Shambo, Yevgeniy Baez MD Unavailable Unavailable Shambo, Yevgeniy Baez MD Unavailable Unavailable Shambo, Yevgeniy Baez MD Unavailable Unavailable Shambo, Yevgeniy Baez MD Unavailable Unavailable Shambo, Yevgeniy Baez MD Unavailable Unavailable Shambo, Yevgeniy Baez MD Unavailable Unavailable Shambo, Yevgeniy Baez MD Unavailable Unavailable Shambo, Yevgeniy Baez MD Unavailable Unavailable Shambo, Yevgeniy Baez MD Unavailable Unavailable Shambo, Yevgeniy Baez MD Unavailable Unavailable Shambo, Yevgeniy Baez MD Unavailable Unavailable Shambo, Yevgeniy Baez MD Unavailable Unavailable Shambo, Yevgeniy Baez MD Unavailable Unavailable Shambo, Yevgeniy Baez MD Unavailable Unavailable Shambo, Yevgeniy Baez MD Unavailable Unavailable Shambo, Yevgeniy Baez MD Unavailable Unavailable Shambo, Yevgeniy Baez MD Unavailable Unavailable Shambo, Yevgeniy Baez MD Unavailable Unavailable Shambo, Yevgeniy Baez MD Unavailable Unavailable Shambo, Yevgeniy Baez MD Unavailable Unavailable Shambo, Yevgeniy Baez MD Unavailable Unavailable Shambo, Yevgeniy Baez MD Unavailable Unavailable Shambo, Yevgeniy Baez MD Unavailable Unavailable Shambo, Yevgeniy Baez MD Unavailable Unavailable Shambo, Yevgeniy Baez MD Unavailable Unavailable Shambo, Yevgeniy Baez MD Unavailable Unavailable Shambo, Yevgeniy Baez MD Unavailable Unavailable Shambo, Yevgeniy Baez MD Unavailable Unavailable Shambo, Yevgeniy Baez MD Unavailable Unavailable Shambo, Yevgeniy Baez MD Unavailable Unavailable Shambo, Yevgeniy Baez MD Unavailable Unavailable Shambo, Yevgeniy Baez MD Unavailable Unavailable Shambo, Yevgeniy Baez MD Unavailable Unavailable Shambo, Yevgeniy Baez MD Unavailable Unavailable Shambo, Yevgeniy Baez MD Unavailable Unavailable Shambo, Yevgeniy Baez MD Unavailable Unavailable Shambo, Yevgeniy Baez MD Unavailable Unavailable Shambo, Yevgeniy Baez MD Unavailable Unavailable Shambo, Yevgeniy Baez MD Unavailable Unavailable Shambo, Yevgeniy Baez MD Unavailable Unavailable Shambo, Yevgeniy Baez MD Unavailable Unavailable Shambo, Yevgeniy Baez MD Unavailable Unavailable Shambo, Yevgeniy Baez MD Unavailable Unavailable Shambo, Yevgeniy Baez MD Unavailable Unavailable Shambo, Yevgeniy Baez MD Unavailable Unavailable Shambo, Yevgeniy Baez MD Unavailable Unavailable Shambo, Yevgeniy Baez MD Unavailable Unavailable Shambo, Yevgeniy Baez MD Unavailable Unavailable Shambo, Yevgeniy Baez MD Unavailable Unavailable Shambo, Yevgeniy Baez MD Unavailable Unavailable Shambo, Yevgeniy Baez MD Unavailable Unavailable Shambo, Yevgeniy Baez MD Unavailable Unavailable Shambo, Yevgeniy Baez MD Unavailable Unavailable Shambo, Yevgeniy Baez MD Unavailable Unavailable Shambo, Yevgeniy Baez MD Unavailable Unavailable Shambo, Yevgeniy Baez MD Unavailable Unavailable Shambo, Yevgeniy Baez MD Unavailable Unavailable Shambo, Yevgeniy Baez MD Unavailable Unavailable Shambo, Yevgeniy Baez MD Unavailable Unavailable Shambo, Yevgeniy Baez MD Unavailable Unavailable Shambo, Yevgeniy Baez MD Unavailable Unavailable Shambo, Yevgeniy Baez MD Unavailable Unavailable Shambo, Yevgeniy Baez MD Unavailable Unavailable Shambo, Yevgeniy Baez MD Unavailable Unavailable Shambo, Yevgeniy Baez MD Unavailable Unavailable Shambo, Yevgeniy Baez MD Unavailable Unavailable Shambo, Yevgeniy Baez MD Unavailable Unavailable Shambo, Yevgeniy Baez MD Unavailable Unavailable Shambo, Yevgeniy Baez MD Unavailable Unavailable Shambo, Yevgeniy Baez MD Unavailable Unavailable Shambo, Yevgeniy Baez MD Unavailable Unavailable Shambo, Yevgeniy Baez MD Unavailable Unavailable Shambo, Yevgeniy Baez MD Unavailable Unavailable Shambo, Yevgeniy Baez MD Unavailable Unavailable Shambo, Yevgeniy Baez MD Unavailable Unavailable Shambo, Yevgeniy Baez MD Unavailable Unavailable Shambo, Yevgeniy Baez MD Unavailable Unavailable Shambo, Yevgeniy Baez MD Unavailable Unavailable Shambo, Yevgeniy Baez MD Unavailable Unavailable Shambo, Yevgeniy Baez MD Unavailable Unavailable Shambo, Yevgeniy Baez MD Unavailable Unavailable Shambo, Yevgeniy Baez MD Unavailable Unavailable Shambo, Yevgeniy Baez MD Unavailable Unavailable Shambo, Yevgeniy Baez MD Unavailable Unavailable Shambo, Yevgeniy Baez MD Unavailable Unavailable Shambo, Yevgeniy Baez MD Unavailable Unavailable Shambo, Yevgeniy Baez MD Unavailable Unavailable Emmanuel BYRD Unavailable Unavailable Jenniffer Jessica Unavailable BOJORQUEZ, M ANDERS PA Unavailable Unavailable BOJORQUEZ, M ANDERS PA Unavailable Unavailable BOJORQUEZ, M ANDERS PA Unavailable Unavailable BOJORQUEZ, M ANDERS PA Unavailable Unavailable BOJORQUEZ, M ANDERS PA Unavailable Unavailable BOJORQUEZ, M ANDERS PA Unavailable Unavailable BOJORQUEZ, M ANDERS PA Unavailable Unavailable BOJORQUEZ, M ANDERS PA Unavailable Unavailable BOJORQUEZ, M ANDERS PA Unavailable Unavailable BOJORQUEZ, M ANDERS PA Unavailable Unavailable BOJORQUEZ, M ANDERS PA Unavailable Unavailable BOJORQUEZ, M ANDERS PA Unavailable Unavailable BOJORQUEZ, M ANDERS PA Unavailable Unavailable BOJORQUEZ, M ANDERS PA Unavailable Unavailable BOJORQUEZ, M ANDERS PA Unavailable Unavailable BOJORQUEZ, M ANDERS PA Unavailable Unavailable BOJORQUEZ, M ANDERS PA Unavailable Unavailable BOJORQUEZ, M ANDERS PA Unavailable Unavailable BOJORQUEZ, M ANDERS PA Unavailable Unavailable BOJORQUEZ, M ANDERS PA Unavailable Unavailable BOJORQUEZ, M ANDERS PA Unavailable Unavailable BOJORQUEZ, M ANDERS PA Unavailable Unavailable BOJORQUEZ, M ANDERS PA Unavailable Unavailable BOJORQUEZ, M ANDERS PA Unavailable Unavailable BOJORQUEZ, M ANDERS PA Unavailable Unavailable BOJORQUEZ, M ANDERS PA Unavailable Unavailable BOJORQUEZ, M ANDERS PA Unavailable Unavailable BOJORQUEZ, M ANDERS PA Unavailable Unavailable BOJORQUEZ, M ANDERS PA Unavailable Unavailable BOJORQUEZ, M ANDERS PA Unavailable Unavailable BOJORQUEZ, M ANDERS PA Unavailable Unavailable BOJORQUEZ, M ANDERS PA Unavailable Unavailable BOJORQUEZ, M ANDERS PA Unavailable Unavailable VENERUS, Jeff JESSICA MD Unavailable Unavailable VENERUS, Jeff JESSICA MD Unavailable Unavailable VENERUS, Jeff JESSICA MD Unavailable Unavailable VENERUS, J JASKARAN HERNANDEZ Unavailable Unavailable VENERUS, J JASKARAN HERNANDEZ Unavailable Unavailable VENERUS, Jeff JESSICA MD Unavailable Unavailable VENERUS, J JASKARAN HERNANDEZ Unavailable Unavailable VENERUS, J JASKARAN HERNANDEZ Unavailable Unavailable VENERUS, Jeff JESSICA MD Unavailable Unavailable Re-disclosure Warning The records that you are about to access may contain information from federally-assisted alcohol or drug abuse programs. If such information is present, then the following federally mandated warning applies: This information has been disclosed to you from records protected by federal confidentiality rules (42 CFR part 2). The federal rules prohibit you from making any further disclosure of this information unless further disclosure is expressly permitted by the written consent of the person to whom it pertains or as otherwise permitted by 42 CFR part 2. A general authorization for the release of medical or other information is NOT sufficient for this purpose. The Federal rules restrict any use of the information to criminally investigate or prosecute any alcohol or drug abuse patient.The records that you are about to access may contain highly sensitive health information, the redisclosure of which is protected by Article 27-F of the [facility] Public Health law. If you continue you may have access to information: Regarding HIV / AIDS; Provided by facilities licensed or operated by the [facility] Office of Mental Health; or Provided by the [facility] Office for People With Developmental Disabilities. If such information is present, then the following [facility] mandated warning applies: This information has been disclosed to you from confidential records which are protected by state law. State law prohibits you from making any further disclosure of this information without the specific written consent of the person to whom it pertains, or as otherwise permitted by law. Any unauthorized further disclosure in violation of state law may result in a fine or fdc sentence or both. A general authorization for the release of medical or other information is NOT sufficient authorization for further disc losure. Allergies and Adverse Reactions Type Description Substance Reaction Status Data Source(s ) BRANDNAME CIPRO CIPEMILY HIVES [facility] ENVIRONMENTAL ADHESIVE ADHESIVE RASH HIVES / WELTS [facility] Ciprofloxacin (Hives) Ciprofloxacin (Hives) Ciprofloxacin (Hives) active [facility] ([facility]) Adhesive tape Adhesive tape Adhesive tape active [facility] ([facility]) Family History Family Member Name Family Member Gender Family Member Status Date o f Status Description Data Source(s) Unknown Condition [facility] Unknown Condition [facility] Unknown Condition [facility] Unknown Condition [facility] Unknown Condition [facility] Unknown Condition [facility] Unknown Condition [facility] Unknown Condition [facility] Unknown Condition [facility] Unknown Condition [facility] Condition [facility] Unknown Condition [facility] Condition [facility] Condition [facility] Unknown Condition [facility] Unknown Condition [facility] Unknown Condition [facility] Unknown Condition [facility] Unknown Condition [facility] Unknown Condition [facility] Unknown Condition [facility] Unknown Condition [facility] Unknown Condition [facility] Unknown Condition [facility] Unknown Condition [facility] Unknown Condition [facility] Unknown Condition [facility] Unknown Condition [facility] Unknown Condition [facility] Unknown Condition [facility] Unknown Condition [facility] Unknown Condition [facility] Unknown Condition [facility] Condition [facility] Unknown Condition [facility] Unknown Male Problem [facility] ([facility] Unknown Unknown Problem [facility] ([facility] Unknown Unknown Problem [facility] ([facility]) Encounters Encounter Providers Location Date Indications Data Source(s ) Outpatient Attender: Nestor Carrillo MDReferrer: Nestor Carrillo MD 08/23/2020 11:53:00 AM EST - 08/23/2020 12:05:00 PM [facility] Emergency Attender: DEVAN BYRDConsultant: Nestor Carrillo MD 08/20/2020 06:43:00 PM EST - 08/20/2020 09:03:00 PM EST [facility] Patient discharged. 07/28/2020 12:00:00 AM EST - 020 08:22:44 AM EST [facility] ([facility]) Outpatient Attender: Nestor Carrillo MDReferrer: Nestor Carrillo MD 06/10/2020 10:32:00 AM EDT - 06/10/2020 10:39:00 AM EDT [facility] Outpatient Attender: Nestor Carrillo MDReferrer: Nestor Carrillo MD 05/06/2020 04:36:00 PM EDT - 05/06/2020 05:02:00 PM EDT [facility] Emergency Attender: JASKARAN BARNES MDConsultant: Nestor montana MD 05/01/2020 12:00:00 PM EDT - 05/01/2020 05:30:00 PM EDT [facility] Patient discharged. Outpatient Attender: Nestor Carrillo MDReferrer: Nestor Carrillo MD 02/12/2020 08:01:00 AM EDT - 02/12/2020 09:00:00 AM EDT [facility] 02/08/2020 01:00:00 AM EDT - 020 10:09:59 AM EDT [facility] ([facility]) Outpatient Attender: Nestor Carrillo MD 12/04/2019 11:20:00 A M EDT I10,I25.10 [facility] I10,I25.10 Outpatient Attender: Nestor Carrillo MDReferrer: Nestor Carrillo MD 12/04/2019 10:25:00 AM EDT - 12/04/2019 11:07:00 AM EDT [facility] Outpatient Attender: Nestor Carrillo MDReferrer: Nestor Carrillo MD 11/20/2019 10:48:00 AM EDT - 11/20/2019 11:29:00 AM EDT [facility] TEMPMHCTelemed 30" Psychotherapy Attender: Jenniffer Jessica [facility] 11/18/2019 03:00:00 AM EDT - 11/18/2019 03:00:00 AM EDT [facility] ([facility]) Attender: Jenniffer Jessica 11/18/2019 12:00:00 AM EDT [facility] ([facility]) TEMPMHCTelemed 30" [facility] 11:45:00 AM EDT - 11/04/2019 11:45:00 AM EDT [facility] ([facility]) Attender: Jenniffer Madsenan 11/04/2019 12:00:00 AM EDT [facility] ([facility]) 10/20/2019 12:00:00 AM EST - 020 10:17:32 AM EDT [facility] ([facility]) Yamileth Chan, GROUND SUPPORT AGENT: [address] [place] [address], Ph. Attender: Yamileth Chan [facility] - [facility] - Main Office 09/30/2019 12:00:00 AM EST ATHE NA ([facility]) Outpatient Attender: Nestor Carrillo MDConsultant: Nestor mac MD 09/09/2019 04:20:00 PM EST - 09/09/2019 05:20:00 PM EST [facility] Outpatient Attender: ANDERS Maier/Usama/Ebenezer/Rein dl 09/09/2019 01:00:00 PM EST [facility] ([facility]) Outpatient Attender: Nestor Carrillo MDReferrer: Nestor Carrillo MD 08/13/2019 10:01:00 AM EST - 08/13/2019 10:49:00 AM EST [facility] Outpatient Referrer: CHICA FABIAN MD 07/27/2019 05:58:00 AM EST [facility] Imaging Extended Individual Psychotherapy - 45 min Attender: Cesardahlia duque Jaskaran [facility] 07/22/2019 09:00:00 AM EST - 07/22/2019 09:00:00 AM EST [facility] ([facility]) Outpatient Referrer: CHICA FABIAN MD 07/22/2019 06:03:00 AM EST [facility] Attender: Jenniffer Bryan 07/22/2019 12:00:00 AM EST [facility] ([facility]) Emergency Attender: WENCESLAO PELAEZ MDConsultant: Nestor Carrillo MD 07/03/2019 02:37:00 PM EST - 07/03/2019 09:07:00 PM EST [facility] Patient discharged. Immunizations Vaccine Date Status Description Data Source(s) pneumococcal polysaccharide PPV23 06/10/2020 12:00:00 AM EDT com pleted pneumococcal polysaccharide PPV23 vaccine [facility] IIV3. This is one of two codes replacing CVX 15, which is being retired. 06/10/2020 12:00:00 AM EDT completed influenza vaccine, inactivated [facility] Medications Medication Brand Name Start Date Product Form Dose Route Admi nistrative Instructions Pharmacy Instructions Status Indications Reaction Description Data Source(s) tizanidine 4 MG Oral Capsule Tizanidine Tizanidine 08/22/2020 08: 52:29 AM EST 4 MG active [facility] DULoxetine HCl 60 MG DULoxetine HCl 07/29/2020 12:00:00 AM EST 6 0.0 {mg} completed [facility] ([place] [facility] Gabapentin 600 MG Gabapentin 07/29/2020 12:00:00 AM EST 600.0 {m g} completed [facility] ([facility]) Fluticasone Propionate HFA 220 MCG/ACT Fluticasone Propionat e HFA 07/29/2020 12:00:00 AM EST 1.0 {asd} completed [facility] ([facility]) Losartan Potassium-Hydrochlorothiazide 100-25 MG Losar serrato Potassium-Hydrochlorothiazide 07/29/2020 12:00:00 AM EST 0 {mg} completed [facility] ([facility]) Amitriptyline HCl 50 MG Amitriptyline HCl 07/28/2020 12:00:00 AM ES T 50.0 {mg} completed [facility] ([facility]) Ipratropium [place] HFA 17 MCG/ACT Ipratropium [place] HFA 1 09/28/2019 12:00:00 AM EST 1.0 {asd} completed [facility] ([facility]) Albuterol Sulfate 108 (90 Base) MCG/ACT Albuterol Sulfate 07/28/2020 12:00:00 AM EST 2.0 {asd} completed [facility] ([facility]) Eliquis 5 MG Eliquis 07/28/2020 12:00:00 AM EST 5.0 {mg} completed [facility] ([facility] ) TiZANidine HCl 4 MG TiZANidine HCl 07/28/2020 12:00:00 AM EST 4. 0 {mg} completed [facility] ([facility]) Tamsulosin HCl 0.4 MG Tamsulosin HCl 07/28/2020 12:00:00 AM EST 0.4 {mg} completed [facility] ([facility]) Rosuvastatin Calcium 40 MG Rosuvastatin Calcium 07/28/2020 12:00:00 AM EST 40.0 {mg} completed [facility] ([facility]) Riluzole 50 MG Riluzole 07/28/2020 12:00:00 AM EST 50.0 {mg} completed [facility] ([facility]) Polyethylene Glycol 1000 Polyethylene Glycol 1000 07/28/2020 12:00: 00 AM EST 17.0 {gm} completed [facility] ([facility]) Pantoprazole Sodium 40 MG Pantoprazole Sodium 07/28/2020 12:00:00 A M EST 40.0 {mg} completed [facility] ([facility]) Nitroglycerin 0.3 MG Nitroglycerin 07/28/2020 12:00:00 AM EST 0. 3 {mg} completed [facility] ([facility]) Multivitamin Multivitamin 07/28/2020 12:00:00 AM EST 1.0 {tablet } completed [facility] ([facility]) Clopidogrel Bisulfate 75 MG Clopidogrel Bisulfate 07/28/2020 12:00: 00 AM EST 75.0 {mg} completed [facility] ([facility]) Metoprolol Tartrate 100 MG Metoprolol Tartrate 07/28/2020 12:00:00 AM EST 100.0 {mg} completed [facility] ([facility]) clopidogrel 75 MG Oral Tablet Clopidogrel Clopidogrel 07/25/2020 12:08:43 PM EST 75 MG active [facility] 120 ACTUAT Fluticasone propionate 0.22 M G/ACTUAT Metered Dose Inhaler Fluticasone Propionate Fluticasone Propionate 07/08/2020 11:50:14 AM EST 1 INH active [facility] Albuterol 0.833 MG/ML / Ipratropium Brom joy 0.167 MG/ML Inhalant Solution Ipratropium-Albuterol Ipratropium-Albuterol 06/20/2020 10:05:42 AM EST 3 ML active [facility] tizanidine 4 MG Oral Capsule Tizanidine Tizanidine 06/20/2020 10: 05:02 AM EST 4 MG completed [facility] 0.5 ML pneumococcal capsular polysacchar joy type 1 vaccine 0.05 MG/ML / pneumococcal capsular polysaccharide type 10A vaccine 0.05 MG/ML / pneumococcal capsular polysaccharide type 11A vaccine 0.05 MG/ML / pneumococcal capsular polysaccharide type 12F vac pneumococcal 23-raffy ps vaccine 25 mcg/0.5 mL injection syringe pneumococcal 23-raffy ps vaccine 25 mcg/0. 5 mL injection syringe 06/10/2020 10:32:59 AM EDT 0.5 ML completed [facility] Afluria Qd 2019-(3yr up)(PF) (flu vac [id number] 36mos up(P F)) 06/10/2020 10:32:59 AM EDT 60 MCG completed [facility] Albuterol 0.833 MG/ML / Ipratropium Brom joy 0.167 MG/ML Inhalant Solution Ipratropium-Albuterol Ipratropium-Albuterol 06/07/2020 10:19:42 AM EDT 3 ML completed [facility] Albuterol 0.833 MG/ML / Ipratropium Brom joy 0.167 MG/ML Inhalant Solution Ipratropium-Albuterol Ipratropium-Albuterol 06/07/2020 10:19:42 AM EDT 3 ML completed [facility] Albuterol 0.833 MG/ML / Ipratropium Brom joy 0.167 MG/ML Inhalant Solution Ipratropium-Albuterol Ipratropium-Albuterol 05/09/2020 09:50:54 AM EDT 3 ML completed [facility] Albuterol 0.833 MG/ML / Ipratropium Brom joy 0.167 MG/ML Inhalant Solution Ipratropium-Albuterol Ipratropium-Albuterol 05/09/2020 09:50:54 AM EDT 3 ML completed [facility] gabapentin 600 MG Oral Tablet Gabapentin Gabapentin 020 08:07:33 AM EDT 600 MG active [facility] gabapentin 600 MG Oral Tablet Gabapentin Gabapentin 08:07:33 AM EDT 600 MG active [facility] apixaban 5 MG Oral Tablet Apixaban (Eliquis) 5 mg tabl et Apixaban (Eliquis) 5 mg tablet 03/01/2020 09:01:00 AM EDT 5 MG active [facility] apixaban 5 MG Oral Tablet Apixaban (Eliquis) 5 mg tabl et Apixaban (Eliquis) 5 mg tablet 03/01/2020 09:01:00 AM EDT 5 MG active [facility] apixaban 5 MG Oral Tablet Apixaban (Eliquis) 5 mg tabl et Apixaban (Eliquis) 5 mg tablet 03/01/2020 09:01:00 AM EDT 5 MG active [facility] apixaban 5 MG Oral Tablet Apixaban (Eliquis) 5 mg tabl et Apixaban (Eliquis) 5 mg tablet 02/12/2020 09:06:45 AM EDT 5 MG completed [facility] apixaban 5 MG Oral Tablet Apixaban (Eliquis) 5 mg tabl et Apixaban (Eliquis) 5 mg tablet 02/12/2020 09:06:45 AM EDT 5 MG completed [facility] apixaban 5 MG Oral Tablet Apixaban (Eliquis) 5 mg tabl et Apixaban (Eliquis) 5 mg tablet 02/12/2020 09:06:45 AM EDT 5 MG completed [facility] pantoprazole 40 MG Delayed Release Oral Tablet Pantoprazole Pantoprazole 02/12/2020 09:05:23 AM EDT 40 MG active [facility] pantoprazole 40 MG Delayed Release Oral Tablet Pantoprazole Pantoprazole 02/12/2020 09:05:23 AM EDT 40 MG active [facility] pantoprazole 40 MG Delayed Release Oral Tablet Pantoprazole Pantoprazole 02/12/2020 09:05:23 AM EDT 40 MG active [facility] gabapentin 600 MG Oral Tablet Gabapentin Gabapentin 020 09:03:52 AM EDT 600 MG completed [facility] gabapentin 600 MG Oral Tablet Gabapentin Gabapentin 09:03:52 AM EDT 600 MG completed [facility] gabapentin 600 MG Oral Tablet Gabapentin Gabapentin 09:03:52 AM EDT 600 MG active [facility] 120 ACTUAT Fluticasone propionate 0.22 M G/ACTUAT Metered Dose Inhaler Fluticasone Propionate Fluticasone Propionate 02/12/2020 09:02:57 AM EDT 1 PUFFS completed [facility] 120 ACTUAT Fluticasone propionate 0.22 M G/ACTUAT Metered Dose Inhaler Fluticasone Propionate Fluticasone Propionate 02/12/2020 09:02:57 AM EDT 1 PUFFS active [facility] 120 ACTUAT Fluticasone propionate 0.22 M G/ACTUAT Metered Dose Inhaler Fluticasone Propionate Fluticasone Propionate 02/12/2020 09:02:57 AM EDT 1 PUFFS active [facility] clopidogrel 75 MG Oral Tablet Clopidogrel Clopidogrel 02/12/2020 09:02:17 AM EDT 75 MG active [facility] clopidogrel 75 MG Oral Tablet Clopidogrel Clopidogrel 02/12/2020 09:02:17 AM EDT 75 MG active [facility] clopidogrel 75 MG Oral Tablet Clopidogrel Clopidogrel 02/12/2020 09:02:17 AM EDT [address] [facility] Riluzole 50 MG Oral Tablet Riluzole 02/12/2020 09:01:31 AM EDT 5 0 MG active [facility] Riluzole 50 MG Oral Tablet Riluzole 02/12/2020 09:01:31 AM EDT 5 0 MG active [facility] Riluzole 50 MG Oral Tablet Riluzole 02/12/2020 09:01:31 AM EDT 5 0 MG active [facility] duloxetine 60 MG Delayed Release Oral Capsule Duloxetine Dul oxetine 02/12/2020 09:00:47 AM EDT 60 MG active [facility] duloxetine 60 MG Delayed Release Oral Capsule Duloxetine Dul oxetine 02/12/2020 09:00:47 AM EDT 60 MG active [facility] duloxetine 60 MG Delayed Release Oral Capsule Duloxetine Dul oxetine 02/12/2020 09:00:47 AM EDT 60 MG active [facility] Amitriptyline HCl 50 MG Amitriptyline HCl 02/08/2020 01:00:00 AM EDT completed [facility] ([facility]) Albuterol Sulfate HFA 108 (90 Base) MCG/ACT Albuterol Sulfat e HFA 02/08/2020 01:00:00 AM EDT completed [facility] ([facility]) Apixaban 5 MG Apixaban 02/08/2020 01:00:00 AM EDT completed [facility] ([facility]) Clopidogrel Bisulfate 75 MG Clopidogrel Bisulfate 02/08/2020 01:00: 00 AM EDT completed [facility] ([facility]) Compleat Compleat 02/08/2020 01:00:00 AM EDT compl eted [facility] ([facility]) DULoxetine HCl 60 MG DULoxetine HCl 02/08/2020 01:00:00 AM EDT completed [facility] ([facility]) Flovent HFA 220 MCG/ACT Flovent HFA 02/08/2020 01:00:00 AM EDT completed [facility] ([facility]) Multivitamins Multivitamins 02/08/2020 01:00:00 AM EDT completed [facility] ([facility] ) Lopressor 50 MG Lopressor 02/08/2020 01:00:00 AM EDT completed [facility] ([facility]) Losartan Potassium-Hydrochlorothiazide 100-25 MG Losar serrato Potassium-Hydrochlorothiazide 02/08/2020 01:00:00 AM EDT completed [facility] ([facility]) Gabapentin 600 MG Gabapentin 02/08/2020 01:00:00 AM EDT completed [facility] ([facility] ) Pantoprazole Sodium 40 MG Pantoprazole Sodium 02/08/2020 01:00:00 AM E DT completed [facility] ([facility]) Nitroglycerin 0.3 MG Nitroglycerin 02/08/2020 01:00:00 AM EDT completed [facility] ([facility]) Polyethylene Glycol 3350 17 GM/SCOOP Polyethylene Glycol 335 0 02/08/2020 01:00:00 AM EDT completed [facility] ([facility]) Tamsulosin HCl 0.4 MG Tamsulosin HCl 02/08/2020 01:00:00 AM EDT completed [facility] ([facility]) tiZANidine HCl 4 MG tiZANidine HCl 02/08/2020 01:00:00 AM EDT completed [facility] ([facility]) Riluzole 50 MG Riluzole 02/08/2020 01:00:00 AM EDT completed [facility] ([facility]) Rosuvastatin Calcium 40 MG Rosuvastatin Calcium 02/08/2020 01:00:00 A M EDT completed [facility] ( [facility]) Rosuvastatin calcium 40 MG Oral Tablet Rosuvastatin 0 08:38:41 AM EDT 40 MG [facility] Rosuvastatin calcium 40 MG Oral Tablet Rosuvastatin 0 08:38:41 AM EDT 40 MG [facility] Rosuvastatin calcium 40 MG Oral Tablet Rosuvastatin 0 08:38:41 AM EDT 40 MG [facility] Rosuvastatin calcium 40 MG Oral Tablet Rosuvastatin 0 08:38:41 AM EDT 40 MG [facility] sildenafil 20 MG Oral Tablet Sildenafil (Pulm.Hyperten danuta) Sildenafil (Pulm.Hypertension) 11/20/2019 11:28:37 AM EDT 20 MG act [facility] sildenafil 20 MG Oral Tablet Sildenafil (Pulm.Hyperten danuta) Sildenafil (Pulm.Hypertension) 11/20/2019 11:28:37 AM EDT 20 MG act [facility] sildenafil 20 MG Oral Tablet Sildenafil (Pulm.Hyperten danuta) Sildenafil (Pulm.Hypertension) 11/20/2019 11:28:37 AM EDT 20 MG com pleted [facility] sildenafil 20 MG Oral Tablet Sildenafil (Pulm.Hyperten danuta) Sildenafil (Pulm.Hypertension) 11/20/2019 11:28:37 AM EDT 20 MG com [facility] sildenafil 20 MG Oral Tablet Sildenafil (Pulm.Hyperten danuta) Sildenafil (Pulm.Hypertension) 11/20/2019 11:28:37 AM EDT 20 MG com [facility] Metoprolol Tartrate 100 MG Oral Tablet Metoprolol Tartrate 0 11/20/2019 11:28:01 AM EDT 100 MG active [facility] Metoprolol Tartrate 100 MG Oral Tablet Metoprolol Tartrate 0 11/20/2019 11:28:01 AM EDT 100 MG active [facility] Metoprolol Tartrate 100 MG Oral Tablet Metoprolol Tartrate 0 11/20/2019 11:28:01 AM EDT 100 MG active [facility] Metoprolol Tartrate 100 MG Oral Tablet Metoprolol Tartrate 0 11/20/2019 11:28:01 AM EDT 100 MG active [facility] Metoprolol Tartrate 100 MG Oral Tablet Metoprolol Tartrate 0 11/20/2019 11:28:01 AM EDT 100 MG active [facility] POLYETHYLENE GLYCOL 3350 142 MG/ML Oral Solution Polye thylene Glycol 3350 Polyethylene Glycol 3350 11/20/2019 11:26:30 AM EDT 17 GM [facility] POLYETHYLENE GLYCOL 3350 142 MG/ML Oral Solution Polye thylene Glycol 3350 Polyethylene Glycol 3350 11/20/2019 11:26:30 AM EDT 17 GM [facility] POLYETHYLENE GLYCOL 3350 142 MG/ML Oral Solution Polye thylene Glycol 3350 Polyethylene Glycol 3350 11/20/2019 11:26:30 AM EDT 17 [facility] POLYETHYLENE GLYCOL 3350 142 MG/ML Oral Solution Polye thylene Glycol 3350 Polyethylene Glycol 3350 11/20/2019 11:26:30 AM EDT 17 [facility] POLYETHYLENE GLYCOL 3350 142 MG/ML Oral Solution Polye thylene Glycol 3350 Polyethylene Glycol 3350 11/20/2019 11:26:[address] [facility] Hydrochlorothiazide 25 MG / Losartan Pot assium 100 MG Oral Tablet Losartan-Hydrochlorothiazide Losartan-Hydrochlorothiazide 11/20/2019 10:56:02 AM EDT [address] [facility] Hydrochlorothiazide 25 MG / Losartan Pot assium 100 MG Oral Tablet Losartan-Hydrochlorothiazide Losartan-Hydrochlorothiazide 11/20/2019 10:56:02 AM EDT [address] [facility] Hydrochlorothiazide 25 MG / Losartan Pot assium 100 MG Oral Tablet Losartan-Hydrochlorothiazide Losartan-Hydrochlorothiazide 11/20/2019 10:56:02 AM EDT [address] [facility] Hydrochlorothiazide 25 MG / Losartan Pot assium 100 MG Oral Tablet Losartan-Hydrochlorothiazide Losartan-Hydrochlorothiazide 11/20/2019 10:56:02 AM EDT 1 TAB active [facility] Hydrochlorothiazide 25 MG / Losartan Pot assium 100 MG Oral Tablet Losartan-Hydrochlorothiazide Losartan-Hydrochlorothiazide 11/20/2019 10:56:02 AM EDT [address] [facility] Hydrochlorothiazide 25 MG / Losartan Pot assium 100 MG Oral Tablet Losartan-Hydrochlorothiazide Losartan-Hydrochlorothiazide 11/20/2019 10:56:02 AM EDT [address] [facility] Benzonatate 200 MG Benzonatate 11/03/2019 01:00:00 AM EDT 200.0 {mg} completed [facility] ([facility]) Albuterol Sulfate HFA 108 (90 Base) MCG/ACT Albuterol Sulfat e HFA 10/20/2019 12:00:00 AM EST 1.0 {asd} completed [facility] ([facility]) Nitroglycerin 0.4 MG Nitroglycerin 10/20/2019 12:00:00 AM EST 1.0 {tablet} completed [facility] ([facility]) Juice Plus Fibre Juice Plus Fibre 10/20/2019 12:00:00 AM EST 2.0 {tablet} completed [facility] ([facility]) Tamsulosin HCl 0.4 MG Tamsulosin HCl 10/20/2019 12:00:00 AM EST 0.4 {mg} completed [facility] ([facility]) Gabapentin 600 MG Gabapentin 10/20/2019 12:00:00 AM EST 600.0 {m g} [facility] TiZANidine HCl 4 MG TiZANidine HCl 10/20/2019 12:00:00 AM EST 4. 0 {mg} completed [facility] ([facility]) Clopidogrel Bisulfate 75 MG Clopidogrel Bisulfate 10/20/2019 12:00: 00 AM EST 75.0 {mg} completed [facility] ([facility]) Amitriptyline HCl 50 MG Amitriptyline HCl 10/20/2019 12:00:00 AM ES T 50.0 {mg} completed [facility] ([facility]) Rosuvastatin Calcium 20 MG Rosuvastatin Calcium 10/20/2019 12:00:00 AM EST 20.0 {mg} completed [facility] ([facility]) Riluzole 50 MG Riluzole 10/20/2019 12:00:00 AM EST 50.0 {mg} completed [facility] ([facility]) Fluticasone Propionate HFA 220 MCG/ACT Fluticasone Propionat e HFA 10/20/2019 12:00:00 AM EST 1.0 {asd} completed [facility] ([facility]) Aspirin 81 MG Aspirin 10/20/2019 12:00:00 AM EST 81.0 {mg} completed [facility] ([facility]) DULoxetine HCl 60 MG DULoxetine HCl 10/20/2019 12:00:00 AM EST 6 0.0 {mg} completed [facility] ([facility]) Pantoprazole Sodium 40 MG Pantoprazole Sodium 10/20/2019 12:00:00 A M EST 40.0 {mg} completed [facility] ([facility]) Metoprolol Tartrate 50 MG Metoprolol Tartrate 10/20/2019 12:00:00 A M EST 50.0 {mg} completed [facility] ([facility]) Losartan Potassium-HCTZ 50-12.5 MG Losartan Potassium-HCTZ 0 10/20/2019 12:00:00 AM EST 0 {mg} completed [facility] T ([facility]) duloxetine 60 MG Delayed Release Oral Capsule Duloxetine Dul oxetine 03/20/2019 12:58:18 PM EDT 60 MG completed [facility] duloxetine 60 MG Delayed Release Oral Capsule Duloxetine Dul oxetine 03/20/2019 12:58:18 PM EDT 60 MG completed [facility] duloxetine 60 MG Delayed Release Oral Capsule Duloxetine Dul oxetine 03/20/2019 12:58:18 PM EDT 60 MG completed [facility] Carbidopa 25 MG / entacapone 200 MG / Le vodopa 100 MG Oral Tablet Vthorzvcb-Xdbtidrj-Otjdrxmgtf Lkgylfvvz-Jyxxusdy-Xfjfiaudjv 01/06/2019 03:35:18 PM EDT [address] [facility] Carbidopa 25 MG / entacapone 200 MG / Le vodopa 100 MG Oral Tablet Dkdwpsqwy-Fxojbjyx-Zbuxrypamz Ygkrfkszo-Oxaguvzi-Xanozfdymq 01/06/2019 03:35:18 PM EDT [address] [facility] Carbidopa 25 MG / entacapone 200 MG / Le vodopa 100 MG Oral Tablet Syxvbdpuo-Rtkbusns-Vmzykvsjfx Zgccktfri-Tpzcwstd-Duuvranwla 01/06/2019 03:35:18 PM EDT [address] [facility] Carbidopa 25 MG / entacapone 200 MG / Le vodopa 100 MG Oral Tablet Lgwitnxvp-Nvtrwjef-Tcouvwnysb Xhrlezbho-Ehhhzrok-Xvbrxoupca 01/06/2019 03:35:18 PM EDT [address] [facility] Carbidopa 25 MG / entacapone 200 MG / Le vodopa 100 MG Oral Tablet Wyktxyspx-Rdfcypyr-Sxkioojsvp Euscpnfmg-Dldmyldv-Rzyufxdwjj 01/06/2019 03:35:18 PM EDT [address] [facility] Carbidopa 25 MG / entacapone 200 MG / Le vodopa 100 MG Oral Tablet Zfsdamsfm-Tcijgyxc-Gcigckivho Ewvbulwqo-Xojzxvuv-Kjhkxycjgf 01/06/2019 03:35:18 PM EDT [address] [facility] Aspirin 81 MG Delayed Release Oral Table t Aspirin (Aspir-Low) 81 mg tablet,delayed release (DR/EC) Aspirin (Aspir-Low) 81 mg tablet,delayed release (DR/EC) 01/06/2019 03:33:10 PM EDT 81 MG completed [facility] Aspirin 81 MG Delayed Release Oral Table t Aspirin (Aspir-Low) 81 mg tablet,delayed release (DR/EC) Aspirin (Aspir-Low) 81 mg tablet,delayed release (/EC) 01/06/2019 03:33:10 PM EDT 81 MG completed [facility] Aspirin 81 MG Delayed Release Oral Table t Aspirin (Aspir-Low) 81 mg tablet,delayed release (/EC) Aspirin (Aspir-Low) 81 mg tablet,delayed release (/EC) 01/06/2019 03:33:10 PM EDT 81 MG completed [facility] tadalafil 5 MG Oral Tablet Tadalafil Tadalafil 01/06/2019 03:32: 38 PM EDT 5 MG completed [facility] tadalafil 5 MG Oral Tablet Tadalafil Tadalafil 01/06/2019 03:32: 38 PM EDT 5 MG completed [facility] tadalafil 5 MG Oral Tablet Tadalafil Tadalafil 01/06/2019 03:32: 38 PM EDT 5 MG completed [facility] tizanidine 4 MG Oral Capsule Tizanidine Tizanidine 01/06/2019 03: 30:19 PM EDT 4 MG completed [facility] Rosuvastatin calcium 20 MG Oral Tablet Rosuvastatin 9 03:27:55 PM EDT 20 MG completed [facility] Rosuvastatin calcium 20 MG Oral Tablet Rosuvastatin 9 03:27:55 PM EDT 20 MG completed [facility] Rosuvastatin calcium 20 MG Oral Tablet Rosuvastatin 9 03:27:55 PM EDT 20 MG completed [facility] Rosuvastatin calcium 20 MG Oral Tablet Rosuvastatin 9 03:27:55 PM EDT 20 MG completed [facility] Hydrochlorothiazide 25 MG / Losartan Pot assium 100 MG Oral Tablet Losartan-Hydrochlorothiazide Losartan-Hydrochlorothiazide 01/06/2019 03:26:38 PM EDT 0.5 TAB completed [facility] Hydrochlorothiazide 25 MG / Losartan Pot assium 100 MG Oral Tablet Losartan-Hydrochlorothiazide Losartan-Hydrochlorothiazide 01/06/2019 03:26:38 PM EDT 0.5 TAB completed [facility] Hydrochlorothiazide 25 MG / Losartan Pot assium 100 MG Oral Tablet Losartan-Hydrochlorothiazide Losartan-Hydrochlorothiazide 01/06/2019 03:26:38 PM EDT 0.5 TAB completed [facility] Hydrochlorothiazide 25 MG / Losartan Pot assium 100 MG Oral Tablet Losartan-Hydrochlorothiazide Losartan-Hydrochlorothiazide 01/06/2019 03:26:38 PM EDT 0.5 TAB completed [facility] Hydrochlorothiazide 25 MG / Losartan Pot assium 100 MG Oral Tablet Losartan-Hydrochlorothiazide Losartan-Hydrochlorothiazide 01/06/2019 03:26:38 PM EDT 0.5 TAB completed [facility] Hydrochlorothiazide 25 MG / Losartan Pot assium 100 MG Oral Tablet Losartan-Hydrochlorothiazide Losartan-Hydrochlorothiazide 01/06/2019 03:26:38 PM EDT 0.5 TAB completed [facility] Metoprolol Tartrate 50 MG Oral Tablet Metoprolol Tartrate 03:26:09 PM EDT [address] [facility] Metoprolol Tartrate 50 MG Oral Tablet Metoprolol Tartrate 03:26:09 PM EDT [address] [facility] Metoprolol Tartrate 50 MG Oral Tablet Metoprolol Tartrate 03:26:09 PM EDT [address] [facility] Metoprolol Tartrate 50 MG Oral Tablet Metoprolol Tartrate 03:26:09 PM EDT [address] [facility] Metoprolol Tartrate 50 MG Oral Tablet Metoprolol Tartrate 03:26:09 PM EDT [address] [facility] Insurance Providers Payer name Policy type / Coverage type Policy ID Covered democrat ID Covered democrat's relationship to kumari Policy Kumari [id number] [facility] OPTIONS -O/P [id number] 18 [id number] MEDICARE PART A -O/P [id number] 18 [id number] BLUE CROSS BLUE SHIELD -PHYSICIAN [id number] 18 [id number] BLUE CROSS BLUE SHIELD -O/P [id number] 18 [id number] [facility] BCBS B [id number] S [id number] [facility] O [id number] S [id number] MEDICAID M [id number] BCBS SHAN HMO [id number] SP [id number] [employer] MEDICAID [id number] Jeannie [id number] [employer] BCBS MEDICAID [id number] BLUE CROSS BLUE SHIELD -RECURRING [id number] 18 [id number] BCBS [place] PPO 302/307 [id number] SP [id number] BLUE CROSS BLUE SHIELD -O/P [id number] 18 [id number] MVP MEDICAID HMO -O/P [id number] 18 [id number] MVP MCDHMO [id number] SP [id number] [employer] BCBS Medigap Part B [id number] Self [id number] Medicaid [place] Medig[place] Part B [id number] Self [id number] MVP Medicaid Health Maintenance Organization (HMO) [id number] Self [id number] MEDICAID [id number] SP [id number] ANSI-Medicaid [id number] ANSI-Not a Secondary Insurance [id number] ANSI-Not a Secondary Insurance [id number] ANSI-Medicaid [id number] MVP MCDHMO [id number] SP [id number] MVP MCDHMO [id number] SP [id number] ANSI-Medicaid [id number] ANSI-Not a Secondary Insurance [id number] MVP MEDICAID HMO - RECURRING [id number] 18 [id number] MEDICAID -RECURRING [id number] [facility] O [id number] S [id number] [facility] O [id number] S [id number] [id number] SP [id number] [facility] [id number] SP [id number] MEDICAID [id number] SP [id number] MEDICAID [id number] SP [id number] MEDICAID -O/P [id number] [employer] BCBS B [id number] S [id number] [employer] BCBS Medigap Part B [id number] Self [id number] [place] [id number] Self [id number] MEDICAID [id number] SP [id number] [employer] [id number] SP [id number] BLUE CROSS BLUE SHIELD-O/P [id number] [employer] BCBS [id number] Jeannie YND [id number] [employer] BCBS [id number] Jeannie YND [id number] [employer] O [id number] S [id number] BCBS/Blue Card Medigap Part B Self [employer] [place] [employer] Compensation Self O UNAVAILABLE UNAVAILA BLE [place] [employer] Medig[employer] Part B Self [employer] [place] [employer] Medig[employer] Part B Self [place] [employer] Medig[employer] Part B Self [employer] Commercial Self BLUE CROSS BLUE SHIELD-O/P [id number] 18 [id number] EXCELL[place] BCBS P [id number] S YNS [id number] BLUE CROSS BLUE SHIELD-O/P [id number] 18 [id number] SELF PAY P 0 S 0 BC/BS OF [place] P [id number] S VY [id number] EXCELLUS H [id number] Self [id number] Problems, Conditions, and Diagnoses Code Display Name Description Problem Type Effective Dates Data Source(s) G12.21 Amyotrophic lateral sclerosis Amyotrophic lateral scle rosis Problem 07/28/2020 12:00:00 AM EST [facility] ([facility] ) M25.512 Pain in left shoulder Pain in left shoulder Problem 07/28/2020 12:00:00 AM EST [facility] ([facility] ) R13.10 Dysphagia, unspecified Dysphagia, unspecified Problem 07/28/2020 12:00:00 AM EST [facility] ([facility] ) I25.10 Atherosclerotic heart diseas e of [place] coronary artery without angina pectoris Atherosclerotic heart disease of [place] coronary artery without angina pectoris Problem 07/28/2020 12:00:00 AM EST [facility] ([facility]) I10 Essential (primary) hypertension Essential (primary) h ypertension Problem 07/28/2020 12:00:00 AM EST [facility] ([facility] ) J45.909 Unspecified asthma, uncomplicated Unspecified as thma, uncomplicated Problem 07/28/2020 12:00:00 AM EST [facility] ([facility]) G47.33 Obstructive sleep apnea (adult) (pediatr ic) Obstructive sleep apnea (adult) (pediatric) Problem 07/28/2020 12:00:00 AM EST [facility] ([facility]) G89.29 Other chronic pain Other chronic pain Problem 0 12:00:00 AM EST [facility] ([facility]) R15.9 Full incontinence of feces Full incontinence of feces Problem 07/28/2020 12:00:00 AM EST [facility] ([facility] ) N40.0 Benign prostatic hyperplasia without low er urinary tract symptoms Benign prostatic hyperplasia without lower urinary tract symptoms Problem 07/28/2020 12:00:00 AM EST [facility] ([facility] ) R32 Unspecified urinary incontinence Unspecified urinary i ncontinence Problem 07/28/2020 12:00:00 AM EST [facility] ([facility] ) Z43.1 Encounter for attention to gastrostomy E ncounter for attention to gastrostomy Problem 07/28/2020 12:00:00 AM EST [facility] ([facility]) 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 wheelchair Prob brent 07/28/2020 12:00:00 AM EST [facility] ([facility] ) Z79.01 longterm (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 of anticoagulant s longterm (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 of anticoagulants Problem 07/28/2020 12:00:00 AM EST [facility] ([facility]) Z79.02 longterm (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 of antithromboti cs/antiplatelets 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 (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 of antithrombotics/antiplatelets Problem 020 12:00:00 AM EST [facility] ([facility] ) Z79.51 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 (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 of inhaled stero ids 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 (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 of inhaled steroids Problem 07/28/2020 12:00:00 AM EST [facility] ([facility]) 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 Problem 07/28/2020 12:00:00 AM EST [facility] ([facility]) Z91.81 History of falling History of falling Problem 0 12:00:00 AM EST [facility] ([facility]) G12.21 Amyotrophic lateral sclerosis Amyotrophic lateral scle rosis Problem 07/21/2020 12:00:00 AM EST [facility] ([facility] ) [id number] Amyotrophic lateral sclerosis Amyotrophic lateral scle rosis Problem 02/11/2020 12:00:00 AM EDT [facility] ([facility] ) [id number] Alveolar hypoventilation Alveolar hypoventilation Prob brent 02/11/2020 12:00:00 AM EDT [facility] ([facility] ) I97.89 Other postprocedural complic ations and disorders of the circulatory system, not elsewhere classified Other postprocedural complications and disorders of the circulatory system, not elsewhere classified Problem 02/07/2020 01:00:00 AM EDT [facility] ([facility] ) I82.402 Acute embolism and thrombosi s of unspecified deep veins of left lower extremity Acute embolism and thrombosis of unspeci fied deep veins of left lower extremity Problem 02/07/2020 01:00:00 AM EDT [facility] ([facility]) R13.10 Dysphagia, unspecified Dysphagia, unspecified Problem 02/07/2020 01:00:00 AM EDT [facility] ([facility] ) I25.10 Atherosclerotic heart diseas e of [place] coronary artery without angina pectoris Atherosclerotic heart disease of [place] coronary artery without angina pectoris Problem 02/07/2020 01:00:00 AM EDT [facility] ([facility]) I10 Essential (primary) hypertension Essential (primary) h ypertension Problem 02/07/2020 01:00:00 AM EDT [facility] ([facility] ) J45.909 Unspecified asthma, uncomplicated Unspecified as thma, uncomplicated Problem 02/07/2020 01:00:00 AM EDT [facility] ([facility]) G47.33 Obstructive sleep apnea (adult) (pediatr ic) Obstructive sleep apnea (adult) (pediatric) Problem 02/07/2020 01:00:00 AM EDT [facility] ([facility]) G89.29 Other chronic pain Other chronic pain Problem 0 01:00:00 AM EDT [facility] ([facility]) N40.0 Benign prostatic hyperplasia without low er urinary tract symptoms Benign prostatic hyperplasia without lower urinary tract symptoms Problem 02/07/2020 01:00:00 AM EDT [facility] ([facility] ) Z43.1 Encounter for attention to gastrostomy E ncounter for attention to gastrostomy Problem 02/07/2020 01:00:00 AM EDT [facility] ([facility]) Z91.81 History of falling History of falling Problem 0 01:00:00 AM EDT [facility] ([facility]) 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 wheelchair Prob brent 02/07/2020 01:00:00 AM EDT [facility] ([facility] ) Z79.01 longterm (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 of anticoagulant s longterm (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 of anticoagulants Problem 02/07/2020 01:00:00 AM EDT [facility] ([facility]) Z79.02 longterm (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 of antithromboti cs/antiplatelets longterm (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 of antithrombotics/antiplatelets Problem 020 01:00:00 AM EDT [facility] ([facility] ) 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.82 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 (cu rrent) use of aspirin Problem 02/07/2020 01:00:00 AM EDT [facility] ([facility]) Z79.51 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 (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 of inhaled stero ids longterm (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 of inhaled steroids Problem 02/07/2020 01:00:00 AM EDT [facility] ([facility]) 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 Problem 02/07/2020 01:00:00 AM EDT [facility] SM[facility] ([facility]) G12.21 Amyotrophic lateral sclerosis Amyotrophic lateral scle rosis Problem 01/26/2020 01:00:00 AM EDT [facility] ([facility] ) Z60.0 Problems of adjustment to life-cycle transitions Phase of Life Problem Condition 11/18/2019 12:00:00 AM EDT [facility] ([facility]) F41.9 Anxiety disorder, unspecified Unspecified Anxiety Diso rder Condition 11/18/2019 12:00:00 AM EDT [facility] ([facility]) F32.9 Major depressive disorder, single episod e, unspecified Unspecified depressive Disorder Condition 11/18/2019 12:00:00 AM EDT [facility] ([facility]) R13.10 Dysphagia, unspecified Dysphagia, unspecified Problem 10/19/2019 12:00:00 AM EST [facility] ([facility] ) Z91.81 History of falling History of falling Problem 0 12:00:00 AM EST [facility] ([facility]) 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 wheelchair Prob brent 10/19/2019 12:00:00 AM EST [facility] ([facility] ) Z79.02 longterm (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 of antithromboti cs/antiplatelets 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 (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 of antithrombotics/antiplatelets Problem 020 12:00:00 AM EST [facility] ([facility] ) Z79.82 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 longterm (cu rrent) use of aspirin Problem 10/19/2019 12:00:00 AM EST [facility] ([facility]) Z79.51 longterm (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 of inhaled stero ids 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 (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 of inhaled steroids Problem 10/19/2019 12:00:00 AM EST [facility] ([facility]) G12.21 Amyotrophic lateral sclerosis Amyotrophic lateral scle rosis Problem 09/30/2019 12:00:00 AM EST [facility] ([facility] ) [id number] Presence of other cardiac implants and g rafts Presence of other cardiac implants and grafts Diagnosis 08/20/2020 06:43:00 PM [facility] D87735 Personal history of nicotine dependence Personal history of nicotine dependence Diagnosis 08/20/2020 06:43:00 PM [facility] Z7901 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 (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 of anticoagulant s 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 (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 of anticoagulants Diagnosis 08/20/2020 06:43:00 PM [facility] R339 Retention of urine, unspecified Retention of urine, un specified Diagnosis 08/20/2020 06:43:00 PM [facility] J449 Chronic obstructive pulmonary disease, u nspecified Chronic obstructive pulmonary disease, unspecified Diagnosis 05/01/2020 12:00:00 PM EDT [facility] I252 Old myocardial infarction Old myocardial infarction Di agnosis 05/01/2020 12:00:00 PM EDT [facility] E785 Hyperlipidemia, unspecified Hyperlipidemia, unspecifie d Diagnosis 05/01/2020 12:00:00 PM T [facility] E119 Type 2 diabetes mellitus without complic ations Type 2 diabetes mellitus without complications Diagnosis 05/01/2020 12:00:00 PM EDT [facility] R05 Cough Cough Diagnosis 05/01/2020 12:00:00 PM ED T [facility] R0600 Dyspnea, unspecified Dyspnea, unspecified Diagnosis 05/01/2020 12:00:00 PM EDT [facility] I10 Essential (primary) hypertension Essential (primary) h ypertension Diagnosis 09/09/2019 04:20:00 PM [facility] J65648 Unspecified place in unspeci fied non-institutional (private) residence as the place of occurrence of the external cause Unspecified place in unspecified non-institutional (private) residence as the place of occurrence of the external cause Diagnosis 07/03/2019 02:37:00 PM [facility] [id number] Fall on same level from slip ping, tripping and stumbling with subsequent striking against other object, initial encounter Fall on same level from slipping, tripping and stumbling with subsequent striking against other object, initial encounter Diagnosis 07/03/2019 02:37:00 PM [facility] Z7982 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 longterm (cu rrent) use of aspirin Diagnosis 07/03/2019 02:37:00 PM [facility] F73971 Nicotine dependence, cigarettes, uncompl icated Nicotine dependence, cigarettes, uncomplicated Diagnosis 07/03/2019 02:37:00 PM [facility] N12571 Unspecified asthma, uncomplicated Unspecified as thma, uncomplicated Diagnosis 07/03/2019 02:37:00 PM [facility] [id number] Abrasion of left elbow, initial encounte r Abrasion of left elbow, initial encounter Diagnosis 07/03/2019 02:37:00 PM [facility] [id number] Contusion of left elbow, initial encount er Contusion of left elbow, initial encounter Diagnosis 07/03/2019 02:37:00 PM [facility] [id number] Unspecified injury of left elbow, initia l encounter Unspecified injury of left elbow, initial encounter Diagnosis 07/03/2019 02:37:00 PM [facility] Surgeries/Procedures Procedure Description Date Indications Data Source(s) TEMPMHCTelemed 30" Psychotherapy 12:00:00 AM EDT - 11/18/2019 12:00:00 AM EDT [facility] ([facility]) TEMPMHCTelemed 30" Psychotherapy 11/18/2019 12:00:00 A M EDT [facility] ([facility]) TEMPMHCTelemed 30" Psychotherapy 12:00:00 AM EDT - 11/04/2019 12:00:00 AM EDT [facility] ([facility]) TEMPMHCTelemed 30" Psychotherapy 11/04/2019 12:00:00 A M EDT [facility] ([facility]) Extended Individual Psychotherapy - 45 min 07/22/2019 12:00:00 AM EST - 07/22/2019 12:00:00 AM EST [facility] ([facility]) Extended Individual Psychotherapy - 45 min 12:00:00 AM EST [facility] ([facility]) Results ID Date Data Source [id number] 08/23/2020 11:51:00 AM EST [facility] Patient Name: BRAULIO LANGLEY : 0 1960 Sex: M Pt Unit #: [id number] Location:[facility] Provider: Visit Date/Time: 08/23/20 Primary Insurance: MEDICARE [employer] [facility] Intake Visit Reasons: Urinary retention Allergies ciprofloxacin [From Cipro] Allergy (Severe, Unverified 01/06/19 15:14) rash adhesive Allergy (Mild, Unverified 01/06/19 15:15) rash HIV Testing Offer - ages 13-64 Requirement for HIV testing offer been met?: Patient reports past refusal [facility] Medical History Amyotrophic lateral sclerosis BPH (benign prostatic hyperplasia) Chronic constipation Coronary artery disease Degenerative lumbar spinal stenosis DVT (deep venous thrombosis) Erectile dysfunction Essential hypertension Mild persistent asthma Mixed hyperlipidemia Nicotine dependence Sleep apnea Surgical History H/O Spinal surgery Family History (Updated 01/22/19 @ 11:29 by Louise Ortiz LPN) Other Alcohol abuse Asthma Diabetes Hypertension Stroke Social History (Updated 01/22/19 @ 11:37 by Louise Ortiz LPN) Does the Patient have a Healthcare Proxy: No Does Patient have a DNR?: No Does Patient have a Living Will?: No marital status: Single highest education level completed: high school graduate current occupational status: retired and disabled pets and animals: Yes pets and animals: cat(s) leisure activities: other other: " not much " well-balanced diet: daily high- fat food intake: 0-1 times daily daily servings fruits/ve-4 daily servings of milk/calcium: 0-1 eating out: 1-3 times/week reads food labels: sometimes during the past year weight has: increased > 10 lbs HPI Additional HPI HPI Details: a home visit was made today due to a recent ED visit for urinary retention and insertion ofa villanueva catheter. he feels much better with the catheter. his states that for a few months hehas had to force urine out in small amounts. Exam Const General: cooperative and no acute distress Nutritional Appearance: obese Orientation: alert, awake and oriented x3 HENMT Head: normal to inspection, normocephalic and atraumatic Ears: hearing grossly normal bilaterally and external ears normal General nose exam: external nose normal and no nasal discharge Face and sinus: normal facial exam Mouth: oral mucosae normal, lip normal, tongue normal, oropharynx normal and moist mucous membranes Eyes General: appearance normal, both eyes and all related structures Alignment and Position: alignment normal Periorbital: periorbital findings normal Eyelids: eyelids normal Conjunctivae: conjunctivae normal Sclera: sclerae normal Cornea: corneas normal Pupils: PERRL EOM: EOM intact bilaterally and No nystagmus Neck Neck: normal visual inspection, no lymphadenopathy, supple and no JVD present Neck mass: No Thyroid: thyroid normal Chest Chest: normal inspection of the chest Resp Effort Inspection: normal respiratory effort Auscultation: clear to auscultation bilaterally Cardio Jugular venous pressure: no JVD Rate: regular rate Rhythm: regular rhythm Heart Sounds: S1 normal, S2 normal, no click, no gallops and no murmurs GI Palpation: soft, no hepatosplenomegaly and nontender Skin Lesions: no lesions Rashes: no rashes Neuro General: patient alert, patient awake and patient oriented x3 Cranial Nerves: CN's II-XII intact bilaterally, facial strength normal, able to rotate head bilaterally, able to elevate shoulders bilaterally and no nystagmus Cognition: normal cognition Speech: abnormal speech Details: slurred Gait: other (bed bound) Motor: strength abnormal Psych Appearance: grossly normal and well kempt Mental Status: mental status grossly normal Speech and Movement: slowed movement and slurred speech Mood: dysthymic mood Affect: sad Attitude: cooperative Thought Process: normal Thought Content: normal Insight: fair Judgment: fair Assessment Plan Assessment Plan (1) Retention of urine: Code(s): R33.9 - Retention of urine, unspecified Plan: there is very little doubt that he has a neurogenic bladder from the als. they do not want to pursue a urology consult, so will have [facility] [employer] come in and do education on the villanueva and set him up with a bed bag. recheck prn. (2) Amyotrophic lateral sclerosis: Status: Acute Code(s): G12.21 - Amyotrophic lateral sclerosis SNOMED Code(s): 64647619 Category: Medical Plan: his doctors in [place] recently discussed hospice and with his present we discussed this at length. he has her as the agent of his healthcare proxy, but does not have a dnr or molst form. heseems to be frightened and i don't think ready to make any of these decisions yet. his seems more certain of what she wants. recheck will be prn. we discussed getting him the covid vaccine through [facility]. Coding Level of Care Code 97164 Est Pt Extended Comp Exam Detailed Diagnoses Retention of urine R33.9 Amyotrophic lateral sclerosis G12.21 Time Spent (min) 35 <Electronically signed by Nestor Carrillo MD> 08/23/20 1204 Name Value Range Interpretation Code Description Data Sheron rce(s) Supporting Document(s) ID Date Data Source [id number] 08/20/2020 06:43:00 PM EST [facility] 1 OrderSheet [facility] Emergency Department [address] [place] [address] Phone #: ext- [phone] 08/20/2020 18:39 Patient: BRAULIO LANGLEY Sex: M : 1960 Age: 60yWEIGHT:125.1 kg (M) HEIGHT:73 inches (S) BMI:36.4ALLERGIES: Adhesives, CiproCHIEF COMPLAINT: urinary retentionDIAGNOSIS: Retention of urineLAB ORDERSOrder Description Priority Entered Acknowledged InitialedUrinalysis (Cath STAT 19:00 08/20/2020 19:21 Urbina,Spec) Devan Byrd ; WandaDIAGNOSTIC STUDY ORDERSOrder Description Priority Entered Acknowledged InitialedMEDICATION/IV/DRIP/FLUID ORDERSOrder Description Priority Entered Acknowledged InitialedGENERAL ORDERSOrder Description Priority Entered Acknowledged InitialedFoley Catheter 19:21 08/20/2020 19:21 Urbina, Urbina, Cortney ; Cortney Verbal order per; Devan Byrd[Electronically signed by Loida Wilson R.N. (21:03 08/20/2020)][Electronically signed by Devan Byrd (23:55 08/20/2020)][Electronically locked by Loida Wilson R.N. (21:03 08/20/2020)] Name Value Range Interpretation Code Description Data Sheron rce(s) Supporting Document(s) ID Date Data Source [id number] 08/20/2020 06:43:00 PM [facility] 1 Medication Reconciliation Report [facility] Emergency Department [address] [place] [address] Phone #: ext- [phone] 08/20/2020 18:39 Patient: BRAULIO LANGLEY Sex: M : 1960 Age: 60yWeight: 125.1 kgHeight/Length: 73 in.BMI: 36.4ALLERGIES: Adhesives, CiproThe patient's Home Medications are listed below:THE FOLLOWING MEDICATIONS NEED TO BE RECONCILED: Albuterol Sulfate HFA Inhalation 2 puffs, q4h, prn Amitriptyline HCl Oral 50 mg, daily Clopidogrel Bisulfate Oral 75 mg, daily DULoxetine HCl Oral (60 mg) 1 capsule, daily Eliquis Oral (5 mg) 1 tablet, q12h Fluticasone Propionate HFA Inhalation (220 mcg/act) 1 puff, 2x a day Gabapentin Oral (600 mg) 1 tablet, 4x a day, prn Ipratropium-Albuterol Inhalation, q4h Losartan Potassium-HCTZ Oral (100-25 mg) 1 tablet, daily Metoprolol Tartrate Oral (100 mg) 1 tablet, 2x a day Nitroglycerin Sublingual, prn Pantoprazole Sodium Oral 40 mg, daily Riluzole Oral (50 mg) 1 tablet, 2x a day Rosuvastatin Calcium Oral 40 mg, daily Tamsulosin HCl Oral 0.4 mg, daily 2 Medication Reconciliation Report [facility] Emergency Department [address] [place] [address] Phone #: ext- [phone] 08/20/2020 18:39 Patient: BRAULIO LANGLEY Sex: M : 1960 Age: 60y tiZANidine HCl Oral 4 mg, 1 in AM, 2 in PMThe source(s) of the original Home Medication information:patientThe following Medications were given to the patie nt in the Emergency Department:None.The following Medications were prescribed to the patient:None. Name Value Range Interpretation Code Description Data [facility](s) Supporting Document(s) ID Date Data Source [id number] 08/20/2020 06:43:00 PM EST [facility] 1 Medication Administration Record [facility] Emergency Department [address] [place] [address] Phone #: ext- [phone] 08/20/2020 18:39 Patient: BRAULIO LANGLEY Sex: M : 1960 Age: 60yWeight: 125.1 kgHeight/Length: 73 inBMI: 36.4ALLERGIES: Adhesives, CiproDate/Time Medication Administered Medication Ordered Name Value Range Interpretation Code Description Data Sheron e(s) Supporting Document(s) ID Date Data Source [id number] 08/20/2020 06:43:00 PM EST [facility] 1 General Instructions [facility] Emergency Department [address] [place] [address] Phone #: ext- [phone] 08/20/2020 18:39 Patient: BRAULIO LANGLEY Sex: M : 1960 Age: 60yUrinary retention. No enlarged prostate.INSTRUCTIONSKeep catheter in place; care as directed.Warnings: GENERAL WARNINGS: Return or contact your physician immediately if your conditionworsens or changes unexpectedly, if not improving as expected, or if other problems arise.Follow-up:Return to the emergency department if not better.Understanding of the discharge instructions verbalized by patient.Follow-up with: Giana Carrillo, , , , , , , Follow up Saturday in four even if well. Call for an appointment. ADDITIONAL INFORMATIONUrinary Retention (Male)Urinary retention is when you have trouble urinating. In some cases you may not be able to pass anyurine at all. This condition occurs even though your bladder is full.CausesThe most common cause of urinary retention in men is the bladder outlet being blocked. This can bedue to an enlarged prostate gland or a bladder infection. Some medicines can also cause thisproblem. This condition is more likely to occur as men get older.SymptomsCommon symptoms include: Pain (not everyone has this) Frequent urination 2 General Instructions [facility] Emergency Department [address] [place] [address] Phone #: ext- [phone] 08/20/2020 18:39 Patient: BRAULIO LANGLEY Sex: M : 1960 Age: 60y Feeling that the bladder is still full after urinating Not being able to control the release of urine (incontinence) Swollen belly (abdomen)TreatmentThis condition is treated by putting a tube (catheter) into the bladder to drain the urine. This givesrelief right away. The catheter may need to stay in place for a few days. The catheter has a balloonon the tip. This is inflated after the catheter is put in the bladder. This prevents the catheter fromfalling out.Home care If you were given antibiotics, take them until they are used up, or your healthcare provider tells you to stop. It's important to finish the antibiotics even if you feel better. This is to make sure your infection has cleared. If a catheter was left in place, it's important to keep bacteria from getting into the collection bag. Don't disconnect the catheter from the collection bag. Use a leg band to secure the drainage tube, so it does not pull on the catheter. Drain the collection bag when it becomes full using the drain spout at the bottom of the bag. Don't pull on or try to take out your catheter. This will harm your urethra. The catheter must be 3 General Instructions [facility] Emergency Department [address] [place] [address] Phone #: ext- [phone] 08/20/2020 18:39 Patient: BRAULIO LANGLEY Sex: M : 1960 Age: 60y removed by a healthcare provider.Follow-up careFollow up with your healthcare provider, or as advised.If a catheter was left in place, it can often be removed in 3 to 7 days. Some conditions require thecatheter to stay in longer. Your provider will tell you when to come back to have the catheterremoved.When to get medical adviceCall your healthcare provider right away if any of these occur: Fever of 100.4F (38C) or higher, or as directed by your provider Bladder or lower-belly pain or fullness Belly swelling, nausea, vomiting, or back pain Blood or urine leakage around the catheter Bloody urine coming from the catheter (if a new s ymptom) Weakness, dizziness, or fainting Confusion or change in normal level of alertness If a catheter was left in place, see your provider if the catheter: o Falls out o Stops draining for 6 hours [employer]. [address] [place] [address]. All rights reserved. This information is not intended as asubstitute for professional medical care. Always follow your healthcare professional's instructions. You have been given the following additional information: Urinary Retention, Male(Electronically signed by Devan Byrd 2020 23:55) 4 General Instructions [facility] Emergency Department [address] [place] [address] Phone #: [phone] ext- [phone] 08/20/2020 18:39 Patient: BRAULIO LANGLEY Sex: M : 1960 Age: 60y Name Value Range Interpretation Code Description Data Sheron rce(s) Supporting Document(s) ID Date Data Source [id number] 08/20/2020 06:43:00 PM [facility] 1 Clinical Report - Nurses [facility] Emergency Department [address] [place] [address] Phone #: [phone]- [phone] 08/20/2020 18:39 Patient: BRAULIO LANGLEY Sex: M : 1960 Age: 60yTRIAGE Arrived by EMS. Historian: patient. Triage time: 18:40 08/20/2020. Acuity: LEVEL 3. Chief Complaint: URINARY RETENTION. Alert. No acute distress. This started today. ( Pt states he voided a very small amount (10-15 cc of dark foul smelling urine) and has not been able to void since then. Pt did have 4 BM today, has history of ALS, and does currently c/o suprapubic pain. Pt does not have a villanueva and is normally able to void on his own.). Treatment KAIAWHINA KURA [place]A MAORI: None. SEPSIS SCREEN: SIRS SCREEN NEGATIVE. SEPSIS SCREEN NEGATIVE. No suspected or confirmed signs of infection present. (18:49 08/20/2020). --18:49 08/20/20 Kassandra Alcaraz R.N. 18:46 08/20/20. BP: 162/107. MAP: 125. HR: 86. RR: 22. O2 saturation: 93% on room air. Temp: 97.5 F (oral). Pain level now: 02/25. --18:49 08/20/20 Kassandra Alcaraz R.N. Weight: 125.1 kg measured. Height/Length: 73 inches Per Patient. BMI: 36.4. --18:40 08/20/20 Kassandra Alcaraz R.N. Medications Riluzole Oral (Tablet 50 mg) 1 tablet, 2x a day. --18:42 08/20/20 Kassandra Alcaraz R.N. Clopidogrel Bisulfate Oral 75 mg, daily. --18:42 08/20/20 Kassandra Alcaraz R.N. Amitriptyline HCl Oral 50 mg, daily. --18:42 08/20/20 Kassandra Alcaraz R.N. DULoxetine HCl Oral (Capsule Delayed Release Particles 60 mg) 1 capsule, daily. --18:43 08/20/20 Kassandra Alcaraz R.N. Fluticasone Propionate HFA Inhalation (Aerosol 220 mcg/act) 1 puff, 2x a day. --18:44 08/20/20 Kassandra Alcaraz R.N. Gabapentin Oral (Tablet 600 mg) 1 tablet, 4x a day as needed. --18:44 08/20/20 Kassandra Alcaraz R.N. Losartan Potassium-HCTZ Oral (Tablet 100- 25 mg) 1 tablet, daily. --18:44 08/20/20 Kassandra Alcaraz R.N. Metoprolol Tartrate Oral (Tablet 100 mg) 1 tablet, 2x a day. --18:44 08/20/20 Kassandra Alcaraz R.N. Pantoprazole Sodium Oral 40 mg, daily. --18:45 08/20/20 Kassandra Alcaraz R.N. Rosuvastatin Calcium Oral 40 mg, daily. --18:45 08/20/20 Kassandra Alcaraz R.N. Tamsulosin HCl Oral 0.4 mg, daily. --18:45 08/20/20 Kassandra Alcaraz R.N. tiZANidine HCl Oral 4 mg, 1 in AM, 2 in PM. --18:45 08/20/20 Kassandra Alcaraz R.N. Eliquis Oral (Tablet 5 mg) 1 tablet, q12h. --18:45 Kassandra Alcaraz R.N. 2 Clinical Report - Nurses [facility] Emergency Department [address] [place] [address] Phone #: ext- [phone] 08/20/2020 18:39 Patient: BRAULIO LANGLEY Sex: M : 1960 Age: 60yIpratropium-Albuterol Inhalation, q4h. --18:45 08/20/20 Kassandra Alcaraz R.N.Nitroglycerin Sublingual, as needed. --18:46 08/20/20 Kassandra Alcaraz R.N.Albuterol Sulfate HFA Inhalation 2 puffs, q4h as needed. --18:46 08/20/20 Kassandra Alcaraz R.N.AllergiesAdhesives.Cipro.(hives) --18:46 08/20/20 Kassandra Alcaraz R.N.Medication/allergy information source: the patient. --18:49 08/20/20 Kassandra Alcaraz R.N.ADDITIONAL SURGERIES:Angioplasty of blood vessel.Cardiac stents (11/2016).Hernia Repair.Inguinal Hernia Repair.L inguinal hernia repair.Laminectomy (03/10/18).Peg tube. --18:47 08/20/20 Kassandra Alcaraz R.N.HistoryPAST MEDICAL HX: Immunizations: up-to-date.SOCIAL HX: Former smoker. No alcohol use or drug use. He was offered HIV testing but declined.Patient education was provided. He was offered hepatitis C testing but declined. Patient education wasprovided. ( COVID screen negative). He has not traveled outside the [place]Infectious disease exposure: No infectious disease exposure. The patient was not exposed to Coronavirus.Patient is not a known carrier of tuberculosis, hepatitis, HIV, MRSA or VRE. Patient is not a known carrierof CRE.SELF HARM ASSESSMENT: Self harm assessment was performed. The patient answered "no" to thequestion(s) "Do you have thoughts of harming or killing yourself?" and "Do you have a plan for harming orkilling yourself?".ABUSE ASSESSMENT: Abuse assessment. The patient had positive responses to the question(s) "Do youfeel safe in your home?". Abuse denied. No suspicion of abuse. No report of abuse.LEARNING NEEDS ASSESSMENT: The learning needs assessment revealed no barriers.FALL RISK ASSESSMENT: Fall risk assessment completed. Risk factors identified include patientimpairment of mobility. Fall interventions initiated. Patient placed on stretcher. Side rails up x2. Bed in lowposition. Patient visible from nurses' station and identified as a fall risk. Electronic bed monitor in use. Calllight in reach of patient. Instructed not to get up without assistance. Instructions given to patient includingfall prevention information. Verbalizes understanding.NUTRITIONAL RISK ASSESSMENT: Nutritional risk assessment notes: Pt has peg tube. 3 Clinical Report - Nurses [facility] Emergency Department [address] [place] [address] Phone #: ext- [phone] 08/20/2020 18:39 [id number] : 1960 Age: 60y FUNCTIONAL ASSESSMENT: Functional assessment performed: is bed-ridden- this mobility impairment is an ongoing problem. SKIN INTEGRITY ASSESSMENT: Skin integrity risk assessment was performed. Risk factors identified include restricted mobility and bedridden. --18:49 08/20/20 Kassandra Alcaraz R.N. FAMILY HX: No significant family medical history. --19:05 08/20/20 Devan Byrd. Interventions Identification band on patient. --18:49 08/20/20 Kassandra Alcaraz R.N.PHYSICAL ASSESSMENT GENERAL / NEURO / PSYCH: Alert. Oriented X 4. Appears in no acute distress. He is awake and alert, is flushed, is oriented and is bedridden. RESPIRATORY: Respirations not labored. Breath sounds within normal limits. GI / : Abdominal distention and distention. Last oral intake by patient was (pt has a G tube placed last may). Penile abnormality noted associated with inability to urinate (urinary retention, pt unable to void since 5 pm today). SKIN: Skin is warm and dry. --18:57 08/20/20 Cortney Urbina.NURSING PROGRESS NOTES bus driver/monitor, NIBP monitor and pulse oximeter placed on patient; monitor and storage bin tender- Lead II; monitor alarms on; monitor strip added to paper chart. Patient gowned. Reassurance given. Three patient identifiers checked. Call light placed in reach. Side rails up x 2. Bed placed in lowest po sition. Brakes of bed on. Patient ready for evaluation- ED physician and PA notified. --18:49 08/20/20 Kassandra Alcaraz R.N. 19:13 08/20/20. 16 fr villanueva catheter placed in ED. Reason for indwelling catheter: retention. During procedure hand hygiene observed and sterile equipment and aseptic technique used. Return of 950 mL yellow-colored clear urine; attached to bedside drainage bag positioned below the bladder and urimeter and secured with stabilization device. He tolerated procedure well. --19:23 08/20/20 Cortney Urbina.DISPOSITION / DISCHARGE No learning barriers present. Discharge instructions provided and reviewed with the patient. Reviewed warnings (Villanueva care instructions given to patient with verbal understanding). Reviewed medication(s). Treatments reviewed. Reviewed referrals. Patient verbalized understanding. Written instructions provided in Serbian. The patient was discharged home and accompanied by ambulance. He left via ambulance and on a stretcher. Driving (ambulance). --20:24 08/20/20 Loida Wilson R.N. 20:22 08/20/20. BP: 130/55. MAP: 80. HR: 86. RR: 22. O2 saturation: 93% on room air. Temp: 97.9 F. Pain level now: 0/10. --20:24 08/20/20 Loida Wilson R.N. 4 Clinical Report - Nurses [facility] Emergency Department [address] [place] [address] Phone #: ext- [phone] 08/20/2020 18:39 [id number] Sex: M : 1960 Age: 60yLocked/Released at 08/20/2020 21:03 by Loida Wilson R.N. Name Value Range Interpretation Code Description Data Sheron rce(s) Supporting Document(s) ID Date Data Source [id number] 08/20/2020 06:43:00 PM EST [facility] 1 Clinical Report - Physicians/Mid Levels [facility] Emergency Department [address] [place] [address] Phone #: ext- [phone] 08/20/2020 18:39 Patient: BRAULIO LANGLEY Sex: M : 1960 Age: 60y Time Seen: 18:53 08/20/2020. Arrived- By ambulance. Historian- patient.HISTORY OF PRESENT ILLNESS Chief Complaint: URINARY RETENTION. This started today and is still present (worse). The problem is described as moderate. No penile discharge, discomfort with urination, urinary frequency, genital lesion or testicular pain. No flank pain, inguinal swelling or problem with the foreskin. He has been unable to void. Not voiding only small amounts. Sexual history is noncontributory. (Patient has inability to urinate tonight and complains of lower abdominal pain. Last time he urinated, the urine shot out and went down to his leg. History of ALS diagnosed 2 years ago. No flank pain. No dribbling or burning over last several days. No new medications. Patient saw urology one time for retention after surgery). Similar symptoms previously. None. Recent medical care: Not recently seen/assessed.REVIEW OF SYSTEMSNo vomiting, weight loss, calf pain, constipation or back pain. No joint pain, alteration in mental status,headache or diabetic symptoms. He has had abdominal pain and urinary problems. All other systemsreviewed and are negative.PAST HISTORYHas not had benign prostatic hypertrophy. No history of prostate cancer.SOCIAL HISTORYNo alcohol use.FAMILY HISTORYNo significant family medical history.ADDITIONAL NOTESThe nursing notes have been reviewed.PHYSICAL EXAMVital Signs: 08/20/2020 18:46 BP: 162/107. MAP: 125. HR: 86. RR: 22. O2 saturation: 93% on room air.Temp: 97.5 F. Pain level now: 7/10.Appearance: Alert. Oriented X3. Patient in mild distress.ENT: Normal external inspection. Pharynx normal.Neck: Neck supple. 2 Clinical Report - Physicians/Mid Levels [facility] Emergency Department [address] [place] [address] Phone #: ext- [phone] 08/20/2020 18:39 Patient: BRAULIO LANGLEY [facility]#: [id number] Sex: M : 1960 Age: 60y CVS: Heart sounds normal. Respiratory: No respiratory distress. Painless inspiration. Breath sounds normal. Abdomen: Soft. Tenderness in the periumbilical area and suprapubic area. Distention. Femoral pulses equal. Obese. : Normal genitalia. No urethral discharge, scrotal mass or swelling, inguinal lymphadenopathy or Villanueva catheter. Skin: Skin warm. Normal skin color. Normal skin turgor. Extremities: Bilateral mild non-pitting edema of the lower extremities involving both ankles and both lower legs. No calf tenderness. Neuro: Oriented X 3. He has weakness of the right leg (1/5 muscle flicker but no movement) and left leg (1/5 muscle flicker but no movement). No sensory deficit. Reflex exam: right patellar 0 and left patellar 0. (clonus in lower extremities).LABS, X-RAYS, AND EKGLaboratory Tests: Urinalysis: (MICKEY: 08/20/2020 19:29) ( MsgRcvd 08/20/2020 19:45) Final results Test Result Flag Units (Reference) URINALYSIS URINALYSIS SOURCE R COLOR yellow (NORMAL: Yello CLARITY clear (NORMAL: Clear SPEC GRAVITY 1.010 (1.001 - 1.030 pH 7 (5 - 9) GLUCOSE NORM (NORMAL: Negat BILIRUBIN NEG (NORMAL: Negat KETONE NEG (NORMAL: Negat PROTEIN NEG (NORMAL: Negat NITRITE NEG (NORMAL: Negat BLOOD 50 A (NORMAL: Negat LEUK EST NEG (NORMAL: Negat UROBILINOGEN NOR (less than 1.0 MICROSCOPIC See Below WBC None Seen (NORMAL: NONE RBC 7 - 10 A (NORMAL: NONE EPITHELIAL None Seen (NORMAL: NONE BACTERIA None Seen (NORMAL: NONE.PROGRESS AND PROCEDURESCourse of Care: 19:11 08/20/20. CT abdomen and pelvis reviewed from 3 months ago. essentially normal.normal renal function. 19:51 08/20/20. Patient had complete relief of his discomfort with villanueva insertion. Over 1 liter of clear urine drained. No hematuria. Urinary retention most likely due to ALS complication. 19:54 08/20/20. Patient instructed to follow up with urology, which he has seen in past. 3 Clinical Report - Physicians/Mid Levels [facility] Emergency Department [address] [place] [address] Phone #: ext- [phone] 08/20/2020 18:39 Patient: BRAULIO LANGLEY Sex: M : 1960 Age: 60y Disposition: Discharged. Condition: stable.CLINICAL IMPRESSION Urinary retention. No enlarged prostate.INSTRUCTIONS Keep catheter in place; care as directed. Warnings: GENERAL WARNINGS: Return or contact your physician immediately if your condition worsens or changes unexpectedly, if not improving as expected, or if other problems arise. Follow-up: Return to the emergency department if not better. Understanding of the discharge instructions verbalized by patient. Follow-up with: Giana Carrillo, , , , , , , Follow up Saturday in four even if well. Call for an appointment.(Electronically signed by Devan Byrd 08/20/2020 23:55) Name Value Range Interpretation Code Description Data [facility] Supporting Document(s) ID Date Data Source [id number] 08/20/2020 07:44:00 PM EST [facility] Name Value Range Interpretation Code Description Data [facility](s) Supporting Document(s) [facility] COL[facility] yellow NORMAL: Yellow [facility] CLARITY clear NORMAL: Clear [facility] Specific gravity of Urine by Test strip 1.010 1.001 - 1.030 [facility] pH 7 5 - 9 [facility] al Glucose [Mass/volume] in Urine by Test strip NORM NORMAL: Negat sha [facility] Bilirubin.total [Presence] in Urine by Test strip NEG NORMAL: Negative [facility] Ketones [Presence] in Urine by Test strip NEG NORMAL: Negative [facility] Protein [Mass/volume] in Urine by Test strip NEG NORMAL: Negat sha [facility] Nitrite [Presence] in Urine by Test strip NEG NORMAL: Negative [facility] BLOOD 50 NORMAL: Negative A [facility] Leukocyte esterase [Presence] in Urine by Test strip NEG JESSICA L: Negative [facility] Urobilinogen [Mass/volume] in Urine by Test strip NOR less neto n 1.0 mg/dL [facility] MICROSCOPIC See Below [facility] ital WBC None Seen NORMAL: NONE SEEN [facility] Erythrocytes [#/volume] in Urine by Test strip 7 - 10 NORMAL: NON E SEEN A [facility] EPITHELIAL None Seen NORMAL: NONE SEEN [facility] Bacteria [Presence] in Urine sediment by Light microscopy No ne Seen NORMAL: NONE SEEN [facility] ID Date Data Source [id number] 06/10/2020 09:06:00 AM EDT [facility] Patient Name: BRAULIO LANGLEY : 0 1960 Sex: M Pt Unit #: [id number] Location:[facility] Provider: Visit Date/Time: 06/10/20 Primary Insurance: MEDICARE [employer] Secondary Insurance: AARP Documented by User: Nestor Carrillo M.D. 06/10/20 10:52 Intake Intake Visit Reasons: Home Visit Allergies ciprofloxacin [From Cipro] Allergy (Severe, Unverified 01/06/19 15:14) rash adhesive Allergy (Mild, Unverified 01/06/19 15:15) rash Medications Afluria Qd 2019- (3yr up)(PF) (flu vac et4087-64 36mos up(PF)) 60 mcg IM ONCE NS albuterol sulfate 90 mcg/actuation (ProAir HFA) 1 puff inhalation Q6H PRN amitriptyline 50 mg PO HS apixaban (Eliquis) 5 mg PO BID clopidogrel 75 mg PO QDAY duloxetine 60 mg PO QDAY fluticasone propionate 220 mcg/actuation 1 puff inhalation BID gabapentin 600 mg PO TID ipratropium-albuterol 0.5 mg-3 mg(2.5 mg base)/3 mL 3 mL inhalation QID PRN losartan-hydrochlorothiazide 100-25 mg 1 tab PO QDAY metoprolol tartrate 100 mg PO BID multivitamin 1 cap PO QAM pantoprazole 40 mg PO QDAY pneumococcal 23-raffy ps vaccine 0.5 mL IM 1T polyethylene glycol 3350 17 grams PO BID riluzole 50 mg PO Q12H rosuvastatin 40 mg PO QDAY tamsulosin 0.4 mg PO QDAY tizanidine 4 mg PO TID PRN HIV Testing Offer - ages 13-64 Requirement for HIV testing offer been met?: Patient reports past refusal [facility] Medical History Amyotrophic lateral sclerosis BPH (benign prostatic hyperplasia) Chronic constipation Coronary artery disease Degenerative lumbar spinal stenosis DVT (deep venous thrombosis) Erectile dysfunction Essential hypertension Mild persistent asthma Mixed hyperlipidemia Nicotine dependence Sleep apnea Surgical History H/O Spinal surgery Family History (Updated 01/22/19 @ 11:29 by Louise Ortiz LPN) Other Alcohol abuse Asthma Diabetes Hypertension Stroke Social History (Updated 01/22/19 @ 11:37 by Louise Ortiz LPN) Does the Patient have a Healthcare Proxy: No Does Patient have a DNR?: No Does Patient have a Living Will?: No marital status: Single highest education level completed: high school graduate current occupational status: retired and disabled pets and animals: Yes pets and animals: cat(s) leisure activities: other other: " not much " well-balanced diet: daily high- fat food intake: 0-1 times daily daily servings fruits/ve-4 daily ser vings of milk/calcium: 0-1 eating out: 1-3 times/week reads food labels: sometimes during the past year weight has: increased > 10 lbs HPI HPI HPI (1) Medical home patient encounter: HPI Comments Details: braulio arboleda s seen today in a planned home visit. his only complaint is pain and immobility ofhis left shoulder for 2 months. he was told by his neurologist that the ALS had moved up to his left upper extremity a few months ago. he has also had some depressive symptoms and thinks that talking to a counselor again might be helpful. Review of Systems Card Denies chest pain, Denies pedal edema, Denies lightheadedness, Denies palpitations and Denies dyspnea Resp Denies dyspnea Neuro Denies confusion Psych Denies abnormal sleep pattern, Reports anxiety, Denies change in appetite, Denies confusion, Reportsdepression, Denies hopelessness, Denies irritability and Reports anhedonia Endo Denies palpitations Exam Const General: cooperative, no acute distress and well groomed Nutritional Appearance: obese Orientation: alert, awake and oriented x3 HENMT Head: normal to inspection, normocephalic and atraumatic General nose exam: external nose normal and no nasal discharge Face and sinus: normal facial exam Mouth: oral mucosae normal, lip normal, tongue normal, oropharynx normal and moist mucous membranes Throat: posterior oropharynx normal Eyes General: appearance normal, both eyes and all related structures Alignment and Position: alignment normal Periorbital: periorbital findings normal Eyelids: eyelids normal Conjunctivae: conjunctivae normal Sclera: sclerae normal Cornea: corneas normal Pupils: PERRL EOM: EOM intact bilaterally Neck Neck: normal visual inspection, no lymphadenopathy, supple and no JVD present Neck mass: No Thyroid: thyroid normal Chest Chest: normal inspection of the chest Resp Effort Inspection: normal respiratory effort Auscultation: clear to auscultation bilaterally Cardio Jugular venous pressure: no JVD Rate: regular rate Rhythm: regular rhythm Heart Sounds: S1 normal, S2 normal, no click, no gallops and no murmurs GI Palpation: soft, no hepatosplenomegaly and nontender Musc Other: there is tightness of both the left elbow and shoulder which causes pain. there is no deformity or swelling. strength is fair. Extrem General: no pedal edema Psych Appearance: grossly normal and well kempt Mental Status: mental status grossly normal Speech and Movement: speech and movement normal Mood: congruent mood Affect: normal affect Attitude: cooperative Thought Process: normal Thought Content: normal Insight: insight good Judgment: judgment good Immunizations Afluria Qd 2019-(3yr up)(PF) Performing Provider: Nestor Carrillo M.D. Administered by: Louise Ortiz LPN on 06/10/20 10:46 Dose Route Admin Location Lot Number Expiration Date NDC Manufactu rer 60 mcg IM Left arm [id number] 02/15/21 [id number] [employer] VIS Given Date VIS Provided VIS Publication Date 06/10/20 Single Vaccine 19 Eligibility Eligibility Date Funding Source Not VFC Eligible 06/10/20 Private pneumococcal 23-raffy ps vaccine Performing Provider: Nestor Carrillo M.D. Administered by: Louise Ortiz LPN on 06/10/20 10:46 Dose Route Admin Location Lot Number Expiration Date NDC Manufactu rer 0.5 mL IM Right arm [id number] 01/18/21 [id number] [employer] D VIS Given Date VIS Provided VIS Publication Date 06/10/20 Single Vaccine 19 Eligibility Eligibility Date Funding Source Not VF Eligible 06/10/20 Private Assessment Plan Assessment Plan (1) Medical home patient encounter: Code(s): Z00.8 - Encounter for other general examination Plan: his ALS is progressing so that now the left upper extremity is involved. will try home PT which mayhelp relieve some of the contracture that seems to be developing. he was given ppv 23 and flu vaccines. he will contact his previous counselor, because it seems that the overall situation with his health is causing some depression and it has helped in the past and they have been able to do itvia face time. no medications were changed. recheck in 3 months. Orders Other Orders: Orders: INJ - Influenza Vaccine Today Z23 INJ - Pneumovax Vaccine Today Z23 Documented by User: Louise Ortiz LPN 06/10/20 10:48 Intake Intake Visit Reasons: Home Visit Allergies ciprofloxacin [From Cipro] Allergy (Severe, Unverified 01/06/19 15:14) rash adhesive Allergy (Mild, Unverified 01/06/19 15:15) rash Medications Afluria Qd 2020-21(3yr up)(PF) (flu vac po2444-88 36mos up(PF)) 60 mcg IM ONCE NS albuterol sulfate 90 mcg/actuation (ProAir HFA) 1 puff inhalation Q6H PRN amitriptyline 50 mg PO HS apixaban (Eliquis) 5 mg PO BID clopidogrel 75 mg PO QDAY duloxetine 60 mg PO QDAY fluticasone propionate 220 mcg/actuation 1 puff inhalation BID gabapentin 600 mg PO TID ipratropium-albuterol 0.5 mg-3 mg(2.5 mg base)/3 mL 3 mL inhalation QID PRN losartan-hydrochlorothiazide 100-25 mg 1 tab PO QDAY metoprolol tartrate 100 mg PO BID multivitamin 1 cap PO QAM pantoprazole 40 mg PO QDAY pneumococcal 23-raffy ps vaccine 0.5 mL IM 1T polyethylene glycol 3350 17 grams PO BID riluzole 50 mg PO Q12H rosuvastatin 40 mg PO QDAY tamsulosin 0.4 mg PO QDAY tizanidine 4 mg PO TID PRN PFSH Medical History Amyotrophic lateral sclerosis BPH (benign prostatic hyperplasia) Chronic constipation Coronary artery disease Degenerative lumbar spinal stenosis DVT (deep venous thrombosis) Erectile dysfunction Essential hypertension Mild persistent asthma Mixed hyperlipidemia Nicotine dependence Sleep apnea Surgical History H/O Spinal surgery Family History (Updated 01/22/19 @ 11:29 by Louise Ortiz LPN) Other Alcohol abuse Asthma Diabetes Hypertension Stroke Social History (Updated 01/22/19 @ 11:37 by Louise Ortiz LPN) Does the Patient have a Healthcare Proxy: No Does Patient have a DNR?: No Does Patient have a Living Will?: No marital status: Single highest education level completed: high school graduate current occupational status: retired and disabled pets and animals: Yes pets and animals: cat(s) leisure activities: other other: " not much " well-balanced diet: daily high-fat food intake: 0-1 times daily daily servings fruits/ve-4 daily servings of milk/calcium: 0-1 eating out: 1-3 times/week reads food labels: sometimes during the past year weight has: increased > 10 lbs Immunizations Afluria Qd 2019-(3yr up)(PF) Performing Provider: Nestor Carrillo M.D. Administered by: Louise Ortiz LPN on 06/10/20 10:46 Dose Route Admin Location Lot Number Expiration Date [facility] Manufactu rer 60 mcg IM Left arm [id number] 02/15/21 03222-399-34 [employer] VIS Given Date VIS Provided VIS Publication Date 06/10/20 Single Vaccine 19 Eligibility Eligibility Date Funding Source Not VFC Eligible 06/10/20 Private pneumococcal 23-raffy ps vaccine Performing Provider: Nestor Carrillo M.D. Administered by: Louise Ortiz LPN on 06/10/20 10:46 Dose Route Admin Location Lot Number Expiration Date [facility] Manufactu rer 0.5 mL IM Right arm [id number] 01/18/21 5679-1725-37 [employer] D VIS Given Date VIS Provided VIS Publication Date 06/10/20 Single Vaccine 19 Eligibility Eligibility Date Funding Source Not VFC Eligible 06/10/20 Private Assessment Plan Orders Other Orders: Orders: INJ - Influenza Vaccine Today Z23 INJ - Pneumovax Vaccine Today Z23 <Electronically signed by Nestor Carrillo MD> 06/10/20 1053 Name Value Range Interpretation Code Description Data Sheron rce(s) Supporting Document(s) ID Date Data Source [id number] 05/09/2020 07:57:00 AM EDT [facility] Patient Name: BRAULIO LANGLEY : 0 1960 Sex: M Pt Unit #: [id number] Location:[facility] Provider: Visit Date/Time: 05/06/20 Primary Insurance: MEDICARE [employer] Secondary Insurance: AARP Intake Intake Visit Reasons: Back pain Allergies ciprofloxacin [From Cipro] Allergy (Severe, Unverified 01/06/19 15:14) rash adhesive Allergy (Mild, Unverified 01/06/19 15:15) rash Medications albuterol sulfate 90 mcg/actuation (ProAir HFA) 1 puff inhalation Q6H PRN amitriptyline 50 mg PO HS apixaban (Eliquis) 5 mg PO BID clopidogrel 75 mg PO QDAY duloxetine 60 mg PO QDAY fluticasone propionate 220 mcg/actuation 1 puff inhalation BID gabapentin 600 mg PO TID losartan-hydrochlorothiazide 100-25 mg 1 tab PO QDAY metoprolol tartrate 100 mg PO BID multivitamin 1 cap PO QAM pantoprazole 40 mg PO QDAY polyethylene glycol 3350 17 grams PO BID riluzole 50 mg PO Q12H rosuvastatin 40 mg PO QDAY tamsulosin 0.4 mg PO QDAY tizanidine 4 mg PO TID PRN HIV Testing Offer - ages 13-64 Requirement for HIV testing offer been met?: Patient reports past refusal [facility] Medical History (Updated 05/09/20 @ 08:03 by Nestor Carrillo M.D.) Amyotrophic lateral sclerosis BPH (benign prostatic hyperplasia) Chronic constipation Coronary artery disease Degenerative lumbar spinal stenosis DVT (deep venous thrombosis) Ere ctile dysfunction Essential hypertension Mild persistent asthma Mixed hyperlipidemia Nicotine dependence Sleep apnea Surgical History H/O Spinal surgery Family History (Updated 01/22/19 @ 11:29 by Louise Ortiz LPN) Other Alcohol abuse Asthma Diabetes Hypertension Stroke Social History (Updated 01/22/19 @ 11:37 by Louise Ortiz LPN) Does the Patient have a Healthcare Proxy: No Does Patient have a DNR?: No Does Patient have a Living Will?: No marital status: Single highest education level completed: high school graduate current occupational status: retired and disabled pets and animals: Yes pets and animals: cat(s) leisure activities: other other: " not much " well-balanced diet: daily high- fat food intake: 0-1 times daily daily servings fruits/ve-4 daily servings of milk/calcium: 0-1 eating out: 1-3 times/week reads food l abels: sometimes during the past year weight has: increased > 10 lbs HPI Additional HPI HPI Details: a home visit was requested by his . he has been having coughing and gagging with po intake. this is associated with shortness of breath and mucous production that seems to be relievedpartially by using an albuterol inhaler. the coughing has been severe enough at times that it is giving him painful back spasms. Back Pain Associated symptoms: Denies chills or fever(s) Review of Systems Const Denies chills, Denies fever(s) and Denies malaise Exam Const General: cooperative, no acute distress and other (bed bound due to advance als) Nutritional Appearance: overweight Orientation: alert, awake and oriented x3 Neck Neck: normal visual inspection, no lymphadenopathy, supple and no JVD present Neck mass: No Thyroid: thyroid normal Chest Chest: normal inspection of the chest Resp Effort Inspection: normal respiratory effort Auscultation: lung sounds not diminished, no rales, rhonchi and no wheezes Cardio Jugular venous pressure: no JVD Rate: regular rate Rhythm: regular rhythm Heart Sounds: S1 normal, S2 normal, no click, no gallops and no murmurs GI Palpation: soft, no hepatosplenomegaly and nontender Extrem General: edema Laterality: bilateral Severity: pitting and 1+ Assessment Plan Assessment Plan (1) Dysphagia: Status: Acute Code(s): R13.10 - Dysphagia, unspecified SNOMED Code(s): 88103087 Category: Medical Plan: i think this is the primary problem. to get him through the weekend he was given a nebulizer with duoneb, will take only soft foods and if necessary, only use the peg tube. when his calls saturday, will have to decide on a swallowing consult or some other approach. Orders Other Medications: Changed: From: gabapentin 600 mg PO TID PRN 1 tab 0RF pain To: gabapentin 600 mg PO TID 1 tab 0RF pain Electronically Signed By: <Electronically signed by Nestor Carrillo MD> Date/Time Signed: 05/09/20 0809 Name Value Range Interpretation Code Description Data Sheron rce(s) Supporting Document(s) ID Date Data Source [id number] 2020 10:11:00 AM EDT [facility] [address] [place] [address] PHONE: [phone] FAX: [phone] Name .................. : KORIN RAMSEY Venkatesh Acct Number.................. : [id number] ROOM. ................. : TR-05 Number ................... : [id number] Stay type ............. : E/R Discharge Date......... ... : 05/01/20 Admit Date ... ...... : 05/01/20 Admit Phys .................... : VENERUS BR Date of ....... : 1960 Family Phys ................... : BRANDON ADRIENNE Phone .................. : [phone] Age ................................ : 59 Film# .................. .:[id number] Sex ................................. : M Unsigned transcriptions are preliminary reports and do not represent a medical or legal document CHEST PORTABLE [id number] COMPLETE:05/01/20 13:09 [facility] [address] Reason(s): Shortness of Breath PORTABLE CHEST X-RAY: INDICATION: Shortness of breath. FINDINGS: The lungs are moderately expanded. There is vascular crowding without evidence of pulmonary vascular congestion. The cardiac silhouette is normal in size and contour. No acute osseous abnormality. IMPRESSION: Moderately expanded examination without acute pulmonary process. Electronically Reviewed and Signed By Edi Figueroa M.D. , 05/02/20 10:11, AKYessi Transcribe Initials: YOLANDA , Transcribe Date: 05/01/20 19:03, Dictation Date: Copy for: EMERGENCY DEPT via mode Copy for: 710 MED REC DISCHARGED Page 1 of 1 Name Value Range Interpretation Code Description Data Sheron rce(s) Supporting Document(s) ID Date Data Source [id number] 2020 10:08:00 AM EDT [facility] [address] [place] [address] PHONE: [phone] FAX: [phone] Name .................. : KORIN Riddle Acct Number.................. : [id number] ROOM. ................. : TR-05 Number ................... : [id number] Stay type ............. : E/R Discharge Date......... ... : 05/01/20 Admit Date .... ..... : 05/01/20 Admit Phys .................... : CAMERON TUBBS Date of ....... : 1960 Family Phys ................... : Health Benefits Direct Phone .................. : [phone] Age ................................ : 59 Film# .................. .:[id number] Sex ................................. : M Unsigned transcriptions are preliminary reports and do not represent a medical or legal document CT ABD & PELVIS W/ IV ONLY 70194 COMPLETE:05/01/20 15:04 [facility] [address] Reason(s): Abdominal Distention CT OF THE ABDOMEN AND PELVIS WITH CONTRAST: INDICATION: Abdominal distention. FINDINGS: There is normal contrast-enhanced CT appearance of the liver, spleen, pancreas, adrenal glands and right kidney. The left kidney contains a 1.8 cm simple cyst. No gallbladder wall thickening or biliary duct dilatation. The stomach contains a gastrostomy tube in good position. The visualized bowel is normal in caliber. The appendix is normal. No bowel wall thickening. The bladder and pelvic organs appear normal. No acute osseous abnormality. No lymphadenopathy. IMPRESSION: No acute intra-abdominal process. While performing the above CT examination, radiation dose reduction was accomplished utilizing automated exposure control, adjusting of the mA and kV based on the patient's body size and/or the use of imperative reconstructive techniques. CT dose: 1587.3 mGycm Page 1 of 2 [facility] [address] [place] [address] PHONE: [phone] FAX: [phone] Name .................. : KORIN Riddle Acct Number.................. : [id number] ROOM. ................. : TR-05 Number ................... : [id number] Stay type ............. : E/R Discharge Date......... ... : 05/01/20 Admit Date ......... : 05/01/20 Admit Phys .................... : CAMERON TUBBS Date of ....... : 1960 Family Phys ................... : Health Benefits Direct Phone .................. : [phone] Age ................................ : 59 Film# .................. .:[id number] Sex ................................. : M Unsigned transcriptions are preliminary reports and do not represent a medical or legal document CT ABD & PELVIS W/ IV ONLY 97519 COMPLETE:05/01/20 15:04 [facility] 09465 Reason(s): Abdominal Distention Contrast agent in mL: 75 Isovue 370 Method of administration: Intravenous Electronically Reviewed and Signed By Edi Figueroa M.D. , 05/02/20 10:08, [place] Transcribe Initials: DZ , Transcribe Date: 05/01/20 18:53, Dictation Date: Copy for: EMERGENCY DEPT via modem Copy for: 710 MED REC DISCHARGED Page 2 of 2 Name Value Range Interpretation Code Description Data Shreon rce(s) Supporting Document(s) ID Date Data Source [id number] 2020 10:07:00 AM EDT [facility] [address] [place] [address] PHONE: [phone] FAX: [phone] Name .................. : KORIN RAMSEY Venkatesh Acct Number.................. : [id number] ROOM. ................. : TR-05 Number ................... : [id number] Stay type ............. : E/R Discharge Date......... ... : 05/01/20 Admit Date .... ..... : 05/01/20 Admit Phys .................... : CAMERON TUBBS Date of ....... : 1960 Family Phys ................... : BRANDON DELEON Phone .................. : [phone] Age ................................ : 59 Film# .................. .:[id number] Sex ................................. : M Unsigned transcriptions are preliminary reports and do not represent a medical or legal document CT CTA CHEST NON-CORONARY Killian Benitez 45938 COMPLETE:05/01/20 15:04 E 10110 Reason(s): SOB / Cou gh / Hx of DVT CTA OF THE CHEST WITH CONTRAST: INDICATION: Cough and shortness of breath. FINDINGS: The neck base is clear. There is mild dependent atelectasis in the right lung. No focal infiltrate. There appears to be a calcified granuloma in the right upper lobe, however motion artifact markedly limits evaluation of the lungs. The heart is normal in size. There is no central or segmental pulmonary embolism. No acute osseous abnormality. Please see separate report for upper abdominal details. IMPRESSION: No central or segmental pulmonary embolism. Examination limited by motion. While performing the above CT examination, radiation dose reduction was accomplished utilizing automated exposure control, adjusting of the mA and kV based on the patient's body size and/or the use of imperative reconstructive techniques. CT dose: 580.4 mGycm Contrast agent in mL: 75 Isovue 370 Method of administration: Intravenous Page 1 of 2 [facility] [address] [place] [address] PHONE: [phone] FAX: [phone] Name .................. : KORIN BRAULIO Venkatesh Acct Number.................. : [id number] ROOM. ................. : TR-05 Number ................... : [id number] Stay type ............. : E/R Discharge Date......... ... : 05/01/20 Admit Date ......... : 05/01/20 Admit Phys .................... : MARGRETRAMONENikole SULY Date of ....... : 1960 Family Phys ................... : BRANDON DELEON Phone .................. : [phone] Age ................................ : 59 Film# .................. .:[id number] Sex ................................. : M Unsigned transcriptions are preliminary reports and do not represent a medical or legal document CT CTA CHEST NON-CORONARY W C [address]3875 COMPLETE:05/01/20 15:04 [facility] 21524 Reason(s): SOB / Cough / Hx of DVT Electronically Reviewed and Signed By Edi Figueroa M.D. , 05/02/20 10:07, [facility] Transcribe Initials: DZ , Transcribe Date: 05/01/20 18:50, Dictation Date: Copy for: EMERGENCY DEPT via modem Copy for: 710 MED REC DISCHARGED Page 2 of 2 Name Value Range Interpretation Code Description Data Sheron rce(s) Supporting Document(s) ID Date Data Source [id number] 2020 01:28:00 AM EDT [address] [address] RESPIRATORY CARE REPORT ==== ---------NAME------- NUMBER SEX AGE ADMIT DISC. XRAY# F/C SHERRI Riddle [id number] M 60 05/01/20 05/01/20 [id number] MB4 E/R DATE OF : 1960 M/R# [id number] #: [id number] TR-05 LOCATION: EMERGENCY DEPT [facility] [address] [facility] TE:05/01/20 13:22 [facility] [address] PHYSICIAN: CAMERON TUBBS Name Value Range Interpretation Code Description Data Sheron rce(s) Supporting Document(s) ID Date Data Source [id number] 05/01/2020 12:00:00 PM EDT [facility] 1 OrderSheet [facility] Emergency Department [address] [place] [address] Phone #: ext- [phone] 05/01/2020 11:59 Patient: BRAULIO LANGLEY Sex: M : 1960 Age: 59yWEIGHT:108.8 kg (S) HEIGHT:73 inches (S) BMI:31.7ALLERGIES: Adhesives, CiproCHIEF COMPLAINT: COPD, dyspneaDIAGNOSIS: CoughLAB ORDERSOrder Description Priority Entered Acknowledged InitialedUrinalysis (Clean STAT 12:05/01/2020 13:16 W Sharita lombardi) Jaskaran Crowe R.N. Physician;Troponin-T STAT 12:05/01/2020 12:32 Jaskaran Richards R.N. Physician;PTT STAT 12:1 05/01/2020 12:32 Jaskaran Richards R.N. Physician;PT/INR STAT 12:05/01/2020 12:32 Jaskaran Richards R.N. Physici an;Lipase STAT 12:05/01/2020 12:32 Jaskaran Richards R.N. Physician;Lactic Acid STAT 12:05/01/2020 12:32 Jaskaran Richards R.N Physician;BNP STAT 12:19 05/01/2020 12:32 Jaskaran Richards R.N. Physician;CBC w Diff STAT 12:19 05/01/2020 12:32 Jaskaran Richards R.N. Physician;CMP STAT 12:19 05/01/2020 12:32 Jaskaran Richards R.N. Physician;CPK STAT 12:05/01/2020 13:16 Jaskaran Richards R.N. Physician;D-Dimer STAT 12:19 05/01/2020 12:32 Joanna Richards OrderSheet [facility] Emergency Department [address] [place] [address] Phone #: ext- [phone] 05/01/2020 11:59 Patient: BRAULIO LANGLEY Sex: M : 1960 Age: 59y Jaskaran Ryan Physician;Rapid Strep Screen STAT 12:05/01/2020 12:32 Jaskaran Richards R.N. Physician;CORONAVIRUS STAT 12:23 05/01/2020 Cancelled: Physician Order 12:23 CaleanCOVID-19 Jaskaran Barnes Physician Physician;DIAGNOSTIC STUDY ORDERSOrder Description Priority Entered Acknowledged InitialedChest Portable 1 STAT 12:05/01/2020 12:32 Valeriano Richards (Oxygen? Jaskaran Crowe R.N.(Yes)) Physician; Reason for Study: Shortness of BreathCT CTA CHEST STAT 14:15 05/01/2020 Ack'd: 14:19 15:00 Susie,(NONCOR) W CON Amrita Linares R.N.INC PP Physician; R.N.(Oxygen?(No))(IV?(Yes)) NOTES: elevated D-dimer Reason for Study: SOB / Cough / Hx of DVTCT Abd PEL W/ IV STAT 14:16 05/01/2020 Ack'd: 14:19 15:00 Susie,Contrast Only Amrita Linares R.N.(Oxygen? (Yes)) Physician; Marilyn(IV?(Yes)) Reason for Study: Abdominal Distention, ConstipationMEDICATION/IV/DRIP/FLUID ORDERSOrder Description Priority Entered Acknowledged InitialedDuoNeb Neb Tx 3 12:22 05/01/2020 Ack'd: 12:32 13:00 Susie,mL (NOW) Amrita LinaresNFlores Physician; R.N.SOLU-Medrol 125 12:22 05/01/2020 Ack'd: 12:32 13:01 Susie,mg IV X1 Dose: 125 Amrita Linares R.N.mg (X1) Physician; Shannan Sanchez PO 14:12 05/01/2020 Ack'd: 14:19 14:28 Susie,200 mg (NOW) Amrita Linares R.N. Physician; Shannan Sanchez PO 17:11 05/01/2020 Ack'd: 17:12 17:15 Susie, 3 OrderSheet [facility] Emergency Department [address] [place] [address] Phone #: ext- [phone] 05/01/2020 11:59 Patient: BRAULIO LANGLEY Sex: M : 1960 Age: 76t712 mg ( Two tabs Amrita Linares R.N.to go home. Physician; R.NFloresDispense in ED)GENERAL ORDERSOrder Description Priority Entered Acknowledged InitialedCardiac Monitor 12:21 05/01/2020 12:32 Susie(continuous) Jaskaran Crowe R.N. Physician;EKG 12:21 05/01/2020 Ack'd: 13:01 13:16 Jaskaran Richards Amber Amber R.N. Physician; R.NFloresOxygen titrate to 12:05/01/2020 12:32 Susie,92% Jaskaran Crowe R.N. Physician;Pulse oximeter 12:05/01/2020 12:32 Susie,(Continuous) Jaskaran Crowe R.N. Physician;Saline Lock 12:05/01/2020 13:00 Jaskaran Richards R.N. Physician;[Electronically signed by Amrita Richards R.N. (17:44 05/01/2020)][Electronically signed by Jaskaran Barnes Physician (18:17 05/01/2020)][Electronically locked by Amrita Richards R.N. (17:44 05/01/2020)] Name Value Range Interpretation Code Description Data Sheron rce(s) Supporting Document(s) ID Date Data Source [id number] 05/01/2020 12:00:00 PM EDT [facility] 1 Medication Reconciliation Report [facility] Emergency Department [address] [place] [address] Phone #: ext- [phone] 05/01/2020 11:59 Patient: BRAULIO LANGLEY Sex: M : 1960 Age: 59yWeight: 108.8 kgHeight/Length: 73 in.BMI: 31.7ALLERGIES: Adhesives, CiproThe patient's Home Medications are listed below:THE FOLLOWING MEDICATIONS NEED TO BE RECONCILED: Albuterol Sulfate HFA Inhalation 2 puffs, prn Amitriptyline HCl Oral 50 mg, daily, at bedtime Clopidogrel Bisulfate Oral 75 mg, daily DULoxetine HCl Oral 60 mg, daily Eliquis Oral (5 mg), 2x a day Fluticasone Propionate Nasal Gabapentin Oral (600 mg) 1 tablet, 4x a day Lozartan/HCTZ 100-25mg , daily Metoprolol Tartrate Oral 100 mg, 2x a day MiraLax Oral, daily Multivitamins Oral 1 pill, daily Nitroglycerin Sublingual 0.4 mg, prn ProAir HFA Inhalation (108 (90 Base) mcg/act) 2 puffs, 4x a day, prn Protonix Oral 40 mg, daily Riluzole Oral (50 mg) 1 tablet, 2x a day 2 Medication Reconciliation Report [facility] Emergency Department [address] [place] [address] Phone #: ext- [phone] 05/01/2020 11:59 Patient: BRAULIO LANGLEY Sex: M : 1960 Age: 59y Rosuvastatin Calcium Oral 40 mg, daily, at bedtime Tamsulosin HCl Oral 0.4 mg, daily TiZANidine HCl Oral 4 mg, 2x a day, 1 in AM, 2 in PMThe source(s) of the original Home Medication information:patientThe following Medications were given to the patient in the Emergency Department:Duoneb [Neb Tx] Neb TX 1 unit dose, administered: 05/01/2020 12:45:00 PMSolu-Medrol [IVP] IVP 125 mg, administered: 05/01/2020 12:56:00 PMTessalon Perles [PO] PO 200 mg, administered: 05/01/2020 2:28:00 PMTessalon Perles [PO] PO 200 mg, administered: 05/01/2020 5:15:00 PMThe following Medications were prescribed to the patient:Tessalon Perles 100 mg capsule Take 2 capsule every eight hours as needed for 10 days -- for coughsymptoms. Dispense 60 capsule. Refills: 0. Substitution permitted.Pharmacy - [id number] - [address] [place], [place] [id number]. . -- Physician StacieTessalon Perles 200mg Two tabs to go home. Dispense in ED. -- Jaskaran Barnes Physician Name Value Range Interpretation Code Description Data Sheron rce(s) Supporting Document(s) ID Date Data Source [id number] 05/01/2020 12:00:00 PM EDT [facility] 1 Medication Administration Record [facility] Emergency Department [address] [place] [address] Phone #: ext- [phone] 05/01/2020 11:59 Patient: BRAULIO LANGLEY Sex: M : 1960 Age: 59yWeight: 108.8 kgHeight/Length: 73 inBMI: 31.7ALLERGIES: Adhesives, Cipro Date/Time Medication Administered Medication OrderedGiven DUONEB [NEB TX] DuoNeb Neb Tx 3 mL (NOW)12:45 05/01/2020 Dose: 1 unit dose Nebulizer Neb TXAmrita Richards, R.N.Given SOLU-MEDROL [IVP] SOLU-Medrol 125 mg IV X1 Dose:12:56 05/01/2020 (METHYLPREDNISOLONE SODIUM 125 mg (X1)Amrita Richards R.NFlores SUCC) Dose: 125 mg IVP Site: #1 right ACGiven TESSALON PERLES [PO] Tessalon Perles PO 200 mg (NOW)14:28 05/01/2020 (BENZONATATE)Amrita Richards, R.N. Dose: 200 mg Capsules POGiven TESSALON PERLES [PO] Tessalon Perles PO 200 mg ( Two17:15 05/01/2020 (BENZONATATE) tabs to go home. Dispense in ED)Amrita Richards, R.N. Dose: 200 mg Capsules PO Name Value Range Interpretation Code Description Data Sheron rce(s) Supporting Document(s) ID Date Data Source [id number] 05/01/2020 12:00:00 PM EDT [facility] 1 General Instructions [facility] Emergency Department [address] [place] [address] Phone #: ext- [phone] 05/01/2020 11:59 Patient: BRAULIO LANGLEY Sex: M : 1960 Age: 59yAcute coughINSTRUCTIONSAlternate Tylenol (Acetaminophen) or Motrin (Ibuprofen) for temperature greater than 100.4 degrees bytympanic thermometer. Take according to label instructions.Warnings: Further evaluation is necessary.GENERAL WARNINGS: Return or contact your physician immediately if your condition worsens orchanges unexpectedly, if not improving as expected, or if other problems arise.Prescription Medications:Tessalon Perles 100 mg capsule Take 2 capsule every eight hours as needed for 10 days -- for coughsymptoms. Dispense 60 capsule. Refills: 0. Substitution permitted.Pharmacy - [facility] #[id number] - [address] [place], [place] [id number].Phone: .Tessalon Perles 200mg Two tabs to go home. Dispense in ED.Follow-up:Follow up with your doctor tomorrow if not better. Call for an appointment. Reason for referral: evaluation,treatment and Cough.Understanding of the discharge instructions verbalized by patient and family. ADDITIONAL INFORMATIONChronic Cough with Uncertain Cause (Adult) 2 General Instructions [facility] Emergency Department [address] [place] [address] Phone #: ext- [phone] 05/01/2020 11:59 Patient: BRAULIO LANGLEY Sex: M : 1960 Age: 59yEveryone has had a cough as part of the common cold, flu, or bronchitis. This kind of cough occursalong with an achy feeling, low-grade fever, nasal and sinus congestion, and a scratchy or sorethroat. This usually gets better in 2 to 3 weeks. A cough that lasts longer than 3 weeks may be due toother causes. Your healthcare provider may refer to this as a chronic cough.If your cough does not improve over the next 2 weeks, further testing may be needed. Follow up withyour healthcare provider as advised. Cough suppressants may be recommended. Based on yourexam today, the exact cause of your cough is not certain. Below are some common causes forpersistent cough.Smoker's coughSmoker's cough doesn't go away. If you continue to smoke, it only gets worse. The cough is fromirritation in the air passages. Talk to your healthcare provider about quitting. Medicines ornicotine-replacement products, like gum or the patch, may make quitting easier.Postnasal dripA cough that is worse at night may be due to postnasal drip. Excess mucus in the nose drains fromthe back of your nose to your throat. This triggers the cough reflex. Postnasal drip may be due to a 3 General Instructions [facility] Emergency Department [address] [place] [address] Phone #: ext- [phone] 05/01/2020 11:59 Patient: BRAULIO LANGLEY Sex: M : 1960 Age: 59ysinus infection or allergy. Common allergens include dust, tobacco smoke (both inhaled andsecondhand smoke), environmental pollutants, pollen, mold, pets, cleaning agents, room deodorizers,and chemical fumes. Mefx-bxh-oagtqly antihistamines or decongestants may be helpful for allergies.A sinus infection may requires antibiotic treatment. See your healthcare provider if symptomscontinue.MedicinesCertain prescribed medicines can cause a chronic cough in some people: FUAD inhibitors for high blood pressure. These include benazepril, captopril, enalapril, fosinopril, lisinopril, quinapril, ramipril, and others. Beta-blockers for high blood pressure and other conditions. These include propranolol, atenolol, metoprolol, nadolol, and others.Let your healthcare provider know if you are taking any of these. The chronic cough may mean yourmedicine needs to be changed.AsthmaCough may be the only sign of mild asthma. You may have tests to find out if asthma is causing yourcough. You may also take asthma medicine on a trial basis.Acid reflux (heartburn, GERD)The esophagus is the tube that carries food from the mouth to the stomach. A valve at its lower endprevents stomach acids from flowing upward. If this valve does not work properly, acid from thestomach enters the esophagus. This may cause a burning pain in the upper abdomen or lower chest,belching, or cough. Symptoms are often worse when lying flat. Avoid eating or drinking beforebedtime. Try using extra pillows to raise your upper body, or place 4-inch blocks under the head ofyour bed. You may try an pzcu-cmm-fvdkufj (OTC) antacid or an acid-blocking medicine such asfamotidine, cimetidine, ranitidine, esomeprazole, lansoprazole, or omeprazole. Stronger medicines forthis condition can be prescribed by your healthcare provider. Ask your healthcare provider which OTCmedicine to use. Depending on your current medicines, some OTC medicines may cause druginteractions and should be avoided.Follow-up careFollow up with your healthcare provider, or as advised, if your cough does not improve. Furthertesting may be needed.Note: If an X-ray was taken, a specialist will review it. You will be notified of any new findings thatmay affect your care. 4 General Instructions [facility] Emergency Department [address] [place] [address] Phone #: ext- [phone] 05/01/2020 11:59 Patient: BRAULIO LANGLEY Sex: M : 1960 Age: 59yWhen to seek medical adviceCall your healthcare provider right away if any of these occur: Mild wheezing or difficulty breathing Fever of 100.4F (38C) or higher, or as directed by your healthcare provider Unexpected weight loss Coughing up large amounts of colored sputum or blood-tinged sputum Night sweats (sheets and pajamas get soaking wet)Call [phone] if any of these occur: Coughing up blood Moderate to severe trouble breathing or wheezing [id number] [place] [address]. All rights reserved. This information is not intended as asubstitute for professional medical care. Always follow your healthcare professional's instructions.Fever Control (Adult)A fever is a normal reaction of your body to an illness. The temperature itself usually isn't harmful. Itactually helps your body fight infections. You don't need to treat a fever unless you feel veryuncomfortable.Home careFollow these tips to take care of yourself at home: If you feel warm, check your temperature. Dress in light clothing. This will help you lose extra body heat through your skin. The fever will go up if you wear extra layers or wrap in blankets. Fever causes your body to lose water through evaporation. Drink plenty of fluids. These include water, juice, clear sodas, aminata olena, or lemonade.Fever medicinesYou can take acetaminophen every 4 to 6 hours if: You feel very uncomfortable 5 General Instructions [facility] Emergency Department [address] [place] [address] Phone #: ext- [phone] 05/01/2020 11:59 Patient: BRAULIO LANGLEY Sex: M : 1960 Age: 59y Your oral temperature is 100.4F (38C) or higherIf you can't take or keep down oral medicine, ask your pharmacist for acetaminophen suppositories.You don't need a prescription for these.If the fever doesn't get better within 1 hour after you take acetaminophen, take ibuprofen. If thisworks, keep taking the ibuprofen every 6 to 8 hours.If you have chronic liver or kidney disease, talk with your healthcare provider before taking thesemedicines. Also talk with your provider if you ever had a stomach ulcer or GI (gastrointestinal)bleeding.If either medicine alone doesn't keep the fever down, you may switch off between the 2 medicinesevery 3 to 4 hours. But do this only if your healthcare provider has told you to. For example, takeibuprofen. Wait 3 hours. Then take acetaminophen. Wait 3 hours. Take ibuprofen, and so on. Followyour provider's instructions exactly.Don't give aspirin to anyone younger than age 19 who is ill with a fever. Aspirin can cause seriousside effects such as liver damage and Guy syndrome. Although rare, Guy syndrome is a veryserious illness usually found in children younger than age 15. The syndrome is closely linked to theuse of aspirin or aspirin-containing medicine during viral infection.Follow-up careFollow up with your healthcare provider if you don't get better after 48 hours.When to seek medical adviceCall your healthcare provider right away if any of these occur: Fever, as directed by your healthcare provider, or: o Fever of 100.4F (38C) or above lasting for 24 to 48 hours o Fever lasting more than 3 days, even without other symptoms o Fever that happens after visiting a foreign country o Fever that happens within a month after visiting a country with malaria. Malaria is a serious illness. A fever can still be malaria even if you took medicine to prevent it. The medicine does not work in all cases. Confusion or trouble thinking Headache or stiff neck Flat, small, purplish red spots on your skin 6 General Instructions [facility] Emergency Department [address] [place] [address] Phone #: ext- [phone] 05/01/2020 11:59 --- Patient: BRAULIO LANGLEY Sex: M : 1960 Age: 59y Low blood pressure Fast heart rate Fast (rapid) breathing You are You just had surgery, another medical procedure, or were just discharged from the hospital Use of medicines that suppress the immune system (immunosuppressants). These include Prednisone, cancer medicines, and organ transplant rejection medicines. If you are not sure about whether your medicines suppress your immune system, ask your healthcare provider.Call 911Someone should call 911 if you: Are having trouble breathing or shortness of breath Are unresponsiveImportant reminderCall your healthcare provider if you get a fever after visiting a place where infectious diseases arecommon. Many people lemon picker a cold or other virus while traveling. This usually goes away without aproblem. But, some places have more serious diseases. Fever with certain other symptoms maymean you have a serious illness. Symptoms to watch for include diarrhea, skin rashes, insect bites,and skin boils, or infections. Your provider may ask you: What you did on your trip How long you were there Where you stayed (hotel, [place], tent) What you ate and drank If you were bitten by insects or other bugs If you swam in freshwater If you had sex or got a tattoo or piercing while you were thereCheck the [facility] to get more information about specific infectious diseases in the areas you havetraveled. [phone] [place] [address]. All rights reserved. This information is not intended as a 7 General Instructions [facility] Emergency Department [address] [place] [address] Phone #: ext- [phone] 05/01/2020 11:59 Patient: BRAULIO LANGLEY Sex: M : 1960 Age: 59ysubstitute for professional medical care. Always follow your healthcare professional's instructions. You have been given the following additional information: Cough, Chronic, Uncertain Cause (Adult) Fever Control (Adult)(Electronically signed by Jaskaran Barnes, Physician 05/01/2020 18:17) Name Value Range Interpretation Code Description Data Sheron rce(s) Supporting Document(s) ID Date Data Source [id number] 05/01/2020 12:00:00 PM EDT [facility] 1 Clinical Report - Nurses [facility] Emergency Department [address] [place] [address] Phone #: ext- [phone] 05/01/2020 11:59 Patient: BRAULIO LANGLEY Sex: M : 1960 Age: 59yTRIAGE Arrived by EMS. Historian: patient. Triage time: 12:00 05/01/2020. Acuity: LEVEL 3. Chief Complaint: SHORTNESS OF BREATH. Alert. No acute distress. This started today. Onset. (1 hour ago). 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 Pt had had a productive clear cough. Pt does have pmh of asthma.). Treatment [facility]WH[facility]A [facility]ORI: (albuteral inhaler at home.). EMS Treatment [facility]AIAWHINA KURA [facility] MAORI: Oxygen administered by nasal c annula. SEPSIS SCREEN: SIRS Screen negative. (12:05/01/2020). --12:05/01/20 Kassandra Alcaraz R.N. 12:00 05/01/20. BP: 115/77. HR: 84. RR: 24. O2 saturation: 95%. Temp: 97.8 F. Pain level now 0/10. --12:05/01/20 Kassandra Alcaraz R.N. Weight: 108.8 kg stated. Height/Length: 73 inches Per Patient. BMI: 31.7. --12:00 05/01/20 Kassandra Alcaraz R.N. Medications Amitriptyline HCl Oral 50 mg, daily at bedtime. Clopidogrel Bisulfate Oral 75 mg, daily. DULoxetine HCl Oral 60 mg, daily. Gabapentin Oral (Tablet 600 mg) 1 tablet, 4x a day. Lozartan/HCTZ 100-25mg , daily. Metoprolol Tartrate Oral 100 mg, 2x a day. Multivitamins Oral 1 pill, daily. Nitroglycerin Sublingual 0.4 mg, as needed. ProAir HFA Inhalation (Aerosol Solution 108 (90 Base) mcg/act) 2 puffs, 4x a day as needed. --12:03 05/01/20 Kassandra Alcaraz R.N. Protonix Oral 40 mg, daily. Rosuvastatin Calcium Oral 40 mg, daily at bedtime. Tamsulosin HCl Oral 0.4 mg, daily. TiZANidine HCl Oral 4 mg, 2x a day (1 in AM, 2 in PM). --1 2:03 05/01/20 Kassandra Alcaraz R.N. Riluzole Oral (Tablet 50 mg) 1 tablet, 2x a day. --12:03 05/01/20 Kassandra Alcaraz R.N. 2 Clinical Report - Nurses [facility] Emergency Department [address] [place] [address] Phone #: ext- [phone] 05/01/2020 11:59 Patient: BRAULIO LANGLEY Sex: M : 1960 Age: 59yFluticasone Propionate Nasal. --12:04 05/01/20 Kassandra Alcaraz R.N.Eliquis Oral (Tablet 5 mg), 2x a day. --12:05 05/01/20 Kassandra Alcaraz R.N.MiraLax Oral, daily. --12:05 05/01/20 Kassandra Alcaraz R.N.Albuterol Sulfate HFA Inhalation 2 puffs, as needed. --12:06 05/01/20 Kassandra Alcaraz R.N.AllergiesAdhesives.Cipro.(hives) --12:03 05/01/20 Kassandra Alcaraz R.N.PROBL EMS:Asthma.Amyotrophic lateral sclerosis.Cardiac stents.Myocardial Infarction. --12:07 05/01/20 Kassandra Alcaraz R.N.The following entry was modified by Kassandra Alcaraz R.N., 12:05/01/20Hypercholesterolemia. --12:05/01/20 Kassandra Alcaraz R.N.The following entry was modified by Kassandra Alcaraz R.N., 12:05/01/20Hypertension. --12:05/01/20 Kassandra Alcaraz R.N..Medication/allergy information source: the patient. --12:09 05/01/20 Kassandra Alcaraz R.N.ADDITIONAL SURGERIES:Angioplasty of blood vessel.Cardiac stents (11/2016).L inguinal hernia repair.Laminectomy (03/10/18).Peg tube. --12:07 Kassandra Alcaraz R.N.HistoryPAST MEDICAL HX: Immunizations: up-to-date.SOCIAL HX: Former smoker. No alcohol use or drug use. He was offered HIV testing but declined.Patient education was provided. He was offered hepatitis C testing but declined. Patient education wasprovided. ( COVID screen negative, does have cough/sob). He has not traveled outside the [place]Infectious disease exposure: No infectious disease exposure. Patient is not a known carrier of tuberculosis,hepatitis, HIV, MRSA or VRE. Patient is not a known carrier of CRE.SELF HARM ASSESSMENT: Self harm assessment was performed. The patient answered "no" to thequestion(s) "Do you have thoughts of harming or killing yourself?" and "Do you have a plan for harming orkilling yourself?".ABUSE ASSESSMENT: Abuse assessment. The patient had positive responses to the question(s) "Do youfeel safe in your home?". Abuse denied. No suspicion of abuse. No report of abuse. 3 Clinical Report - Nurses [facility] Emergency Department [address] [place] [address] Phone #: ext- [phone] 05/01/2020 11:59 Patient: BRAULIO LANGLEY Sex: M : 1960 Age: 59y NUTRITIONAL RISK ASSESSMENT: The nutritional risk assessment revealed no deficiencies. LEARNING NEEDS ASSESSMENT: The learning needs assessment revealed no barriers. FALL RISK ASSESSMENT: Fall risk assessment completed. No risk factors identified. FUNCTIONAL ASSESSMENT: Functional assessment performed: mobility impairment present- this mobility impairment is an ongoing problem. SKIN INTEGRITY ASSESSMENT: Skin integrity risk assessment completed. No skin integrity risk identified. --12:05/01/20 Kassandra Alcaraz R.N. Interventions Identification band on patient. --:05/01/20 Kassandra Alcaraz R.N.PHYSICAL ASSESSMENT To room via stretcher. GENERAL / NEURO / PSYCH: Alert. Oriented X 4. Appears in no acute distress. HEENT: Mucous membranes are pink. RESPIRATORY: No respiratory distress. The patient can speak a few words at a time. Cough. Wheezing present. CVS: Normal sinus rhythm noted. SKIN: Skin is warm and dry. Normal skin turgor. --12:05/01/20 Amrita Richards R.N.NURSING PROGRESS NOTES Oxygen administered. bus driver/monitor, NIBP monitor and pulse oximeter placed on patient. Patient gowned. Reassurance given. Three patient identifiers checked. Call light placed in reach. Side rails up x 2. Bed placed in lowest position. Brakes of bed on. Patient ready for evaluation- ED physician notified. --12:05/01/20 Amrita Richards R.N. 12:45 05/01/2020 Duoneb Neb [place] Nebulizer 1 unit dose given. Given by the nurse. Allergies verified and confirmed 5 rights. Information reviewed with patient including reason for taking this medication, signs of allergic reaction and precautions. Verbalizes understanding. --13:00 05/01/20 Amrita Richards R.N. 12:51 05/01/2020 Site #1 started via IV in the right antecubital space with an 20g angiocath, with aseptic technique and good blood return; one attempt. Blood drawn: rainbow set and blood bank tube. Labeled in the presence of the patient and sent to the lab. Saline lock flushed with 10 mL saline. --13:01 05/01/20 Amrita Richards R.N. 12:56 05/01/2020 Solu-Medrol (methylPREDNISolone Sodium Succ) IVP 125 mg given over 3 minute(s) via site #1. Allergies verified and confirmed 5 rights. IV patency established. IV site checked: no pain, redness, or swelling. IV flushed thoroughly pre- and post-medication administration. IVP given by RN. Information reviewed with patient including reason for taking this medication, signs of allergic reaction and precautions. Verbalizes understanding. --13:05/01/20 Amrita Richards R.N. 4 Clinical Report - Nurses [facility] Emergency Department [address] [place] [address] Phone #: ext- [phone] 05/01/2020 11:59 Patient: BRAULIO LANGLEY Sex: M : 1960 Age: 59ylate entry - 13:04 05/01/20. EKG time: (late entry - 13:10 05/01/2020). EKG was performed by a nurseand shown to the ED physician. Patient ID band checked for patient name and birthdate: patientconfirmed. Patient verbalized understanding urine collected with return of yellow-colored clear urine; odoris normal; sample sent to lab for urinalysis. Specimen labeled in the presence of the patient. Patient IDband checked for patient name and birthdate: patient confirmed. Throat swab obtained by nurse for rapidstrep; labeled in the presence of the patient and sent to lab. --13:16 05/01/20 Amrita Richards R.N.14:28 05/01/2020 Tessalon Perles (Benzonatate) PO Capsules 200 mg given. Allergies verified andconfirmed 5 rights. Information reviewed with patient including reason for taking this medication, signs ofallergic reaction and precautions. Verbalizes understanding. --14:28 05/01/20 Amrita Richards R.N.Patient returned from CT with monitor, IV, mask and radiology orderly. --15:00 05/01/20 Amrita Richards R.N.( Pts O2 removed at this time prior to discharge to evaluate need for O2). --15:35 05/01/20 Amrita Richards R.N.12:30 05/01/20. BP: 141/107. MAP: 118. HR: 85. RR: 21. O2 saturation: 97% on nasal cannula at 2liters/minute. --15:38 05/01/20 Amrita Richards R.N.13:00 05/01/20. BP: 133/90. MAP: 104. HR: 84. RR: 15. O2 saturation: 98% on nasal cannula at 2liters/minute. Temp: 98.4 F (oral). --15:39 05/01/20 Amrita Richards R.N.13:30 05/01/20. BP: 118/81. MAP: 93. HR: 79. RR: 17. O2 saturation: 94% on nasal cannula at 2liters/minute. --15:40 05/01/20 Amrita Richards R.N.14:00 05/01/20. BP: 116/81. MAP: 92. HR: 81. RR: 15. O2 saturation: 96% on room air. --15:41 05/01/20Amrita Richards R.N.14:30 05/01/20. BP: 125/88. MAP: 100. HR: 84. RR: 22. O2 saturation: 96% on nasal cannula at 2liters/minute. --15:41 05/01/20 Amrita Richards R.N.15:19 05/01/20. BP: 124/82. MAP: 96. HR: 84. RR: 20. O2 saturation: 92% on nasal cannula at 2liters/minute. --15:42 05/01/20 Amrita Richards R.N.15:30 05/01/20. BP: 130/95. MAP: 106. HR: 83. RR: 19. O2 saturation: 95% on nasal cannula at 2liters/minute. --15:43 05/01/20 Amrita Richards R.N.late entry - 14:00 05/01/20. bus driver/monitor, NIBP monitor and pulse oximeter placed on patient. Patientgowned. Reassurance given. The patient reports no complaints and he is calm. Three patientidentifiers checked. Call light placed in reach. Side rails up x 2. Bed placed in lowest position. Brakesof bed on. --15:44 05/01/20 Amrita Richards R.N.bus driver/monitor, NIBP monitor and pulse oximeter placed on patient. Patient gowned. Reassurance 5 Clinical Report - Nurses [facility] Emergency Department [address] [place] [address] Phone #: ext- [phone] 05/01/2020 11:59 Patient: BRAULIO LANGLEY Sex: M : 1960 Age: 59y given. The patient reports no complaints and he is calm and resting quietly. RESPIRATORY: No respiratory distress. SKIN: Skin is warm and dry. Three patient identifiers checked. Call light placed in reach. Side rails up x 2. Bed placed in lowest position. Brakes of bed on. Patient waiting for transportation. --15:47 05/01/20 Amrita Richards R.N. late entry - 14:40 05/01/20. Patient transported to [place] by stretcher with IV, mask and radiology orderly. --15:48 05/01/20 Amrita Richards R.N. late entry - 15:00 05/01/20. The patient reports no complaints and he is calm and resting quietly. RESPIRATORY: No respiratory distress. SKIN: Skin is warm and dry. Three patient identifiers checked. Call light placed in reach. Side rails up x 2. Bed placed in lowest position. Brakes of bed on. Patient waiting for lab and radiology results. --15:45 05/01/20 Amrita Richards R.N. 16:50 05/01/2020 Site #1 removed upon discharge. Pressure dressing applied. --16:50 05/01/20 Cami Kc R.N. late entry - 16:50 05/01/20. ( Pt awaiting transport home via ambulance, pt aware that we are waiting for [facility] to return our call). --17:17 05/01/20 Amrita Richards R.N. 17:15 05/01/2020 Tessalon Perles (Benzonatate) PO Capsules 200 mg given. Allergies verified and confirmed 5 rights. Information reviewed with patient. (4 100mg capsules given as THM). --17:15 05/01/20 Amrita Richards R.N. ( Pt waiting for ambulance to come pick him up, no changes noted). --17:18 05/01/20 Amrita Richards R.N. late entry - 17:30 05/01/20. The patient reports no complaints and he is calm and resting quietly. ( [facility] here to transport pt home). --17:42 05/01/20 Amrita Richards R.N. 17:30 05/01/20. BP: 106/85. MAP: 92. HR: 89. RR: 16. O2 saturation: 94% on room air. Temp: 98.1 F (oral). --17:42 05/01/20 Amrita Richards R.N. 17:30 05/01/20. Pain level now: 0/10. --17:43 05/01/20 Amrita Richards R.N.DISPOSITION / DISCHARGE 16:50 05/01/20. BP: 148/108. MAP: 121. HR: 87. RR: 18. O2 saturation: 95%. Temp: 99.3 F. --16:51 05/01/20 Cami Kc R.N. No learning barriers present. Discharge instructions provided and reviewed with the patient. Reviewed medication(s). Prescription(s) sent electronically to pharmacy. Reviewed referral to a primary care physician. Reviewed need for increased fluid intake. Patient verbalized understanding. Written instructions provided in Serbian. --17:13 05/01/20 Cami Kc R.N. 6 Clinical Report - Nurses [facility] Emergency Department [address] [place] [address] Phone #: ext- [phone] 05/01/2020 11:59 Patient: BRAULIO LANGLEY Sex: M : 1960 Age: 59yLocked/Released at 05/01/2020 17:44 by Amrita Richards R.N. Name Value Range Interpretation Code Description Data Sheron rce(s) Supporting Document(s) ID Date Data Source [id number] 05/01/2020 12:00:00 PM EDT [facility] 1 Clinical Report - Physicians/Mid Levels [facility] Emergency Department [address] [place] [address] Phone #: ext- [phone] 05/01/2020 11:59 Patient: BRAULIO LANGLEY Sex: M : 1960 Age: 59y Time Seen: 12:00 05/01/2020. Arrived- By ambulance. Historian- EMS personnel. Disposition decision: 15:28 05/01/2020.HISTORY OF PRESENT ILLNESS Chief Complaint: DYSPNEA and HISTORY OF CHRONIC OBSTRUCTIVE PULMONARY DISEASE. This started several days ago; Difficulty breathing , abdominal distension, cough, hoarseness for several days. and is still present and worsening. It was abrupt in onset and has been waxing/waning. The dyspnea is described as moderate . It is present at rest. The dyspnea is worsened by exertion, being in a supine position and cough. The patient has had a cough, chest discomfort, wheezing, dyspnea on exertion and foot swelling. He has had anxiety. He has had scant amounts of clear sputum. There has been a change from baseline. No fever, sweating episodes, chills, dizziness or tingling. No numbness or palpitations. 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 + hx of LLE DVT.). Similar symptoms previously. (for several days). Recent medical care: The patient was seen recently at another facility in the office.REVIEW OF SYSTEMSThe patient has had moderate, crampy, colicky abdominal pain. The pain is described as located in theupper abdomen and right upper quadrant and associated with nausea. but not had weight loss. Nomuscle aches, eye irritation, sore throat, nasal discharge or sinus drainage. No nausea, vomiting,diarrhea, black stools or bloody stools. No headache, fainting episodes, blurred vision, difficulty withurination or excessive urination. No skin rash, enlarged lymph nodes or joint pain. Denies currentpregnancy.PAST HISTORYPast history not negative. See nurses notes. Diabetes mellitus. Heart disease. Lung disease.Neurological disease. GI disease. Other disease. AnticoagulationAsthmaALSM.I.ConstipationHyperlipidemiaCOPDGERDBPH. Surgeries: Inguinal hernia repair (Left). (Angioplasty Cardiac stents Laminectomy 2 Clinical Report - Physicians/Mid Levels [facility] Emergency Department [address] [place] [address] Phone #: ext- [phone] 05/01/2020 11:59 Patient: BRAULIO LANGLEY Sex: M : 1960 Age: 59y PEG tube).SOCIAL HISTORYFormer smoker. No alcohol use or drug use. No recent travel.ADDITIONAL NOTESThe nursing notes have been reviewed with agreement regarding the chief complaint, HPI, ROS, PMH andpatient medications and allergies.PHYSICAL EXAMVital Signs: 05/01/2020 12:00 BP: 115/77. MAP: 89. HR: 84. RR: 24. O2 saturation: 95%. Temp: 97.8 F.Have been reviewed and appear to be correct. Heart rate normal. Tachypneic. Temperature normal.Oxygen saturation normal.Appearance: Alert. Anxious. Appears to be in pain. Patient in moderate distress. In distress.Eyes: Pupils equal, round and reactive to light. Eyes inspection not normal. Pale conjunctivae.ENT: Nose normal. Pharynx normal. Uvula midline.Neck: Normal inspection. No jugular venous distention. Neck supple.CVS: Heart rate abnormal. Tachycardia. Normal heart rhythm. Heart sounds normal. Pul ses normal.Respiratory: No respiratory distress. Painless inspiration. Breath sounds normal.Abdomen: Soft. Moderate tenderness in the upper abdomen and right upper quadrant. Noorganomegaly. Severely obese. Tenderness present.Back: Normal inspection.Skin: Skin warm and dry. Abnormal skin color. No rash. Normal skin turgor. Pale. (NOT Jaundiced).Extremities: Lower extremity edema present. Extremities do not exhibit normal ROM. Bilateral mildpitting edema of the lower extremities.Neuro: Oriented X 3. Motor deficit noted. He has generalized weakness, (Due to A.L.S.). No sensorydeficit.LABS, X-RAYS, AND EKGAbdominal CT: No acute disease.Chest CT: No acute disease.Laboratory Tests: Laboratory tests have been ordered, with results reviewed and considered in themedical decision making process. CT Abd PEL W/ IV Contrast Only: (MICKEY: 05/01/2020 14:16) ( MsgRcvd 05/01/2020 15:04) In Progress CT ABD Reason(s): Abdominal Distention TRANSPORTATION: S IV? IV?(Yes) O2? Oxygen?(Yes) R CT CTA CHEST NON-CORONARY W CON INC PP: (MICKEY: 05/01/2020 14:15) ( MsgRcvd 05/01/2020 15:04) In Progress CT CTA CHEST NON- CORONARY W CON INC PP Reason(s): SOB / Cough / Hx of DVT TRANSPORTATION: S IV? IV?(Yes) O2? Oxygen?(No) Ro CMTS: elevated D-dimer 3 Clinical Report - Physicians/Mid Levels [facility] Emergency Department [address] [place] [address] Phone #: ext- [phone] 05/01/2020 11:59 Patient: BRAULIO LANGLEY Sex: M : 1960 Age: 59yRapid Strep Screen: (MICKEY: 05/01/2020 13:00) ( [facility] 05/01[place] 13:20) Final results Test Result Flag Units (Reference) RAPID STREP NEGATIVE (NORMAL: NEGAT RAPID STREP REENTER NEGATIVE (NORMAL: NEGAT { PROCEDURAL CONTROL VALID ){ KIT LOT #[id number] ){ KIT EXP DATE 04/28/21 )TheStrep A 2 assay utilizes isothermal nucleic acid amplification technology fothe qualitative detection of GroupA Strep bacterial nucleic acid in throat swabspecimens.All negative test results no longer need to be confirmedwith a culture. Follow-up testing requiring a culture is necessary if clinical symptoms persist, or inthe eventof an acute rheumatic fever outbreak. A culture will need to beordered by the Qualified Medical Provider.Negativeresults do not preclude infection with Group A Strep and should not beused as the sole basis for treatment.CORONAVIRUS COVID-19: (MICKEY: 05/01/2020 12:23) ( Mscvd 05/01/2020 12:23) CanceledUrinalysis: (MICKEY: 05/01/2020 13:06) ( [facility] 05/01/2020 13:38) Final results Test Result Flag Units (Reference) URINALYSIS URINALYSIS SOURCE Clean Catch COLOR yellow (NORMAL: Yello CLARITY clear (NORMAL: Clear SPEC GRAVITY 1.010 (1.001 - 1.030 pH 7 (5 - 9) GLUCOSE NORM (NORMAL: Negat BILIRUBIN NEG (NORMAL: Negat KETONE NEG (NORMAL: Negat PROTEIN 30 (NORMAL: Negat NITRITE NEG (NORMAL: Negat BLOOD 25 A (NORMAL: Negat LEUK EST NEG (NORMAL: Negat UROBILINOGEN NOR (less than 1.0 MICROSCOPIC See Below WBC 1 - 3 (NORMAL: NONE RBC 5 - 7 A (NORMAL: NONETroponin-T: (MICKEY: 05/01/2020 12:45) ( [facility] 05/01/2020 13:39) Final results Test Result Flag Units (Reference) TROPONIN T <0.01 NG/ML (0.00 - 0.10) TROPONIN T0.1 ng/ml Recommended as the clinical threshold value forTroponin T.PTT: (MICKEY: 05/01/2020 12:45) ( [facility] 05/01/2020 13:38) Final results Test Result Flag Units (Reference) PTT 33.1 SECONDS (24.8 - 36.7)PT/INR: (MICKEY: 05/01/2020 12:45) ( [facility] 05/01/2020 13:38) Final results Test Result Flag Units (Reference) PROTIME 13.9 SECONDS (11.0 - 15.5) INR 1.06 (0.93 - 1.23) \\BLDo\\INR INTERPRETATION\\BLDx\\ Therap eutic range for Coumadin andrelated oral anticoagulants. - International Normalized Ratio (INR): 2.0 - 3.0 for VenousThrombosis, Pulmonary Embolus, Tissue heart valves, Acute [place], Atrial Fibrillation, Valvular heartdisease and recurrent Systemic Embolism. - International Normalized Ratio (INR): 2.5 - 3.5for Mechanical Prosthetic valve. 4 Clinical Report - Physicians/Mid Levels [facility] Emergency Department [address] [place] [address] Phone #: ext- [phone] 05/01/2020 11:59 Patient: BRAULIO LANGLEY Sex: M : 1960 Age: 59yLipase: (MICKEY: 05/01/2020 12:45) ( [facility] 05/01/2020 13:41) Final results Test Result Flag Units (Reference) LIPASE 44 U/L (13 - 60)Lactic Acid: (MICKEY: 05/01/2020 12:45) ( [facility] 05/01/2020 13:22) Final results Test Result Flag Units (Reference) LACTIC ACID 2.5 H MMOL/L (0.2 - 2.2)BNP: (MICKEY: 05/01/2020 12:45) ( [facility] 05/01/2020 13:39) Final results Test Result Flag Units (Reference) BNP 30 PG/ML (0 - 125)CBC w Diff: (MICKEY: 05/01/2020 12:45) ( [facility] 05/01/2020 13:23) Final results Test Result Flag Units (Reference) CBC W/AUTOMATED DIFF COMPLETE B LOOD COUNT WBC 8.4 10/uL (4.2 - 11.0) RBC 5.03 10/uL (4.50 - 6.30) HEMOGLOBIN 14.4 g/dL (14.0 - 16.0) HEMATOCRIT 42.7 % (41.0 - 51.0) MCV 84.9 fL (80.0 - 94.0) MCH 28.6 pg (27.0 - 34.0) MCHC 33.7 g/dL (31.0 - 36.0) RDW 13.4 % (11.5 - 14.8) PLATELETS 236 10/uL (150 - 450) MPV 9.5 fL (7.4 - 10.4) NEUT 73.7 % (37.0 - 80.0) LYMPH 11.3 L % (25.0 - 40.0) MONO 9.8 H % (3.0 - 8.0) EOS 3.2 % (0.0 - 7.0) BASO 1.2 % (0.0 - 2.0) %IG 0.8 H % (0.0 - 0.0) %NRBC 0.0 % (0.0 - 0.0) #NEUT 6.17 10/uL (2.00 - 6.90) #LYMPH 0.95 10/uL (0.60 - 3.40) #MONO 0.82 10/uL (0.00 - 0.90) #EOS 0.27 10/uL (0.00 - 0.70) #BASO 0.10 10/uL (0.00 - 0.20) #IG 0.07 10/uL (0.00 - 0.10) #NRBC 0.00 10/uL (0.00 - 0.00) MANUAL DIFF NOT INDICATED RBC MORPH NOT INDICATEDCMP: (MICKEY: 05/01/2020 12:45) ( MsgRcvd 05/01/2020 13:41) Final results Test Result Flag Units (Reference) COMPREHENSIVE METABOLIC PANEL COMPREHENSIVE METABOLIC PANEL SODIUM 133 L mEq/L (134 - 153) POTASSIUM 3.8 mEq/L (3.6 - 5.0) CHLORIDE 97 L mEq/L (98 - 107) CO2 25 MEQ/L (22 - 30) GLUCOSE 187 H MG/DL (65 - 110) BUN 13 MG/DL (7 - 21) 5 Clinical Report - Physicians/Mid Levels [facility] Emergency Department [address] [place] [address] Phone #: ext- [phone] 05/01/2020 11:59 Patient: BRAULIO LANGLEY MRN: [id number] Sex: M : 1960 Age: 59y CREATININE 0.7 MG/DL (0.7 - 1.5) BUN/CREAT 19 (8 - 27) TOTAL PROTEIN 6.6 G/DL (6.3 - 8.2) ALBUMIN 4.0 G/DL (3.9 - 5.0) GLOBULIN 2.6 GM/DL (2.4 - 3.2) A/G RATIO 1.5 (0.8 - 2.0) CALCIUM 9.0 MG/DL (8.4 - 10.2) TOTAL BILI <0.7 MG/DL (0.2 - 1.3) ALKALINE PHOS 112 U/L (38 - 126) SGOT/AST 27 U/L (5 - 40) SGPT/ALT 43 U/L (7 - 56) ANION GAP 11.0 mmol/L (8.0 - 16.0) AGE 59 yrs NON-AA GFR >60 mL/min AFR AMER GFR >60 mL/min Male GFR Interprentation 20-49 yrs >60 mL/min Normal 50-59 yrs >56 mL/min Normal 60-69 yrs >49 mL/min Normal 70-79yrs >42 mL/min Normal 80 and above >35 mL/min Normal Female GFR Interpretation 20-39 yrs >60 mL/min Normal 40-49 yrs >58 mL/min Normal 50-59 yrs >51 mL/min Normal 60-69 yrs >45 mL/min Normal 70-79 yrs >39 mL/min Normal 80 and above >32 mL/min Normal CPK: (MICKEY: 05/01/2020 12:45) ( [facility] 05/01/2020 13:41) Final res ults Test Result Flag Units (Reference) CPK 57 U/L (30 - 170) D-Dimer: (MICKEY: 05/01/2020 12:45) ( [facility] 05/01/2020 13:41) Final results Test Result Flag Units (Reference) D-DIMER QUANT 0.56 H ug/mL (0.27 - 0.50) Chest Portable 1 View: (MICKEY: 05/01/2020 12:19) ( [facility] [place] 05/01/2020 13:09) In Progress CHEST PORTABLE Reason(s): Shortness of Breath TRANSPORTATION: S IV? O2? Oxygen?(Yes) Room: E . Note - Tests: (PCXR - NAD EKG - NSR).PROGRESS AND PROCEDURESCourse of Care: 15:May 01 2020. Patient is stable. Symptoms much better. 15:May [address] chest and CT abdomen are unremarkable. Tessalon helped cough a great deal. No reason to test for COVID at this time. No fever and no hypoxia. Critical care performed (130 minutes). Time is exclusive of separately billable procedures. Time includes: direct patient care, patient reassessment, interpretation of data (laboratory data, pulse oximetry and chest xrays), review of patient's medical records and documentation of patient care- see progress notes. Procedures included in critical care time: peripheral IV placement and phlebotomy- see progress notes. 6 Clinical Report - Physicians/Mid Levels [facility] Emergency Department [address] [place] [address] Phone #: ext- [phone] 05/01/2020 11:59 Patient: BRAULIO LANGLEY Sex: M : 1960 Age: 59y Disposition: Discharged home in good and improved condition (15:May 01 2020). Condition: good.CLINICAL IMPRESSION Acute coughINSTRUCTIONS Alternate Tylenol (Acetaminophen) or Motrin (Ibuprofen) for temperature greater than 100.4 degrees by tympanic thermometer. Take according to label instructions. Warnings: Further evaluation is necessary. GENERAL WARNINGS: Return or contact your physic satya immediately if your condition worsens or changes unexpectedly, if not improving as expected, or if other problems arise. Prescription Medications: Tessalon Perles 100 mg capsule Take 2 capsule every eight hours as needed for 10 days -- for cough symptoms. Dispense 60 capsule. Refills: 0. Substitution permitted. Pharmacy - [id number] - [address] [place], [place] [id number]. . Rohith Sanchez 200mg Two tabs to go home. Dispense in ED. Follow-up: Follow up with your doctor tomorrow if not better. Call for an appointment. Reason for referral: evaluation, treatment and Cough. Understanding of the discharge instructions verbalized by patient and family.(Electronically signed by Jaskaran Barnes, Physician 05/01/2020 18:17) Name Value Range Interpretation Code Description Data Sheron rce(s) Supporting Document(s) ID Date Data Source [id number] 05/01/2020 01:38:00 PM EDT [facility] Name Value Range Interpretation Code Description Data Sheron rce(s) Supporting Document(s) URINALYSIS [facility] Hospi denise URINALYSIS SOURCE Clean Catch [facility] ital COLOR yellow NORMAL: Yellow [facility] CLARITY clear NORMAL: Clear [facility] Ho spital Specific gravity of Urine by Test strip 1.010 1.001 - 1.030 [facility] pH 7 5 - 9 [facility] Glucose [Mass/volume] in Urine by Test strip NORM NORMAL: Negat [facility] Bilirubin.total [Presence] in Urine by Test strip NEG NORMAL: Negative [facility] Ketones [Presence] in Urine by Test strip NEG NORMAL: Negative [facility] Protein [Mass/volume] in Urine by Test strip 30 NORMAL: Negat [facility] Nitrite [Presence] in Urine by Test strip NEG NORMAL: Negative [facility] BLOOD 25 NORMAL: Negative [facility] Leukocyte esterase [Presence] in Urine by Test strip NEG JESSICA L: Negative [facility] Urobilinogen [Mass/volume] in Urine by Test strip NOR less neto n 1.0 mg/dL [facility] MICROSCOPIC See Below [facility] ital WBC 1 - 3 NORMAL: NONE SEEN [facility] Erythrocytes [#/volume] in Urine by Test strip 5 - 7 NORMAL: NON E SEEN A [facility] ID Date Data Source [id number] 05/01/2020 01:20:00 PM EDT [facility] Name Value Range Interpretation Code Description Data Sheron rce(s) Supporting Document(s) RAPID STREP NEGATIVE NORMAL: NEGATIVE [facility] RAPID STREP REENTER NEGATIVE NORMAL: NEGATIVE [facility] { PROCEDURAL CONTROL VALID ){ KIT LOT # [id number] ){ KIT EXP DATE 04/28/21 )The Strep A 2 assay utilizes isothermal nucleic acid amplification technology fothe qualitative detection of Group A Strep bacterial nucleic acid in throat swabspecimens.All negative test results no longer need to be confirmed with a culture. Follow-up testing requiring a culture is necessary if clinical symptoms persist, or inthe event of an acute rheumatic fever outbreak. A culture will need to beordered by the Qualified Medical Provider.Negative results do not preclude infection with Group A Strep and should not beused as the sole basis for treatment. ID Date Data Source [id number] 05/01/2020 01:41:00 PM EDT [facility] Name Value Range Interpretation Code Description Data Sheron rce(s) Supporting Document(s) Fibrin D-dimer FEU [Mass/volume] in Platelet poor plasma 0.56 ug /mL 0.27 - 0.50 H [facility] ID Date Data Source [id number] 05/01/2020 01:41:00 PM EDT [facility] Name Value Range Interpretation Code Description Data Sheron rce(s) Supporting Document(s) Creatine kinase [Enzymatic activity/volume] in Serum or Plasma 5 7 U/L 30 - 170 [facility] ID Date Data Source [id number] 05/01/2020 01:41:00 PM EDT [facility] Name Value Range Interpretation Code Description Data Sheron rce(s) Supporting Document(s) COMPREHENSIVE METABOLIC PANEL [facility] COMPREHENSIVE METABOLIC PANEL Sodium [Moles/volume] in Serum or Plasma 133 mEq/L 134 - 153 L [facility] Potassium [Moles/volume] in Serum or Plasma 3.8 mEq/L 3.6 - 5.0 [facility] Chloride [Moles/volume] in Serum or Plasma 97 mEq/L 98 - 107 L [facility] Carbon dioxide, total [Moles/volume] in Serum or Plasma 25 MEQ/L 22 - 30 [facility] Glucose [Mass/volume] in Serum or Plasma 187 MG/DL 65 - 110 H [facility] BUN 13 MG/DL 7 - 21 [facility] Creatinine [Mass/volume] in Serum or Plasma 0.7 MG/DL 0.7 - 1.5 [facility] BUN/CREAT 19 8 - 27 [facility] al Protein [Mass/volume] in Serum or Plasma 6.6 G/DL 6.3 - 8.2 [facility] Albumin [Mass/volume] in Serum or Plasma 4.0 G/DL 3.9 - 5.0 [facility] Globulin [Mass/volume] in Serum by calculation 2.6 GM/DL 2.4 - 3.2 [facility] A/G RATIO 1.5 0.8 - 2.0 [facility] Calcium [Mass/volume] in Serum or Plasma 9.0 MG/DL 8.4 - 10.2 [facility] Bilirubin.total [Mass/volume] in Serum or Plasma <0.7 MG/DL 0.2 - 1.3 [facility] Alkaline phosphatase [Enzymatic activity/volume] in Serum or Plasma 112 U/L 38 - 126 [facility] Aspartate aminotransferase [Enzymatic activity/volume] in Serum or Plasma 27 U/L 5 - 40 [facility] Alanine aminotransferase [Enzymatic activity/volume] in Seru m or Plasma 43 U/L 7 - 56 [facility] Anion gap 3 in Serum or Plasma 11.0 mmol/L 8.0 - 16.0 [facility] AGE [address] [facility] al NON-AA GFR >60 mL/min [facility] ital AFR AMER GFR >60 mL/min [facility] Ho spital Male GFR In terprentation 20-49 yrs >60 mL/min Normal 50-59 yrs >56 mL/min Normal 60-69 yrs >49 mL/min Normal 70-79yrs >42 mL/min Normal 80 and above >35 mL/min Normal Female GFR Interpretation 20-39 yrs >60 mL/min Normal 40-49 yrs >58 mL/min Normal 50-59 yrs >51 mL/min Normal 60-69 yrs >45 mL/min Normal 70-79 yrs >39 mL/min Normal 80 and above >32 mL/min Normal ID Date Data Source [id number] 05/01/2020 01:41:00 PM EDT [facility] Name Value Range Interpretation Code Description Data Sheron rce(s) Supporting Document(s) Lipase [Enzymatic activity/volume] in Serum or Plasma 44 U/L 13 - 60 [facility] ID Date Data Source [id number] 05/01/2020 01:39:00 PM EDT [facility] Name Value Range Interpretation Code Description Data Sheron rce(s) Supporting Document(s) BNP 30 PG/ML 0 - 125 [facility] Hospit al ID Date Data Source [id number] 05/01/2020 01:38:00 PM EDT [facility] Name Value Range Interpretation Code Description Data Sheron rce(s) Supporting Document(s) TROPONIN T <0.01 NG/ML 0.00 - 0.10 [facility] ospital TROPONIN T0.1 ng/ml Recommended as the c linical threshold value forTroponin T. ID Date Data Source [id number] 05/01/2020 01:38:00 PM EDT [facility] Name Value Range Interpretation Code Description Data Sheron rce(s) Supporting Document(s) Prothrombin time (PT) 13.9 SECONDS 11.0 - 15.5 [facility] INR in Platelet poor plasma by Coagulation assay 1.06 0.93 - 1. 23 [facility] \\BLDo\\INR INTERPRETATION\\BLDx\\ Therapeutic range for Coumadin and related oral anticoagulants. - International Normalized Ratio (INR): 2.0 - 3.0 for Venous Thrombosis, Pulmonary Embolus, Tissue heart valves, Acute [place], Atrial Fibrillation, Valvular heart disease and recurrent Systemic Embolism. -International Normalized Ratio (INR): 2.5 - 3.5 for Mechanical Prosthetic valve. ID Date Data Source [id number] 05/01/2020 01:38:00 PM EDT [facility] Name Value Range Interpretation Code Description Data Sheron rce(s) Supporting Document(s) aPTT in Blood by Coagulation assay 33.1 SECONDS 24.8 - 36.7 [facility] ID Date Data Source [id number] 05/01/2020 01:22:00 PM EDT [facility] Name Value Range Interpretation Code Description Data Sheron rce(s) Supporting Document(s) CBC W/AUTOMATED DIFF [facility] COMPLETE BLOOD COUNT Leukocytes [#/volume] in Blood by Automated count 8.4 10^3/uL 4.2 - 1 1.0 [facility] Erythrocytes [#/volume] in Blood by Automated count 5.03 10^6/uL 4. 50 - 6.30 [facility] Hemoglobin [Mass/volume] in Blood 14.4 g/dL 14.0 - 16.0 [facility] Hematocrit [Volume Fraction] of Blood by Automated count 42.7 % 4 1.0 - 51.0 [facility] Erythrocyte mean corpuscular volume [Entitic volume] by Auto mated count 84.9 fL 80.0 - 94.0 [facility] Erythrocyte mean corpuscular hemoglobin [Entitic mass] by Automated count 28.6 pg 27.0 - 34.0 [facility] Erythrocyte mean corpuscular hemoglobin concentration [Mass/volume] by Automated count 33.7 g/dL 31.0 - 36.0 [facility] Erythrocyte distribution width [Ratio] by Automated count 13.4 % 11.5 - 14.8 [facility] Platelets [#/volume] in Blood by Automated count 236 10^3/uL 150 - 45 0 [facility] Platelet mean volume [Entitic volume] in Blood by Automated count 9.5 fL 7.4 - 10.4 [facility] Neutrophils/100 leukocytes in Blood by Automated count 73.7 % 37. 0 - 80.0 [facility] Lymphocytes/100 leukocytes in Blood by Manual count 11.3 % 25.0 - 40.0 L [facility] Monocytes/100 leukocytes in Blood by Automated count 9.8 % 3.0 - 8.0 H [facility] Eosinophils/100 leukocytes in Blood by Automated count 3.2 % 0.0 - 7.0 [facility] Basophils/100 leukocytes in Blood by Automated count 1.2 % 0.0 - 2.0 [facility] %IG 0.8 % 0.0 - 0.0 [facility] %NRBC 0.0 % 0.0 - 0.0 [facility] al Neutrophils [#/volume] in Blood by Automated count 6.17 10^3/uL 2.00 - 6.90 [facility] Lymphocytes [#/volume] in Blood by Automated count 0.95 10^3/uL 0.60 - 3.40 [facility] Monocytes [#/volume] in Blood by Automated count 0.82 10^3/uL 0.00 - 0.90 [facility] Eosinophils [#/volume] in Blood by Automated count 0.27 10^3/uL 0.00 - 0.70 [facility] Basophils [#/volume] in Blood by Automated count 0.10 10^3/uL 0.00 - 0.20 [facility] #IG 0.07 10^3/uL 0.00 - 0.10 [facility] #NRBC 0.00 10^3/uL 0.00 - 0.00 [facility] MANUAL DIFF NOT INDICATED [facility] RBC MORPH NOT INDICATED [facility] sp[facility] ID Date Data Source [id number] 05/01/2020 01:22:00 PM EDT [facility] Name Value Range Interpretation Code Description Data Sheron rce(s) Supporting Document(s) Lactate [Moles/volume] in Serum or Plasma 2.5 MMOL/L 0.2 - 2.2 H [facility] ID Date Data Source [id number] 02/12/2020 08:00:00 AM EDT [facility] Patient Name: BRAULIO LANGLEY : 1960 Sex: M Pt Unit #: [id number] Location:[facility] Provider: Visit Date/Time: 02/12/20 Primary Insurance: MEDICARE [employer] [facility] Intake Visit Reasons: Hospital Discharge Follow-up Nurse Note: hospital f/u from [facility] on 02/04/20. home visit. [employer] Required: No Allergies ciprofloxacin [From Cipro] Allergy (Severe, Unverified 01/06/19 15:14) rash adhesive Allergy (Mild, Unverified 01/06/19 15:15) rash HIV Testing Offer - ages 13-64 Requirement for HIV testing offer been met?: Patient reports past refusal Do you need a note to return Do you need a note to return to daycare/school/sports/work: No PFSH Medical History Amyotrophic lateral sclerosis (Acute) Anxiety (Acute) BPH (benign prostatic hyperplasia) (Acute) Chronic constipation (Acute) Coronary artery disease (Acute) Degenerative lumbar spinal stenosis (Acute) Erectile dysfunction (Acute) Essential hypertension (Acute) Mild persistent asthma (Acute) Mixed hyperlipidemia (Acute) Nicotine dependence (Acute) Sleep apnea (Acute) Surgical History H/O Spinal surgery (Acute) Family History (Updated 01/22/19 @ 11:29 by Louise Ortiz LPN) Other Alcohol abuse Asthma Diabetes Hypertension Stroke Social History (Updated 01/22/19 @ 11:37 by Louise Ortiz LPN) Does the Patient have a Healthcare Proxy: No Does Patient have a DNR?: No Does Patient have a Living Will?: No highest education level completed: high school graduate current occupational status: retired and disabled pets and animals: Yes pets and animals: cat(s) leisure activities: other other: " not much " well-balanced diet: daily high-fat food intake: 0-1 times daily daily servings fruits/ve-4 daily servings of milk/calcium: 0-1 eating out: 1-3 times/week reads food labels: sometimes during the past year weight has: increased > 10 lbs HPI Additional HPI HPI Details: this was a home visit due to the difficulty for the patient to visit the office due to his ALS. he recently returned from having his G-tube replaced in [place]. the plan is to go to [facility] in the future is there is any problem with the tube. his is asking for grief counseling and has discussed this with public health who is in the home frequently. they also have regular aide service. he has mild edema in both legs, worse on the left where he recently was diagnosed with a dvt. he now has a noninvasive respirator for prn and hs use. they have had great difficulty getting his duloxetine refilled by the pain clinic and asked me to do it. he has not been sleeping well since running out 10 days ago. Review of Systems Musc Reports abnormal gait (cannot walk or transfer without a lift) Neuro Denies abnormal movements, Denies abnormal speech, Reports abnormal gait (cannot walk or transfer without a lift), Denies behavioral changes, Denies confusion, Denies memory loss and Denies seizure-like activity Psych Denies behavioral changes, Denies confusion and Denies memory loss Exam Const General: cooperative, no acute distress and well groomed Nutritional Appearance: obese Orientation: alert, awake and oriented x3 Neck Neck: normal visual inspection, no lymphadenopathy, supple and no JVD present Neck mass: No Thyroid: thyroid normal Chest Chest: normal inspection of the chest Resp Effort Inspection: normal respiratory effort Auscultation: clear to auscultation bilaterally Cardio Jugular venous pressure: no JVD Rate: regular rate Rhythm: regular rhythm Heart Sounds: S1 normal, S2 normal, no click, no gallops and no murmurs Skin Lesions: no lesions Rashes: no rashes Neuro General: patient alert, patient awake, patient oriented x3, does not move all extremities and abnormal to light touch, pain or propio. Cranial Nerves: CN's II-XII intact bilaterally Cognition: normal cognition Speech: speech normal Motor: strength abnormal (left leg no movement, right some motion, very weak) Psych Appearance: grossly normal and well kempt Mental Status: mental status grossly normal Speech and Movement: speech and movement normal Mood: congruent mood and dysthymic mood Affect: normal affect Attitude: cooperative Thought Process: normal Thought Content: normal Insight: insight good Judgment: judgment good Assessment Plan Assessment Plan (1) Hospital discharge follow-up: Code(s): Z09 - Encounter for follow-up examination after completed treatment for conditions other than malignant neoplasm Plan - Nestor Carrillo M.D.: will contact public health about starting grief counseling due to the of his brother in 05/2019. i will refill the duloxetine and told them i would do the other meds except for the ALS orthose prescribed by dr bradford, pulmonary. it is very difficult to bring him to the office, so will consider home visits in the future. he talked about hospice inpatient care, but was reassured by his that it will never happen if he does not want it to. Orders Other Medications: New: duloxetine 60 mg PO QDAY 90 caps 3RF riluzole must be taken on empty stomach; no food 1 hr after or 2-3 hrs before dose 50 mg PO Q12H 1 tab 0RF clopidogrel 75 mg PO QDAY 1 tab 0RF fluticasone propionate 220 mcg/actuation 1 puff inhalation BID 12 grams 0RF gabapentin 600 mg PO TID PRN 1 tab 0RF pain pantoprazole 40 mg PO QDAY 1 tab 0RF apixaban (Eliquis) 5 mg PO BID 1 tab 0RF Discontinued: sildenafil (pulm.hypertension) administer doses at least 4-6 hours apart Discontinued Reason: MD Order 20 mg PO TID 30 tabs 1RF Electronically Signed By: <Electronically signed by Nestor Carrillo MD> Date/Time Signed: 02/12/20920 Name Value Range Interpretation Code Description Data Sheron rce(s) Supporting Document(s) ID Date Data Source [id number] 02/02/2020 12:00:00 AM EDT [facility] Name Value Range Interpretation Code Description Data Sheron rce(s) Supporting Document(s) SARS coronavirus 2 RNA panel N YSDO This lab was ordered by [facility] and reported by [facility]. ID Date Data Source [id number] 12/04/2019 06:00:00 PM EDT [facility] Name Value Range Interpretation Code Description Data Sheron rce(s) Supporting Document(s) Urea nitrogen [Mass/volume] in Serum or Plasma 15 mg/dL 9-23 N [facility] Sodium [Moles/volume] in Serum or Plasma 139 mmol/L 132-146 [facility] Potassium [Moles/volume] in Serum or Plasma 4.5 mmol/L 3.5-5.5 [facility] Chloride [Moles/volume] in Serum or Plasma 103 mmol/L 99-109 [facility] Carbon dioxide, total [Moles/volume] in Serum or Plasma 31 mmol/L 20 -31 [facility] Anion gap in Serum or Plasma 10 mmol/L 8-16 [facility] Glucose [Mass/volume] in Serum or Plasma 116 mg/dL 74-106 Above high normal [facility] Creatinine 0.9 mg/dL 0.5-1.1 [facility] Glomerular filtration rate/1.73 sq M.pre dicted [Volume Rate/Area] in Serum or Plasma Greater Than 60 ABOVE 60 [facility] Calcium [Mass/volume] in Serum or Plasma 9.2 mg/dL 8.5-10.1 [facility] ID Date Data Source [id number] 12/04/2019 06:00:00 PM EDT [facility] Name Value Range Interpretation Code Description Data Sheron rce(s) Supporting Document(s) Triglycerides 381 mg/dL 0-150 Above high normal [facility] Cholesterol 212 mg/dL 120-200 Above high normal [facility] HDL Cholesterol 47 mg/dL [facility] HDL Less than 40 mg/dL: Major risk for CHDHDL Greater than 59 mg/dL: Low risk for CHD LDL Cholesterol, Calc 89 mg/dL 0-100 N [facility] ID Date Data Source [id number] 12/04/2019 10:32:00 AM EDT [facility] Patient Name: BRAULIO LANGLEY : 1960 Sex: M Pt Unit #: [id number] Location:[facility] Provider: Visit Date/Time: 12/04/19 Primary Insurance: MEDICARE [facility] Secondary Insurance: AARP Intake Vital Signs 12/04/19 10:41 BP 130/90 Blood Pressure Location Lt brachial Position Sitting Respiration 16 Pulse 66 Pulse Source Pulse Oximeter Temp 97.9 F Temp Source Tympanic Pulse Oximetry (%) 97 Intake Visit Reasons: hypertension Nurse Note: 59 year old male here for hypertension follow up.Would like to have labs ordered Skin Lifter Bacon Required: No Accompanied by: girlfriend Is patient in pain?: Yes (lower back pain) Pain scale (1-10): 3 Allergies ciprofloxacin [From Cipro] Allergy (Severe, Unverified 01/06/19 15:14) rash adhesive Allergy (Mild, Unverified 01/06/19 15:15) rash Fall Risk History of falls: No Ambulatory Aid:: Crutches Cane or Walker Gait/Transferring:: Weak Medications:: Antihypertensives HIV Testing Offer - ages 13-64 Requirement for HIV testing offer been met?: Patient reports past refusal Do you need a note to return Do you need a note to return to daycare/school/sports/work: No Coronavirus Screening Screening Have you traveled outside of [facility] or [facility] in the last 14 days.: No Has patient experienced coronavirus symptoms: No [facility] Medical History Amyotrophic lateral sclerosis (Acute) Anxiety (Acute) Asthma (Acute) Chronic constipation (Acute) Depression (Acute) Erectile dysfunction (Acute) Recurrent sinusitis (Acute) Sleep apnea (Acute) Surgical History H/O Spinal surgery (Acute) Family History (Updated 01/22/19 @ 11:29 by Louise Ortiz LPN) Other Alcohol abuse Asthma Diabetes Hypertension Stroke Social History (Updated 01/22/19 @ 11:37 by Louise Ortiz LPN) highest education level completed: high school graduate current occupational status: retired and disabled pets and animals: Yes pets and animals: cat(s) leisure activities: other other: " not much " well- balanced diet: daily high-fat food intake: 0-1 times daily daily servings fruits/ve-4 daily servings of milk/calcium: 0-1 eating out: 1-3 times/week reads food labels: sometimes during the past year weight has: increased > 10 lbs HPI Additional HPI HPI Details: as above. his home bp's have all been <135/85. he had a few systolic bp's in the 90's with mild bradycardia that made him dizzy. that resolved after the first few days on the higher dose of metoprolol and has not recurred. Review of Systems Card Denies chest pain, Denies pedal edema, Denies lightheadedness, Denies palpitations and Denies dyspnea Resp Denies dyspnea Endo Denies palpitations Exam Const General: cooperative, no acute distress, well developed and well groomed Nutritional Appearance: obese Orientation: alert, awake and oriented x3 Neck Neck: normal visual inspection, no lymphadenopathy, supple and no JVD present Neck mass: No Thyroid: thyroid normal Chest Chest: normal inspection of the chest Resp Effort Inspection: normal respiratory effort Auscultation: clear to auscultation bilaterally Cardio Jugular venous pressure: no JVD Rate: regular rate Rhythm: regular rhythm Heart Sounds: S1 normal, S2 normal, no click, no gallops and no murmurs Assessment Plan Assessment Plan (1) Essential hypertension: Status: Acute Code(s): I10 - Essential (primary) hypertension SNOMED Code(s): 59133492 Category: Medical Plan - Nestor Carrillo M.D.: bp is much improved. no changes in meds. bmp and lipid panel today. recheck in 6 months. continue home monitoring. Orders: Orders: BMP Today Orders Other Orders: Orders: LIPID PANEL Today I25.10 Electronically Signed By: <Electronically signed by Nestor Carrillo MD> Date/Time Signed: 12/04/19 1111 Name Value Range Interpretation Code Description Data Sheron rce(s) Supporting Document(s) ID Date Data Source [id number] 11/20/2019 10:50:00 AM EDT [facility] Patient Name: BRAULIO LANGLEY : 1960 Sex: M Pt Unit #: [id number] Location:[facility] Provider: Visit Date/Time: 11/20/19 Primary Insurance: MEDICARE [facility] Secondary Insurance: AARP Intake Vital Signs 11/20/19 10:56 BP 138/92 Blood Pressure Location Rt brachial Position Sitting Respiration 18 Pulse 77 Pulse Strength Normal Temp 98.8 F Temp Source Tympanic Pulse Oximetry (%) 97 Oxygen Delivery Method room air Intake Visit Reasons: Annual Physical Nurse Note: Here today for Annual PE. Declines colonoscopy , TDAP completed May 2019 . Has been checking BP at home and has been elevated. Does see Dr. Case did increase his BP medication 2 weeks ago. Skin Lifter Bacon Required: No Accompanied by: self Is patient in pain?: Yes (back pain ) Pain scale (1-10): 3 Allergies ciprofloxacin [From Cipro] Allergy (Severe, Unverified 01/06/19 15:14) rash adhesive Allergy (Mild, Unverified 01/06/19 15:15) rash HIV Testing Offer - ages 13-64 Requirement for HIV testing offer been met?: Patient reports past refusal [facility] Surgical History H/O Spinal surgery (Acute) Family History (Updated 01/22/19 @ 11:29 by Louise Ortiz LPN) Other Alcohol abuse Asthma Diabetes Hypertension Stroke Social History (Updated 01/22/19 @ 11:37 by Louise Ortiz LPN) highest education level completed: high school graduate current occupational status: retired and disabled pets and animals: Yes pets and animals: cat(s) leisure activities: other other: " not much " well- balanced diet: daily high-fat food intake: 0-1 times daily daily servings fruits/ve-4 daily servings of milk/calcium: 0-1 eating out: 1-3 times/week reads food labels: sometimes during the past year weight has: increased > 10 lbs HPI Additional HPI HPI Details: as above. he is not here to discuss prevention, but to address his bp, constipation and ED. he has used cialis and viagra in the past with good results. dr case has been adjusting his bp meds, but he wants to come here for that. he has chronic constipation and colace is not working. he does not drink much water. Review of Systems Card Denies chest pain, Denies pedal edema, Denies lightheadedness, Denies palpitations and Denies dyspnea Resp Denies dyspnea GI Reports constipation and Denies cramping Denies change in libido, Reports erectile dysfunction, Denies dysuria, Denies urinary frequency, Denies urinary hesitancy and Denies urinary urgency Psych Denies change in libido Endo Denies change in libido and Denies palpitations Exam Const General: cooperative, no acute distress and well groomed Nutritional Appearance: overweight Orientation: alert, awake and oriented x3 Neck Neck: normal visual inspection, no lympha denopathy, supple and no JVD present Neck mass: No Thyroid: thyroid normal Carotids: normal carotid upstroke and no bruits Chest Chest: normal inspection of the chest Resp Effort Inspection: normal respiratory effort Auscultation: clear to auscultation bilaterally Cardio Jugular venous pressure: no JVD Rate: regular rate Rhythm: regular rhythm Heart Sounds: S1 normal, S2 normal, no click, no gallops and no murmurs Psych Appearance: grossly normal and well kempt Mental Status: mental status grossly normal Speech and Movement: speech and movement normal Mood: congruent mood Affect: normal affect Attitude: cooperative Thought Process: normal Thought Content: normal Insight: insight good Judgment: judgment good Assessment Plan Assessment Plan (1) Essential hypertension: Status: Acute Code(s): I10 - Essential (primary) hypertension SNOMED Code(s): 42497133 Category: Medical Plan - Nestor Carrillo M.D.: diastolic bp is the problem. will increase the metoprolol to 100 mg bid and recheck in 2 weeks. (2) Erectile dysfunction: Status: Acute Code(s): N52.9 - Male erectile dysfunction, unspecified SNOMED Code(s): 356278581 Category: Medical Plan - Nestor Carrillo M.D.: he will try sildenafil up to 100 mg and recheck in 2 weeks. he has no sensory loss in the perineum,so this may work. (3) Chronic constipation: Status: Acute Code(s): K59.09 - Other constipation SNOMED Code(s): 037483478 Category: Medical Plan - Nestor Carrillo M.D.: discussed the role of water intake. recommended he stop the colace and start miralax bid. recheck in 2 weeks. Orders Other Medications: New: polyethylene glycol 3350 17 grams PO BID 510 grams 5RF metoprolol tartrate 100 mg PO BID 60 tabs 2RF sildenafil (pulm.hypertension) administer doses at least 4-6 hours apart 20 mg PO TID 30 tabs 1RF Electronically Signed By: <Electronically signed by Nestor Carrillo MD> Date/Time Signed: 11/20/19 1138 Name Value Range Interpretation Code Description Data Sheron rce(s) Supporting Document(s) ID Date Data Source [id number] 09/09/2019 05:05:00 PM EST [facility] Name Value Range Interpretation Code Description Data [facility] rce(s) Supporting Document(s) BASIC METABOLIC PANEL [facility] BASIC METABOLIC PANEL Sodium [Moles/volume] in Serum or Plasma 137 mEq/L 134 - 153 [facility] Potassium [Moles/volume] in Serum or Plasma 4.3 mEq/L 3.6 - 5.0 [facility] Chloride [Moles/volume] in Serum or Plasma 100 mEq/L 98 - 107 [facility] Carbon dioxide, total [Moles/volume] in Serum or Plasma 25 MEQ/L 22 - 30 [facility] Glucose [Mass/volume] in Serum or Plasma 105 MG/DL 65 - 110 [facility] BUN 13 MG/DL 7 - [facility] Creatinine [Mass/volume] in Serum or Plasma 0.9 MG/DL 0.7 - 1.5 [facility] BUN/CREAT 14 8 - 27 [facility] Calcium [Mass/volume] in Serum or Plasma 10.0 MG/DL 8.4 - 10.2 [facility] Anion gap 3 in Serum or Plasma 12.0 mmol/L 8.0 - 16.0 [facility] AGE 59 yrs [facility] Hospit al AFR AMER GFR >60 mL/min [facility] Ho spital NON-AA GFR >60 mL/min [facility] Hosp ital Male GFR Inter prentation 20-49 yrs >60 mL/min Normal 50-59 yrs >56 mL/min Normal 60-69 yrs >49 mL/min Normal 70-79yrs >42 mL/min Normal 80 and above >35 mL/min Normal Female GFR Interpretation 20-39 yrs >60 mL/min Normal 40-49 yrs >58 mL/min Normal 50-59 yrs >51 mL/min Normal 60-69 yrs >45 mL/min Normal 70-79 yrs >39 mL/min Normal 80 and above >32 mL/min Normal ID Date Data Source [id number] 08/13/2019 10:24:00 AM [facility] Patient Name: BRAULIO LANGLEY : 1960 Sex: M Pt Unit #: [id number] Location:[facility] Provider: Visit Date/Time: 08/13/19 Primary Insurance: BC/BS OF Y Secondary Insurance: Self Pay Intake Vital Signs 08/13/19 10:30 BP 114/70 Blood Pressure Location Lt brachial Position Sitting Respiration 18 Pulse 74 Pulse Strength Normal Temp 97.8 F Temp Source Tympanic Pulse Oximetry (%) 98 Oxygen Delivery Method room air Intake Visit Reasons: Hospital Discharge Follow-up Nurse Note: 59 year old male here today for post hospital f/u , fell at home and went to ER at [facility] via ambulance and signed out AMA. Skin Lifter Bacon Required: No Is patient in pain?: No Allergies ciprofloxacin [From Cipro] Allergy (Severe, Unverified 01/06/19 15:14) rash adhesive Allergy (Mild, Unverified 01/06/19 15:15) rash HIV Testing Offer - ages 13-64 Requirement for HIV testing offer been met?: Patient reports past refusal [facility] Medical History Amyotrophic lateral sclerosis (Acute) Anxiety (Acute) Asthma (Acute) Depression (Acute) Recurrent sinusitis (Acute) Sleep apnea (Acute) Surgical History (Updated 01/22/19 @ 11:29 by Louise Ortiz) H/O Spinal surgery (Acute) Family History (Updated 01/22/19 @ 11:29 by Louise Ortiz) Other Alcohol abuse Asthma Diabetes Hypertension Stroke Social History (Updated 01/22/19 @ 11:37 by Louise Ortiz) highest education level completed: high school graduate current occupational status: retired and disabled pets and animals: Yes pets and animals: cat(s) leisure activities: other other: " not much " well- balanced diet: daily high-fat food intake: 0-1 times daily daily servings fruits/ve-4 daily servings of milk/calcium: 0-1 eating out: 1-3 times/week reads food labels: sometimes during the past year weight has: increased > 10 lbs HPI Additional HPI HPI Details: [facility] he had gone to the after a series of falls at home, but felt there were doing nothing for him. he feels that he is back to his baseline. his states that he fall because he will not ask for help. they need an aide during the day when she works, but the rn social work from [facility] has not been responding to them. he was also supposed to be getting a new wheelchair and a hospital bed. Exam Const General: cooperative, no acute distress and well groomed Nutritional Appearance: well nourished Orientation: alert, awake and oriented x3 Psych Appearance: grossly normal and well kempt Mental Status: mental status grossly normal Speech and Movement: speech and movement normal Mood: congruent mood Affect: normal affect Attitude: cooperative Thought Process: normal Thought Content: normal Insight: insight good Judgment: judgment good Assessment Plan Assessment Plan (1) Hospital discharge follow-up: Code(s): Z09 - Encounter for follow-up examination after completed treatment for conditions other than malignant neoplasm Plan - Nestor Carrillo M.D.: we had a long discussion during which his and i tried to convince him to ask for help when ambulation or transfer is needed. they will call here if they continue to have problems getting thehelp and equipment they need. followup in september. Electronically Signed By: <Electronically signed by Nestor Carrillo MD> Date/Time Signed: 08/13/19 1053 Name Value Range Interpretation Code Description Data Sheron rce(s) Supporting Document(s) ID Date Data Source [id number] 07/06/2019 02:03:00 PM [facility] [address] [place] [address] PHONE: [phone] FAX: [phone] Name .................. : KORIN Riddle Acct Number.................. : [id number] [facility]......... [facility] Number ................... : [id number] Stay type ............. : E/R Discharge Date......... ... : Admit Date ......... : 1 09/02/18 Admit Phys .................... : BLACK CHRI Date of ....... : 1960 Family Phys ................... : BRANDON DELEON Phone .................. : [phone] Age ................................ : 59 Film# .................. .:[id number] Sex ................................. : M Unsigned transcriptions are preliminary reports and do not represent a medical or legal document CT HEAD W/O CONTRAST [id number] COMPLETE:07/03/19 16:41 RAOUL [id number] Reason(s): Head Injury CT SCAN OF THE HEAD WITHOUT CONTRAST: INDICATION: Head injury. COMPARISON: Prior study from 11/21/18. FINDINGS: Intracranial contents appear unremarkable. There is no midline shift or mass effect identified. No extra-axial fluid collections are identified. The ventricular system appears unremarkable. There is mild ethmoid mucosal thickening and an air fluid level identified in the right maxillary sinus, suggesting underlying sinusitis. If there is any clinical concern for injury to the facial bones, then a facial bone CT should be considered. There are stable calcifications in the right basal ganglia. IMPRESSION: No acute intracranial findings. Mild mucosal thickening in the ethmoid sinuses and an air fluid level in the right maxillary sinus. If there is any clinical concern for facial injuries, then a facial bone CT should be considered. While performing the above CT examination, radiation dose reduction was accomplished utilizing automated exposure control, adjusting of the mA and kV based on the patient's body size and/or the use of imperative reconstructive techniques. CT dose: 874 mGycm Examination dictated by BETTINA Barry. Examination was reviewed with Fish Gracia MD, radiologist at the time of this dictation. Electronically Reviewed and Signed By Fish Garcia MD , 07/06/19 14:03, RND Page 1 of 2 [place] [address] PHONE: [phone] FAX: [phone] Name .................. : KORIN RAMSEY Venkatesh Acct Number.................. : [id number] ROOM. ................. : VT-08 MR Number ................... : [id number] Stay type ............. : E/R Discharge Date......... ... : Admit Date ......... : 07/03/19 Admit Phys .................... : BLACK CHRI Date of ....... : 1960 Family Phys ................... : BRANDON DELEON Phone .................. : [phone] Age ................................ : 59 Film# .................. .:[id number] Sex ................................. : M Unsigned transcriptions are preliminary reports and do not represent a medical or legal document CT HEAD W/O CONTRAST [id number] COMPLETE:07/03/19 16:41 RAOUL [id number] Reason(s): Head Injury Transcribe Initials: YOLANDA , Transcribe Date: 07/03/19 19:54, Dictation Date: Copy for: DONI BILLY via fax Copy for: EMERGENCY DEPT via modem Copy for: 710 MED REC DISCHARGED Page 2 of 2 Name Value Range Interpretation Code Description Data Sheron rce(s) Supporting Document(s) ID Date Data Source [id number] 07/06/2019 02:02:00 PM [facility] [address] [place] [address] PHONE: [phone] FAX: [phone] Name .................. : KORIN Riddle Acct Number.................. : [id number] ROOM. ................. : VT-08 Number ................... : [id number] Stay type ............. : E/R Discharge Date......... ... : Admit Date ......... : 1 09/02/18 Admit Phys .................... : BLACK CHRI Date of ....... : 1960 Family Phys ................... : BRANDON DELEON Phone .................. : [phone] Age ................................ : 59 Film# .................. .:[id number] Sex ................................. : M Unsigned transcriptions are preliminary reports and do not represent a medical or legal [place] [id number] COMPLETE:07/03/19 16:31 KBO 19393 Reason(s): Trauma/Injury LEFT ELBOW SERIES: INDICATION: Trauma/injury. TECHNIQUE: AP, oblique and lateral views of the left elbow are submitted. FINDINGS: There is normal alignment and position of the bones of the left elbow. No evidence for joint effusion is noted. No acute abnormalities. IMPRESSION: Negative left elbow. Examination dictated by BETTINA Barry. Examination was reviewed with Fish Garcia MD, radiologist at the time of this dictation. Electronically Reviewed and Signed By Fish Garcia MD , 07/06/19 14:02, RND Transcribe Initials: YOLANDA , Transcribe Date: 07/03/19 19:59, Dictation Date: Copy for: CYNTHIA BILLY via fax Copy for: EMERGENCY DEPT via mode Copy for: 710 MED REC DISCHARGED Page 1 of 1 Name Value Range Interpretation Code Description Data Sheron rce(s) Supporting Document(s) ID Date Data Source [id number] 07/03/2019 02:37:00 PM EST [facility] 1 OrderSheet [facility] Emergency Department [address] [place] [address] Phone #: ext- [phone] 07/03/2019 14:35 Patient: BRAULIO LANGLEY Sex: M : 1960 Age: 59yWEIGHT:88.4 kg (S) HEIGHT:72 inches (S) BMI:26.5ALLERGIES: Adhesives, CiproCHIEF COMPLAINT: slipped, fall, carpet, arms:DIAGNOSIS: ContusionLAB ORDERSOrder Description Priority Entered Acknowledged InitialedCBC w Diff STAT 16:51 07/03/2019 16:53 Wenceslao Franklin.N. P.A.-C;CMP STAT 16:51 07/03/2019 16:53 Wenceslao Franklin.N. P.A.-C;PT/INR STAT 16:51 07/03/2019 16:53 Wenceslao Franklin R.N. P.A.-C;CPK STAT 16:51 07/03/2019 16:53 Wenceslao Franklin R.N. P.A.-C;DIAGNOSTIC STUDY ORDERSOrder Description Priority Entered Acknowledged InitialedElbow Complete STAT 15:07 07/03/2019 15:10 Macario Longo (Oxygen?(No)) Wenceslao BaezN. P.A.-C; Reason for Study: Trauma/InjuryCT Head W/O Cont STAT 15:07 07/03/2019 15:10 Fannie Longo(Oxygen?(No)) Wenceslao BaezN. P.A.-C; NOTES: on plavix Reason for Study: Head InjuryMEDICATION/IV/DRIP/FLUID ORDERSOrder Description Priority Entered Acknowledged InitialedBactroban Topical 17:49 07/03/2019 17:49 Fannie Longo1 application Fannie Longo R.N.; R.N. Verbal order per; Wenceslao Pedro 2 OrderSheet [facility] Emergency Department [address] [place] [address] Phone #: ext- [phone] 07/03/2019 14:35 Patient: BRAULIO LANGLEY Sex: M : 1960 Age: 59y P.A.-CGENERAL ORDERSOrder Description Priority Entered Acknowledged InitialedNPO 16:51 07/03/2019 16:53 Wenceslao Franklin R.N. PFloresAFlores-Emmanuel;S malathi Lock 16:51 07/03/2019 16:53 Wenceslao Franklin R.N..A.-Emmanuel;Dress Wounds 17:40 07/03/2019 17:42 Wenceslao Franklin R.N. P.A.-Emmanuel;Vitals 18:01 07/03/2019 18:02 Wenceslao Franklin R.N. PFloresAFlores-Emmanuel;[Electronically signed by Noni Franklin R.N. (21:07 07/03/2019)][Electronically signed by Wenceslao Pedro P.A.-C (15:39 07/04/2019)][Electronically locked by Noni Franklin R.N. (21:07 07/03/2019)] Name Value Range Interpretation Code Description Data Sheron rce(s) Supporting Document(s) ID Date Data Source [id number] 07/03/2019 02:37:00 PM EST [facility] 1 Medication Reconciliation Report [facility] Emergency Department [address] [place] [address] Phone #: ext- [phone] 07/03/2019 14:35 Patient: BRAULIO LANGLEY Sex: M : 1960 Age: 59yWeight: 88.4 kgHeight/Length: 72 in.BMI: 26.5ALLERGIES: Adhesives, CiproThe patient's Home Medications are listed below:THE FOLLOWING MEDICATIONS NEED TO BE RECONCILED: Amitriptyline HCl Oral 50 mg, 2x a day, at bedtime Aspirin Oral (81 mg) 1 tablet, daily Clopidogrel Bisulfate Oral 75 mg, daily DULoxetine HCl Oral 60 mg, daily Fish Oil Oral, daily Flovent HFA Inhalation (220 mcg/act) 1 puff, 2x a day Gabapentin Oral (600 mg) 1 tablet, 4x a day Lozartan/HCTZ 100-25mg 1/2 tab, daily Metoprolol Tartrate Oral 50 mg, 2x a day Multivitamins Oral 1 pill, daily Nitroglycerin Sublingual 0.4 mg, prn ProAir HFA Inhalation (108 (90 Base) mcg/act) 2 puffs, 4x a day, prn Protonix Oral 40 mg, daily Rosuvastatin Calcium Oral 20 mg, daily Sinemet Oral (25-100 mg) 1 tablet, 3x a day 2 Medication Reconciliation Report [facility] Emergency Department [address] [place] [address] Phone #: ext- [phone] 07/03/2019 14:35 Patient: BRAULIO LANGLEY Sex: M : 1960 Age: 59y Tamsulosin HCl Oral 0.4 mg, daily TiZANidine HCl Oral 4 mg, 3x a day Vit b12 1000mcg, dailyThe source(s) of the original Home Medication information:Not obt ained.The following Medications were given to the patient in the Emergency Department:Bactroban [Topical] Topical 1 application, administered: 07/03/2019 5:49:00 PMThe following Medications were prescribed to the patient:None. Name Value Range Interpretation Code Description Data Sheron rce(s) Supporting Document(s) ID Date Data Source [id number] 07/03/2019 02:37:00 PM [facility] 1 Medication Administration Record [facility] Emergency Department [address] [place] [address] Phone #: ext- [phone] 07/03/2019 14:35 Patient: BRAULIO LANGLEY Sex: M : 1960 Age: 59yWeight: 88.4 kgHeight/Length: 72 inBMI: 26.5ALLERGIES: Adhesives, Cipro Date/Time Medication Administered Medication OrderedGiven BACTROBAN [TOPICAL] (MUPIROCIN Bactroban Topical 1 [id number] 07/03/2019 CALCIUM)Fannie Longo R.N. Dose: 1 application Ointment Topical Name Value Range Interpretation Code Description Data Sheron rce(s) Supporting Document(s) ID Date Data Source [id number] 07/03/2019 02:37:00 PM [facility] 1 General Instructions [facility] Emergency Department [address] [place] [address] Phone #: ext [phone] 07/03/2019 14:35 Patient: BRAULIO LANGLEY Sex: M : 1960 Age: 59yContusion to the left elbow. ADDITIONAL INFORMATIONSoft Tissue ContusionYou have a contusion. This is also called a bruise. There is swelling and some bleeding under theskin. This injury generally takes a few days to a few weeks to heal. During that time, the bruise willtypically change in color from reddish, to purple-blue, to greenish- yellow, then to yellow-brown.Home care Elevate the injured area to reduce pain and swelling. As much as possible, sit or lie down with the injured area raised about the level of your heart. This is especially important during the first 48 hours. Ice the injured area to help reduce pain and swelling. Wrap a cold source (ice pack or ice cubes in a plastic bag) in a thin towel. Apply to the bruised area for 20 minutes every 1 to 2 hours the first day. Continue this 3 to 4 times a day until the pain and swelling goes away. Unless another medicine was prescribed, you can take acetaminophen, ibuprofen, or naproxen to control pain. (If you have chronic liver or kidney disease or ever had a stomach ulcer or gastrointestinal bleeding, talk with your doctor before using these medicines.)Follow-up careFollow up with your healthcare provider or our staff as advised. Call if you are not better in 1 to 2weeks.When to seek medical adviceCall your healthcare provider right away if you have any of the following: Increased pain or swelling Bruise is on an arm or leg and arm or leg becomes cold, blue, numb or tingly Signs of infection: Warmth, drainage, or increased redness or pain around the contusion Inability to move the injured area or body part 2 General Instructions [facility] Emergency Department [address] [place] [address] Phone #: ext- [phone] 07/03/2019 14:35 Patient: BRAULIO LANGLEY Sex: M : 1960 Age: 59y Bruise is near your eye and you have problems with your eyesight or eye Frequent bruising for unknown reasons [id number] [employer]. [address] [place] [address]. All rights reserved. This information is not intended as asubstitute for professional medical care. Always follow your healthcare professional's instructions. You have been given the following additional information: Soft Tissue Contusion(Electronically signed by Wenceslao Pedro P.A.-C 07/04/2019 15:39) Name Value Range Interpretation Code Description Data Sheron rce(s) Supporting Document(s) ID Date Data Source [id number] 07/03/2019 02:37:00 PM EST [facility] 1 Clinical Report - Nurses [facility] Emergency Department [address] [place] [address] Phone #: [phone]- [phone] 07/03/2019 14:35 Patient: BRAULIO LANGLEY Sex: M : 1960 Age: 59yTRIAGE( OUTSIDE SMOKING AND FLICKED CIGARETTE AND IT MISSED THE CAN AND WAS STILLSMOKING, SLID DOWN OUT OF WALKER AND COULD NOT GET BACK UP).Acuity: LEVEL 4.Chief Complaint: FALL. Slipped; fell onto carpeted surface. Landed on armsAlert. No acute distress.Location of injuries: left elbow and left wrist. Occurred 14:00 07/03/2019. ( LACERATION ON LEFTELBOW AND LEFT LOWER ARM). He has had dizziness.SEPSIS SCREEN: Negative (no infection suspected/documented). --14:43 07/03/19 Fannie Longo R.N.14:36 07/03/19. BP: 138. HR: 75. RR: 18. O2 saturation: 95%. Temp: 98 F. Pain level now: 10/26. --14: Fannie Longo R.N.( ABRASION ON RIGHT ARM). --14:44 07/03/19 Fannie Longo R.N.Weight: 88.4 kg stated. Height/Length: 72 inches Per Patient. BMI: 26.5. --14:35 07/03/19 Fannie Longo R.N.MedicationsAmitriptyline HCl Oral 50 mg, 2x a day at bedtime. Aspirin Oral (Tablet Chewable 81 mg) 1 tablet, daily. Clopidogrel Bisulfate Oral 75 mg, daily. DULoxetine HCl Oral 60 mg, daily. Fish Oil Oral, daily. Flovent HFA Inhalation (Aerosol 220 mcg/act) 1 puff, 2x a day. Gabapentin Oral (Tablet 600 mg) 1 tablet, 4x a day. Lozartan/HCTZ 100-25mg 1/2 tab, daily. Metoprolol Tartrate Oral 50 mg, 2x a day. Multivitamins Oral 1 pill, daily. Nitroglycerin Sublingual 0.4 mg, as needed. ProAir HFA Inhalation (Aerosol Solution 108 (90 Base) mcg/act) 2 puffs, 4x a day as needed. Protonix Oral 40 mg, daily. Rosuvastatin Calcium Oral 20 mg, daily. Sinemet Oral (Tablet 25-100 mg) 1 tablet, 3x a day. Tamsulosin HCl Oral 0.4 mg, daily. TiZANidine HCl Oral 4 mg, 3x a day. --14:42 07/03/19 Fannie Longo R.N. Vit b12 1000mcg, daily. --14:42 07/03/19 Fannie Longo R.N.Allergies 2 Clinical Report - Nurses [facility] Emergency Department [address] [place] [address] Phone #: ext- [phone] 07/03/2019 14:35 Patient: BRAULIO LANGLEY Sex: M : 1960 Age: 59yAdhesives.Cipro.(hives) --14:42 07/03/19 Fannie Longo R.N.PROBLEMS:Chronic Back Pain.Fall.Hives.Heart Disease.Amyotrophic lateral sclerosis.Acute Myocardial Infarction.Asthma.Cardiac stents.Benign Prostatic Hypertrophy.Obstructive Sleep Apnea.Myocardial Infarction.Unstable Angina.Laceration.Hyperlipidemia. --14:42 07/03/19 Fannie Longo R.N.The following entry was modified by Fannie Longo R.N., 14:42 07/03/19Hypertension. --14:42 07/03/19 Fannie Longo R.N..ADDITIONAL SURGERIES:Angioplasty of blood vessel.Cardiac stents (11/2016).Hernia Repair.L inguinal hernia repair.Laminectomy (03/10/18). --14:42 07/03/19 Fannie Longo R.N.HistoryPAST MEDICAL HX: Immunizations: up-to-date.SOCIAL HX: Light tobacco smoker- less than 1/2 a pack per day. No alcohol use or drug use. He wasoffered HIV testing but declined and hepatitis C testing but declined. He has not traveled outside the [place]Infectious disease exposure: No infectious disease exposure. Patient is not a known carrier of tuberculosis,hepatitis, HIV, MRSA or VRE. Patient is not a known carrier of CRE.SELF HARM ASSESSMENT: Self harm assessment was performed. The patient answered "no" to thequestion(s) "Do you have a plan for harming or killing yourself?".ABUSE ASSESSMENT: Abuse assessment. Abuse denied. No suspicion of abuse. No report of abuse.NUTRITIONAL RISK ASSESSMENT: The n utritional risk assessment revealed no deficiencies.FALL RISK ASSESSMENT: Fall risk assessment completed. Risk factors identified include patient history 3 Clinical Report - Nurses [facility] Emergency Department [address] [place] [address] Phone #: ext- [phone] 07/03/2019 14:35 Patient: BRAULIO LANGLEY Sex: M : 1960 Age: 59y of fall and impairment of mobility. Fall interventions initiated. Patient placed on stretcher. Side rails up x2. Bed in low position. Brakes on. Call light in reach of patient. Instructed not to get up without assistance. Instructions given to patient including fall prevention information. Verbalizes understanding. FUNCTIONAL ASSESSMENT: Functional assessment performed: uses walker. --14:43 07/03/19 Fannie Longo R.N. Interventions Identification band on patient. To treatment room. --14:43 07/03/19 Fannie Longo R.N.PHYSICAL ASSESSMENTGENERAL / NEURO / PSYCH: Alert. Oriented X 4.HEENT: Pupils equal, round and reactive to light. Head non-tender.SKIN: Skin is warm and dry. ( scrape noted to right arm, small cut to left elbow with scrapes noted to leftarm also.). --14:51 07/03/19 Noni Franklin R.N.NURSING PROGRESS NOTESTwo patient identifiers checked. Call light placed in reach. Side rails up x 2. Bed placed in lowestposition. Brakes of bed on. Patient ready for evaluation- ED physician and PA notified. --14: Fannie Longo R.N. ( all scrapes and cuts have been cleaned with no bleeding at this time). --14:52 07/03/19 Noni Franklin R.N. 16:12 07/03/19. BP: 116/76. MAP: 89. HR: 80. RR: 18. O2 saturation: 91%. --16:12 07/03/19 [facility] student admissions clerk, Lynn, ER Tech1 ( pt. reports being [facility] at this time. states that he has help at home on weekends and evenings but needs someone there during the day. pt. and family state that they have been trying to get some type of assistance with this but has not gotten anywhere,. provider states that pt. is an unsafe discharge due to recent fall and is trying to get pt. admitted or transferred so that they could get hospital assitance getting home help.). --16:43 07/03/19 Noni Franklin RFloresN. The patient reports no complaints and he is calm and resting quietly. --16:43 07/03/19 Noni Franklin R.N. ( pt. to the side of the bed and is using the urinal with no difficulty). --17:25 07/03/19 Noni Franklin R.N. Left elbow: applied dressing consisting of adaptic and gauze, following the application of antibiotic ointment. Secured with tape. Left wrist: applied dressing consisting of adaptic and 4x4 gauze, following the application of antibiotic ointment. Secured with tape. --17:48 07/03/19 Fannie Longo R.N. 17:49 07/03/2019 Bactroban (Mupirocin Calcium) Topical Ointment 1 application given. Applied to the wound. Allergies verified and confirmed 5 rights. Information reviewed with patient including reason for taking this medication, signs of allergic reaction and precautions. Verbalizes understanding. --17:49 4 Clinical Report - Nurses [facility] Emergency Department [address] [place] [address] Phone #: ext- [phone] 07/03/2019 14:35 Patient: BRAULIO LANGLEY Sex: M : 1960 Age: 59y 07/03/19 Fannie Longo R.N. 18:03 07/03/19. BP: 130/88. MAP: 102. HR: 81. RR: 18. O2 saturation: 98%. --18:03 07/03/19 [employer]pp[employer], Lynn, ER Tech1 ( pt. being transferred to [facility] for social admit, pt. needs home health). --19:07 07/03/19 Noni Franklin R.N. 20:23 07/03/19. BP: 113/79. MAP: 90. HR: 88. RR: 17. O2 saturation: 94%. --20:23 07/03/19 ZoraRypple, [employer], ER Tech1 The patient reports no complaints and he is resting quietly. --20:23 07/03/19 Noni Franklin R.N.DISPOSITION / DISCHARGE Transferred to [facility]. Visit overview, summary of care (CCDA), Emtala forms and Face Sheet provided to EMS via paper. Report was given to a nurse via a phone call and fax. Report included information regarding patient's care, treatment and allergies, current vital signs and labs. All questions were answered. Report was acknowledged. Bed requested (8828). ( report called to [facility] to Kirsty ORDONEZ with no further questions at this time. cobra has been signed and transport has been called, pt. and family with no questions at this time). --20:42 07/03/19 Noni Franklin R.N. Condition at departure: stable. No learning barriers present. --21:05 07/03/19 Noni Franklin R.N. 21:04 07/03/19. BP: 122/88. MAP: 99. HR: 92. RR: 18. O2 saturation: 95%. Temp: 97.7 F. Pain level now: 0/10. --21:05 07/03/19 Noni Franklin R.N. ( transport has arrived and report and cobra packet given with no questions at this time). --21:06 07/03/19 Noni Franklin R.N. Departure time: 21:06 07/03/2019. --21:06 07/03/19 Noni Franklin R.N.Locked/Released at 07/03/2019 21:07 by Noni Franklin R.N. Name Value Range Interpretation Code Description Data Sheron rce(s) Supporting Document(s) ID Date Data Source [id number] 07/03/2019 02:37:00 PM [facility] 1 Clinical Report - Physicians/Mid Levels [facility] Emergency Department [address] [place] [address] Phone #: ext- [phone] 07/03/2019 14:35 Patient: BRAULIO LANGLEY Sex: M : 1960 Age: 59y Time Seen: 14:46 07/03/2019; initial patient contact, initial documentation. Arrived- By ambulance. Historian- patient.HISTORY OF PRESENT ILLNESS Chief Complaint: FALL: The injury occurred just prior to arrival. Occurred at home. Fell: The patient complains of mild pain. The patient sustained a blow to the head. No neck pain, loss of consciousness or seizure. Not dazed. (Pt sts that he was outside sitting in walker and smoking. Went to flick cigarette to bucket a nd missed; slid down in a controlled decent out of walker to put into can, but then unable to get back up into walker. Then had to crawl into house, approx 60ft. During this time he attemtped to get up and slipped and hit face/head (no LOC, AOC, or [place]ORI). Sts that he attempted a few times to get up, but unable. Flipped over on back and became a little dizzy and called EMS. They came and evaluated and recommended that he come to the ER for eval. Pt currenlty denies any pain or discomfort. Sts that he is not dizzy now and deneis any CP, SOB, or dypnea. Sts other than a few scrapes and bumps he feels normal.).REVIEW OF SYSTEMSNo numbness, dizziness, loss of vision, hearing loss or chest pain. No difficulty breathing, headache,nausea, abdominal pain or laceration. No fever, vomiting, urinary problems or depression. The patienthas had weakness.PAST HISTORYSee nurses notes. Tetanus immunization status is up-to-date. Problems: Contusion. Chest Pain. Other Disease. Staple Removal. Hypercholesterolemia. C hronic Back Pain. Fall. Hives. Heart Disease. Amyotrophic lateral sclerosis. Acute Myocardial Infarction. Asthma. Cardiac stents. 2 Clinical Report - Physicians/Mid Levels [facility] Emergency Department [address] [place] [address] Phone #: ext- [phone] 07/03/2019 14:35 Patient: BRAULIO LANGLEY Sex: M : 1960 Age: 59y Benign Prostatic Hypertrophy. Obstructive Sleep Apnea. Myocardial Infarction. Unstable Angina. Laceration. Hyperlipidemia. Hypertension. Additional Surgeries: Angioplasty of blood vessel. Cardiac stents. Hernia Repair. L inguinal hernia repair. Laminectomy. Medications: Vit b12 1000mcg, daily. Amitriptyline HCl Oral 50 mg, 2x a day at bedtime. Aspirin Oral (Tablet Chewable 81 mg) 1 tablet, daily. Clopidogrel Bisulfate Oral 75 mg, daily. DULoxetine HCl Oral 60 mg, daily. Fish Oil Oral, daily. Flovent HFA Inhalation (Aerosol 220 mcg/act) 1 p uff, 2x a day. Gabapentin Oral (Tablet 600 mg) 1 tablet, 4x a day. Lozartan/HCTZ 100-25mg 1/2 tab, daily. Metoprolol Tartrate Oral 50 mg, 2x a day. Multivitamins Oral 1 pill, daily. Nitroglycerin Sublingual 0.4 mg, as needed. ProAir HFA Inhalation (Aerosol Solution 108 (90 Base) mcg/act) 2 puffs, 4x a day as needed. Protonix Oral 40 mg, daily. Rosuvastatin Calcium Oral 20 mg, daily. Sinemet Oral (Tablet 25-100 mg) 1 tablet, 3x a day. Tamsulosin HCl Oral 0.4 mg, daily. TiZANidine HCl Oral 4 mg, 3x a day. Allergies: Adhesives. Cipro.(hives).SOCIAL HISTORYLight tobacco smoker- less than 1/2 a pack per day. No alcohol use or drug use.ADDITIONAL NOTESThe nursing notes have been reviewed. 3 Clinical Report - Physicians/Mid Levels [facility] Emergency Department [address] [place] [address] Phone #: ext- [phone] 07/03/2019 14:35 Patient: BRAULIO LANGLEY Sex: M : 1960 Age: 59yPHYSICAL EXAMVital Signs: 07/03/2019 14:36 BP: 138. HR: 75. RR: 18. O2 saturation: 95%. Temp: 98 F. Pain level now:10/26. Have been reviewed. Oxygen saturation normal.Appearance: Alert. Oriented X3. No acute distress.Head: Head non-tender. No swelling of head. No Bryant's sign or raccoon eyes. No right templecomplaints, forehead related complaints, left moravian complaints, right cheek complaints or right mandiblecomplaints. No left cheek complaints or left mandible complaints.Eyes: Eyelids appear normal to inspection. Conjunctivae and sclerae appear normal to inspection.Corneas appear normal to inspection. Pupils equal, round and reactive to light. EOMs intact. Periorbitalareas appear normal to inspection. Anterior chambers clear.ENT: Normal ENT inspection. Airway intact. TM's normal. Ears normal. Nose normal. Nares normal.Uvula not deviated. Pharynx normal. Moist mucous membranes. Uvula midline. Voice normal.Neck: No decreased ROM in the neck. No pain with movement of head/neck. Painless ROM.Non- tender. No vertebral tenderness.CVS: Normal heart rate and rhythm. No JVD present. Pulses normal. Capillary refill normal. Strongperipheral pulses. Pulses: right radial 2+; left radial 2+; right dorsalis pedis 2+; left dorsalis pedis 2+; rightposterior tibial 2+; left posterior tibial 2+.Respiratory: Chest normal on inspection. No respiratory distress. Unlabored respirations. Lungs clear.Good chest movement. Breath sounds normal and equal. No chest wall complaint. Chest nontender.Abdomen: Normal inspection. Soft and nontender. Bowel sounds normal. No distention.Back: No tenderness. ROM normal.Skin: Skin warm and dry.Extremities: Normal inspection. Left elbow: small abrasion with controlled bleeding and ecchymosis.Neurovascular intact distally. No erythema, tenderness, swelling or laceration. Right forearm: smallabrasion with controlled bleeding located in the mid forearm. Neurovascular intact distally. No erythema,tenderness, swelling or laceration. Left forearm: multiple small abrasions with controlled bleeding.Neurovascular intact distally. No erythema, tenderness, swelling or laceration. Pelvis stable. No pelvisrelated complaint. Extremities atraumatic. No lower extremity edema. No right shoulder complaint, rightarm complaint, right clavicle complaint, left clavicle complaint or left shoulder complaint. No left armcomplaint, right elbow complaints, right hand complaints, right wrist complaint or right hip complaint. Noleft hip complaint, left wrist complaint, left hand complaint, right thigh complaints or right knee complaints.No left knee complaints, right leg complaint, left leg complaint, right ankle abnormality or right footcomplaints. No left ankle complaints or left foot complaints.Neuro: Awake. Alert. Oriented X 3. Mood/affect normal. Speech normal. No motor deficit. Nosensory deficit. Reflex exam: right triceps 2+, left triceps 2+, right biceps 2+, left biceps 2+, rightbrachioradialis 2+ and left brachioradialis 2+.LABS, X-RAYS, AND EKGLt Elbow X-ray: (Negative). The X-rays were interpreted by the radiologist.CT Head: (mucosal thickening in the ethmoid sinuses, air/fluid level in rt max sinus, prob sinusitis, if anyfacial injury a maxillofacial ct should be considered, no acute intracranial findings, stable calcifications inthe rt basal ganglia abilio). The study was interpreted by the radiologist.Laboratory Tests: CBC w Diff: (MICKEY: 07/03/2019 16:57) ( MsgRcvd 07/03/2019 17:21) Final results 4 Clinical Report - Physicians/Mid Levels [facility] Emergency Department [address] [place] [address] Phone #: ext- [phone] 07/03/2019 14:35 --------- [id number] Sex: M : 1960 Age: 59y Test Result Flag Units (Reference) CBC W/AUTOMATED DIFF COMPLETE BLOOD COUNT WBC 13.7 H 10/uL (4.2 - 11.0) RBC 4.91 10/uL (4.50 - 6.30) HEMOGLOBIN 14.6 g/dL (14.0 - 16.0) HEMATOCRIT 43.0 % (41.0 - 51.0) MCV 87.6 fL (80.0 - 94.0) MCH 29.7 pg (27.0 - 34.0) MCHC 34.0 g/dL (31.0 - 36.0) RDW 13.1 % (11.5 - 14.8) PLATELETS 227 10/uL (150 - 450) MPV 9.6 fL (7.4 - 10.4) NEUT 84.0 H % (37.0 - 80.0) LYMPH 7.8 L % (25.0 - 40.0) MONO 6.6 % (3.0 - 8.0) EOS 0.9 % (0.0 - 7.0) BASO 0.2 % (0.0 - 2.0) %IG 0.5 H % (0.0 - 0.0) %NRBC 0.0 % (0.0 - 0.0) #NEUT 11.52 H 10/uL (2.00 - 6.90) #LYMPH 1.07 10/uL (0.60 - 3.40) #MONO 0.91 H 10/uL (0.00 - 0.90) #EOS 0.12 10/uL (0.00 - 0.70) #BASO 0.03 10/uL (0.00 - 0.20) #IG 0.07 10/uL (0.00 - 0.10) #NRBC 0.00 10/uL (0.00 - 0.00) MANUAL DIFF NOT INDICATED RBC MORPH NOT INDICATEDCMP: (MICKEY: 07/03/2019 16:57) ( MsgRcvd 07/03/2019 17:22) Final results Test Result Flag Units (Reference) COMPREHENSIVE METABOLIC PANEL COMPREHENSIVE METABOLIC PANEL SODIUM 138 mEq/L (134 - 153) POTASSIUM 3.5 L mEq/L (3.6 - 5.0) CHLORIDE 101 mEq/L (98 - 107) CO2 26 MEQ/L (22 - 30) GLUCOSE 123 H MG/DL (65 - 110) BUN 15 MG/DL (7 - 21) CREATININE 0.8 MG/DL (0.7 - 1.5) BUN/CREAT 19 (8 - 27) TOTAL PROTEIN 7.0 G/DL (6.3 - 8.2) ALBUMIN 4.2 G/DL (3.9 - 5.0) GLOBULIN 2.8 GM/DL (2.4 - 3.2) A/G RATIO 1.5 (0.8 - 2.0) CALCIUM 9.6 MG/DL (8.4 - 10.2) TOTAL BILI 0.7 MG/DL (0.2 - 1.3) ALKALINE PHOS 98 U/L (38 - 126) SGOT/AST 27 U/L (5 - 40) SGPT/ALT 32 U/L (7 - 56) ANION GAP 11.0 mmol/L (8.0 - 16.0) AGE 60 yrs NON-AA GFR >60 mL/min AFR AMER GFR >60 mL/min Male GFR Interprentation 20-49 yrs >60 mL/min Yiwivp74-75 yrs >56 mL/min Normal 60-69 yrs >49 mL/min Normal 70-79yrs>42 mL/min Normal 80 and above >35 mL/min Normal Female GFRInterpretation 20-39 yrs >60 mL/min Normal 40-49 yrs >58 mL/minNormal 50-59 yrs >51 mL/min Normal 60-69 yrs >45 mL/min Sijuxf14-31 yrs >39 mL/min Normal 80 and above >32 mL/min NormalPT/INR: (MICKEY: 07/03/2019 16:57) ( MsgRcvd 07/03/2019 17:19) Final results Test Result Flag Units (Reference) PROTIME 13.7 SECONDS (11.0 - 15.5) 5 Clinical Report - Physicians/Mid Levels [facility] Emergency Department [address] [place] [address] Phone #: ext- [phone] 07/03/2019 14:35 Patient: BRAULIO LANGLEY Sex: M : 1960 Age: 59y INR 1.04 (0.93 - 1.23) \\BLDo\\INR INTERPRETATION\\BLDx\\ Therapeutic range for Coumadin and related oral anticoagulants. -International Normalized Ratio (INR): 2.0 - 3.0 for Venous Thrombosis, Pulmonary Embolus, Tissue heart valves, Acute [place], Atrial Fibrillation, Valvular heart disease and recurrent Systemic Embolism. -International Normalized Ratio (INR): 2.5 - 3.5 for Mechanical Prosthetic valve. CPK: (MICKEY: 07/03/2019 1 6:57) ( MsgRcvd 07/03/2019 17:22) Final results Test Result Flag Units (Reference) CPK 140 U/L (30 - 170) Elbow Complete Left: (MICKEY: 07/03/2019 15:07) ( MsgRcvd 07/03/2019 16:32) In Progress ELBOW COMPLETE LT Reason(s): Trauma/Injury TRANSPORTATION: WC IV? O2? Oxygen?(No) Room: ED CT Head W/O Cont: (MICKEY: 07/03/2019 15:07) ( MsgRcvd 07/03/2019 16:42) In Progress CT HEAD W/O CONTRAST Reason(s): Head Injury TRANSPORTATION: WC IV? O2? Oxygen?(No) Room: ED CMTS: on plavix.PROGRESS AND PROCEDURESCourse of Care: VSS, NAD, AOx3, interacting well and appropriately, no use of accessory muscle, able tospeak full sentences, stable, non-toxic looking. Enter room and pt lying peacefully in bed in NAD. Patient stable. Denies any new issues, concerns, or complaints. PE demos NV tinact b/l UE and LE. Not truly a fall; a controlled descent with inablility to get back up and small slips while crawling. Pt had indicated he bacame dizzy towards end; ? 2/2 exertion; crawled 60 ft. No CP, SOB, dypnea, or palps at this time. Has no compalints other than small abrasions and a sore L elbow. Discussed wiht attending and agrees with current orders. Will request imaging. Albertina duarte. Discussed with attending and feel that pt is a fall risk and feel that pt should be admitted. Sts that he did slip yesterday and does not have someone at home all the time. Attending agrees. Contact hosptialist and indicates that we do not have the capabilities voer the weekend (PT and Neuro). Recommends different facility. Pt initially declines [facility]. Will call other facilities. Contacted [facility] and they indicate no capabilities as well. Enter room to discuss with pt as her neurologist is at [facility]. Pt and spouse discuss and indicate they would go to [facility]. Contacted and left message. Discuss more and concerns for potentially worseing ALS. Feel pt may need new neuro update and eval. 6 Clinical Report - Physicians/Mid Levels [facility] Emergency Department [address] [place] [address] Phone #: [phone] 07/03/2019 14:35 Patient: BRAULIO LANGLEY Sex: M : 1960 Age: 59y [facility] call back. Informed of concerns. Sts she will call hospitalist and call back. Pending call back. [facility] calls back and discuss wiht Dr. Gruber and he agrees and accepts pt for eval and fall risk. Critical care performed (60 minutes). Time includes: direct patient care, patient reassessment, coordination of patient care, review of patient's medical records, medical consultation, family consultation regarding treatment decisions and documentation of patient care- see progress notes. Discussed case with health care provider (Black). Disposition: Transferred to [facility]. UTI (catheter associated) was not present prior to transfer. Pressure ulcer was not present prior to transfer. Vascular infection (catheter associated) was not present prior to transfer.CLINICAL IMPRESSION Contusion to the left elbow.(Electronically signed by Wenceslao Pedro P.A.-C 07/04/2019 15:39) Name Value Range Interpretation Code Description Data Sheron rce(s) Supporting Document(s) ID Date Data Source [id number] 07/03/2019 05:22:00 PM EST [facility] Name Value Range Interpretation Code Description Data Sheron rce(s) Supporting Document(s) Creatine kinase [Enzymatic activity/volume] in Serum or Plasma 1 40 U/L 30 - 170 [facility] ID Date Data Source [id number] 07/03/2019 05:22:00 PM EST [facility] Name Value Range Interpretation Code Description Data Sheron rce(s) Supporting Document(s) COMPREHENSIVE METABOLIC PANEL [facility] COMPREHENSIVE METABOLIC PANEL Sodium [Moles/volume] in Serum or Plasma 138 mEq/L 134 - 153 [facility] Potassium [Moles/volume] in Serum or Plasma 3.5 mEq/L 3.6 - 5.0 L [facility] Chloride [Moles/volume] in Serum or Plasma 101 mEq/L 98 - 107 [facility] Carbon dioxide, total [Moles/volume] in Serum or Plasma 26 MEQ/L 22 - 30 [facility] Glucose [Mass/volume] in Serum or Plasma 123 MG/DL 65 - 110 H [facility] BUN 15 MG/DL 7 - 21 [facility] Creatinine [Mass/volume] in Serum or Plasma 0.8 MG/DL 0.7 - 1.5 [facility] BUN/CREAT 19 8 - 27 [facility] Protein [Mass/volume] in Serum or Plasma 7.0 G/DL 6.3 - 8.2 [facility] Albumin [Mass/volume] in Serum or Plasma 4.2 G/DL 3.9 - 5.0 [facility] Globulin [Mass/volume] in Serum by calculation 2.8 GM/DL 2.4 - 3.2 [facility] A/G RATIO 1.5 0.8 - 2.0 [facility] Calcium [Mass/volume] in Serum or Plasma 9.6 MG/DL 8.4 - 10.2 [facility] Bilirubin.total [Mass/volume] in Serum or Plasma 0.7 MG/DL 0.2 - 1.3 [facility] Alkaline phosphatase [Enzymatic activity/volume] in Serum or Plasma 98 U/L 38 - 126 [facility] Aspartate aminotransferase [Enzymatic activity/volume] in Serum or Plasma 27 U/L 5 - 40 [facility] Alanine aminotransferase [Enzymatic activity/volume] in Seru m or Plasma 32 U/L 7 - 56 [facility] Anion gap 3 in Serum or Plasma 11.0 mmol/L 8.0 - 16.0 [facility] AGE 59 yrs [facility] NON-AA GFR >60 mL/min [facility] Hosp ital AFR AMER GFR >60 mL/min [facility] Ho spital Male GFR In terprentation 20-49 yrs >60 mL/min Normal 50-59 yrs >56 mL/min Normal 60-69 yrs >49 mL/min Normal 70-79yrs >42 mL/min Normal 80 and above >35 mL/min Normal Female GFR Interpretation 20-39 yrs >60 mL/min Normal 40-49 yrs >58 mL/min Normal 50-59 yrs >51 mL/min Normal 60-69 yrs >45 mL/min Normal 70-79 yrs >39 mL/min Normal 80 and above >32 mL/min Normal ID Date Data Source [id number] 07/03/2019 05:21:00 PM EST [facility] Name Value Range Interpretation Code Description Data Sheron rce(s) Supporting Document(s) CBC W/AUTOMATED DIFF [facility] COMPLETE BLOOD COUNT Leukocytes [#/volume] in Blood by Automated count 13.7 10^3/uL 4.2 - 11.0 H [facility] Erythrocytes [#/volume] in Blood by Automated count 4.91 10^6/uL 4. 50 - 6.30 [facility] Hemoglobin [Mass/volume] in Blood 14.6 g/dL 14.0 - 16.0 [facility] Hematocrit [Volume Fraction] of Blood by Automated count 43.0 % 4 1.0 - 51.0 [facility] Erythrocyte mean corpuscular volume [Entitic volume] by Auto mated count 87.6 fL 80.0 - 94.0 [facility] Erythrocyte mean corpuscular hemoglobin [Entitic mass] by Automated count 29.7 pg 27.0 - 34.0 [facility] Erythrocyte mean corpuscular hemoglobin concentration [Mass/volume] by Automated count 34.0 g/dL 31.0 - 36.0 [facility] Erythrocyte distribution width [Ratio] by Automated count 13.1 % 11.5 - 14.8 [facility] Platelets [#/volume] in Blood by Automated count 227 10^3/uL 150 - 45 0 [facility] Platelet mean volume [Entitic volume] in Blood by Automated count 9.6 fL 7.4 - 10.4 [facility] Neutrophils/100 leukocytes in Blood by Automated count 84.0 % 37. 0 - 80.0 H [facility] Lymphocytes/100 leukocytes in Blood by Manual count 7.8 % 25.0 - 40.0 L [facility] Monocytes/100 leukocytes in Blood by Automated count 6.6 % 3.0 - 8.0 [facility] Eosinophils/100 leukocytes in Blood by Automated count 0.9 % 0.0 - 7.0 [facility] Basophils/100 leukocytes in Blood by Automated count 0.2 % 0.0 - 2.0 [facility] %IG 0.5 % 0.0 - 0.0 [facility] 0.0 % 0.0 - 0.0 [facility] al Neutrophils [#/volume] in Blood by Automated count 11.52 10^3/uL 2. 00 - 6.90 H [facility] Lymphocytes [#/volume] in Blood by Automated count 1.07 10^3/uL 0.60 - 3.40 [facility] Monocytes [#/volume] in Blood by Automated count 0.91 10^3/uL 0.00 - 0.90 H [facility] Eosinophils [#/volume] in Blood by Automated count 0.12 10^3/uL 0.00 - 0.70 [facility] Basophils [#/volume] in Blood by Automated count 0.03 10^3/uL 0.00 - 0.20 [facility] #IG 0.07 10^3/uL 0.00 - 0.10 [facility] ospital #NRBC 0.00 10^3/uL 0.00 - 0.00 [facility] ospital MANUAL DIFF NOT INDICATED [facility] RBC MORPH NOT INDICATED [facility] spital ID Date Data Source [id number] 07/03/2019 05:19:00 PM EST [facility] Name Value Range Interpretation Code Description Data Sheron rce(s) Supporting Document(s) Prothrombin time (PT) 13.7 SECONDS 11.0 - 15.5 [facility] INR in Platelet poor plasma by Coagulation assay 1.04 0.93 - 1. 23 [facility] \\BLDo\\INR INTERPRETATION\\BLDx\\ Therapeutic range for Coumadin and related oral anticoagulants. - International Normalized Ratio (INR): 2.0 - 3.0 for Venous Thrombosis, Pulmonary Embolus, Tissue heart valves, Acute [place], Atrial Fibrillation, Valvular heart disease and recurrent Systemic Embolism. -International Normalized Ratio (INR): 2.5 - 3.5 for Mechanical Prosthetic valve. Procedure Social History Code Duration Value Status Description Data Source(s ) Smoking 02/11/2020 12:00:00 AM EDT Patient is a former smoker completed Patient is a former smoker MEDJEANIE ([facility], ) Smoking 11/18/2019 12:00:00 AM EDT Unknown if ever smoked comp leted Unknown if ever smoked [facility] ([facility]) Smoking 11/04/2019 12:00:00 AM EDT Unknown if ever smoked comp leted Unknown if ever smoked [facility] ([facility]) Smoking 07/22/2019 12:00:00 AM EST Unknown if ever smoked comp leted Unknown if ever smoked [facility] ([facility]) Vital Signs ID Date Data Source UNK Name Value Range Interpretation Code Description Data Source(s) Body weight 214 [lb_av] 214 [lb_av] RAPHAEL ([employer] [facility]) Systolic blood pressure 134 mm[Hg] 134 mm[Hg] A THENA ([facility]) Body mass index (BMI) [Ratio] 28.2 kg/m2 28.2 k g/m2 RAPHAEL ([facility]) Body height 73 [in_i] 73 [in_i] RAPHAEL ([facility]) Diastolic blood pressure 98 mm[Hg] 98 mm[Hg] RAPHAEL ([facility]) Body weight 93.442 kg 93.442 kg MEDENT ([facility], ) Body mass index (BMI) [Ratio] 27.2 kg/m2 27.2 k g/m2 MEDJEANIE ([facility], ) Body weight 206.00 [lb_av] 206.00 [lb_av] MEDEN T ([facility], ) Body height 73 [in_i] 73 [in_i] KAYLA ([facility], ) 6'1" Oxygen saturation in Arterial blood by Pulse oximetry 95 % 95 % [facility] ([facility], ) Heart rate 68 /min 68 /min [facility] ([facility], ) Diastolic blood pressure 84 mm[Hg] 84 mm[Hg] KAYLA ([facility], ) Systolic blood pressure 120 mm[Hg] 120 mm[Hg] M EDJEANIE ([facility], ) Patient Treatment Plan of Care Planned Activity Planned Date Details Description Data Source (s) Losartan Potassium-Hydrochlorothiazide 100-25 MG 07/29/2020 12:00:0 0 AM EST [facility] ([facility]) Gabapentin 600 MG 07/29/2020 12:00:00 AM EST [facility] ([facility]) Fluticasone Propionate HFA 220 MCG/ACT 07/29/2020 12:00:00 AM EST [facility] ([facility]) DULoxetine HCl 60 MG 07/29/2020 12:00:00 AM EST [facility] ([facility]) Tamsulosin HCl 0.4 MG 07/28/2020 12:00:00 AM EST [facility] ([facility]) Rosuvastatin Calcium 40 MG 07/28/2020 12:00:00 AM EST [facility] ([facility]) Riluzole 50 MG 07/28/2020 12:00:00 AM EST [facility] ([facility]) Polyethylene Glycol 1000 07/28/2020 12:00:00 AM EST [facility] ([facility]) Pantoprazole Sodium 40 MG 07/28/2020 12:00:00 AM EST [facility] ([facility]) Nitroglycerin 0.3 MG 07/28/2020 12:00:00 AM EST [facility] ([facility]) Multivitamin 07/28/2020 12:00:00 AM EST N [facility] ([facility]) Metoprolol Tartrate 100 MG 07/28/2020 12:00:00 AM EST [facility] ([facility]) Clopidogrel Bisulfate 75 MG 07/28/2020 12:00:00 AM EST [facility] ([facility]) Amitriptyline HCl 50 MG 07/28/2020 12:00:00 AM EST [facility] ([facility]) Ipratropium [place] HFA 17 MCG/ACT 07/28/2020 12:00:00 AM EST [facility] ([facility]) Albuterol Sulfate 108 (90 Base) MCG/ACT 07/28/2020 12:00:00 AM EST [facility] ([facility]) Eliquis 5 MG 07/28/2020 12:00:00 AM EST N [facility] ([facility]) TiZANidine HCl 4 MG 07/28/2020 12:00:00 AM EST [facility] ([facility]) Albuterol Sulfate HFA 108 (90 Base) MCG/ACT 02/08/2020 01:00:00 AM EDT [facility] ([facility]) Amitriptyline HCl 50 MG 02/08/2020 01:00:00 AM EDT [facility] ([facility]) Apixaban 5 MG 02/08/2020 01:00:00 AM EDT [facility] ([facility]) Clopidogrel Bisulfate 75 MG 02/08/2020 01:00:00 AM EDT [facility] ([facility]) Compleat 02/08/2020 01:00:00 AM EDT N [facility] ([facility]) DULoxetine HCl 60 MG 02/08/2020 01:00:00 AM EDT [facility] ([facility]) Flovent HFA 220 MCG/ACT 02/08/2020 01:00:00 AM EDT [facility] ([facility]) Gabapentin 600 MG 02/08/2020 01:00:00 AM EDT [facility] ([facility]) Losartan Potassium-Hydrochlorothiazide 100-25 MG 02/08/2020 01:00:0 0 AM EDT [facility] ([facility]) Lopressor 50 MG 02/08/2020 01:00:00 AM EDT [facility] ([facility]) Multivitamins 02/08/2020 01:00:00 AM EDT [facility] ([facility]) Nitroglycerin 0.3 MG 02/08/2020 01:00:00 AM EDT [facility] ([facility]) Pantoprazole Sodium 40 MG 02/08/2020 01:00:00 AM EDT [facility] ([facility]) Polyethylene Glycol 3350 17 GM/SCOOP 02/08/2020 01:00:00 AM EDT [facility] ([facility]) Riluzole 50 MG 02/08/2020 01:00:00 AM EDT [facility] ([facility]) Rosuvastatin Calcium 40 MG 02/08/2020 01:00:00 AM EDT [facility] ([facility]) Tamsulosin HCl 0.4 MG 02/08/2020 01:00:00 AM EDT [facility] ([facility]) tiZANidine HCl 4 MG 02/08/2020 01:00:00 AM EDT [facility] ([facility]) Benzonatate 200 MG 11/03/2019 01:00:00 AM EDT [facility] ([facility]) Pantoprazole Sodium 40 MG 10/20/2019 12:00:00 AM EST [facility] ([facility]) Metoprolol Tartrate 50 MG 10/20/2019 12:00:00 AM EST [facility] ([facility]) Losartan Potassium-HCTZ 50-12.5 MG 10/20/2019 12:00:00 AM EST [facility] ([facility]) Fluticasone Propionate HFA 220 MCG/ACT 10/20/2019 12:00:00 AM EST [facility] ([facility]) DULoxetine HCl 60 MG 10/20/2019 12:00:00 AM EST [facility] ([facility]) Aspirin 81 MG 10/20/2019 12:00:00 AM EST [facility] ([facility]) Amitriptyline HCl 50 MG 10/20/2019 12:00:00 AM EST [facility] ([facility]) Clopidogrel Bisulfate 75 MG 10/20/2019 12:00:00 AM EST [facility] ([facility]) Riluzole 50 MG 10/20/2019 12:00:00 AM EST [facility] ([facility]) Rosuvastatin Calcium 20 MG 10/20/2019 12:00:00 AM EST [facility] ([facility]) Gabapentin 600 MG 10/20/2019 12:00:00 AM EST [facility] ([facility]) Tamsulosin HCl 0.4 MG 10/20/2019 12:00:00 AM EST [facility] ([facility]) TiZANidine HCl 4 MG 10/20/2019 12:00:00 AM EST [facility] ([facility]) Juice Plus Fibre 10/20/2019 12:00:00 AM EST [facility] ([facility]) Nitroglycerin 0.4 MG 10/20/2019 12:00:00 AM EST [facility] ([facility]) Albuterol Sulfate HFA 108 (90 Base) MCG/ACT 10/20/2019 12:00:00 AM EST [facility] ([facility])
[2020-08-31 16:06] VITALS: BP 120/78
== END 2020-08-31 18:50 | disposition home or self-care (01) ==
LOC: EDBD 12:55 → M ED 12:55
DX: K94.23 Gastrostomy malfunction (principal); G12.21 Amyotrophic lateral sclerosis; Z79.82 Long term (current) use of aspirin; Z79.899 Other long term (current) drug therapy

== ENCOUNTER → 2020-09-01 | Outpatient (CLI) | payer MEDICARE ==
[~2020-09-01] MED LIST changes: +ISOVUE-300 61% 50ML VIAL As Ordered ONE; +LIDOCAINE 1% MDV 20ML VIAL As Ordered ONE; +[UNRECOGNIZED DRUG - REMARK] PERC; +ceFAZolin 1GM VIAL (J0690 PER 500MG) As Ordered ONE
[2020-09-01 15:55] VITALS: BP 140/82
--- NOTE | 2020-09-01 16:02 | POST-OPPD ---
Postoperative Procedure Note Date Of Procedure: Sep 01, 2020 Time Of Procedure: 15:58 IR Gastrostomy Replacement Gastrostomy catheter replacement with fluoroscopic guidance Clinical Information:ALS. Gastrostomy dependent. Gastrostomy catheter fell out. Physician: Dr. Gamboa. Procedure: The patient was advised of the benefits, risks, and alternatives of the procedure and informed consent was obtained. A time out was performed with verification of the patient's name, MRN, site of procedure, and type of procedure to be performed. The patient was positioned in the supine position on the angiographic table. The site was prepped and draped in the usual sterile fashion. Moderate sedation was not required. The physician spent 30 minutes of continuous [id number] time with the patient. A extract mixer radiograph reveals a Everett catheter in place. The Everett catheter was removed. The tract was probed with a Kumpe catheter and guidewire under fluoroscopy guidance. The wire was removed and injection of contrast through the catheter confirmed location within the stomach. A wire was advanced through the catheter, under fluoroscopic guidance, into the stomach and the catheter was removed over the wire. A new 18 Malaysian JAYSON gastrostomy catheter was advanced into the stomach over the wire. The retention balloon was insufflated and the catheter was retracted to the anterior stomach wall. The catheter positioning within the stomach was confirmed by injection of contrast. A sterile dressing was applied. The patient tolerated the procedure well and was returned to the PRU in stable condition. EBL: < 5 mL. Complications: None. Conclusion: 1. Successful replacement of an 18 Malaysian gastrostomy catheter. 2. The gastrostomy tube may be used. Thank you for this referral JEFFREY GAMBOA MD Sep 01, 2020 16:02
== END ==
LOC: M IRPRO 14:00
PROVIDERS: ATTEND Emergency Medicine
DX: G12.21 Amyotrophic lateral sclerosis (principal)
CPT/HCPCS: 49450; C1729; C1769; C1887; J0690; Q9967